=== PATIENT | female | born 1955 | race Hispanic/Latino ===

== ENCOUNTER 2017-12-24 13:41 | Inpatient (IN) | payer MEDICARE ==
[2017-12-24] MEDS ORDERED: Vancomycin 1 GM 1 GM/250 ML BAG IV SCH (14:45)
[2017-12-24 14:53] LABS: BASO % 0.2 % (0.0-2.0); HEMOGLOBIN 11.4 g/dL (11.0-16.0); LYMPH # 0.5 K/uL (1.0-4.3); LYMPH % 2.2 % (20.0-40.0); MEAN CELL VOLUME 87.5 fL (81.0-99.0); MEAN CORPUSCULAR HEMOGLOBIN 29.8 pg (27.0-31.0); MEAN CORPUSCULAR HGB CONC 34.1 g/dL (33.0-37.0); MEAN PLATELET VOLUME 8.8 fL (7.2-11.7); MONO # 0.3 K/uL (0.0-0.8); MONO % 1.2 % (0.0-10.0); NEUT % 96.4 % (50.0-75.0); PLATELET COUNT 213 K/uL (130-400); RBC 3.82 Mil/uL (3.80-5.20); RED CELL DISTRIBUTION WIDTH 16.5 % (11.5-14.5); WHITE BLOOD COUNT 23.9 K/uL (4.8-10.8)
[2017-12-24] MEDS ORDERED: Sodium Chloride 0.9% 1,000 ML IV ONE ×3 (15:09→18:32)
[2017-12-24 15:11] LABS: ALB/GLOB RATIO 1.3 (1.0-2.1); ALBUMIN 3.5 g/dL (3.5-5.0); ALT/SGPT 37 U/L (9-52); AST/SGOT 24 U/L (14-36); BLOOD UREA NITROGEN 17 mg/dL (7-17); GFR AFRICAN-AMERICAN > 60; GFR NON-AFRICAN AMERICAN > 60
[2017-12-24] MEDS ORDERED: Vancomycin 1 GM 1 GM/250 ML BAG IV ONE (15:15)
[2017-12-24] MEDS ORDERED: Sodium Chloride 0.9% 1,000 ML ONE ×2 (15:39→18:01)
[2017-12-24] MEDS ORDERED: Vancomycin 1 gm/NS 200 ml 1 GM/200 ML BAG IVPB ONE (15:45)
[2017-12-24 15:50] LABS: ANISOCYTOSIS SLIGHT; BANDS 4 % (0-2); HYPOCHROMIC SLIGHT; LYMPHOCYTE 2 % (20-40); MONOCYTE 1 % (0-10); NEUTROPHIL 93 % (50-75); PLATELET ESTIMATE NORMAL (NORMAL); POIKILOCYTOSIS SLIGHT; TOTAL CELLS COUNTED 100
--- NOTE | 2017-12-24 16:20 | C.PDOC ---
History Of Present Illness <Eulalia Mcdaniel - Last Filed: 12/24/17 18:54> <Frederick Palencia - Last Filed: 12/24/17 19:21> 62 y/o female, w/PMhx of rheumatoid arthritis, h/o MRSA of abdominal fold and mitral valve prolapse presents to the ER complaining of redness and swelling to left leg which has been present since yesterday. Fever of 103 at home, took Tylenol. Patient states that she was bit by a spider on her great toe and believes this caused the swelling. Pt also notes she cut her cuticles and ingrown nails yesterday. Denies chest pain, sob, abdominal pain, change in sensation or trauma. (Eulalia Mcdaniel) History Per: Patient History/Exam Limitations: no limitations Onset/Duration Of Symptoms: Days Current Symptoms Are (Timing): Still Present Severity: Moderate <Eulalia Mcdaniel - Last Filed: 12/24/17 18:54> <Frederick Palencia - Last Filed: 12/24/17 19:21> Time Seen by Provider: 12/24/17 13:57 Chief Complaint (Nursing): Abnormal Skin Integrity Past Medical History Reviewed: Historical Data, Nursing Documentation, Vital Signs - Medical History PMH: Mitral Valve Prolapse, Rheumatoid Arthritis Surgical History: No Surg Hx Family History: States: No Known Family Hx - Social History Hx Alcohol Use: No Hx Substance Use: No <Eulalia Mcdaniel - Last Filed: 12/24/17 18:54> Vital Signs: Last Vital Signs Temp 102.5 F H 12/24/17 17:57 Pulse 81 12/24/17 19:00 Resp 20 12/24/17 19:00 BP 87/43 L 12/24/17 19:00 Pulse Ox 94 L 12/24/17 19:08 Review Of Systems Except As Marked, All Systems Reviewed And Found Negative. Constitutional: Positive for: Fever. Negative for: Chills Skin: Positive for: Other (redness and swelling to left leg) <Eulalia Mcdaniel - Last Filed: 12/24/17 18:54> Physical Exam - Physical Exam Appears: Non-toxic, No Acute Distress Skin: Warm, Dry Head: Atraumatic, Normacephalic Eye(s): bilateral: Normal Inspection, EOMI Nose: Normal Oral Mucosa: Moist Neck: Normal ROM, Supple Chest: Symmetrical Cardiovascular: Rhythm Regular Respiratory: Normal Breath Sounds, No Rales, No Rhonchi, No Wheezing Extremity: Other (increased erythema and warmth extending from the left foot to just below the knee, multiple scabs to toes. TTP diffusely and swelling. <2 sec cap refill ) Pulses: Left Dorsalis Pedis: Decreased, Right Dorsalis Pedis: Decreased Neurological/Psych: Oriented x3, Normal Speech, Normal Sensation <Eulalia Mcdaniel - Last Filed: 12/24/17 18:54> ED Course And Treatment - Laboratory Results Result Diagrams: 12/24/17 14:50 12/24/17 14:50 ECG: Interpreted By Me, Viewed By Me ECG Rhythm: Sinus Rhythm Rate From EC O2 Sat by Pulse Oximetry: 94 (RA) Pulse Ox Interpretation: Abnormal Progress Note: Labs ordered. Patient treated with Motrin PO, IV Fluids, and Vancomycin IV. Case discussed with Dr Blum, agreed upon admission. Instructed Benji for ID. Dr Howard called, pending call back. PT continued to be evaluated in ED. Hypotension persists. IVF ordered. CAse discussed with Dr Cameron who evaluated work up , agreed upon plan and treatment. ICU called, pending call back. Case Dr Blum again, additional testing ordered. CAse endorsed to Dr Palencia pending ICU consult. <Eulalia Mcdaniel - Last Filed: 12/24/17 18:54> - Laboratory Results Result Diagrams: 12/24/17 14:50 12/24/17 14:50 Progress Note: 19:[address] howard (ID) , wants to start Zyvox 600 mg iv q 12h Reevaluation Time: 19:00 <Almaz Palenciadi - Last Filed: 12/24/17 19:21> Critical Care Time - Critical Care Note Total Time (in mins): 30 Documented critical care: time excludes all time spent performing seperately billable procedures. <SlimeValdi - Last Filed: 12/24/17 19:21> Disposition - Disposition Disposition Time: 19:08 <Eulalia Mcdaniel - Last Filed: 12/24/17 18:54> <SlimeValdi - Last Filed: 12/24/17 19:21> - Disposition Disposition: HOSPITALIZED Condition: STABLE - Clinical Impression Clinical Impression: Cellulitis, Sepsis affecting skin - PA / ELECTRONICS MAINTENANCE TECHNICIAN / Resident Statement MD/DO has reviewed & agrees with the documentation as recorded. - Scribe Statement The provider has reviewed the documentation as recorded by the Scribe <Eulalia Mcdaniel - Last Filed: 12/24/17 18:54> <Frederick Palencia - Last Filed: 12/24/17 19:21> - Scribe Statement Yanet Perez Provider Attestation All medical record entries made by the Scribe were at my direction and personally dictated by me. I have reviewed the chart and agree that the record accurately reflects my personal performance of the history, physical exam, medical decision making, and the department course for this patient. I have also personally directed, reviewed, and agree with the discharge instructions and disposition. (Eulalia Mcdaniel)
[2017-12-24 17:33] LABS: VENOUS BLOOD GAS BASE EXCESS 5.2 mmol/L (0.0-2.0); VENOUS BLOOD GAS PCO2 67 mmHg (40-60); VENOUS BLOOD GAS PO2 15 mm/Hg (30-55); VENOUS BLOOD PH 7.31 (7.32-7.43)
[2017-12-24] MEDS ORDERED: Aztreonam 2 GM in Sodium Chloride 0.9% 100 ML IVPB STA (18:43)
--- NOTE | 2017-12-24 19:21 | CP.PCM.CON ---
History of Present Illness - History of Present Illness History of Present Illness: Podiatry Consult Note: Dr. Okeefe 62 year old female patient with PMHx of mitral valve prolapse, RA was seen and evaluated at bedside left LE cellulitis. Patient is seen with her at bedside. Patient reports that she has a lot of pain to the LLE which started couple of days ago and it was progressively worsened. Patient reports that she believes she got bitten by a spider and it is related to that. Reports that she had a fever of 103 yesterday. Reports that she took tylenol which helped her with the fever. Reports that her legs are always swollen but this time it is more than usual. reports that she is very lethargic. Denies of any other pedal complains at this time. No recent N/V/C/SOB/CP/headache. PMHx: RA, mitral valve prolapse PSHx: b/l knee replacement Allergies: Amoxicillin, iodine SHx: Denies smoking, EtOH or illicit drug usage Review of Systems - Constitutional Constitutional: As Per HPI Past Patient History - Past Social History Smoking Status: Never Smoked - CARDIAC Hx Mitral Valve Prolapse: Yes - MUSCULOSKELETAL/RHEUMATOLOGICAL Hx Rheumatoid Arthritis: Yes - PSYCHIATRIC Hx Substance Use: No Meds Allergies/Adverse Reactions: Allergies Allergy/AdvReac Type Severity Reaction Status Date / Time amoxicillin [From Amoxil] Allergy Verified 12/24/17 13:54 iodine Allergy Verified 12/24/17 14:18 - Medications Medications: Current Medications Sodium Chloride (Sodium Chloride 0.9%) 1,000 mls @ 1,000 mls/hr IV .Q1H ONE Stop: 12/24/17 19:31 Last Admin: 12/24/17 18:40 Dose: 1,000 mls/hr Aztreonam 2 gm/ Sodium (Chloride) 100 mls @ 100 mls/hr IVPB STAT STA PRN Reason: Protocol Stop: 12/24/17 19:42 Physical Exam - Constitutional Appears: Well, Non-toxic, No Acute Distress - Extremities Exam Additional comments: Left LE focused exam VASC: DP/PT pulses are very faintly palpable 1/4, Cap refill time: < 3 sec to all digits, Temp gradient: hot to cool from proximal to distal, edema nted extending from the knee joint distally DERM: lateral border of the nail fold opening noted on the hallux and 2nd digit nail, erythema which extends from the knee joint distally towards the rearfoot of the left foot, temp gradient is cool on the forefoot with no erythema NEURO: protective sensation grossly intact ORTHO: pain on ROM of the LLE, pain during palpation of the calf, Homman and prett positive on the left leg - Neurological Exam Neurological exam: Alert, Oriented x3 - Psychiatric Exam Psychiatric exam: Normal Affect, Normal Mood Results - Vital Signs Recent Vital Signs: Last Vital Signs Temp 102.5 F H 12/24/17 17:57 Pulse 81 12/24/17 19:00 Resp 20 12/24/17 19:00 BP 87/43 L 12/24/17 19:00 Pulse Ox 94 L 12/24/17 19:08 - Labs Result Diagrams: 12/24/17 14:50 12/24/17 14:50 Labs: Laboratory Results - last 24 hr 12/24/17 12/24/17 12/24/17 14:50 14:50 17:28 WBC 23.9 H RBC 3.82 Hgb 11.4 Hct 33.4 L MCV 87.5 MCH 29.8 MCHC 34.1 RDW 16.5 H Plt Count 213 MPV 8.8 Neut % (Auto) 96.4 H Lymph % (Auto) 2.2 L [place] % (Auto) 1.2 Eos % (Auto) 0.0 Baso % (Auto) 0.2 Neut # (Auto) 23.0 H Lymph # (Auto) 0.5 L [place] # (Auto) 0.3 Eos # (Auto) 0.0 Baso # (Auto) 0.0 Neutrophils % (Manual) 93 H Band Neutrophils % 4 H Lymphocytes % (Manual) 2 L Monocytes % (Manual) 1 Platelet Estimate Normal Hypochromasia (manual) Slight Poikilocytosis (manual Slight Anisocytosis (manual) Slight pO2 15 L VBG pH 7.31 L VBG pCO2 67 H* VBG HCO3 26.8 VBG Total CO2 35.8 H VBG O2 Sat (Calc) 19.9 L VBG Base Excess 5.2 H VBG Potassium 3.6 Glucose 97 Lactate 2.3 H Crit Value Called To Dr mai Crit Value Called By Luciano mittal hide cooking operator Crit Value Read Back Y Blood Gas Notified Time 1732 Sodium 137 136.0 Potassium 3.4 L Chloride 96 L 97.0 L Carbon Dioxide 32 H Anion Gap 13 BUN 17 Creatinine 0.8 Est GFR ( Amer) > 60 Est GFR (Non-Af Amer) > 60 Random Glucose 117 H Calcium 9.0 Total Bilirubin 1.0 AST 24 ALT 37 Alkaline Phosphatase 88 Total Protein 6.3 Albumin 3.5 Globulin 2.7 Albumin/Globulin Ratio 1.3 Venous Blood Potassium 3.6 Assessment & Plan - Assessment and Plan (Free Text) Assessment: 62 year old female was evaluated for cellulitis vs. DVT Plan: Patient seen and evaluated Discussed patient with attending Dr. Okeefe Labs, vitals and charts reviewed - febrile; WBC @ 23.9 No breaks in the skin noted on the LLE Suggest Venous duplex and D-dimer to r/o DVT Vancomycin while in ED ID consult Thank you for the podiatry consult and allowing to take part in patient care Podiatry will follow patient while in-house - Date & Time Date: 12/24/17 Time: 16:30
[2017-12-24 20:36] LABS: VENOUS BLOOD GAS BASE EXCESS 2.1 mmol/L (0.0-2.0); VENOUS BLOOD GAS PCO2 52 mmHg (40-60); VENOUS BLOOD GAS PO2 34 mm/Hg (30-55); VENOUS BLOOD PH 7.35 (7.32-7.43)
--- NOTE | 2017-12-24 20:38 | CP.PCM.PN ---
Subjective - Date & Time of Evaluation Date of Evaluation: 12/24/17 Time of Evaluation: 20:15 - Subjective Subjective: Patient is seen and examined at bedside. H&P dictated #[id number] Objective - Vital Signs/Intake and Output Vital Signs (last 24 hours): Temp Pulse Resp BP Pulse Ox 99.8 F H 81 15 96/40 L 100 12/24/17 19:35 12/24/17 19:35 12/24/17 19:35 12/24/17 19:35 12/24/17 19:35 - Medications Medications: Current Medications Linezolid (Zyvox 600mg/300ml D5w) 600 mg in 300 mls @ 300 mls/hr IVPB Q12H JORGE A - Labs Labs: 12/24/17 14:50 12/24/17 14:50
--- NOTE | 2017-12-24 20:44 | CP.CCUPN ---
CCU Subjective - Physician Review Events Since Last Encounter (Free Text): 12/24/17 22:22 The Patient was seen and examined at the bedside, Medical records reviewed, and management issues were discussed and formulated with the house staff. Events reviewed 62 Y/O F with PMHx of Bronchial asthma, RA and mitral valve prolapse Who presented to the ER with complaint of Severe LLE pain, swelling and redness which started couple of days ago and it was progressively worsened over last 24 hours, also she had fever of 103 yesterday, she took tylenol which helped her with the fever. Patient reports that she believes she got bitten by a spider and it is related to that. In the ER Pt is Awake, comfortable in no apparent distress, however reports that she was very lethargic. Pt initially was admitted to the tele for management of Left LE cellulitis. ICU was then called for persistent hypotension, she is receiving the second liter of IVF. Labs significant for Leucocytosis, elevated lactate. Blood cultures sent, started on IV antibiotics, intially received Vancomycin by ER, ID consult called and she was initiated on IV Azactam and Zyvox Critical Care Time Spent (in minutes): 56 CCU Objective - Vital Signs / Intake & Output Vital Signs (Last 4 hours): Vital Signs Temp Pulse Resp BP Pulse Ox 12/24/17 19:35 99.8 F H 81 15 96/40 L 100 12/24/17 19:08 94 L 12/24/17 19:00 81 20 87/43 L 98 12/24/17 18:28 82 20 86/29 L 100 12/24/17 18:22 81 20 71/38 L 99 12/24/17 17:57 102.5 F H 82 20 91/46 L 99 12/24/17 17:27 77 20 95/44 L 100 12/24/17 17:14 76 29 H 96/34 L 100 12/24/17 16:51 73 20 93/41 L 91 L Intake and Output (Last 8hrs): Intake & Output 12/24/17 12/24/17 12/24/17 06:59 14:59 22:59 Weight 230 lb - Physical Exam Head: Positive for: Atraumatic, Normocephalic Pupils: Positive for: PERRL Extroacular Muscles: Positive for: EOMI Conjunctiva: Positive for: Normal. Negative for: Injected, Icteric Mouth: Positive for: Dry Neck: Positive for: Normal Range of Motion, Trachea Midline. Negative for: Meningeal Signs, MIDLINE TENDERNESS, Paraspinal Tenderness, JVD, Lymphadenopathy , Bruit, Other Respiratory/Chest: Positive for: Clear to Auscultation, Good Air Exchange. Negative for: Respiratory Distress, Accessory Muscle Use, Wheezes, Rales, Rhonchi Cardiovascular: Positive for: Regular Rate and Rhythm, Normal S1, S2, Peripheal Pulses Present. Negative for: Murmurs, Tachycardic, Bradycardic Abdomen: Positive for: Normal Bowel Sounds. Negative for: Tenderness, Distention Upper Extremity: Positive for: NORMAL PULSES. Negative for: Cyanosis, Edema, Tenderness, Swelling, Erythema Lower Extremity: Positive for: Edema, CALF TENDERNESS, NORMAL PULSES, Other ( Left Leg cellulitis, starting from the anlke up to just below the knee.). Negative for: Cyanosis, Normal ROM, Tenderness, Swelling, Erythema Neurological: Positive for: Speech Normal, Motor Func Grossly Intact Psychiatric: Positive for: Alert, Oriented x 3 - Medications Active Medications: Active Medications Generic Name Dose Route Start Last Admin Trade Name Freq PRN Reason Stop Dose Admin Linezolid 600 mg in 300 mls @ 300 mls/hr 12/24/17 20:30 Zyvox 600mg/300ml D5w IVPB Q12H JORGE A - Patient Studies Lab Studies: Lab Studies 12/24/17 12/24/17 12/24/17 Range/Units 20:30 17:28 14:50 WBC (4.8-10.8) K/uL RBC (3.80-5.20) Mil/uL Hgb (11.0-16.0) g/dL Hct (34.0-47.0) % MCV (81.0-99.0) fL MCH (27.0-31.0) pg MCHC (33.0-37.0) g/dL RDW (11.5-14.5) % Plt Count (130-400) K/uL MPV (7.2-11.7) fL Neut % (Auto) (50.0-75.0) % Lymph % (Auto) (20.0-40.0) % [place] % (Auto) (0.0-10.0) % Eos % (Auto) (0.0-4.0) % Baso % (Auto) (0.0-2.0) % Neut # (Auto) (1.8-7.0) K/uL Lymph # (Auto) (1.0-4.3) K/uL [place] # (Auto) (0.0-0.8) K/uL Eos # (Auto) (0.0-0.7) K/uL Baso # (Auto) (0.0-0.2) K/uL Neutrophils % (Manual) (50-75) % Band Neutrophils % (0-2) % Lymphocytes % (Manual) (20-40) % Monocytes % (Manual) (0-10) % Platelet Estimate (NORMAL) Hypochromasia (manual) Poikilocytosis (manual Anisocytosis (manual) pO2 34 15 L (30-55) mm/Hg VBG pH 7.35 7.31 L (7.32-7.43) VBG pCO2 52 67 H* (40-60) mmHg VBG HCO3 25.6 26.8 mmol/L VBG Total CO2 30.3 H 35.8 H (22-28) mmol/L VBG O2 Sat (Calc) 72.9 H 19.9 L (40-65) % VBG Base Excess 2.1 H 5.2 H (0.0-2.0) mmol/L VBG Potassium 3.2 L 3.6 (3.6-5.2) mmol/L Glucose 89 97 (65-105) mg/dl Lactate 1.6 2.3 H (0.7-2.1) mmol/L FiO2 21.0 % Crit Value Called To Dr mai Crit Value Called By Luciano mittal canvas marker Crit Value Read Back Y Blood Gas Notified Time 1732 Sodium 138.0 136.0 137 (132-148) mmol/L Potassium 3.4 L (3.6-5.2) mmol/L Chloride 107.0 97.0 L 96 L (98-107) mmol/L Carbon Dioxide 32 H (22-30) mmol/L Anion Gap 13 (10-20) BUN 17 (7-17) mg/dL Creatinine 0.8 (0.7-1.2) mg/dL Est GFR ( Amer) > 60 Est GFR (Non-Af Amer) > 60 Random Glucose 117 H (65-105) mg/dL Calcium 9.0 (8.6-10.4) mg/dl Total Bilirubin 1.0 (0.2-1.3) mg/dL AST 24 (14-36) U/L ALT 37 (9-52) U/L Alkaline Phosphatase 88 (38-126) U/L Total Protein 6.3 (6.3-8.3) g/dL Albumin 3.5 (3.5-5.0) g/dL Globulin 2.7 (2.2-3.9) gm/dL Albumin/Globulin Ratio 1.3 (1.0-2.1) Venous Blood Potassium 3.2 L 3.6 (3.6-5.2) mmol/L 12/24/17 Range/Units 14:50 WBC 23.9 H (4.8-10.8) K/uL RBC 3.82 (3.80-5.20) Mil/uL Hgb 11.4 (11.0-16.0) g/dL Hct 33.4 L (34.0-47.0) % MCV 87.5 (81.0-99.0) fL MCH 29.8 (27.0-31.0) pg MCHC 34.1 (33.0-37.0) g/dL RDW 16.5 H (11.5-14.5) % Plt Count 213 (130-400) K/uL MPV 8.8 (7.2-11.7) fL Neut % (Auto) 96.4 H (50.0-75.0) % Lymph % (Auto) 2.2 L (20.0-40.0) % [place] % (Auto) 1.2 (0.0-10.0) % Eos % (Auto) 0.0 (0.0-4.0) % Baso % (Auto) 0.2 (0.0-2.0) % Neut # (Auto) 23.0 H (1.8-7.0) K/uL Lymph # (Auto) 0.5 L (1.0-4.3) K/uL [place] # (Auto) 0.3 (0.0-0.8) K/uL Eos # (Auto) 0.0 (0.0-0.7) K/uL Baso # (Auto) 0.0 (0.0-0.2) K/uL Neutrophils % (Manual) 93 H (50-75) % Band Neutrophils % 4 H (0-2) % Lymphocytes % (Manual) 2 L (20-40) % Monocytes % (Manual) 1 (0-10) % Platelet Estimate Normal (NORMAL) Hypochromasia (manual) Slight Poikilocytosis (manual Slight Anisocytosis (manual) Slight pO2 (30-55) mm/Hg VBG pH (7.32-7.43) VBG pCO2 (40-60) mmHg VBG HCO3 mmol/L VBG Total CO2 (22-28) mmol/L VBG O2 Sat (Calc) (40-65) % VBG Base Excess (0.0-2.0) mmol/L VBG Potassium (3.6-5.2) mmol/L Glucose (65-105) mg/dl Lactate (0.7-2.1) mmol/L FiO2 % Crit Value Called To Crit Value Called By Crit Value Read Back Blood Gas Notified Time Sodium (132-148) mmol/L Potassium (3.6-5.2) mmol/L Chloride (98-107) mmol/L Carbon Dioxide (22-30) mmol/L Anion Gap (10-20) BUN (7-17) mg/dL Creatinine (0.7-1.2) mg/dL Est GFR ( Amer) Est GFR (Non-Af Amer) Random Glucose (65-105) mg/dL Calcium (8.6-10.4) mg/dl Total Bilirubin (0.2-1.3) mg/dL AST (14-36) U/L ALT (9-52) U/L Alkaline Phosphatase (38-126) U/L Total Protein (6.3-8.3) g/dL Albumin (3.5-5.0) g/dL Globulin (2.2-3.9) gm/dL Albumin/Globulin Ratio (1.0-2.1) Venous Blood Potassium (3.6-5.2) mmol/L Laboratory Results - last 24 hr 12/24/17 12/24/17 12/24/17 14:50 14:50 17:28 WBC 23.9 H RBC 3.82 Hgb 11.4 Hct 33.4 L MCV 87.5 MCH 29.8 MCHC 34.1 RDW 16.5 H Plt Count 213 MPV 8.8 Neut % (Auto) 96.4 H Lymph % (Auto) 2.2 L [place] % (Auto) 1.2 Eos % (Auto) 0.0 Baso % (Auto) 0.2 Neut # (Auto) 23.0 H Lymph # (Auto) 0.5 L [place] # (Auto) 0.3 Eos # (Auto) 0.0 Baso # (Auto) 0.0 Neutrophils % (Manual) 93 H Band Neutrophils % 4 H Lymphocytes % (Manual) 2 L Monocytes % (Manual) 1 Platelet Estimate Normal Hypochromasia (manual) Slight Poikilocytosis (manual Slight Anisocytosis (manual) Slight pO2 15 L VBG pH 7.31 L VBG pCO2 67 H* VBG HCO3 26.8 VBG Total CO2 35.8 H VBG O2 Sat (Calc) 19.9 L VBG Base Excess 5.2 H VBG Potassium 3.6 Glucose 97 Lactate 2.3 H FiO2 Crit Value Called To Dr mai Crit Value Called By Luciano mittal canvas marker Crit Value Read Back Y Blood Gas Notified Time 1732 Sodium 137 136.0 Potassium 3.4 L Chloride 96 L 97.0 L Carbon Dioxide 32 H Anion Gap 13 BUN 17 Creatinine 0.8 Est GFR ( Amer) > 60 Est GFR (Non-Af Amer) > 60 Random Glucose 117 H Calcium 9.0 Total Bilirubin 1.0 AST 24 ALT 37 Alkaline Phosphatase 88 Total Protein 6.3 Albumin 3.5 Globulin 2.7 Albumin/Globulin Ratio 1.3 Venous Blood Potassium 3.6 12/24/17 20:30 WBC RBC Hgb Hct MCV MCH MCHC RDW Plt Count MPV Neut % (Auto) Lymph % (Auto) [place] % (Auto) Eos % (Auto) Baso % (Auto) Neut # (Auto) Lymph # (Auto) [place] # (Auto) Eos # (Auto) Baso # (Auto) Neutrophils % (Manual) Band Neutrophils % Lymphocytes % (Manual) Monocytes % (Manual) Platelet Estimate Hypochromasia (manual) Poikilocytosis (manual Anisocytosis (manual) pO2 34 VBG pH 7.35 VBG pCO2 52 VBG HCO3 25.6 VBG Total CO2 30.3 H VBG O2 Sat (Calc) 72.9 H VBG Base Excess 2.1 H VBG Potassium 3.2 L Glucose 89 Lactate 1.6 FiO2 21.0 Crit Value Called To Crit Value Called By Crit Value Read Back Blood Gas Notified Time Sodium 138.0 Potassium Chloride 107.0 Carbon Dioxide Anion Gap BUN Creatinine Est GFR ( Amer) Est GFR (Non-Af Amer) Random Glucose Calcium Total Bilirubin AST ALT Alkaline Phosphatase Total Protein Albumin Globulin Albumin/Globulin Ratio Venous Blood Potassium 3.2 L EKG/Cardiology Studies: Cardiology / EKG Studies 12/24/17 18:43 ELECTROCARDIOGRAM Stat Comment: Mode Of Transportation: Reason For Exam: Sepsis Patient Review of Systems - Constitutional Constitutional: Fever. absent: Chills, Sweats - Cardiovascular Cardiovascular: absent: Acrocyanosis, Chest Pain, Chest Pain at Rest, Chest Pain with Activity, Claudication, Diaphoresis - Respiratory Respiratory: absent: Cough, Dyspnea, Hemoptysis, Dyspnea on Exertion, Wheezing, Snoring - Neurological Neurological: absent: Confusion, Dizziness, Numbness, Focal Weakness, Sensory Deficit, Syncope Critical Care Progress Note - Nutrition Nutrition: Nutrition Category Date Time Status Heart Healthy Diet [DIET] Diets 12/24/17 Dinner Active Assessment/Plan (1) Septic shock Current Visit: Yes Status: Acute (2) Cellulitis Current Visit: Yes Status: Acute (3) Asthma Current Visit: Yes Status: Acute (4) Mitral valve prolapse Current Visit: Yes Status: Acute - Assessment and Plan (Free Text) Assessment: Admit patient to the ICU for hemodynamic and Respiratory monitoring and Septic shock patient receiving antibiotics as per ID. Continue levophed for BP support, wean as tolerated Maintain MAP 65-75 Aggressive IV hydration with NS at 150cc/hr; Monitor UOP, Strict Is/Os Continue abx for coverage of celluitis and severe sepsis ID consult Trend WBC count, lactate Monitor fever curve, Tylenol PRN fevers Venous duplex R/O DVT PRN nebulizer treatment
[2017-12-24] MEDS ORDERED: DOPamine 400mg/250ml D5W 400 MG/250 ML BAG IV ONE (21:47)
[2017-12-24 21:52] LABS: SQUAMOUS EPITHIAL 57 /hpf (0-5); URINE BACTERIA RARE (<OCC); URINE BILIRUBIN NEGATIVE (NEGATIVE); URINE BLOOD NEGATIVE (NEGATIVE); URINE CLARITY Hazy (Clear); URINE COLOR Amber (YELLOW); URINE GLUCOSE (UA) NORMAL (Normal); URINE LEUKOCYTE ESTERASE TRACE Leu/uL (Negative); URINE PROTEIN 1+ mg/dL (NEGATIVE); URINE UROBILINOGEN NORMAL mg/dL (0.2-1.0)
[2017-12-24] MEDS ORDERED: DOPamine 400mg/250ml D5W 400 MG/250 ML BAG IV PRN (22:03)
[2017-12-24] MEDS: Linezolid 600 mg in D5W 300 ml 600 MG/300 ML BAG IVPB SCH (22:30)
[2017-12-24] MEDS: Sodium Chloride 0.9% 1,000 ML IV SCH (22:57)
[2017-12-25] MEDS: Potassium Chloride 20 mEq/15 ml LIQ UD PO SCH ×2 (00:12→04:31)
[2017-12-25 00:13] LABS: INR 1.9; PROTHROMBIN TIME 20.5 SECONDS (9.7-12.2)
[2017-12-25 00:23] LABS: TROPONIN I 0.037 ng/mL (0.00-0.120)
--- NOTE | 2017-12-25 00:24 | PCM.PROC ---
Procedures Attestation:: I certify that I have explained the specified Operation(s) or Procedure(s), risks, benefits and reasonable alternatives to the Patient and/or other person responsible. The opportunity was given to ask questions and all questions answered - Central Line Placement Internal Jugular Triple Lumen Catheter Aseptic technique was employed throughout the procedure: Hand Hygiene done prior to procedure, Full sterile barriers (mask, hair cover, sterile gown, sterile gloves), Full body sterile drape, Chloraprep Antiseptic: 30 second prep for IJ or SC sites, Chloraprep Antiseptic: 2 minute prep for Femoral CVP Time Out Performed: Yes Pt. Placed on Pulse Ox Monitor: Yes Central Line Prep: Chlorhexidine-Alcohol Combination Local Anesthesia Used: Lidocaine 1% Ultrasound Used for Placement: Yes Central Line Lumen Inserted: triple Central Line Length: 16 cm Post Procedure: Sutured in Place, Good Blood Return, All Ports Aspirated, Flushed, Capped, Sterile Dressing Applied Secured by: Suture Post procedure dressing: Gauze, Chlorhexidine disc (Biopatch) Post Procedure X-Ray: Yes Patient Tolerated Procedure: No Complications
[2017-12-25 06:32] LABS: BASO % 0.1 % (0.0-2.0); HEMOGLOBIN 10.6 g/dL (11.0-16.0); LYMPH # 0.3 K/uL (1.0-4.3); LYMPH % 1.4 % (20.0-40.0); MEAN CELL VOLUME 89.1 fL (81.0-99.0); MEAN CORPUSCULAR HEMOGLOBIN 29.5 pg (27.0-31.0); MEAN CORPUSCULAR HGB CONC 33.1 g/dL (33.0-37.0); MEAN PLATELET VOLUME 8.7 fL (7.2-11.7); MONO # 0.7 K/uL (0.0-0.8); MONO % 3.3 % (0.0-10.0); NEUT # 21.2 K/uL (1.8-7.0); NEUT % 95.2 % (50.0-75.0); PLATELET COUNT 193 K/uL (130-400); RED CELL DISTRIBUTION WIDTH 16.7 % (11.5-14.5); WHITE BLOOD COUNT 22.3 K/uL (4.8-10.8)
--- NOTE | 2017-12-25 06:51 | PCM.SEPTIC ---
Sepsis Progress Note - Reassessment Type Date of Evaluation: 12/25/17 Time of Evaluation: 00:00 Reassessment Type: Non-invasive reassessment - Non Invasive Reassessment Were the most recent vital sign reviewed: Yes Vital Sign (Latest): Temp Pulse Resp BP Pulse Ox 98.4 F 88 28 H 129/56 L 100 12/25/17 04:00 12/25/17 05:50 12/25/17 05:50 12/25/17 05:20 12/25/17 05:50 Cardiovascular: Yes: Regular Rate, Rhythm, Chest Non Tender, Tachycardia. No: Edema, Gallop, JVD, Murmur, Bradycardia, Ectopy, Friction Rub Respiratory: Yes: Normal Breath Sounds Capillary Refill: Normal (Less than 2 sec) Pulses: Normal Radial, Normal Dorsalis Pedis, Normal Posterior Tibialis Skin: Warm, Dry - Invasive Reassessment (complete 2 of 4) Was a Central Venous Pressure Measurement obtained within 6 Hours after the presentation of septic shock: No Was a passive leg raise performed or was a fluid challenge performed within 6 hrs of the initial fluid bolus: Yes Passive Leg Raise Result: Positive Fluid Challenge performed: Yes
[2017-12-25 06:52] LABS: LDL CHOLESTEROL 41 mg/dL (0-129)
[2017-12-25 06:54] LABS: ALB/GLOB RATIO 1.1 (1.0-2.1); ALBUMIN 2.9 g/dL (3.5-5.0); ALT/SGPT 62 U/L (9-52); AST/SGOT 58 U/L (14-36); BLOOD UREA NITROGEN 21 mg/dL (7-17); CALCIUM 7.6 mg/dl (8.6-10.4); GFR AFRICAN-AMERICAN > 60; GFR NON-AFRICAN AMERICAN > 60; HDL CHOLESTEROL 28 mg/dL (30-70)
[2017-12-25 07:14] LABS: TROPONIN I 0.066 ng/mL (0.00-0.120)
[2017-12-25 08:31] LABS: BANDS 21 % (0-2); LYMPHOCYTE 2 % (20-40); MONOCYTE 1 % (0-10); NEUTROPHIL 76 % (50-75); PLATELET ESTIMATE NORMAL (NORMAL); TOTAL CELLS COUNTED 100
[2017-12-25 08:32] LABS: ANISOCYTOSIS SLIGHT; HYPOCHROMIC SLIGHT; POIKILOCYTOSIS SLIGHT
[2017-12-25] MEDS: Linezolid 600 mg in D5W 300 ml 600 MG/300 ML BAG IVPB SCH ×2 (09:08→20:03)
[2017-12-25] MEDS: Pantoprazole 40 mg EC Tab PO SCH (09:43)
[2017-12-25] MEDS: Magnesium Sulfate 1 gm in D5W 1 GM/100 ML BAG IVPB SCH ×2 (09:57→10:30)
--- NOTE | 2017-12-25 10:04 | RAD ---
Date of service: 12/24/2017 PROCEDURE: CHEST RADIOGRAPH, 1 VIEW HISTORY: sepsis COMPARISON: None available. FINDINGS: LUNGS: Clear. PLEURA: No pneumothorax or pleural fluid seen. CARDIOVASCULAR: Cardiomegaly. No evidence of acute, significant cardiovascular disease. OSSEOUS STRUCTURES: No significant abnormalities. VISUALIZED UPPER ABDOMEN: Normal. OTHER FINDINGS: None. IMPRESSION: No active disease.
--- NOTE | 2017-12-25 10:06 | RAD ---
Date of service: 12/25/2017 PROCEDURE: CHEST RADIOGRAPH, 1 VIEW HISTORY: POST TLC INSERTION COMPARISON: December 24, 2017. FINDINGS: LUNGS: Clear. PLEURA: No pneumothorax or pleural fluid seen. CARDIOVASCULAR: S/p TLC catheter insertion via right internal jugular approach. Catheter in satisfactory position within 2 cm of the cavoatrial junction. OSSEOUS STRUCTURES: No significant abnormalities. VISUALIZED UPPER ABDOMEN: Normal. OTHER FINDINGS: None. IMPRESSION: Venous access catheter in satisfactory position. No adverse findings, no pneumothorax.
--- NOTE | 2017-12-25 10:10 | CP.PCM.PN ---
Subjective - Date & Time of Evaluation Date of Evaluation: 12/25/17 Time of Evaluation: 09:45 - Subjective Subjective: Progress note dictated #[id number] Objective - Vital Signs/Intake and Output Vital Signs (last 24 hours): Temp Pulse Resp BP Pulse Ox 98.4 F 82 18 114/49 L 99 12/25/17 04:00 12/25/17 07:20 12/25/17 07:20 12/25/17 07:20 12/25/17 07:20 Intake and Output: 12/25/17 12/25/17 06:59 18:59 Intake Total 1340 Output Total 450 Balance 890 - Medications Medications: Current Medications Acetaminophen (Tylenol 325mg Tab) 650 mg PO Q6 PRN PRN Reason: Pain, Mild (1-3) Last Admin: 12/25/17 04:29 Dose: 650 mg Heparin Sodium (Porcine) (Heparin) 5,000 units SC Q8 JORGE A Last Admin: 12/25/17 04:59 Dose: 5,000 units Linezolid (Zyvox 600mg/300ml D5w) 600 mg in 300 mls @ 300 mls/hr IVPB Q12H ON LICENSE OF [facility] Last Admin: 12/25/17 09:08 Dose: 300 mls/hr Sodium Chloride (Sodium Chloride 0.9%) 1,000 mls @ 100 mls/hr IV .Q10H JORGE A Last Admin: 12/24/17 22:57 Dose: 100 mls/hr Norepinephrine Bitartrate 4 mg (/ Sodium Chloride) 254 mls @ 15.24 mls/hr IV .[id number] PRN; Protocol; 4 MCG/MIN PRN Reason: TITRATE PER MD ORDER Last Admin: 12/25/17 00:15 Dose: 4 mcg/min, 15.24 mls/hr Magnesium Sulfate/Dextrose (Magnesium Sulfate 1 Gm/100 Ml D5w) 1 gm in 100 mls @ 200 mls/hr IVPB Q30M JORGE A Stop: 12/25/17 10:29 Aztreonam 1 gm/ Sodium (Chloride) 100 mls @ 200 mls/hr IVPB Q12 JORGE A PRN Reason: Protocol Pantoprazole Sodium (Protonix Ec Tab) 40 mg PO DAILY ON LICENSE OF [facility] Last Admin: 12/25/17 09:43 Dose: 40 mg - Labs Labs: 12/25/17 06:24 12/25/17 06:24 PT 20.5 SECONDS (9.7-12.2) H 12/24/17 23:26 INR 1.9 12/24/17 23:26 APTT 29 SECONDS (21-34) 12/24/17 23:26
--- NOTE | 2017-12-25 10:22 | HP ---
CHIEF COMPLAINT: Left leg swelling since last night, fever up to 103, generalized body aches and unable to move the left leg since last night, history of spider bite about 2 days ago in the same leg, but on the great toe. HISTORY OF PRESENT ILLNESS: Ms. Wallace is a 62-year-old female with past medical history of rheumatoid arthritis, osteoarthritis, mitral valve prolapse, GERD, who has been following up with , primary care physician and Dr. 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 The swelling and redness progressively got worse, which made them come to the emergency room. As per the patient and patient's who is at bedside, she has been in her usual health until yesterday night, even yesterday afternoon, she attended a jacob of a family member, and she had to walk few blocks up the hill. She walked without any difficulty, and she was fine up until last night when she noticed fever with chills and temperature was 103 and noticed left leg swelling, got worse since last night. The patient had history of MRSA with cellulitis about 4 years ago, also had spider bite, and she was admitted to [facility], and she was treated at the hospital about 4 years ago. She denies any headache, dizziness. Denies any chest pain, shortness of breath, or wheezing. Denies any nausea, vomiting, abdominal pain, diarrhea, or constipation. Denies any urinary complaints. Denies any other neurologic symptoms. PAST MEDICAL HISTORY: Rheumatoid arthritis, osteoarthritis, mitral valve prolapse, and GERD. PAST SURGICAL HISTORY: Underwent bilateral knee replacement in 2000 and revision was done in 2006. FAMILY HISTORY: Coronary artery disease in father and non-Hodgkin's lymphoma in mother. PERSONAL HISTORY: She is , living with her , having 3 children. 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 SOCIAL HISTORY: Denies any smoking, alcohol, or drug abuse. ALLERGIES: SHE IS ALLERGIC TO AMOXICILLIN AND IODINE. FROM AMOXICILLIN, SHE CLAIMS THAT SHE DEVELOPED BLISTERS ALL OVER THE BODY. HOME MEDICATIONS: Include Lyrica 75 mg daily, folic acid 1 mg daily, Ultram 50 mg daily, Orencia, methotrexate, and Xanax 0.5 mg p.o. as needed. REVIEW OF SYSTEMS: As described in history of present illness. All other systems reviewed and were found to be negative. PHYSICAL EXAMINATION: GENERAL: A middle-aged obese female, lying in bed, in no acute distress. VITAL SIGNS: Blood pressures running low in low 70s to low 90s systolic, pulse is 74, respirations 18, O2 saturation is 98% on room air, T-max is 102.9 in the emergency room. HEENT: Pupils equal, round, reacting to light and accommodation. Extraocular muscles intact. No icterus, no pallor. No oral thrush. No pharyngeal congestion. NECK: Supple. No JVD. LUNGS: Bilateral vesicular breath sounds. No wheezing. No rhonchi. CVS: S1 and S2 present, regular. ABDOMEN: Soft, nontender. Bowel sounds present. No guarding. No rigidity. No rebound tenderness noted. 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 No focal deficits noted. EXTREMITIES: Left leg swelling from below knee, up to the above ankle, erythema all around the leg, warm to touch, tender to touch, and there is a bite tej in the greater toe of the left leg and a pustular lesion on the third toe noted. Right leg has palpable pulses. No swelling. LABORATORIES: Done from the Ed; WBC 23.9, hemoglobin 11.4, hematocrit 33.4, platelets 213. Sodium 137, potassium 3.4, chloride 96, bicarb 32, BUN 17, creatinine 0.8, glucose 117, calcium 9.0. Total bilirubin 1.0, AST 24, ALT 37, alkaline phosphatase 88. Total protein 6.3, albumin 3.5. UA: Specific gravity 1.028, pH 5.0, protein 1+, wbc 8, rbc 4, squamous epithelial cells 57, hyalin casts 3 to 5. Chest x-ray, single view, no infiltrate noted. EKG not done yet. Tibia and fibula x-ray not done yet. ASSESSMENT AND PLAN: A middle-aged obese female with prior history of methicillin-resistant Staphylococcus aureus, from the wound and cellulitis about 4 years ago, came in with complaints of a spider bite about 2 days ago and started noticing left lower extremity redness, swelling, progressively getting worse with fever, chills, and rigors in the emergency department. The patient was found to be having temperature up to 103, and despite multiple fluid boluses, the patient's blood pressure is very low with elevated WBC count and the patient is being admitted for further management. 1. Left leg cellulitis. Rule out from bug bite. 2. Possible sepsis in a patient with hypotension, elevated WBC count and slightly elevated lactate. 3. History of rheumatoid arthritis. 4. History of osteoarthritis. 5. History of mitral valve prolapse, stable. 6. History of asthma, stable. 7. History of gastroesophageal reflux disease, stable. PLAN: The patient is being admitted to Intensive Care Unit. The patient received multiple fluid boluses, monitor blood pressure closely. We will consider pressors, if no improvement with fluid resuscitation. The patient received vancomycin in the ED. We will give Azactam 2 gm pending all the culture results. We will obtain ID consult with Dr. Forman and Critical Care Consult with Dr. Proctor. We will do the lower extremity venous Doppler to rule out any DVT. We will check CPK level, magnesium, phosphorus, and we will repeat labs in a.m. We will give DVT and GI prophylaxis. We will supplement potassium. We will consider CT of the leg, but THE PATIENT IS ALLERGIC TO IODINE. Discussed with the patient's , patient, and patient's son who were all at bedside, clarified all their questions and concerns. We will add further recommendation as her clinical course progresses. Nando Blum MD
[2017-12-25] MEDS ORDERED: Potassium Phosphate 15 MMOLE in Sodium Chloride 0.9% 250 ML IV ONE (10:24)
--- NOTE | 2017-12-25 10:36 | RAD ---
Date of service: 12/24/2017 PROCEDURE: Radiographs of the left tibia and fibula. HISTORY: swelling left leg COMPARISON: None available. TECHNIQUE: Frontal and lateral views obtained. FINDINGS: BONES: Prior right knee arthroplasty. No periprosthetic fracture. JOINT SPACES: Unremarkable. OTHER FINDINGS: Soft-tissue swelling in the anterior proximal pretibial region. IMPRESSION: Nonspecific soft tissue swelling in the anterior proximal pretibial region. Prior total right knee arthroplasty. No evidence of periprosthetic lucency.
[2017-12-25] MEDS: Aztreonam 1 GM in Sodium Chloride 0.9% 100 ML IVPB SCH ×2 (10:56→21:00)
--- NOTE | 2017-12-25 12:16 | CP.CCUPN ---
<Lydia Tyson - Last Filed: 12/25/17 14:34> CCU Subjective - Physician Review Subjective (Free Text): 12/25/17 12:08 62 yo F w PMHx of asthma, RA, HTN, and MVP presented to ED 12/24 w/ complaints of LLE increasing pain, redness, edema and fevers x2 days, due to a suspected spider bite. Pt initially admitted to tele for LLE cellulitis management, however was transfered to ICU due to hemodynamic instability requiring pressure support. Pt found to be in septic shock with management including pressure support, IV Abx, IVF through R IJ(12/24); no acute events ON CCU Objective - Vital Signs / Intake & Output Vital Signs (Last 4 hours): Vital Signs Temp Pulse Resp BP Pulse Ox 12/25/17 12:00 98.2 F 99 12/25/17 10:00 77 17 100 12/25/17 09:20 81 27 H 121/58 L 100 12/25/17 09:00 78 14 100 12/25/17 08:20 80 14 118/52 L 100 Intake and Output (Last 8hrs): Intake & Output 12/24/17 12/25/17 12/25/17 22:59 06:59 14:59 Intake Total 7 1333 690 Output Total 450 Balance 7 883 690 Intake: IV 7 43 Intake, IV Amount 810 690 Right Internal Jugular 110 90 Right Internal Jugular 700 600 Proximal Oral 480 Output: Urine 450 Urine, Voided 450 Other: # Voids Urine, Voided 0 1 # Bowel Movements 1 - Physical Exam Head: Positive for: Atraumatic, Normocephalic Pupils: Positive for: PERRL Extroacular Muscles: Positive for: EOMI Conjunctiva: Positive for: Normal. Negative for: Injected, Icteric Mouth: Positive for: Dry Neck: Positive for: Normal Range of Motion, Trachea Midline. Negative for: Meningeal Signs, MIDLINE TENDERNESS, Paraspinal Tenderness, JVD, Lymphadenopathy , Bruit, Other Respiratory/Chest: Positive for: Clear to Auscultation, Good Air Exchange. Negative for: Respiratory Distress, Accessory Muscle Use, Wheezes, Rales, Rhonchi Cardiovascular: Positive for: Regular Rate and Rhythm, Normal S1, S2, Peripheal Pulses Present. Negative for: Murmurs, Tachycardic, Bradycardic Abdomen: Positive for: Normal Bowel Sounds. Negative for: Tenderness, Distention Upper Extremity: Positive for: NORMAL PULSES. Negative for: Cyanosis, Edema, Tenderness, Swelling, Erythema Lower Extremity: Positive for: Edema (left), NORMAL PULSES, Tenderness (TTP from mid thigh down on left), Temperature Abnormalties (left warm to touch ). Negative for: Cyanosis, Normal ROM Neurological: Positive for: Speech Normal, Motor Func Grossly Intact Psychiatric: Positive for: Alert, Oriented x 3 - Medications Active Medications: Active Medications Generic Name Dose Route Start Last Admin Trade Name Freq PRN Reason Stop Dose Admin Acetaminophen 650 mg 12/25/17 00:36 12/25/17 04:29 Tylenol 325mg Tab PO 650 mg Q6 PRN Administration Pain, Mild (1-3) Heparin Sodium (Porcine) 5,000 units 12/25/17 06:00 12/25/17 04:59 Heparin SC 5,000 units Q8 JORGE A Administration Linezolid 600 mg in 300 mls @ 300 mls/hr 12/24/17 20:30 12/25/17 09:08 Zyvox 600mg/300ml D5w IVPB 300 mls/hr Q12H JORGE A Administration Sodium Chloride 1,000 mls @ 100 mls/hr 12/24/17 20:45 12/24/17 22:57 Sodium Chloride 0.9% IV 100 mls/hr .Q10H JORGE A Administration Norepinephrine Bitartrate 4 mg 254 mls @ 15.24 mls/hr 12/24/17 23:35 00:15 / Sodium Chloride IV 4 mcg/min .[id number] PRN 15.24 mls/hr TITRATE PER MD ORDER Administration Protocol 4 MCG/MIN Aztreonam 1 gm/ Sodium 100 mls @ 200 mls/hr 12/25/17 10:00 12/25/17 10:56 Chloride IVPB 200 mls/hr Q12 JORGE A Administration Protocol Potassium Phosphate 15 mmole/ 255 mls @ 63 mls/hr 12/25/17 10:24 Sodium Chloride IV 12/25/17 14:22 ONCE ONE Pantoprazole Sodium 40 mg 12/25/17 10:00 12/25/17 09:43 Protonix Ec Tab PO 40 mg DAILY JORGE A Administration - Patient Studies Lab Studies: Microbiology Studies 12/24/17 14:15 Blood Culture - Preliminary Blood Gram Positive Cocci Gram Stain - Final 12/24/17 21:37 Urine Culture - Preliminary Urine,Catheterized Gram Negative Rowdy Lab Studies 12/25/17 12/25/17 12/25/17 Range/Units 06:24 06:24 06:24 WBC (4.8-10.8) K/uL RBC (3.80-5.20) Mil/uL Hgb (11.0-16.0) g/dL Hct (34.0-47.0) % MCV (81.0-99.0) fL MCH (27.0-31.0) pg MCHC (33.0-37.0) g/dL RDW (11.5-14.5) % Plt Count (130-400) K/uL MPV (7.2-11.7) fL Neut % (Auto) (50.0-75.0) % Lymph % (Auto) (20.0-40.0) % Dare % (Auto) (0.0-10.0) % Eos % (Auto) (0.0-4.0) % Baso % (Auto) (0.0-2.0) % Neut # (Auto) (1.8-7.0) K/uL Lymph # (Auto) (1.0-4.3) K/uL Dare # (Auto) (0.0-0.8) K/uL Eos # (Auto) (0.0-0.7) K/uL Baso # (Auto) (0.0-0.2) K/uL Neutrophils % (Manual) (50-75) % Band Neutrophils % (0-2) % Lymphocytes % (Manual) (20-40) % Monocytes % (Manual) (0-10) % Platelet Estimate (NORMAL) Hypochromasia (manual) Poikilocytosis (manual Anisocytosis (manual) ESR (0-20) mm/hr PT (9.7-12.2) SECONDS INR APTT (21-34) SECONDS D-Dimer, Quantitative (0-243) ng/mlDDU pO2 (30-55) mm/Hg VBG pH (7.32-7.43) VBG pCO2 (40-60) mmHg VBG HCO3 mmol/L VBG Total CO2 (22-28) mmol/L VBG O2 Sat (Calc) (40-65) % VBG Base Excess (0.0-2.0) mmol/L VBG Potassium (3.6-5.2) mmol/L Glucose (65-105) mg/dl Lactate (0.7-2.1) mmol/L FiO2 % Crit Value Called To Crit Value Called By Crit Value Read Back Blood Gas Notified Time Sodium 140 (132-148) mmol/L Potassium 3.6 (3.6-5.2) mmol/L Chloride 106 (98-107) mmol/L Carbon Dioxide 26 (22-30) mmol/L Anion Gap 11 (10-20) BUN 21 H (7-17) mg/dL Creatinine 0.8 (0.7-1.2) mg/dL Est GFR ( Amer) > 60 Est GFR (Non-Af Amer) > 60 Random Glucose 96 (65-105) mg/dL Hemoglobin A1c 5.5 (4.2-6.5) % Calcium 7.6 L (8.6-10.4) mg/dl Phosphorus 2.4 L (2.5-4.5) mg/dL Magnesium 1.3 L (1.6-2.3) mg/dL Total Bilirubin 1.3 (0.2-1.3) mg/dL AST 58 H D (14-36) U/L ALT 62 H D (9-52) U/L Alkaline Phosphatase 94 (38-126) U/L Total Creatine Kinase (30-135) U/L Troponin I 0.0660 (0.00-0.120) ng/mL C-Reactive Protein (0.0-9.9) mg/L Total Protein 5.5 L (6.3-8.3) g/dL Albumin 2.9 L (3.5-5.0) g/dL Globulin 2.6 (2.2-3.9) gm/dL Albumin/Globulin Ratio 1.1 (1.0-2.1) Triglycerides 87 (0-149) mg/dL Cholesterol 105 (0-199) mg/dL LDL Cholesterol Direct 41 (0-129) mg/dL HDL Cholesterol 28 L (30-70) mg/dL Procalcitonin (0.19-0.49) NG/ML Venous Blood Potassium (3.6-5.2) mmol/L Urine Color (YELLOW) Urine Clarity (Clear) Urine pH (5.0-8.0) Ur Specific [place] (1.003-1.030) Urine Protein (NEGATIVE) mg/dL Urine Glucose (UA) (Normal) mg/dL Urine Ketones (NEGATIVE) mg/dL Urine Blood (NEGATIVE) Urine Nitrate (NEGATIVE) Urine Bilirubin (NEGATIVE) Urine Urobilinogen (0.2-1.0) mg/dL Ur Leukocyte Esterase (Negative) [place]/uL Urine WBC (Auto) (0-5) /hpf Urine RBC (Auto) (0-3) /hpf Ur Squamous Epith Cells (0-5) /hpf Urine Bacteria (<OCC) Hyaline Casts (0-2) /lpf 12/25/17 12/24/17 12/24/17 Range/Units 06:24 23:27 23:26 WBC 22.3 H (4.8-10.8) K/uL RBC 3.60 L (3.80-5.20) Mil/uL Hgb 10.6 L (11.0-16.0) g/dL Hct 32.1 L (34.0-47.0) % MCV 89.1 (81.0-99.0) fL MCH 29.5 (27.0-31.0) pg MCHC 33.1 (33.0-37.0) g/dL RDW 16.7 H (11.5-14.5) % Plt Count 193 (130-400) K/uL MPV 8.7 (7.2-11.7) fL Neut % (Auto) 95.2 H (50.0-75.0) % Lymph % (Auto) 1.4 L (20.0-40.0) % Dare % (Auto) 3.3 (0.0-10.0) % Eos % (Auto) 0.0 (0.0-4.0) % Baso % (Auto) 0.1 (0.0-2.0) % Neut # (Auto) 21.2 H (1.8-7.0) K/uL Lymph # (Auto) 0.3 L (1.0-4.3) K/uL Dare # (Auto) 0.7 (0.0-0.8) K/uL Eos # (Auto) 0.0 (0.0-0.7) K/uL Baso # (Auto) 0.0 (0.0-0.2) K/uL Neutrophils % (Manual) 76 H (50-75) % Band Neutrophils % 21 H* (0-2) % Lymphocytes % (Manual) 2 L (20-40) % Monocytes % (Manual) 1 (0-10) % Platelet Estimate Normal (NORMAL) Hypochromasia (manual) Slight Poikilocytosis (manual Slight Anisocytosis (manual) Slight ESR (0-20) mm/hr PT (9.7-12.2) SECONDS INR APTT (21-34) SECONDS D-Dimer, Quantitative (0-243) ng/mlDDU pO2 (30-55) mm/Hg VBG pH (7.32-7.43) VBG pCO2 (40-60) mmHg VBG HCO3 mmol/L VBG Total CO2 (22-28) mmol/L VBG O2 Sat (Calc) (40-65) % VBG Base Excess (0.0-2.0) mmol/L VBG Potassium (3.6-5.2) mmol/L Glucose (65-105) mg/dl Lactate (0.7-2.1) mmol/L FiO2 % Crit Value Called To Crit Value Called By Crit Value Read Back Blood Gas Notified Time Sodium (132-148) mmol/L Potassium (3.6-5.2) mmol/L Chloride (98-107) mmol/L Carbon Dioxide (22-30) mmol/L Anion Gap (10-20) BUN (7-17) mg/dL Creatinine (0.7-1.2) mg/dL Est GFR ( Amer) Est GFR (Non-Af Amer) Random Glucose (65-105) mg/dL Hemoglobin A1c (4.2-6.5) % Calcium (8.6-10.4) mg/dl Phosphorus (2.5-4.5) mg/dL Magnesium (1.6-2.3) mg/dL Total Bilirubin (0.2-1.3) mg/dL AST (14-36) U/L ALT (9-52) U/L Alkaline Phosphatase (38-126) U/L Total Creatine Kinase 105 (30-135) U/L Troponin I 0.0370 (0.00-0.120) ng/mL C-Reactive Protein 252.40 H (0.0-9.9) mg/L Total Protein (6.3-8.3) g/dL Albumin (3.5-5.0) g/dL Globulin (2.2-3.9) gm/dL Albumin/Globulin Ratio (1.0-2.1) Triglycerides (0-149) mg/dL Cholesterol (0-199) mg/dL LDL Cholesterol Direct (0-129) mg/dL HDL Cholesterol (30-70) mg/dL Procalcitonin (0.19-0.49) NG/ML Venous Blood Potassium (3.6-5.2) mmol/L Urine Color (YELLOW) Urine Clarity (Clear) Urine pH (5.0-8.0) Ur Specific [place] (1.003-1.030) Urine Protein (NEGATIVE) mg/dL Urine Glucose (UA) (Normal) mg/dL Urine Ketones (NEGATIVE) mg/dL Urine Blood (NEGATIVE) Urine Nitrate (NEGATIVE) Urine Bilirubin (NEGATIVE) Urine Urobilinogen (0.2-1.0) mg/dL Ur Leukocyte Esterase (Negative) [place]/uL Urine WBC (Auto) (0-5) /hpf Urine RBC (Auto) (0-3) /hpf Ur Squamous Epith Cells (0-5) /hpf Urine Bacteria (<OCC) Hyaline Casts (0-2) /lpf 12/24/17 12/24/17 12/24/17 Range/Units 23:26 23:26 23:26 WBC (4.8-10.8) K/uL RBC (3.80-5.20) Mil/uL Hgb (11.0-16.0) g/dL Hct (34.0-47.0) % MCV (81.0-99.0) fL MCH (27.0-31.0) pg MCHC (33.0-37.0) g/dL RDW (11.5-14.5) % Plt Count (130-400) K/uL MPV (7.2-11.7) fL Neut % (Auto) (50.0-75.0) % Lymph % (Auto) (20.0-40.0) % Dare % (Auto) (0.0-10.0) % Eos % (Auto) (0.0-4.0) % Baso % (Auto) (0.0-2.0) % Neut # (Auto) (1.8-7.0) K/uL Lymph # (Auto) (1.0-4.3) K/uL Dare # (Auto) (0.0-0.8) K/uL Eos # (Auto) (0.0-0.7) K/uL Baso # (Auto) (0.0-0.2) K/uL Neutrophils % (Manual) (50-75) % Band Neutrophils % (0-2) % Lymphocytes % (Manual) (20-40) % Monocytes % (Manual) (0-10) % Platelet Estimate (NORMAL) Hypochromasia (manual) Poikilocytosis (manual Anisocytosis (manual) ESR 42 H (0-20) mm/hr PT (9.7-12.2) SECONDS INR APTT (21-34) SECONDS D-Dimer, Quantitative (0-243) ng/mlDDU pO2 (30-55) mm/Hg VBG pH (7.32-7.43) VBG pCO2 (40-60) mmHg VBG HCO3 mmol/L VBG Total CO2 (22-28) mmol/L VBG O2 Sat (Calc) (40-65) % VBG Base Excess (0.0-2.0) mmol/L VBG Potassium (3.6-5.2) mmol/L Glucose (65-105) mg/dl Lactate (0.7-2.1) mmol/L FiO2 % Crit Value Called To Crit Value Called By Crit Value Read Back Blood Gas Notified Time Sodium (132-148) mmol/L Potassium (3.6-5.2) mmol/L Chloride (98-107) mmol/L Carbon Dioxide (22-30) mmol/L Anion Gap (10-20) BUN (7-17) mg/dL Creatinine (0.7-1.2) mg/dL Est GFR ( Amer) Est GFR (Non-Af Amer) Random Glucose (65-105) mg/dL Hemoglobin A1c (4.2-6.5) % Calcium (8.6-10.4) mg/dl Phosphorus 3.0 (2.5-4.5) mg/dL Magnesium 1.3 L (1.6-2.3) mg/dL Total Bilirubin (0.2-1.3) mg/dL AST (14-36) U/L ALT (9-52) U/L Alkaline Phosphatase (38-126) U/L Total Creatine Kinase (30-135) U/L Troponin I (0.00-0.120) ng/mL C-Reactive Protein (0.0-9.9) mg/L Total Protein (6.3-8.3) g/dL Albumin (3.5-5.0) g/dL Globulin (2.2-3.9) gm/dL Albumin/Globulin Ratio (1.0-2.1) Triglycerides (0-149) mg/dL Cholesterol (0-199) mg/dL LDL Cholesterol Direct (0-129) mg/dL HDL Cholesterol (30-70) mg/dL Procalcitonin 7.66 H (0.19-0.49) NG/ML Venous Blood Potassium (3.6-5.2) mmol/L Urine Color (YELLOW) Urine Clarity (Clear) Urine pH (5.0-8.0) Ur Specific [place] (1.003-1.030) Urine Protein (NEGATIVE) mg/dL Urine Glucose (UA) (Normal) mg/dL Urine Ketones (NEGATIVE) mg/dL Urine Blood (NEGATIVE) Urine Nitrate (NEGATIVE) Urine Bilirubin (NEGATIVE) Urine Urobilinogen (0.2-1.0) mg/dL Ur Leukocyte Esterase (Negative) [place]/uL Urine WBC (Auto) (0-5) /hpf Urine RBC (Auto) (0-3) /hpf Ur Squamous Epith Cells (0-5) /hpf Urine Bacteria (<OCC) Hyaline Casts (0-2) /lpf 12/24/17 12/24/17 12/24/17 Range/Units 23:26 21:37 20:30 WBC (4.8-10.8) K/uL RBC (3.80-5.20) Mil/uL Hgb (11.0-16.0) g/dL Hct (34.0-47.0) % MCV (81.0-99.0) fL MCH (27.0-31.0) pg MCHC (33.0-37.0) g/dL RDW (11.5-14.5) % Plt Count (130-400) K/uL MPV (7.2-11.7) fL Neut % (Auto) (50.0-75.0) % Lymph % (Auto) (20.0-40.0) % Dare % (Auto) (0.0-10.0) % Eos % (Auto) (0.0-4.0) % Baso % (Auto) (0.0-2.0) % Neut # (Auto) (1.8-7.0) K/uL Lymph # (Auto) (1.0-4.3) K/uL Dare # (Auto) (0.0-0.8) K/uL Eos # (Auto) (0.0-0.7) K/uL Baso # (Auto) (0.0-0.2) K/uL Neutrophils % (Manual) (50-75) % Band Neutrophils % (0-2) % Lymphocytes % (Manual) (20-40) % Monocytes % (Manual) (0-10) % Platelet Estimate (NORMAL) Hypochromasia (manual) Poikilocytosis (manual Anisocytosis (manual) ESR (0-20) mm/hr PT 20.5 H (9.7-12.2) SECONDS INR 1.9 APTT 29 (21-34) SECONDS D-Dimer, Quantitative 1580 H (0-243) ng/mlDDU pO2 34 (30-55) mm/Hg VBG pH 7.35 (7.32-7.43) VBG pCO2 52 (40-60) mmHg VBG HCO3 25.6 mmol/L VBG Total CO2 30.3 H (22-28) mmol/L VBG O2 Sat (Calc) 72.9 H (40-65) % VBG Base Excess 2.1 H (0.0-2.0) mmol/L VBG Potassium 3.2 L (3.6-5.2) mmol/L Glucose 89 (65-105) mg/dl Lactate 1.6 (0.7-2.1) mmol/L FiO2 21.0 % Crit Value Called To Crit Value Called By Crit Value Read Back Blood Gas Notified Time Sodium 138.0 (132-148) mmol/L Potassium (3.6-5.2) mmol/L Chloride 107.0 (98-107) mmol/L Carbon Dioxide (22-30) mmol/L Anion Gap (10-20) BUN (7-17) mg/dL Creatinine (0.7-1.2) mg/dL Est GFR ( Amer) Est GFR (Non-Af Amer) Random Glucose (65-105) mg/dL Hemoglobin A1c (4.2-6.5) % Calcium (8.6-10.4) mg/dl Phosphorus (2.5-4.5) mg/dL Magnesium (1.6-2.3) mg/dL Total Bilirubin (0.2-1.3) mg/dL AST (14-36) U/L ALT (9-52) U/L Alkaline Phosphatase (38-126) U/L Total Creatine Kinase (30-135) U/L Troponin I (0.00-0.120) ng/mL C-Reactive Protein (0.0-9.9) mg/L Total Protein (6.3-8.3) g/dL Albumin (3.5-5.0) g/dL Globulin (2.2-3.9) gm/dL Albumin/Globulin Ratio (1.0-2.1) Triglycerides (0-149) mg/dL Cholesterol (0-199) mg/dL LDL Cholesterol Direct (0-129) mg/dL HDL Cholesterol (30-70) mg/dL Procalcitonin (0.19-0.49) NG/ML Venous Blood Potassium 3.2 L (3.6-5.2) mmol/L Urine Color [place] (YELLOW) Urine Clarity Hazy (Clear) Urine pH 5.0 (5.0-8.0) Ur Specific [place] 1.028 (1.003-1.030) Urine Protein 1+ H (NEGATIVE) mg/dL Urine Glucose (UA) Normal (Normal) mg/dL Urine Ketones Negative (NEGATIVE) mg/dL Urine Blood Negative (NEGATIVE) Urine Nitrate Negative (NEGATIVE) Urine Bilirubin Negative (NEGATIVE) Urine Urobilinogen Normal (0.2-1.0) mg/dL Ur Leukocyte Esterase Trace (Negative) [place]/uL Urine WBC (Auto) 8 H (0-5) /hpf Urine RBC (Auto) 4 H (0-3) /hpf Ur Squamous Epith Cells 57 H (0-5) /hpf Urine Bacteria Rare (<OCC) Hyaline Casts 3-5 H (0-2) /lpf 12/24/17 12/24/17 12/24/17 Range/Units 17:28 14:50 14:50 WBC 23.9 H (4.8-10.8) K/uL RBC 3.82 (3.80-5.20) Mil/uL Hgb 11.4 (11.0-16.0) g/dL Hct 33.4 L (34.0-47.0) % MCV 87.5 (81.0-99.0) fL MCH 29.8 (27.0-31.0) pg MCHC 34.1 (33.0-37.0) g/dL RDW 16.5 H (11.5-14.5) % Plt Count 213 (130-400) K/uL MPV 8.8 (7.2-11.7) fL Neut % (Auto) 96.4 H (50.0-75.0) % Lymph % (Auto) 2.2 L (20.0-40.0) % Dare % (Auto) 1.2 (0.0-10.0) % Eos % (Auto) 0.0 (0.0-4.0) % Baso % (Auto) 0.2 (0.0-2.0) % Neut # (Auto) 23.0 H (1.8-7.0) K/uL Lymph # (Auto) 0.5 L (1.0-4.3) K/uL Dare # (Auto) 0.3 (0.0-0.8) K/uL Eos # (Auto) 0.0 (0.0-0.7) K/uL Baso # (Auto) 0.0 (0.0-0.2) K/uL Neutrophils % (Manual) 93 H (50-75) % Band Neutrophils % 4 H (0-2) % Lymphocytes % (Manual) 2 L (20-40) % Monocytes % (Manual) 1 (0-10) % Platelet Estimate Normal (NORMAL) Hypochromasia (manual) Slight Poikilocytosis (manual Slight Anisocytosis (manual) Slight ESR (0-20) mm/hr PT (9.7-12.2) SECONDS INR APTT (21-34) SECONDS D-Dimer, Quantitative (0-243) ng/mlDDU pO2 15 L (30-55) mm/Hg VBG pH 7.31 L (7.32-7.43) VBG pCO2 67 H* (40-60) mmHg VBG HCO3 26.8 mmol/L VBG Total CO2 35.8 H (22-28) mmol/L VBG O2 Sat (Calc) 19.9 L (40-65) % VBG Base Excess 5.2 H (0.0-2.0) mmol/L VBG Potassium 3.6 (3.6-5.2) mmol/L Glucose 97 (65-105) mg/dl Lactate 2.3 H (0.7-2.1) mmol/L FiO2 % Crit Value Called To Dr mai Crit Value Called By Luciano mittal supervisor floor assembly Crit Value Read Back Y Blood Gas Notified Time 1732 Sodium 136.0 137 (132-148) mmol/L Potassium 3.4 L (3.6-5.2) mmol/L Chloride 97.0 L 96 L (98-107) mmol/L Carbon Dioxide 32 H (22-30) mmol/L Anion Gap 13 (10-20) BUN 17 (7-17) mg/dL Creatinine 0.8 (0.7-1.2) mg/dL Est GFR ( Amer) > 60 Est GFR (Non-Af Amer) > 60 Random Glucose 117 H (65-105) mg/dL Hemoglobin A1c (4.2-6.5) % Calcium 9.0 (8.6-10.4) mg/dl Phosphorus (2.5-4.5) mg/dL Magnesium (1.6-2.3) mg/dL Total Bilirubin 1.0 (0.2-1.3) mg/dL AST 24 (14-36) U/L ALT 37 (9-52) U/L Alkaline Phosphatase 88 (38-126) U/L Total Creatine Kinase (30-135) U/L Troponin I (0.00-0.120) ng/mL C-Reactive Protein (0.0-9.9) mg/L Total Protein 6.3 (6.3-8.3) g/dL Albumin 3.5 (3.5-5.0) g/dL Globulin 2.7 (2.2-3.9) gm/dL Albumin/Globulin Ratio 1.3 (1.0-2.1) Triglycerides (0-149) mg/dL Cholesterol (0-199) mg/dL LDL Cholesterol Direct (0-129) mg/dL HDL Cholesterol (30-70) mg/dL Procalcitonin (0.19-0.49) NG/ML Venous Blood Potassium 3.6 (3.6-5.2) mmol/L Urine Color (YELLOW) Urine Clarity (Clear) Urine pH (5.0-8.0) Ur Specific [place] (1.003-1.030) Urine Protein (NEGATIVE) mg/dL Urine Glucose (UA) (Normal) mg/dL Urine Ketones (NEGATIVE) mg/dL Urine Blood (NEGATIVE) Urine Nitrate (NEGATIVE) Urine Bilirubin (NEGATIVE) Urine Urobilinogen (0.2-1.0) mg/dL Ur Leukocyte Esterase (Negative) [place]/uL Urine WBC (Auto) (0-5) /hpf Urine RBC (Auto) (0-3) /hpf Ur Squamous Epith Cells (0-5) /hpf Urine Bacteria (<OCC) Hyaline Casts (0-2) /lpf Laboratory Results - last 24 hr 12/24/17 12/24/17 12/24/17 14:50 14:50 17:28 WBC 23.9 H RBC 3.82 Hgb 11.4 Hct 33.4 L MCV 87.5 MCH 29.8 MCHC 34.1 RDW 16.5 H Plt Count 213 MPV 8.8 Neut % (Auto) 96.4 H Lymph % (Auto) 2.2 L Dare % (Auto) 1.2 Eos % (Auto) 0.0 Baso % (Auto) 0.2 Neut # (Auto) 23.0 H Lymph # (Auto) 0.5 L Dare # (Auto) 0.3 Eos # (Auto) 0.0 Baso # (Auto) 0.0 Neutrophils % (Manual) 93 H Band Neutrophils % 4 H Lymphocytes % (Manual) 2 L Monocytes % (Manual) 1 Platelet Estimate Normal Hypochromasia (manual) Slight Poikilocytosis (manual Slight Anisocytosis (manual) Slight ESR PT INR APTT D-Dimer, Quantitative pO2 15 L VBG pH 7.31 L VBG pCO2 67 H* VBG HCO3 26.8 VBG Total CO2 35.8 H VBG O2 Sat (Calc) 19.9 L VBG Base Excess 5.2 H VBG Potassium 3.6 Glucose 97 Lactate 2.3 H FiO2 Crit Value Called To Dr mai Crit Value Called By Luciano mittal supervisor floor assembly Crit Value Read Back Y Blood Gas Notified Time 1732 Sodium 137 136.0 Potassium 3.4 L Chloride 96 L 97.0 L Carbon Dioxide 32 H Anion Gap 13 BUN 17 Creatinine 0.8 Est GFR ( Amer) > 60 Est GFR (Non-Af Amer) > 60 Random Glucose 117 H Hemoglobin A1c Calcium 9.0 Phosphorus Magnesium Total Bilirubin 1.0 AST 24 ALT 37 Alkaline Phosphatase 88 Total Creatine Kinase Troponin I C-Reactive Protein Total Protein 6.3 Albumin 3.5 Globulin 2.7 Albumin/Globulin Ratio 1.3 Triglycerides Cholesterol LDL Cholesterol Direct HDL Cholesterol Procalcitonin Venous Blood Potassium 3.6 Urine Color Urine Clarity Urine pH Ur Specific [place] Urine Protein Urine Glucose (UA) Urine Ketones Urine Blood Urine Nitrate Urine Bilirubin Urine Urobilinogen Ur Leukocyte Esterase Urine WBC (Auto) Urine RBC (Auto) Ur Squamous Epith Cells Urine Bacteria Hyaline Casts 12/24/17 12/24/17 12/24/17 20:30 21:37 23:26 WBC RBC Hgb Hct MCV MCH MCHC RDW Plt Count MPV Neut % (Auto) Lymph % (Auto) Dare % (Auto) Eos % (Auto) Baso % (Auto) Neut # (Auto) Lymph # (Auto) Dare # (Auto) Eos # (Auto) Baso # (Auto) Neutrophils % (Manual) Band Neutrophils % Lymphocytes % (Manual) Monocytes % (Manual) Platelet Estimate Hypochromasia (manual) Poikilocytosis (manual Anisocytosis (manual) ESR PT 20.5 H INR 1.9 APTT 29 D-Dimer, Quantitative 1580 H pO2 34 VBG pH 7.35 VBG pCO2 52 VBG HCO3 25.6 VBG Total CO2 30.3 H VBG O2 Sat (Calc) 72.9 H VBG Base Excess 2.1 H VBG Potassium 3.2 L Glucose 89 Lactate 1.6 FiO2 21.0 Crit Value Called To Crit Value Called By Crit Value Read Back Blood Gas Notified Time Sodium 138.0 Potassium Chloride 107.0 Carbon Dioxide Anion Gap BUN Creatinine Est GFR ( Amer) Est GFR (Non-Af Amer) Random Glucose Hemoglobin A1c Calcium Phosphorus Magnesium Total Bilirubin AST ALT Alkaline Phosphatase Total Creatine Kinase Troponin I C-Reactive Protein Total Protein Albumin Globulin Albumin/Globulin Ratio Triglycerides Cholesterol LDL Cholesterol Direct HDL Cholesterol Procalcitonin Venous Blood Potassium 3.2 L Urine Color Lita Urine Clarity Hazy Urine pH 5.0 Ur Specific [place] 1.028 Urine Protein 1+ H Urine Glucose (UA) Normal Urine Ketones Negative Urine Blood Negative Urine Nitrate Negative Urine Bilirubin Negative Urine Urobilinogen Normal Ur Leukocyte Esterase Trace Urine WBC (Auto) 8 H Urine RBC (Auto) 4 H Ur Squamous Epith Cells 57 H Urine Bacteria Rare Hyaline Casts 3-5 H 12/24/17 12/24/17 12/24/17 23:26 23:26 23:26 WBC RBC Hgb Hct MCV MCH MCHC RDW Plt Count MPV Neut % (Auto) Lymph % (Auto) Dare % (Auto) Eos % (Auto) Baso % (Auto) Neut # (Auto) Lymph # (Auto) Dare # (Auto) Eos # (Auto) Baso # (Auto) Neutrophils % (Manual) Band Neutrophils % Lymphocytes % (Manual) Monocytes % (Manual) Platelet Estimate Hypochromasia (manual) Poikilocytosis (manual Anisocytosis (manual) ESR 42 H PT INR APTT D-Dimer, Quantitative pO2 VBG pH VBG pCO2 VBG HCO3 VBG Total CO2 VBG O2 Sat (Calc) VBG Base Excess VBG Potassium Glucose Lactate FiO2 Crit Value Called To Crit Value Called By Crit Value Read Back Blood Gas Notified Time Sodium Potassium Chloride Carbon Dioxide Anion Gap BUN Creatinine Est GFR ( Amer) Est GFR (Non-Af Amer) Random Glucose Hemoglobin A1c Calcium Phosphorus 3.0 Magnesium 1.3 L Total Bilirubin AST ALT Alkaline Phosphatase Total Creatine Kinase Troponin I C-Reactive Protein Total Protein Albumin Globulin Albumin/Globulin Ratio Triglycerides Cholesterol LDL Cholesterol Direct HDL Cholesterol Procalcitonin 7.66 H Venous Blood Potassium Urine Color Urine Clarity Urine pH Ur Specific [place] Urine Protein Urine Glucose (UA) Urine Ketones Urine Blood Urine Nitrate Urine Bilirubin Urine Urobilinogen Ur Leukocyte Esterase Urine WBC (Auto) Urine RBC (Auto) Ur Squamous Epith Cells Urine Bacteria Hyaline Casts 12/24/17 12/24/17 12/25/17 23:26 23:27 06:24 WBC 22.3 H RBC 3.60 L Hgb 10.6 L Hct 32.1 L MCV 89.1 MCH 29.5 MCHC 33.1 RDW 16.7 H Plt Count 193 MPV 8.7 Neut % (Auto) 95.2 H Lymph % (Auto) 1.4 L Dare % (Auto) 3.3 Eos % (Auto) 0.0 Baso % (Auto) 0.1 Neut # (Auto) 21.2 H Lymph # (Auto) 0.3 L Dare # (Auto) 0.7 Eos # (Auto) 0.0 Baso # (Auto) 0.0 Neutrophils % (Manual) 76 H Band Neutrophils % 21 H* Lymphocytes % (Manual) 2 L Monocytes % (Manual) 1 Platelet Estimate Normal Hypochromasia (manual) Slight Poikilocytosis (manual Slight Anisocytosis (manual) Slight ESR PT INR APTT D-Dimer, Quantitative pO2 VBG pH VBG pCO2 VBG HCO3 VBG Total CO2 VBG O2 Sat (Calc) VBG Base Excess VBG Potassium Glucose Lactate FiO2 Crit Value Called To Crit Value Called By Crit Value Read Back Blood Gas Notified Time Sodium Potassium Chloride Carbon Dioxide Anion Gap BUN Creatinine Est GFR ( Amer) Est GFR (Non-Af Amer) Random Glucose Hemoglobin A1c Calcium Phosphorus Magnesium Total Bilirubin AST ALT Alkaline Phosphatase Total Creatine Kinase 105 Troponin I 0.0370 C-Reactive Protein 252.40 H Total Protein Albumin Globulin Albumin/Globulin Ratio Triglycerides Cholesterol LDL Cholesterol Direct HDL Cholesterol Procalcitonin Venous Blood Potassium Urine Color Urine Clarity Urine pH Ur Specific [place] Urine Protein Urine Glucose (UA) Urine Ketones Urine Blood Urine Nitrate Urine Bilirubin Urine Urobilinogen Ur Leukocyte Esterase Urine WBC (Auto) Urine RBC (Auto) Ur Squamous Epith Cells Urine Bacteria Hyaline Casts 12/25/17 12/25/17 12/25/17 06:24 06:24 06:24 WBC RBC Hgb Hct MCV MCH MCHC RDW Plt Count MPV Neut % (Auto) Lymph % (Auto) Dare % (Auto) Eos % (Auto) Baso % (Auto) Neut # (Auto) Lymph # (Auto) Dare # (Auto) Eos # (Auto) Baso # (Auto) Neutrophils % (Manual) Band Neutrophils % Lymphocytes % (Manual) Monocytes % (Manual) Platelet Estimate Hypochromasia (manual) Poikilocytosis (manual Anisocytosis (manual) ESR PT INR APTT D-Dimer, Quantitative pO2 VBG pH VBG pCO2 VBG HCO3 VBG Total CO2 VBG O2 Sat (Calc) VBG Base Excess VBG Potassium Glucose Lactate FiO2 Crit Value Called To Crit Value Called By Crit Value Read Back Blood Gas Notified Time Sodium 140 Potassium 3.6 Chloride 106 Carbon Dioxide 26 Anion Gap 11 BUN 21 H Creatinine 0.8 Est GFR ( Amer) > 60 Est GFR (Non-Af Amer) > 60 Random Glucose 96 Hemoglobin A1c 5.5 Calcium 7.6 L Phosphorus 2.4 L Magnesium 1.3 L Total Bilirubin 1.3 AST 58 H D ALT 62 H D Alkaline Phosphatase 94 Total Creatine Kinase Troponin I 0.0660 C-Reactive Protein Total Protein 5.5 L Albumin 2.9 L Globulin 2.6 Albumin/Globulin Ratio 1.1 Triglycerides 87 Cholesterol 105 LDL Cholesterol Direct 41 HDL Cholesterol 28 L Procalcitonin Venous Blood Potassium Urine Color Urine Clarity Urine pH Ur Specific [place] Urine Protein Urine Glucose (UA) Urine Ketones Urine Blood Urine Nitrate Urine Bilirubin Urine Urobilinogen Ur Leukocyte Esterase Urine WBC (Auto) Urine RBC (Auto) Ur Squamous Epith Cells Urine Bacteria Hyaline Casts EKG/Cardiology Studies: Cardiology / EKG Studies 12/24/17 18:43 ELECTROCARDIOGRAM Stat Comment: Mode Of Transportation: Reason For Exam: Sepsis Patient Review of Systems - Constitutional Constitutional: Fever, Chills - EENT Eyes: absent: Change in Vision Nose/Mouth/Throat: absent: Nasal Congestion - Cardiovascular Cardiovascular: absent: Chest Pain, Dyspnea - Respiratory Respiratory: absent: Cough, Dyspnea, Wheezing, Pain on Inspiration, Chest Congestion - Gastrointestinal Gastrointestinal: absent: Abdominal Pain, Change in Bowel Habits, Nausea - Genitourinary Genitourinary: absent: Change in Urinary Stream, Dysuria - Musculoskeletal Musculoskeletal: Muscle Weakness (LLE weakness) - Integumentary Integumentary: Erythema (LLE), Swelling (LLE) Critical Care Progress Note - Nutrition Nutrition: Nutrition Category Date Time Status Heart Healthy Diet [DIET] Diets 12/24/17 Dinner Active Assessment/Plan - Assessment and Plan (Free Text) Assessment: 62 yo F w PMHx of asthma, RA, HTN, and MVP presented to ED 12/24 w/ complaints of LLE increasing pain, redness, edema and fevers x2 days, due to a suspected spider bite. Pt initially admitted to tele for LLE cellulitis management, however was transfered to ICU due to hemodynamic instability requiring pressure support 1. Septic shock (WBC 23.9, lactate 2.3, bands 21, T 102.9, RR 33, BP 69/24, procalcitonin 7.66) -levophed 4mcg, goal MAP>65 -NS @ 100/hr -Linezolid 600 q12 -aztreonam 1g q12 -d-dimer 1580, f/u LE duplex 2. Leukocytosis -WBC 22.3 today, bands 21 -f/u am labs -blood cx, s. aureus and coag -staph -urine, gram -rowdy -ID consult [place] 3. Electrolytes -monitor and replete as needed -Mg 1.3, given 2gm MgSO4 -Phos 2.4, given 15mmol KPO4 4. Asthma -Nebs PRN 5. HTN -hold Diovan home med pending BP Ppx -heparin 5000sc q8 -protonix 40mg PO <Luis Aden S - Last Filed: 12/25/17 18:11> CCU Objective - Vital Signs / Intake & Output Vital Signs (Last 4 hours): Vital Signs Pulse Resp BP Pulse Ox 12/25/17 17:00 89 15 12/25/17 16:33 96 H 16 111/56 L 12/25/17 16:00 94 H 28 H 12/25/17 15:53 90 20 103/54 L 99 12/25/17 15:33 90 29 H 103/54 L 12/25/17 15:29 92 H Intake and Output (Last 8hrs): Intake & Output 12/25/17 12/25/17 12/25/17 06:59 14:59 22:59 Intake Total 1333 920 599 Output Total 450 Balance 883 920 599 Intake: IV 43 254 Intake, IV Amount 810 920 345 Right Internal Jugular 110 120 45 Right Internal Jugular 700 800 300 Proximal Oral 480 Output: Urine 450 Urine, Voided 450 Other: # Voids Urine, Voided 0 1 # Bowel Movements 1 - Medications Active Medications: Active Medications Generic Name Dose Route Start Last Admin Trade Name Freq PRN Reason Stop Dose Admin Acetaminophen 650 mg 12/25/17 00:36 12/25/17 15:40 Tylenol 325mg Tab PO 650 mg Q6 PRN Administration Pain, Mild (1-3) Heparin Sodium (Porcine) 5,000 units 12/25/17 06:00 12/25/17 13:50 Heparin SC 5,000 units Q8 JORGE A Administration Linezolid 600 mg in 300 mls @ 300 mls/hr 12/24/17 20:30 12/25/17 09:08 Zyvox 600mg/300ml D5w IVPB 300 mls/hr Q12H JORGE A Administration Sodium Chloride 1,000 mls @ 100 mls/hr 12/24/17 20:45 12/24/17 22:57 Sodium Chloride 0.9% IV 100 mls/hr .Q10H JORGE A Administration Norepinephrine Bitartrate 4 mg 254 mls @ 15.24 mls/hr 12/24/17 23:35 15:53 / Sodium Chloride IV 4 mcg/min .[id number] PRN 15.24 mls/hr TITRATE PER MD ORDER Administration Protocol 4 MCG/MIN Aztreonam 1 gm/ Sodium 100 mls @ 200 mls/hr 12/25/17 10:00 12/25/17 10:56 Chloride IVPB 200 mls/hr Q12 JORGE A Administration Protocol Pantoprazole Sodium 40 mg 12/25/17 10:00 12/25/17 09:43 Protonix Ec Tab PO 40 mg DAILY JORGE A Administration - Patient Studies Lab Studies: Microbiology Studies 12/24/17 14:00 Blood Culture - Preliminary Blood NO GROWTH AFTER 24 HOURS 12/24/17 14:15 Blood Culture - Preliminary Blood Gram Positive Cocci Gram Stain - Final 12/24/17 21:37 Urine Culture - Preliminary Urine,Catheterized Gram Negative Rowdy Lab Studies 12/25/17 12/25/17 12/25/17 Range/Units 06:24 06:24 06:24 WBC (4.8-10.8) K/uL RBC (3.80-5.20) Mil/uL Hgb (11.0-16.0) g/dL Hct (34.0-47.0) % MCV (81.0-99.0) fL MCH (27.0-31.0) pg MCHC (33.0-37.0) g/dL RDW (11.5-14.5) % Plt Count (130-400) K/uL MPV (7.2-11.7) fL Neut % (Auto) (50.0-75.0) % Lymph % (Auto) (20.0-40.0) % Dare % (Auto) (0.0-10.0) % Eos % (Auto) (0.0-4.0) % Baso % (Auto) (0.0-2.0) % Neut # (Auto) (1.8-7.0) K/uL Lymph # (Auto) (1.0-4.3) K/uL Dare # (Auto) (0.0-0.8) K/uL Eos # (Auto) (0.0-0.7) K/uL Baso # (Auto) (0.0-0.2) K/uL Neutrophils % (Manual) (50-75) % Band Neutrophils % (0-2) % Lymphocytes % (Manual) (20-40) % Monocytes % (Manual) (0-10) % Platelet Estimate (NORMAL) Hypochromasia (manual) Poikilocytosis (manual Anisocytosis (manual) ESR (0-20) mm/hr PT (9.7-12.2) SECONDS INR APTT (21-34) SECONDS D-Dimer, Quantitative (0-243) ng/mlDDU pO2 (30-55) mm/Hg VBG pH (7.32-7.43) VBG pCO2 (40-60) mmHg VBG HCO3 mmol/L VBG Total CO2 (22-28) mmol/L VBG O2 Sat (Calc) (40-65) % VBG Base Excess (0.0-2.0) mmol/L VBG Potassium (3.6-5.2) mmol/L Sodium 140 (132-148) mmol/l Chloride 106 (98-107) mmol/L Glucose (65-105) mg/dl Lactate (0.7-2.1) mmol/L FiO2 % Potassium 3.6 (3.6-5.2) mmol/L Carbon Dioxide 26 (22-30) mmol/L Anion Gap 11 (10-20) BUN 21 H (7-17) mg/dL Creatinine 0.8 (0.7-1.2) mg/dL Est GFR ( Amer) > 60 Est GFR (Non-Af Amer) > 60 Random Glucose 96 (65-105) mg/dL Hemoglobin A1c 5.5 (4.2-6.5) % Calcium 7.6 L (8.6-10.4) mg/dl Phosphorus 2.4 L (2.5-4.5) mg/dL Magnesium 1.3 L (1.6-2.3) mg/dL Total Bilirubin 1.3 (0.2-1.3) mg/dL AST 58 H D (14-36) U/L ALT 62 H D (9-52) U/L Alkaline Phosphatase 94 (38-126) U/L Total Creatine Kinase (30-135) U/L Troponin I 0.0660 (0.00-0.120) ng/mL C-Reactive Protein (0.0-9.9) mg/L Total Protein 5.5 L (6.3-8.3) g/dL Albumin 2.9 L (3.5-5.0) g/dL Globulin 2.6 (2.2-3.9) gm/dL Albumin/Globulin Ratio 1.1 (1.0-2.1) Triglycerides 87 (0-149) mg/dL Cholesterol 105 (0-199) mg/dL LDL Cholesterol Direct 41 (0-129) mg/dL HDL Cholesterol 28 L (30-70) mg/dL Procalcitonin (0.19-0.49) NG/ML Venous Blood Potassium (3.6-5.2) mmol/L Urine Color (YELLOW) Urine Clarity (Clear) Urine pH (5.0-8.0) Ur Specific [place] (1.003-1.030) Urine Protein (NEGATIVE) mg/dL Urine Glucose (UA) (Normal) mg/dL Urine Ketones (NEGATIVE) mg/dL Urine Blood (NEGATIVE) Urine Nitrate (NEGATIVE) Urine Bilirubin (NEGATIVE) Urine Urobilinogen (0.2-1.0) mg/dL Ur Leukocyte Esterase (Negative) [place]/uL Urine WBC (Auto) (0-5) /hpf Urine RBC (Auto) (0-3) /hpf Ur Squamous Epith Cells (0-5) /hpf Urine Bacteria (<OCC) Hyaline Casts (0-2) /lpf 12/25/17 12/24/17 12/24/17 Range/Units 06:24 23:27 23:26 WBC 22.3 H (4.8-10.8) K/uL RBC 3.60 L (3.80-5.20) Mil/uL Hgb 10.6 L (11.0-16.0) g/dL Hct 32.1 L (34.0-47.0) % MCV 89.1 (81.0-99.0) fL MCH 29.5 (27.0-31.0) pg MCHC 33.1 (33.0-37.0) g/dL RDW 16.7 H (11.5-14.5) % Plt Count 193 (130-400) K/uL MPV 8.7 (7.2-11.7) fL Neut % (Auto) 95.2 H (50.0-75.0) % Lymph % (Auto) 1.4 L (20.0-40.0) % Dare % (Auto) 3.3 (0.0-10.0) % Eos % (Auto) 0.0 (0.0-4.0) % Baso % (Auto) 0.1 (0.0-2.0) % Neut # (Auto) 21.2 H (1.8-7.0) K/uL Lymph # (Auto) 0.3 L (1.0-4.3) K/uL Dare # (Auto) 0.7 (0.0-0.8) K/uL Eos # (Auto) 0.0 (0.0-0.7) K/uL Baso # (Auto) 0.0 (0.0-0.2) K/uL Neutrophils % (Manual) 76 H (50-75) % Band Neutrophils % 21 H* (0-2) % Lymphocytes % (Manual) 2 L (20-40) % Monocytes % (Manual) 1 (0-10) % Platelet Estimate Normal (NORMAL) Hypochromasia (manual) Slight Poikilocytosis (manual Slight Anisocytosis (manual) Slight ESR (0-20) mm/hr PT (9.7-12.2) SECONDS INR APTT (21-34) SECONDS D-Dimer, Quantitative (0-243) ng/mlDDU pO2 (30-55) mm/Hg VBG pH (7.32-7.43) VBG pCO2 (40-60) mmHg VBG HCO3 mmol/L VBG Total CO2 (22-28) mmol/L VBG O2 Sat (Calc) (40-65) % VBG Base Excess (0.0-2.0) mmol/L VBG Potassium (3.6-5.2) mmol/L Sodium (132-148) mmol/l Chloride (98-107) mmol/L Glucose (65-105) mg/dl Lactate (0.7-2.1) mmol/L FiO2 % Potassium (3.6-5.2) mmol/L Carbon Dioxide (22-30) mmol/L Anion Gap (10-20) BUN (7-17) mg/dL Creatinine (0.7-1.2) mg/dL Est GFR ( Amer) Est GFR (Non-Af Amer) Random Glucose (65-105) mg/dL Hemoglobin A1c (4.2-6.5) % Calcium (8.6-10.4) mg/dl Phosphorus (2.5-4.5) mg/dL Magnesium (1.6-2.3) mg/dL Total Bilirubin (0.2-1.3) mg/dL AST (14-36) U/L ALT (9-52) U/L Alkaline Phosphatase (38-126) U/L Total Creatine Kinase 105 (30-135) U/L Troponin I 0.0370 (0.00-0.120) ng/mL C-Reactive Protein 252.40 H (0.0-9.9) mg/L Total Protein (6.3-8.3) g/dL Albumin (3.5-5.0) g/dL Globulin (2.2-3.9) gm/dL Albumin/Globulin Ratio (1.0-2.1) Triglycerides (0-149) mg/dL Cholesterol (0-199) mg/dL LDL Cholesterol Direct (0-129) mg/dL HDL Cholesterol (30-70) mg/dL Procalcitonin (0.19-0.49) NG/ML Venous Blood Potassium (3.6-5.2) mmol/L Urine Color (YELLOW) Urine Clarity (Clear) Urine pH (5.0-8.0) Ur Specific [place] (1.003-1.030) Urine Protein (NEGATIVE) mg/dL Urine Glucose (UA) (Normal) mg/dL Urine Ketones (NEGATIVE) mg/dL Urine Blood (NEGATIVE) Urine Nitrate (NEGATIVE) Urine Bilirubin (NEGATIVE) Urine Urobilinogen (0.2-1.0) mg/dL Ur Leukocyte Esterase (Negative) [place]/uL Urine WBC (Auto) (0-5) /hpf Urine RBC (Auto) (0-3) /hpf Ur Squamous Epith Cells (0-5) /hpf Urine Bacteria (<OCC) Hyaline Casts (0-2) /lpf 12/24/17 12/24/17 12/24/17 Range/Units 23:26 23:26 23:26 WBC (4.8-10.8) K/uL RBC (3.80-5.20) Mil/uL Hgb (11.0-16.0) g/dL Hct (34.0-47.0) % MCV (81.0-99.0) fL MCH (27.0-31.0) pg MCHC (33.0-37.0) g/dL RDW (11.5-14.5) % Plt Count (130-400) K/uL MPV (7.2-11.7) fL Neut % (Auto) (50.0-75.0) % Lymph % (Auto) (20.0-40.0) % Dare % (Auto) (0.0-10.0) % Eos % (Auto) (0.0-4.0) % Baso % (Auto) (0.0-2.0) % Neut # (Auto) (1.8-7.0) K/uL Lymph # (Auto) (1.0-4.3) K/uL Dare # (Auto) (0.0-0.8) K/uL Eos # (Auto) (0.0-0.7) K/uL Baso # (Auto) (0.0-0.2) K/uL Neutrophils % (Manual) (50-75) % Band Neutrophils % (0-2) % Lymphocytes % (Manual) (20-40) % Monocytes % (Manual) (0-10) % Platelet Estimate (NORMAL) Hypochromasia (manual) Poikilocytosis (manual Anisocytosis (manual) ESR 42 H (0-20) mm/hr PT (9.7-12.2) SECONDS INR APTT (21-34) SECONDS D-Dimer, Quantitative (0-243) ng/mlDDU pO2 (30-55) mm/Hg VBG pH (7.32-7.43) VBG pCO2 (40-60) mmHg VBG HCO3 mmol/L VBG Total CO2 (22-28) mmol/L VBG O2 Sat (Calc) (40-65) % VBG Base Excess (0.0-2.0) mmol/L VBG Potassium (3.6-5.2) mmol/L Sodium (132-148) mmol/l Chloride (98-107) mmol/L Glucose (65-105) mg/dl Lactate (0.7-2.1) mmol/L FiO2 % Potassium (3.6-5.2) mmol/L Carbon Dioxide (22-30) mmol/L Anion Gap (10-20) BUN (7-17) mg/dL Creatinine (0.7-1.2) mg/dL Est GFR ( Amer) Est GFR (Non-Af Amer) Random Glucose (65-105) mg/dL Hemoglobin A1c (4.2-6.5) % Calcium (8.6-10.4) mg/dl Phosphorus 3.0 (2.5-4.5) mg/dL Magnesium 1.3 L (1.6-2.3) mg/dL Total Bilirubin (0.2-1.3) mg/dL AST (14-36) U/L ALT (9-52) U/L Alkaline Phosphatase (38-126) U/L Total Creatine Kinase (30-135) U/L Troponin I (0.00-0.120) ng/mL C-Reactive Protein (0.0-9.9) mg/L Total Protein (6.3-8.3) g/dL Albumin (3.5-5.0) g/dL Globulin (2.2-3.9) gm/dL Albumin/Globulin Ratio (1.0-2.1) Triglycerides (0-149) mg/dL Cholesterol (0-199) mg/dL LDL Cholesterol Direct (0-129) mg/dL HDL Cholesterol (30-70) mg/dL Procalcitonin 7.66 H (0.19-0.49) NG/ML Venous Blood Potassium (3.6-5.2) mmol/L Urine Color (YELLOW) Urine Clarity (Clear) Urine pH (5.0-8.0) Ur Specific [place] (1.003-1.030) Urine Protein (NEGATIVE) mg/dL Urine Glucose (UA) (Normal) mg/dL Urine Ketones (NEGATIVE) mg/dL Urine Blood (NEGATIVE) Urine Nitrate (NEGATIVE) Urine Bilirubin (NEGATIVE) Urine Urobilinogen (0.2-1.0) mg/dL Ur Leukocyte Esterase (Negative) [place]/uL Urine WBC (Auto) (0-5) /hpf Urine RBC (Auto) (0-3) /hpf Ur Squamous Epith Cells (0-5) /hpf Urine Bacteria (<OCC) Hyaline Casts (0-2) /lpf 12/24/17 12/24/17 12/24/17 Range/Units 23:26 21:37 20:30 WBC (4.8-10.8) K/uL RBC (3.80-5.20) Mil/uL Hgb (11.0-16.0) g/dL Hct (34.0-47.0) % MCV (81.0-99.0) fL MCH (27.0-31.0) pg MCHC (33.0-37.0) g/dL RDW (11.5-14.5) % Plt Count (130-400) K/uL MPV (7.2-11.7) fL Neut % (Auto) (50.0-75.0) % Lymph % (Auto) (20.0-40.0) % Dare % (Auto) (0.0-10.0) % Eos % (Auto) (0.0-4.0) % Baso % (Auto) (0.0-2.0) % Neut # (Auto) (1.8-7.0) K/uL Lymph # (Auto) (1.0-4.3) K/uL Dare # (Auto) (0.0-0.8) K/uL Eos # (Auto) (0.0-0.7) K/uL Baso # (Auto) (0.0-0.2) K/uL Neutrophils % (Manual) (50-75) % Band Neutrophils % (0-2) % Lymphocytes % (Manual) (20-40) % Monocytes % (Manual) (0-10) % Platelet Estimate (NORMAL) Hypochromasia (manual) Poikilocytosis (manual Anisocytosis (manual) ESR (0-20) mm/hr PT 20.5 H (9.7-12.2) SECONDS INR 1.9 APTT 29 (21-34) SECONDS D-Dimer, Quantitative 1580 H (0-243) ng/mlDDU pO2 34 (30-55) mm/Hg VBG pH 7.35 (7.32-7.43) VBG pCO2 52 (40-60) mmHg VBG HCO3 25.6 mmol/L VBG Total CO2 30.3 H (22-28) mmol/L VBG O2 Sat (Calc) 72.9 H (40-65) % VBG Base Excess 2.1 H (0.0-2.0) mmol/L VBG Potassium 3.2 L (3.6-5.2) mmol/L Sodium 138.0 (132-148) mmol/l Chloride 107.0 (98-107) mmol/L Glucose 89 (65-105) mg/dl Lactate 1.6 (0.7-2.1) mmol/L FiO2 21.0 % Potassium (3.6-5.2) mmol/L Carbon Dioxide (22-30) mmol/L Anion Gap (10-20) BUN (7-17) mg/dL Creatinine (0.7-1.2) mg/dL Est GFR ( Amer) Est GFR (Non-Af Amer) Random Glucose (65-105) mg/dL Hemoglobin A1c (4.2-6.5) % Calcium (8.6-10.4) mg/dl Phosphorus (2.5-4.5) mg/dL Magnesium (1.6-2.3) mg/dL Total Bilirubin (0.2-1.3) mg/dL AST (14-36) U/L ALT (9-52) U/L Alkaline Phosphatase (38-126) U/L Total Creatine Kinase (30-135) U/L Troponin I (0.00-0.120) ng/mL C-Reactive Protein (0.0-9.9) mg/L Total Protein (6.3-8.3) g/dL Albumin (3.5-5.0) g/dL Globulin (2.2-3.9) gm/dL Albumin/Globulin Ratio (1.0-2.1) Triglycerides (0-149) mg/dL Cholesterol (0-199) mg/dL LDL Cholesterol Direct (0-129) mg/dL HDL Cholesterol (30-70) mg/dL Procalcitonin (0.19-0.49) NG/ML Venous Blood Potassium 3.2 L (3.6-5.2) mmol/L Urine Color [place] (YELLOW) Urine Clarity Hazy (Clear) Urine pH 5.0 (5.0-8.0) Ur Specific [place] 1.028 (1.003-1.030) Urine Protein 1+ H (NEGATIVE) mg/dL Urine Glucose (UA) Normal (Normal) mg/dL Urine Ketones Negative (NEGATIVE) mg/dL Urine Blood Negative (NEGATIVE) Urine Nitrate Negative (NEGATIVE) Urine Bilirubin Negative (NEGATIVE) Urine Urobilinogen Normal (0.2-1.0) mg/dL Ur Leukocyte Esterase Trace (Negative) [place]/uL Urine WBC (Auto) 8 H (0-5) /hpf Urine RBC (Auto) 4 H (0-3) /hpf Ur Squamous Epith Cells 57 H (0-5) /hpf Urine Bacteria Rare (<OCC) Hyaline Casts 3-5 H (0-2) /lpf Laboratory Results - last 24 hr 12/24/17 12/24/17 12/24/17 20:30 21:37 23:26 WBC RBC Hgb Hct MCV MCH MCHC RDW Plt Count MPV Neut % (Auto) Lymph % (Auto) Dare % (Auto) Eos % (Auto) Baso % (Auto) Neut # (Auto) Lymph # (Auto) Dare # (Auto) Eos # (Auto) Baso # (Auto) Neutrophils % (Manual) Band Neutrophils % Lymphocytes % (Manual) Monocytes % (Manual) Platelet Estimate Hypochromasia (manual) Poikilocytosis (manual Anisocytosis (manual) ESR PT 20.5 H INR 1.9 APTT 29 D-Dimer, Quantitative 1580 H pO2 34 VBG pH 7.35 VBG pCO2 52 VBG HCO3 25.6 VBG Total CO2 30.3 H VBG O2 Sat (Calc) 72.9 H VBG Base Excess 2.1 H VBG Potassium 3.2 L Sodium 138.0 Chloride 107.0 Glucose 89 Lactate 1.6 FiO2 21.0 Potassium Carbon Dioxide Anion Gap BUN Creatinine Est GFR ( Amer) Est GFR (Non-Af Amer) Random Glucose Hemoglobin A1c Calcium Phosphorus Magnesium Total Bilirubin AST ALT Alkaline Phosphatase Total Creatine Kinase Troponin I C-Reactive Protein Total Protein Albumin Globulin Albumin/Globulin Ratio Triglycerides Cholesterol LDL Cholesterol Direct HDL Cholesterol Procalcitonin Venous Blood Potassium 3.2 L Urine Color [place]ita Urine Clarity Hazy Urine pH 5.0 Ur Specific [place] 1.028 Urine Protein 1+ H Urine Glucose (UA) Normal Urine Ketones Negative Urine Blood Negative Urine Nitrate Negative Urine Bilirubin Negative Urine Urobilinogen Normal Ur Leukocyte Esterase Trace Urine WBC (Auto) 8 H Urine RBC (Auto) 4 H Ur Squamous Epith Cells 57 H Urine Bacteria Rare Hyaline Casts 3-5 H 12/24/17 12/24/17 12/24/17 23:26 23:26 23:26 WBC RBC Hgb Hct MCV MCH MCHC RDW Plt Count MPV Neut % (Auto) Lymph % (Auto) Dare % (Auto) Eos % (Auto) Baso % (Auto) Neut # (Auto) Lymph # (Auto) Dare # (Auto) Eos # (Auto) Baso # (Auto) Neutrophils % (Manual) Band Neutrophils % Lymphocytes % (Manual) Monocytes % (Manual) Platelet Estimate Hypochromasia (manual) Poikilocytosis (manual Anisocytosis (manual) ESR 42 H PT INR APTT D-Dimer, Quantitative pO2 VBG pH VBG pCO2 VBG HCO3 VBG Total CO2 VBG O2 Sat (Calc) VBG Base Excess VBG Potassium Sodium Chloride Glucose Lactate FiO2 Potassium Carbon Dioxide Anion Gap BUN Creatinine Est GFR ( Amer) Est GFR (Non-Af Amer) Random Glucose Hemoglobin A1c Calcium Phosphorus 3.0 Magnesium 1.3 L Total Bilirubin AST ALT Alkaline Phosphatase Total Creatine Kinase Troponin I C-Reactive Protein Total Protein Albumin Globulin Albumin/Globulin Ratio Triglycerides Cholesterol LDL Cholesterol Direct HDL Cholesterol Procalcitonin 7.66 H Venous Blood Potassium Urine Color Urine Clarity Urine pH Ur Specific [place] Urine Protein Urine Glucose (UA) Urine Ketones Urine Blood Urine Nitrate Urine Bilirubin Urine Urobilinogen Ur Leukocyte Esterase Urine WBC (Auto) Urine RBC (Auto) Ur Squamous Epith Cells Urine Bacteria Hyaline Casts 12/24/17 12/24/17 12/25/17 23:26 23:27 06:24 WBC 22.3 H RBC 3.60 L Hgb 10.6 L Hct 32.1 L MCV 89.1 MCH 29.5 MCHC 33.1 RDW 16.7 H Plt Count 193 MPV 8.7 Neut % (Auto) 95.2 H Lymph % (Auto) 1.4 L Dare % (Auto) 3.3 Eos % (Auto) 0.0 Baso % (Auto) 0.1 Neut # (Auto) 21.2 H Lymph # (Auto) 0.3 L Dare # (Auto) 0.7 Eos # (Auto) 0.0 Baso # (Auto) 0.0 Neutrophils % (Manual) 76 H Band Neutrophils % 21 H* Lymphocytes % (Manual) 2 L Monocytes % (Manual) 1 Platelet Estimate Normal Hypochromasia (manual) Slight Poikilocytosis (manual Slight Anisocytosis (manual) Slight ESR PT INR APTT D-Dimer, Quantitative pO2 VBG pH VBG pCO2 VBG HCO3 VBG Total CO2 VBG O2 Sat (Calc) VBG Base Excess VBG Potassium Sodium Chloride Glucose Lactate FiO2 Potassium Carbon Dioxide Anion Gap BUN Creatinine Est GFR ( Amer) Est GFR (Non-Af Amer) Random Glucose Hemoglobin A1c Calcium Phosphorus Magnesium Total Bilirubin AST ALT Alkaline Phosphatase Total Creatine Kinase 105 Troponin I 0.0370 C-Reactive Protein 252.40 H Total Protein Albumin Globulin Albumin/Globulin Ratio Triglycerides Cholesterol LDL Cholesterol Direct HDL Cholesterol Procalcitonin Venous Blood Potassium Urine Color Urine Clarity Urine pH Ur Specific [place] Urine Protein Urine Glucose (UA) Urine Ketones Urine Blood Urine Nitrate Urine Bilirubin Urine Urobilinogen Ur Leukocyte Esterase Urine WBC (Auto) Urine RBC (Auto) Ur Squamous Epith Cells Urine Bacteria Hyaline Casts 12/25/17 12/25/17 12/25/17 06:24 06:24 06:24 WBC RBC Hgb Hct MCV MCH MCHC RDW Plt Count MPV Neut % (Auto) Lymph % (Auto) Dare % (Auto) Eos % (Auto) Baso % (Auto) Neut # (Auto) Lymph # (Auto) Dare # (Auto) Eos # (Auto) Baso # (Auto) Neutrophils % (Manual) Band Neutrophils % Lymphocytes % (Manual) Monocytes % (Manual) Platelet Estimate Hypochromasia (manual) Poikilocytosis (manual Anisocytosis (manual) ESR PT INR APTT D-Dimer, Quantitative pO2 VBG pH VBG pCO2 VBG HCO3 VBG Total CO2 VBG O2 Sat (Calc) VBG Base Excess VBG Potassium Sodium 140 Chloride 106 Glucose Lactate FiO2 Potassium 3.6 Carbon Dioxide 26 Anion Gap 11 BUN 21 H Creatinine 0.8 Est GFR ( Amer) > 60 Est GFR (Non-Af Amer) > 60 Random Glucose 96 Hemoglobin A1c 5.5 Calcium 7.6 L Phosphorus 2.4 L Magnesium 1.3 L Total Bilirubin 1.3 AST 58 H D ALT 62 H D Alkaline Phosphatase 94 Total Creatine Kinase Troponin I 0.0660 C-Reactive Protein Total Protein 5.5 L Albumin 2.9 L Globulin 2.6 Albumin/Globulin Ratio 1.1 Triglycerides 87 Cholesterol 105 LDL Cholesterol Direct 41 HDL Cholesterol 28 L Procalcitonin Venous Blood Potassium Urine Color Urine Clarity Urine pH Ur Specific [place] Urine Protein Urine Glucose (UA) Urine Ketones Urine Blood Urine Nitrate Urine Bilirubin Urine Urobilinogen Ur Leukocyte Esterase Urine WBC (Auto) Urine RBC (Auto) Ur Squamous Epith Cells Urine Bacteria Hyaline Casts EKG/Cardiology Studies: Cardiology / EKG Studies 12/24/17 18:43 ELECTROCARDIOGRAM Stat Comment: Mode Of Transportation: Reason For Exam: Sepsis Patient Critical Care Progress Note - Nutrition Nutrition: Nutrition Category Date Time Status Heart Healthy Diet [DIET] Diets 12/24/17 Dinner Active Attending/Attestation - Attestation I have personally seen and examined this patient.: Yes I have fully participated in the care of the patient.: Yes I have reviewed all pertinent clinical information: Yes Notes (Text): 12/25/17 18:09 patient seen and examined in the intensive care unit. Continue IV antibiotics Cellulitis of left leg noted No DVT taper off pressors Follow-up culture and sensitivity analgesics/anxiolytic
--- NOTE | 2017-12-25 12:51 | CP.PCM.CON ---
History of Present Illness - History of Present Illness History of Present Illness: 62 year old female patient with PMHx of mitral valve prolapse, RA was seen and evaluated at bedside left LE cellulitis. Patient is seen with her at bedside. Patient reports that she has a lot of pain to the LLE which started couple of days ago and it was progressively worsened. Patient reports that she believes she got bitten by a spider and it is related to that. Reports that she had a fever of 103 yesterday. Reports that she took tylenol which helped her with the fever. Reports that her legs are always swollen but this time it is more than usual. reports that she is very lethargic. Denies of any other pedal complains at this time. No recent N/V/C/SOB/CP/headache. PMHx: RA, mitral valve prolapse PSHx: b/l knee replacement Allergies: Amoxicillin, iodine SHx: Denies smoking, EtOH or illicit drug usage Review of Systems - Constitutional Constitutional: As Per HPI - EENT Eyes: absent: As Per HPI, Blind Spots, Blurred Vision, Change in Vision, Decreased Night Vision, Diplopia, Discharge, Dry Eye, Exophthalmos, Floaters, Irritation, Itchy Eyes, Loss of Peripheral Vision, Pain, Photophobia, Requires Corrective Lenses, Sees Flashes, Spots in Vision, Tunnel Vision, Other Visual Disturbances, Loss of Vision, Other Ears: absent: As Per HPI, Decreased Hearing, Ear Discharge, Ear Pain, Tinnitus, Abnormal Hearing, Disequilibrium, Dizziness, Other Nose/Mouth/Throat: absent: As Per HPI, Epistaxis, Nasal Congestion, Nasal Discharge, Nasal Obstruction, Nasal Trauma, Nose Pain, Post Nasal Drip, Sinus Pain, Sinus Pressure, Bleeding Gums, Change in Voice, Dental Pain, Dry Mouth, Dysphagia, Halitosis, Hoarsness, Lip Swelling, Mouth Lesions, Mouth Pain, Odynophagia, Sore Throat, Throat Swelling, Tongue Swelling, Facial Pain, Neck Pain, Neck Mass, Other - Breasts Breasts: absent: As Per HPI, Change in Shape, Mass, Pain, Nipple Discharge, Nipple Inversion, Skin Changes, Swelling, Other - Cardiovascular Cardiovascular: As Per HPI - Respiratory Respiratory: As Per HPI, Dyspnea, Dyspnea on Exertion - Gastrointestinal Gastrointestinal: absent: As Per HPI, Abdominal Pain, Belching, Bloating, Change in Bowel Habits, Change in Stool Character, Coffee Ground Emesis, Constipation, Cramping, Diarrhea, Dyspepsia, Dysphagia, Early Satiety, Excessive Flatus, Fecal Incontinence, Heartburn, Hematemesis, Hematochezia, Loose Stools, Melena, Nausea, Odynophagia, Temesmus, Vomiting, Other - Genitourinary Genitourinary: absent: As Per HPI, Change in Urinary Stream, Difficulty Urinating, Dysuria, Flank Pain, Hematuria, Pyuria, Nocturia, Urinary Incontinence, Urinary Frequency, Urinary Hesitance, Urinary Urgency, Voiding Freq/Small Amts, Freq UTI, Hx Renal/Bladder Calculi, Hx /Renal Surgery, Bladder Distension, Other - Reproductive: Female Reproductive:Female: absent: As Per HPI, Amenorrhea, Amenorrhea/ Control, Currently Menstual, Cycle <21 Days, Cycle >35 Days, Cycle Variable, Menses 1-7 Days, Menses >/= 8 Days, Menses Variable, Cycle > 4 Weeks Between, No Menses for 6 Months, Heavy Menses, Light Menses, Normal Menses, Spotting Between Cycles , S/P Hysterectomy, Menopausal, Post Menopausal, Premenarche, Abnormal Vaginal Bleeding, Dysmenorrhea, Dyspareunia, Genital Lesions, Genital Pruritis, Pelvic Pain, Prolapse Symptoms, Sexual Dysfunction, Vaginal Discharge, Vaginal Dryness , Vaginal Odor, Vaginal Pruritis, Other - Menstruation Menstruation: absent: As Per HPI, Amenorrhea, Amenorrhea/ Control, Currently Menstual, Cycle <21 Days, Cycle >35 Days, Cycle Variable, Menses 1-7 Days, Menses >/= 8 Days, Menses Variable, Cycle > 4 Weeks Between, No Menses for 6 Months, Heavy Menses, Light Menses, Normal Menses, Spotting Between Cycles , S/P Hysterectomy, Menopausal, Post Menopausal, Premenarche, Abnormal Vaginal Bleeding, Dysmenorrhea, Other - Musculoskeletal Musculoskeletal: As Per HPI - Integumentary Integumentary: As Per HPI - Neurological Neurological: absent: As Per HPI, Abnormal Gait, Abnormal Hearing, Abnormal Movements, Abnormal Speech, Behavioral Changes, Burning Sensations, Confusion, Convulsions, Disequilibrium, Dizziness, Numbness, Focal Weakness, Frequent Falls , Headaches, Lack of Coordination, Loss of Vision, Memory Loss, Paresthesias, Radicular Pain, Restless Legs, Sensory Deficit, Syncope, Tingling, Tremor, Vertigo, Weakness, Other Visual Disturbances, Other - Psychiatric Psychiatric: absent: As Per HPI, Abnormal Sleep Pattern, Anhedonia, Anxiety, Auditory Hallucinations, Behavioral Changes, Change in Appetite, Change in Libido, Confusion, Depression, Difficulty Concentrating, Hallucinations, Homicidal Ideation, Hopelessness, Irritability, Memory Loss, Mood Swings, Panic Attacks, Paranoia, Suicidal Ideation, Visual Hallucinations, Tactile Hallucinations, Other - Endocrine Endocrine: absent: As Per HPI, Change in Body Appearance, Change in Libido, Cold Intolorance, Deepening of Voice, Excessive Sweating, Fatigue, Flushing, Heat Intolorance, Increase in Ring/Shoe/Hat Size, Palpitations, Polydipsia, Polyphagia, Polyuria, Other - Hematologic/Lymphatic Hematologic: absent: As Per HPI, Easy Bleeding, Easy Bruising, Lymphadenopathy, Other Past Patient History - Past Medical History & Family History Past Medical History?: Yes - Past Social History Smoking Status: Never Smoked - CARDIAC Hx Cardiac Disorders: Yes Hx Mitral Valve Prolapse: Yes - PULMONARY Hx Respiratory Disorders: No - NEUROLOGICAL Hx Neurological Disorder: No - HEENT Hx HEENT Problems: No - RENAL Hx Chronic Kidney Disease: No - ENDOCRINE/METABOLIC Hx Endocrine Disorders: No - HEMATOLOGICAL/ONCOLOGICAL Hx Blood Disorders: No - INTEGUMENTARY Hx Dermatological Problems: No - MUSCULOSKELETAL/RHEUMATOLOGICAL Hx Musculoskeletal Disorders: Yes Hx Falls: No Hx Rheumatoid Arthritis: Yes - GASTROINTESTINAL Hx Gastrointestinal Disorders: Yes Hx Gastritis: Yes - GENITOURINARY/GYNECOLOGICAL Hx Genitourinary Disorders: No - PSYCHIATRIC Hx Psychophysiologic Disorder: No Hx Substance Use: No - SURGICAL HISTORY Hx Surgeries: Yes Other/Comment: BL KNEE REPLACEMENTS - ANESTHESIA Hx Anesthesia: Yes Hx Anesthesia Reactions: No Meds Allergies/Adverse Reactions: Allergies Allergy/AdvReac Type Severity Reaction Status Date / Time amoxicillin [From Amoxil] Allergy Verified 12/24/17 13:54 iodine Allergy Verified 12/24/17 14:18 - Medications Medications: Current Medications Acetaminophen (Tylenol 325mg Tab) 650 mg PO Q6 PRN PRN Reason: Pain, Mild (1-3) Last Admin: 12/25/17 04:29 Dose: 650 mg Heparin Sodium (Porcine) (Heparin) 5,000 units SC Q8 JORGE A Last Admin: 12/25/17 04:59 Dose: 5,000 units Linezolid (Zyvox 600mg/300ml D5w) 600 mg in 300 mls @ 300 mls/hr IVPB Q12H [facility] Last Admin: 12/25/17 09:08 Dose: 300 mls/hr Sodium Chloride (Sodium Chloride 0.9%) 1,000 mls @ 100 mls/hr IV .Q10H [facility] Last Admin: 12/24/17 22:57 Dose: 100 mls/hr Norepinephrine Bitartrate 4 mg (/ Sodium Chloride) 254 mls @ 15.24 mls/hr IV .[id number] PRN; Protocol; 4 MCG/MIN PRN Reason: TITRATE PER MD ORDER Last Admin: 12/25/17 00:15 Dose: 4 mcg/min, 15.24 mls/hr Aztreonam 1 gm/ Sodium (Chloride) 100 mls @ 200 mls/hr IVPB Q12 JORGE A PRN Reason: Protocol Last Admin: 12/25/17 10:56 Dose: 200 mls/hr Potassium Phosphate 15 mmole/ (Sodium Chloride) 255 mls @ 63 mls/hr IV ONCE ONE Stop: 12/25/17 14:22 Last Admin: 12/25/17 12:29 Dose: 63 mls/hr Pantoprazole Sodium (Protonix Ec Tab) 40 mg PO DAILY [facility] Last Admin: 12/25/17 09:43 Dose: 40 mg Physical Exam - Constitutional Appears: Toxic, In Acute Distress - Head Exam Head Exam: ATRAUMATIC, NORMAL INSPECTION, NORMOCEPHALIC - Eye Exam Eye Exam: EOMI, PERRL. absent: Scleral icterus - ENT Exam ENT Exam: Mucous Membranes Dry, Normal External Ear Exam, Normal Oropharynx - Neck Exam Neck exam: Negative for: Lymphadenopathy - Respiratory Exam Respiratory Exam: Decreased Breath Sounds, Prolonged Expiratory Phase, Rhonchi - Cardiovascular Exam Cardiovascular Exam: REGULAR RHYTHM, +S1, +S2 - GI/Abdominal Exam GI & Abdominal Exam: Diminished Bowel Sounds, Soft. absent: Tenderness - Rectal Exam Rectal Exam: Deferred - Exam Exam: NORMAL INSPECTION - Extremities Exam Extremities exam: Positive for: pedal edema, tenderness, pedal pulses present. Negative for: calf tenderness - Back Exam Back exam: absent: CVA tenderness (L), CVA tenderness (R), paraspinal tenderness - Neurological Exam Neurological exam: Alert, CN II-XII Intact, Oriented x3, Reflexes Normal - Psychiatric Exam Psychiatric exam: Depressed - Skin Skin Exam: Dry Results - Vital Signs Recent Vital Signs: Last Vital Signs Temp 98.2 F 12/25/17 12:00 Pulse 77 12/25/17 10:00 Resp 17 12/25/17 10:00 BP 121/58 L 12/25/17 09:20 Pulse Ox 99 12/25/17 12:00 - Labs Result Diagrams: 12/25/17 06:24 12/25/17 06:24 Labs: Laboratory Results - last 24 hr 12/24/17 12/24/17 12/24/17 14:50 14:50 17:28 WBC 23.9 H RBC 3.82 Hgb 11.4 Hct 33.4 L MCV 87.5 MCH 29.8 MCHC 34.1 RDW 16.5 H Plt Count 213 MPV 8.8 Neut % (Auto) 96.4 H Lymph % (Auto) 2.2 L Summers % (Auto) 1.2 Eos % (Auto) 0.0 Baso % (Auto) 0.2 Neut # (Auto) 23.0 H Lymph # (Auto) 0.5 L Summers # (Auto) 0.3 Eos # (Auto) 0.0 Baso # (Auto) 0.0 Neutrophils % (Manual) 93 H Band Neutrophils % 4 H Lymphocytes % (Manual) 2 L Monocytes % (Manual) 1 Platelet Estimate Normal Hypochromasia (manual) Slight Poikilocytosis (manual Slight Anisocytosis (manual) Slight ESR PT INR APTT D-Dimer, Quantitative pO2 15 L VBG pH 7.31 L VBG pCO2 67 H* VBG HCO3 26.8 VBG Total CO2 35.8 H VBG O2 Sat (Calc) 19.9 L VBG Base Excess 5.2 H VBG Potassium 3.6 Glucose 97 Lactate 2.3 H FiO2 Crit Value Called To Dr mai Crit Value Called By Luciano mittal mountain bike guide Crit Value Read Back Y Blood Gas Notified Time 1732 Sodium 137 136.0 Potassium 3.4 L Chloride 96 L 97.0 L Carbon Dioxide 32 H Anion Gap 13 BUN 17 Creatinine 0.8 Est GFR ( Amer) > 60 Est GFR (Non-Af Amer) > 60 Random Glucose 117 H Hemoglobin A1c Calcium 9.0 Phosphorus Magnesium Total Bilirubin 1.0 AST 24 ALT 37 Alkaline Phosphatase 88 Total Creatine Kinase Troponin I C-Reactive Protein Total Protein 6.3 Albumin 3.5 Globulin 2.7 Albumin/Globulin Ratio 1.3 Triglycerides Cholesterol LDL Cholesterol Direct HDL Cholesterol Procalcitonin Venous Blood Potassium 3.6 Urine Color Urine Clarity Urine pH Ur Specific [place] Urine Protein Urine Glucose (UA) Urine Ketones Urine Blood Urine Nitrate Urine Bilirubin Urine Urobilinogen Ur Leukocyte Esterase Urine WBC (Auto) Urine RBC (Auto) Ur Squamous Epith Cells Urine Bacteria Hyaline Casts 12/24/17 12/24/17 12/24/17 20:30 21:37 23:26 WBC RBC Hgb Hct MCV MCH MCHC RDW Plt Count MPV Neut % (Auto) Lymph % (Auto) Summers % (Auto) Eos % (Auto) Baso % (Auto) Neut # (Auto) Lymph # (Auto) Summers # (Auto) Eos # (Auto) Baso # (Auto) Neutrophils % (Manual) Band Neutrophils % Lymphocytes % (Manual) Monocytes % (Manual) Platelet Estimate Hypochromasia (manual) Poikilocytosis (manual Anisocytosis (manual) ESR PT 20.5 H INR 1.9 APTT 29 D-Dimer, Quantitative 1580 H pO2 34 VBG pH 7.35 VBG pCO2 52 VBG HCO3 25.6 VBG Total CO2 30.3 H VBG O2 Sat (Calc) 72.9 H VBG Base Excess 2.1 H VBG Potassium 3.2 L Glucose 89 Lactate 1.6 FiO2 21.0 Crit Value Called To Crit Value Called By Crit Value Read Back Blood Gas Notified Time Sodium 138.0 Potassium Chloride 107.0 Carbon Dioxide Anion Gap BUN Creatinine Est GFR ( Amer) Est GFR (Non-Af Amer) Random Glucose Hemoglobin A1c Calcium Phosphorus Magnesium Total Bilirubin AST ALT Alkaline Phosphatase Total Creatine Kinase Troponin I C-Reactive Protein Total Protein Albumin Globulin Albumin/Globulin Ratio Triglycerides Cholesterol LDL Cholesterol Direct HDL Cholesterol Procalcitonin Venous Blood Potassium 3.2 L Urine Color Lita Urine Clarity Hazy Urine pH 5.0 Ur Specific [place] 1.028 Urine Protein 1+ H Urine Glucose (UA) Normal Urine Ketones Negative Urine Blood Negative Urine Nitrate Negative Urine Bilirubin Negative Urine Urobilinogen Normal Ur Leukocyte Esterase Trace Urine WBC (Auto) 8 H Urine RBC (Auto) 4 H Ur Squamous Epith Cells 57 H Urine Bacteria Rare Hyaline Casts 3-5 H 12/24/17 12/24/17 12/24/17 23:26 23:26 23:26 WBC RBC Hgb Hct MCV MCH MCHC RDW Plt Count MPV Neut % (Auto) Lymph % (Auto) Summers % (Auto) Eos % (Auto) Baso % (Auto) Neut # (Auto) Lymph # (Auto) Summers # (Auto) Eos # (Auto) Baso # (Auto) Neutrophils % (Manual) Band Neutrophils % Lymphocytes % (Manual) Monocytes % (Manual) Platelet Estimate Hypochromasia (manual) Poikilocytosis (manual Anisocytosis (manual) ESR 42 H PT INR APTT D-Dimer, Quantitative pO2 VBG pH VBG pCO2 VBG HCO3 VBG Total CO2 VBG O2 Sat (Calc) VBG Base Excess VBG Potassium Glucose Lactate FiO2 Crit Value Called To Crit Value Called By Crit Value Read Back Blood Gas Notified Time Sodium Potassium Chloride Carbon Dioxide Anion Gap BUN Creatinine Est GFR ( Amer) Est GFR (Non-Af Amer) Random Glucose Hemoglobin A1c Calcium Phosphorus 3.0 Magnesium 1.3 L Total Bilirubin AST ALT Alkaline Phosphatase Total Creatine Kinase Troponin I C-Reactive Protein Total Protein Albumin Globulin Albumin/Globulin Ratio Triglycerides Cholesterol LDL Cholesterol Direct HDL Cholesterol Procalcitonin 7.66 H Venous Blood Potassium Urine Color Urine Clarity Urine pH Ur Specific [place] Urine Protein Urine Glucose (UA) Urine Ketones Urine Blood Urine Nitrate Urine Bilirubin Urine Urobilinogen Ur Leukocyte Esterase Urine WBC (Auto) Urine RBC (Auto) Ur Squamous Epith Cells Urine Bacteria Hyaline Casts 12/24/17 12/24/17 12/25/17 23:26 23:27 06:24 WBC 22.3 H RBC 3.60 L Hgb 10.6 L Hct 32.1 L MCV 89.1 MCH 29.5 MCHC 33.1 RDW 16.7 H Plt Count 193 MPV 8.7 Neut % (Auto) 95.2 H Lymph % (Auto) 1.4 L Summers % (Auto) 3.3 Eos % (Auto) 0.0 Baso % (Auto) 0.1 Neut # (Auto) 21.2 H Lymph # (Auto) 0.3 L Summers # (Auto) 0.7 Eos # (Auto) 0.0 Baso # (Auto) 0.0 Neutrophils % (Manual) 76 H Band Neutrophils % 21 H* Lymphocytes % (Manual) 2 L Monocytes % (Manual) 1 Platelet Estimate Normal Hypochromasia (manual) Slight Poikilocytosis (manual Slight Anisocytosis (manual) Slight ESR PT INR APTT D-Dimer, Quantitative pO2 VBG pH VBG pCO2 VBG HCO3 VBG Total CO2 VBG O2 Sat (Calc) VBG Base Excess VBG Potassium Glucose Lactate FiO2 Crit Value Called To Crit Value Called By Crit Value Read Back Blood Gas Notified Time Sodium Potassium Chloride Carbon Dioxide Anion Gap BUN Creatinine Est GFR ( Amer) Est GFR (Non-Af Amer) Random Glucose Hemoglobin A1c Calcium Phosphorus Magnesium Total Bilirubin AST ALT Alkaline Phosphatase Total Creatine Kinase 105 Troponin I 0.0370 C-Reactive Protein 252.40 H Total Protein Albumin Globulin Albumin/Globulin Ratio Triglycerides Cholesterol LDL Cholesterol Direct HDL Cholesterol Procalcitonin Venous Blood Potassium Urine Color Urine Clarity Urine pH Ur Specific [place] Urine Protein Urine Glucose (UA) Urine Ketones Urine Blood Urine Nitrate Urine Bilirubin Urine Urobilinogen Ur Leukocyte Esterase Urine WBC (Auto) Urine RBC (Auto) Ur Squamous Epith Cells Urine Bacteria Hyaline Casts 12/25/17 12/25/17 12/25/17 06:24 06:24 06:24 WBC RBC Hgb Hct MCV MCH MCHC RDW Plt Count MPV Neut % (Auto) Lymph % (Auto) Summers % (Auto) Eos % (Auto) Baso % (Auto) Neut # (Auto) Lymph # (Auto) Summers # (Auto) Eos # (Auto) Baso # (Auto) Neutrophils % (Manual) Band Neutrophils % Lymphocytes % (Manual) Monocytes % (Manual) Platelet Estimate Hypochromasia (manual) Poikilocytosis (manual Anisocytosis (manual) ESR PT INR APTT D-Dimer, Quantitative pO2 VBG pH VBG pCO2 VBG HCO3 VBG Total CO2 VBG O2 Sat (Calc) VBG Base Excess VBG Potassium Glucose Lactate FiO2 Crit Value Called To Crit Value Called By Crit Value Read Back Blood Gas Notified Time Sodium 140 Potassium 3.6 Chloride 106 Carbon Dioxide 26 Anion Gap 11 BUN 21 H Creatinine 0.8 Est GFR ( Amer) > 60 Est GFR (Non-Af Amer) > 60 Random Glucose 96 Hemoglobin A1c 5.5 Calcium 7.6 L Phosphorus 2.4 L Magnesium 1.3 L Total Bilirubin 1.3 AST 58 H D ALT 62 H D Alkaline Phosphatase 94 Total Creatine Kinase Troponin I 0.0660 C-Reactive Protein Total Protein 5.5 L Albumin 2.9 L Globulin 2.6 Albumin/Globulin Ratio 1.1 Triglycerides 87 Cholesterol 105 LDL Cholesterol Direct 41 HDL Cholesterol 28 L Procalcitonin Venous Blood Potassium Urine Color Urine Clarity Urine pH Ur Specific [place] Urine Protein Urine Glucose (UA) Urine Ketones Urine Blood Urine Nitrate Urine Bilirubin Urine Urobilinogen Ur Leukocyte Esterase Urine WBC (Auto) Urine RBC (Auto) Ur Squamous Epith Cells Urine Bacteria Hyaline Casts Assessment & Plan (1) Asthma Status: Acute (2) Cellulitis Status: Acute (3) Mitral valve prolapse Status: Acute (4) Sepsis affecting skin Status: Acute (5) Septic shock Status: Acute - Assessment and Plan (Free Text) Assessment: SEVERE SEPSIS / SEPTIC SHOCK- R/O TSS SECONDARY TO STAPH ? UTI ON ZYVOX AND AZTREONAM CONSIDER ECHO WELL ARTERIAL AND VENOUS DOPPLERS MAY NEED EVAL FOR RIGHT SIDED HEART FAILURE / COR PULMONALE AWAIT CULTURES CONT PRESSORS PROGNOSIS GUARDED
[2017-12-25] MEDS: Sodium Chloride 0.9% 1,000 ML IV SCH ×2 (15:00)
--- NOTE | 2017-12-25 16:06 | NM ---
Date of service: 12/25/2017 COMPARISON: December 25, 2017. TECHNIQUE: 10.0 mCi technetium 99-m Xe-133 Gas. 3.9 mCI technetium 99-m MAA administered intravenously. FINDINGS: VENTILATION COMPONENT: Normal. PERFUSION COMPONENT: Heterogeneous distribution of radionuclide. No geographic, segmental, lobar abnormalities apparent on the present examination. IMPRESSION: Low probability ventilation perfusion scan for pulmonary embolism.
--- NOTE | 2017-12-25 16:52 | PN ---
DATE: 12/25/2017 SUBJECTIVE: The patient was seen and examined at bedside. Events from last night noted. The patient was started on pressors. The patient's blood pressure is slightly improved on Levophed. The patient is still complaining of left leg pain, unable to move her left lower extremity secondary to pain. Denies any other new complaints. All other systems reviewed and were found to be negative. PHYSICAL EXAMINATION: GENERAL: Middle-aged obese female, lying in bed, in no acute distress. VITAL SIGNS: Blood pressure 121/58, pulse 81, respirations 17, temperature 98.4 this morning, T-max is 102.9, O2 sat is 100% on room air. Intake is 1340 mL and output is 450 mL. HEENT: Pupils equal, round and reacting to light and accommodation. Extraocular muscles intact. No icterus. No pallor. No oral thrush. No pharyngeal congestion. NECK: Supple. No JVD. LUNGS: Bilateral vesicular breath sounds. No wheezing. No rhonchi. CVS: S1 and S2 present, regular. ABDOMEN: Soft, nontender. Bowel sounds present. No guarding. No rigidity. No rebound tenderness noted. TOBACCO BUYER: Alert, awake, and oriented x3. No focal deficits noted. EXTREMITIES: Left lower extremity with slightly increased swelling from last night and erythema slightly above the knee and warmth to touch and tenderness is present. Palpable peripheral pulses. MEDICATIONS: Include Tylenol as needed, aztreonam 1 gm IV every 12 hours, subcu heparin 5000 units every 8 hours, Zyvox 600 mg IV every 12 hours, Levophed 4 mcg per minute, Protonix 40 mg daily, potassium phosphate 15 mmol, sodium chloride 100 mL/hour. LABORATORY DATA: Labs from this morning, WBC 22.3, hemoglobin 10.6, hematocrit 32.1, platelets . Bands 21%, ESR 42, PT 20.5, INR 1.9, PTT 29, D-dimer 1580. Sodium 140, potassium 3.6, chloride 106, bicarb 26, BUN 21, creatinine 0.8, glucose 96, hemoglobin A1c 5.5, calcium 7.6, phosphorus 2.4, magnesium 1.3, AST 58, ALT 62, alkaline phosphatase 94, C-reactive protein 252, total protein 5.5, albumin 2.9. LDL 41, HDL 28, procalcitonin 7.66, venous blood 3.2. UA, specific gravity 1.028, protein 1+, wbc 8, rbc 4. Urine culture preliminary report shows gram-negative rods and blood cultures show gram-positive cocci, Staph aureus and coag-negative Staph. Knee x-rays, nonspecific soft tissue swelling. Chest x-ray, venous access catheter in satisfactory position. No adverse findings. No pneumothorax. ASSESSMENT AND PLAN: Middle-aged female with past medical history of rheumatoid arthritis, osteoarthritis, mitral valve prolapse, gastroesophageal reflux disease, asthma, with prior history of methicillin-resistant Staphylococcus aureus about four years ago from cellulitis, admitted for fever, left leg swelling and pain with cellulitic changes. All her symptoms consistent with sepsis, requiring pressors, on Levophed, improving blood pressures. We will try to slowly taper off the pressors if her blood pressure is stable. Received Zyvox and Azactam last night. We will continue with Zyvox 600 mg intravenously every 12 hours and aztreonam 1 gm intravenously every 12 hours pending the identification of the gram-negative rods and gram-positive cocci in the blood. We will repeat cultures in a.m. Follow up with Infectious Disease. Elevated white blood cell count secondary to sepsis. We will supplement phosphorus for hypophosphatemia and magnesium for hypomagnesemia. Repeat electrolytes in a.m. WE WILL DO VENTILATION/PERFUSION SCAN THE PATIENT IS ALLERGIC TO IODINE. We will continue with deep vein thrombosis and gastrointestinal prophylaxis. We will add further recommendation as her clinical course progresses. The patient gives permission to release all her medical information to her first and then her sister, and she claims that she will speak to her son regarding her medical condition and the progress. Nando Blum MD
[2017-12-26] MEDS: Sodium Chloride 0.9% 1,000 ML IV SCH ×2 (03:00→12:47)
[2017-12-26 06:21] LABS: BASO % 0.1 % (0.0-2.0); EOS % 0.2 % (0.0-4.0); LYMPH # 0.6 K/uL (1.0-4.3); LYMPH % 3.7 % (20.0-40.0); MEAN CELL VOLUME 88.8 fL (81.0-99.0); MEAN CORPUSCULAR HGB CONC 33.8 g/dL (33.0-37.0); MEAN PLATELET VOLUME 9.2 fL (7.2-11.7); MONO # 0.7 K/uL (0.0-0.8); MONO % 4.4 % (0.0-10.0); NEUT # 13.7 K/uL (1.8-7.0); NEUT % 91.6 % (50.0-75.0); PLATELET COUNT 161 K/uL (130-400); RBC 3.35 Mil/uL (3.80-5.20); RED CELL DISTRIBUTION WIDTH 17.2 % (11.5-14.5); WHITE BLOOD COUNT 14.9 K/uL (4.8-10.8)
[2017-12-26 06:49] LABS: ALBUMIN 2.8 g/dL (3.5-5.0); ALT/SGPT 54 U/L (9-52); AST/SGOT 47 U/L (14-36); BLOOD UREA NITROGEN 15 mg/dL (7-17); CALCIUM 8.2 mg/dl (8.6-10.4); GFR AFRICAN-AMERICAN > 60; GFR NON-AFRICAN AMERICAN > 60
[2017-12-26] MEDS: Linezolid 600 mg in D5W 300 ml 600 MG/300 ML BAG IVPB SCH ×2 (07:30→20:12)
[2017-12-26 08:38] LABS: BANDS 9 % (0-2); EOSINOPHIL 1 % (0-4); LYMPHOCYTE 3 % (20-40); MONOCYTE 3 % (0-10); NEUTROPHIL 84 % (50-75); PLATELET ESTIMATE NORMAL (NORMAL); TOTAL CELLS COUNTED 100
[2017-12-26 08:39] LABS: ANISOCYTOSIS SLIGHT; HYPOCHROMIC SLIGHT; POIKILOCYTOSIS SLIGHT
[2017-12-26] MEDS: Aztreonam 1 GM in Sodium Chloride 0.9% 100 ML IVPB SCH ×2 (09:00→22:00)
[2017-12-26] MEDS: Pantoprazole 40 mg EC Tab PO SCH (09:13)
[2017-12-26] MEDS ORDERED: Potassium Phosphate 15 MMOLE in Sodium Chloride 0.9% 250 ML IVPB ONE (10:00)
[2017-12-26] MEDS ORDERED: Potassium Chloride 20 mEq ER Tab PO SCH (10:00)
--- NOTE | 2017-12-26 10:07 | CP.PCM.PN ---
Subjective - Date & Time of Evaluation Date of Evaluation: 12/26/17 Time of Evaluation: 10:10 - Subjective Subjective: Progress note dictated #[id number] Objective - Vital Signs/Intake and Output Vital Signs (last 24 hours): Temp Pulse Resp BP Pulse Ox 99.8 F H 85 35 H 127/93 H 99 12/26/17 08:00 12/26/17 09:32 12/26/17 09:32 12/26/17 09:32 12/26/17 09:32 Intake and Output: 12/26/17 12/26/17 06:59 18:59 Intake Total 1544 300 Output Total 2500 Balance 1544 -2200 - Medications Medications: Current Medications Acetaminophen (Tylenol 325mg Tab) 650 mg PO Q6 PRN PRN Reason: Pain, Mild (1-3) Last Admin: 12/25/17 23:26 Dose: 650 mg Heparin Sodium (Porcine) (Heparin) 5,000 units SC Q8 [facility] Last Admin: 12/26/17 05:02 Dose: 5,000 units Linezolid (Zyvox 600mg/300ml D5w) 600 mg in 300 mls @ 300 mls/hr IVPB Q12H [facility] Last Admin: 12/26/17 07:30 Dose: 300 mls/hr Sodium Chloride (Sodium Chloride 0.9%) 1,000 mls @ 100 mls/hr IV .Q10H [facility] Last Admin: 12/26/17 03:00 Dose: 100 mls/hr Norepinephrine Bitartrate 4 mg (/ Sodium Chloride) 254 mls @ 15.24 mls/hr IV .[id number] PRN; Protocol; 4 MCG/MIN PRN Reason: TITRATE PER MD ORDER Last Titration: 12/26/17 05:00 Dose: 0 mcg/min, 0 mls/hr Aztreonam 1 gm/ Sodium (Chloride) 100 mls @ 200 mls/hr IVPB Q12 JORGE A PRN Reason: Protocol Last Admin: 12/26/17 09:00 Dose: 200 mls/hr Potassium Phosphate 15 mmole/ (Sodium Chloride) 255 mls @ 42.5 mls/hr IVPB ONCE ONE Stop: 12/26/17 15:59 Pantoprazole Sodium (Protonix Ec Tab) 40 mg PO DAILY [facility] Last Admin: 12/26/17 09:13 Dose: 40 mg Potassium Chloride (K-Dur 20 Meq Er Tab) 20 meq PO DAILY JORGE A Last Admin: 12/26/17 09:25 Dose: 20 meq - Labs Labs: 12/26/17 06:11 12/26/17 06:11 PT 20.5 SECONDS (9.7-12.2) H 12/24/17 23:26 INR 1.9 12/24/17 23:26 APTT 29 SECONDS (21-34) 12/24/17 23:26
--- NOTE | 2017-12-26 11:51 | RAD ---
Date of service: 12/26/2017 HISTORY: sob COMPARISON: Chest radiograph dated 12/25/2017. FINDINGS: LUNGS: Pulmonary vascular congestion. No focal consolidation. PLEURA: No significant pleural effusion identified, no pneumothorax apparent. CARDIOVASCULAR: Atherosclerotic aortic calcifications. Cardiomediastinal silhouette stably enlarged. OSSEOUS STRUCTURES: Unchanged. VISUALIZED UPPER ABDOMEN: Normal. OTHER FINDINGS: Right internal jugular access central venous catheter, unchanged. IMPRESSION: Pulmonary vascular congestion. No focal consolidation or pleural effusion. No significant interval change.
--- NOTE | 2017-12-26 12:19 | CARD ---
APPROVED REPORT Date of service: 12/24/2017 EKG Measurement Heart [id number] <Conclusion> Normal sinus rhythm Minimal voltage criteria for LVH, may be normal variant Borderline ECG
--- NOTE | 2017-12-26 14:28 | VASCLAB ---
Date of service: 12/25/2017 PROCEDURE: Left Lower Extremity Venous Duplex Exam. HISTORY: Swelling, Pain in limb, Redness PRIORS: None. TECHNIQUE: Left common femoral, femoral, popliteal and posterior tibial, peroneal and great saphenous veins were evaluated. Flow was assessed with color Doppler, compressibility, assessment of phasic flow and augmentation response. Report prepared by PAIGE Coates FINDINGS: LEFT: 1. Common Femoral Vein: 1.1. Compressibility - Fully compressible: Thrombus - None : Flow - Phasic: Augmentation -Normal: Reflux - None. 2. Femoral Vein: (proximal and mid views only) 2.1. Compressibility - Fully compressible: Thrombus - None: Flow - Phasic: Augmentation -Normal: Reflux - None. 3. Popliteal Vein: 3.1. Unable to image 4. Posterior Tibial Vein: 4.1. Analyzed with color fill only 5. Peroneal Vein: 5.1. Not visualized due to swelling 6. Great Saphenous Vein: 6.1. Compressibility - Fully compressible: Thrombus - None: Flow - Phasic: Augmentation - Normal: Reflux - None. OTHER FINDINGS: IMPRESSION: 1. Normal compressibility and phasic venous flow of the left common femoral, femoral and great saphenous veins. 2. Technically difficult and limited examination, due to severe edema and patient intolerance to compressions.
--- NOTE | 2017-12-26 17:37 | CP.PCM.PN ---
Subjective - Date & Time of Evaluation Date of Evaluation: 12/26/17 Time of Evaluation: 09:00 - Subjective Subjective: still SOB with min exertion low grade temps c/o severe pain and swelling left leg awake/ alert Objective - Vital Signs/Intake and Output Vital Signs (last 24 hours): Temp Pulse Resp BP Pulse Ox 99.4 F 94 H 38 H 122/63 100 12/26/17 16:00 12/26/17 17:00 12/26/17 17:00 12/26/17 16:32 12/26/17 17:00 Intake and Output: 12/26/17 12/26/17 06:59 18:59 Intake Total 1544 1455 Output Total 2500 Balance 1544 -1045 - Medications Medications: Current Medications Acetaminophen (Tylenol 325mg Tab) 650 mg PO Q6 PRN PRN Reason: Pain, Mild (1-3) Last Admin: 12/25/17 23:26 Dose: 650 mg Acetaminophen (Tylenol 325mg Tab) 650 mg PO Q6H PRN PRN Reason: Fever >100.4 F Al Hydrox/Mg Hydrox/Simethicone (Maalox Plus 30 Ml) 30 ml PO Q8H PRN PRN Reason: Indigestion / Heartburn Albuterol/Ipratropium (Duoneb 3 Mg/0.5 Mg (3 Ml) Ud) 3 ml INH RQ6 JORGE A Heparin Sodium (Porcine) (Heparin) 5,000 units SC Q8 [facility] Last Admin: 12/26/17 13:22 Dose: 5,000 units Linezolid (Zyvox 600mg/300ml D5w) 600 mg in 300 mls @ 300 mls/hr IVPB Q12H [facility] Last Admin: 12/26/17 07:30 Dose: 300 mls/hr Sodium Chloride (Sodium Chloride 0.9%) 1,000 mls @ 100 mls/hr IV .Q10H [facility] Last Admin: 12/26/17 12:47 Dose: Not Given Aztreonam 1 gm/ Sodium (Chloride) 100 mls @ 200 mls/hr IVPB Q12 JORGE A PRN Reason: Protocol Last Admin: 12/26/17 09:00 Dose: 200 mls/hr Oxycodone/Acetaminophen (Percocet 5/325 Mg Tab) 1 tab PO Q4H PRN PRN Reason: Pain, moderate (4-7) Stop: 12/29/17 10:31 Pantoprazole Sodium (Protonix Ec Tab) 40 mg PO DAILY JORGE A Last Admin: 12/26/17 09:13 Dose: 40 mg Potassium Chloride (K-Dur 20 Meq Er Tab) 20 meq PO DAILY JORGE A Last Admin: 12/26/17 09:25 Dose: 20 meq - Labs Labs: 12/26/17 06:11 12/26/17 06:11 PT 20.5 SECONDS (9.7-12.2) H 12/24/17 23:26 INR 1.9 12/24/17 23:26 APTT 29 SECONDS (21-34) 12/24/17 23:26 - Constitutional Appears: Non-toxic, Chronically Ill - Head Exam Head Exam: NORMOCEPHALIC - Eye Exam Eye Exam: PERRL - ENT Exam ENT Exam: Mucous Membranes Dry - Neck Exam Neck Exam: absent: Lymphadenopathy - Respiratory Exam Respiratory Exam: Decreased Breath Sounds - Cardiovascular Exam Cardiovascular Exam: Tachycardia, REGULAR RHYTHM, +S1, +S2 - GI/Abdominal Exam GI & Abdominal Exam: Distended, Soft. absent: Tenderness - Rectal Exam Rectal Exam: Deferred - Exam Exam: NORMAL INSPECTION - Extremities Exam Extremities Exam: Calf Tenderness, Pedal Edema, Tenderness Additional comments: massive swelling left leg with warmth and tenderness - Back Exam Back Exam: absent: CVA tenderness (L), CVA tenderness (R) - Neurological Exam Neurological Exam: Alert, Awake, CN II-XII Intact, Oriented x3 - Psychiatric Exam Psychiatric exam: Depressed Assessment and Plan (1) Asthma Status: Acute (2) Cellulitis Status: Acute (3) Mitral valve prolapse Status: Acute (4) Sepsis affecting skin Status: Acute (5) Septic shock Status: Acute - Assessment and Plan (Free Text) Assessment: consider surgical consult as well as imaging left leg- r/o abscess
--- NOTE | 2017-12-26 18:48 | CP.CCUPN ---
<Lydia Tyson - Last Filed: 12/26/17 18:59> CCU Subjective - Physician Review Subjective (Free Text): 62 yo F w PMHx of asthma, RA, HTN, and MVP presented to ED 12/24 w/ complaints of LLE increasing pain, redness, edema and fevers x2 days, due to a suspected spider bite. Pt initially admitted to tele for LLE cellulitis management, however was transfered to ICU due to hemodynamic instability requiring pressure support. Pt found to be in septic shock with management including pressure support, IV Abx, IVF through R IJ(12/24); no acute events ON. Pt persistently anxious and in pain. 12/26/17 18:45 CCU Objective - Vital Signs / Intake & Output Vital Signs (Last 4 hours): Vital Signs Temp Pulse Resp BP Pulse Ox 12/26/17 17:00 94 H 38 H 100 12/26/17 16:32 92 H 34 H 122/63 100 12/26/17 16:00 99.4 F 95 H 40 H 100 12/26/17 15:32 92 H 32 H 141/65 100 12/26/17 15:24 93 H 18 133/71 100 12/26/17 15:00 94 H 39 H 100 Intake and Output (Last 8hrs): Intake & Output 12/26/17 12/26/17 12/26/17 06:59 14:59 22:59 Intake Total 1084 1155 300 Output Total 2500 Balance 1084 -1345 300 Weight 248 lb 6 oz Intake: IV 179 Intake, IV Amount 905 1155 300 Right Internal Jugular 105 255 Right Internal Jugular 800 800 300 Proximal Right Medial Port 100 Internal Jugular Output: Urine 2500 Urine, Voided 2500 - Physical Exam Head: Positive for: Atraumatic, Normocephalic Pupils: Positive for: PERRL Extroacular Muscles: Positive for: EOMI Conjunctiva: Positive for: Normal. Negative for: Injected, Icteric Mouth: Positive for: Dry Neck: Positive for: Normal Range of Motion, Trachea Midline. Negative for: Meningeal Signs, MIDLINE TENDERNESS, Paraspinal Tenderness, JVD, Lymphadenopathy , Bruit, Other Respiratory/Chest: Positive for: Clear to Auscultation, Good Air Exchange. Negative for: Respiratory Distress, Accessory Muscle Use, Wheezes, Rales, Rhonchi Cardiovascular: Positive for: Regular Rate and Rhythm, Normal S1, S2, Peripheal Pulses Present. Negative for: Murmurs, Tachycardic, Bradycardic Abdomen: Positive for: Normal Bowel Sounds. Negative for: Tenderness, Distention Upper Extremity: Positive for: NORMAL PULSES, Capillary Refill < 2s. Negative for: Cyanosis, Edema, Tenderness, Swelling, Erythema Lower Extremity: Positive for: Edema (left), NORMAL PULSES, Tenderness (TTP from mid thigh down on left), Temperature Abnormalties (left warm to touch ), Neurovascularly Intact. Negative for: Cyanosis, Normal ROM Neurological: Positive for: Speech Normal, Motor Func Grossly Intact Psychiatric: Positive for: Alert, Oriented x 3, Anxious - Medications Active Medications: Active Medications Generic Name Dose Route Start Last Admin Trade Name Freq PRN Reason Stop Dose Admin Acetaminophen 650 mg 12/25/17 00:36 12/25/17 23:26 Tylenol 325mg Tab PO 650 mg Q6 PRN Administration Pain, Mild (1-3) Acetaminophen 650 mg 12/26/17 11:01 Tylenol 325mg Tab PO Q6H PRN Fever >100.4 F Al Hydrox/Mg Hydrox/Simethicone 30 ml 12/26/17 11:00 Maalox Plus 30 Ml PO Q8H PRN Indigestion / Heartburn Albuterol/Ipratropium 3 ml 12/26/17 14:00 Duoneb 3 Mg/0.5 Mg (3 Ml) Ud INH RQ6 JORGE A Heparin Sodium (Porcine) 5,000 units 12/25/17 06:00 12/26/17 13:22 Heparin SC 5,000 units Q8 JORGE A Administration Linezolid 600 mg in 300 mls @ 300 mls/hr 12/24/17 20:30 12/26/17 07:30 Zyvox 600mg/300ml D5w IVPB 300 mls/hr Q12H JORGE A Administration Aztreonam 1 gm/ Sodium 100 mls @ 200 mls/hr 12/25/17 10:00 12/26/17 09:00 Chloride IVPB 200 mls/hr Q12 JORGE A Administration Protocol Oxycodone/Acetaminophen 1 tab 12/26/17 10:30 Percocet 5/325 Mg Tab PO 12/29/17 10:31 Q4H PRN Pain, moderate (4-7) Pantoprazole Sodium 40 mg 12/25/17 10:00 12/26/17 09:13 Protonix Ec Tab PO 40 mg DAILY JORGE A Administration Potassium Chloride 20 meq 12/26/17 10:00 12/26/17 09:25 K-Dur 20 Meq Er Tab PO 20 meq DAILY JORGE A Administration - Patient Studies Lab Studies: Microbiology Studies 12/24/17 14:00 Blood Culture - Preliminary Blood NO GROWTH AFTER 48 HOURS 12/24/17 14:15 Blood Culture - Preliminary Blood Gram Positive Cocci Gram Stain - Final 12/24/17 21:37 Urine Culture - Final Urine,Catheterized Escherichia Coli Lab Studies 12/26/17 12/26/17 Range/Units 06:11 06:11 WBC 14.9 H (4.8-10.8) K/uL RBC 3.35 L (3.80-5.20) Mil/uL Hgb 10.0 L (11.0-16.0) g/dL Hct 29.7 L (34.0-47.0) % MCV 88.8 (81.0-99.0) fL MCH 30.0 (27.0-31.0) pg MCHC 33.8 (33.0-37.0) g/dL RDW 17.2 H (11.5-14.5) % Plt Count 161 (130-400) K/uL MPV 9.2 (7.2-11.7) fL Neut % (Auto) 91.6 H (50.0-75.0) % Lymph % (Auto) 3.7 L (20.0-40.0) % [place] % (Auto) 4.4 (0.0-10.0) % Eos % (Auto) 0.2 (0.0-4.0) % Baso % (Auto) 0.1 (0.0-2.0) % Neut # (Auto) 13.7 H (1.8-7.0) K/uL Lymph # (Auto) 0.6 L (1.0-4.3) K/uL [place] # (Auto) 0.7 (0.0-0.8) K/uL Eos # (Auto) 0.0 (0.0-0.7) K/uL Baso # (Auto) 0.0 (0.0-0.2) K/uL Neutrophils % (Manual) 84 H (50-75) % Band Neutrophils % 9 H (0-2) % Lymphocytes % (Manual) 3 L (20-40) % Monocytes % (Manual) 3 (0-10) % Eosinophils % (Manual) 1 (0-4) % Platelet Estimate Normal (NORMAL) Hypochromasia (manual) Slight Poikilocytosis (manual Slight Anisocytosis (manual) Slight Sodium 138 (132-148) mmol/L Potassium 3.2 L (3.6-5.2) mmol/L Chloride 104 (98-107) mmol/L Carbon Dioxide 27 (22-30) mmol/L Anion Gap 11 (10-20) BUN 15 (7-17) mg/dL Creatinine 0.7 (0.7-1.2) mg/dL Est GFR ( Amer) > 60 Est GFR (Non-Af Amer) > 60 Random Glucose 93 (65-105) mg/dL Calcium 8.2 L (8.6-10.4) mg/dl Phosphorus 2.2 L (2.5-4.5) mg/dL Magnesium 1.9 (1.6-2.3) mg/dL Total Bilirubin 1.1 (0.2-1.3) mg/dL AST 47 H (14-36) U/L ALT 54 H (9-52) U/L Alkaline Phosphatase 108 (38-126) U/L Total Protein 5.4 L (6.3-8.3) g/dL Albumin 2.8 L (3.5-5.0) g/dL Globulin 2.6 (2.2-3.9) gm/dL Albumin/Globulin Ratio 1.0 (1.0-2.1) Laboratory Results - last 24 hr 12/26/17 12/26/17 06:11 06:11 WBC 14.9 H RBC 3.35 L Hgb 10.0 L Hct 29.7 L MCV 88.8 MCH 30.0 MCHC 33.8 RDW 17.2 H Plt Count 161 MPV 9.2 Neut % (Auto) 91.6 H Lymph % (Auto) 3.7 L [place] % (Auto) 4.4 Eos % (Auto) 0.2 Baso % (Auto) 0.1 Neut # (Auto) 13.7 H Lymph # (Auto) 0.6 L [place] # (Auto) 0.7 Eos # (Auto) 0.0 Baso # (Auto) 0.0 Neutrophils % (Manual) 84 H Band Neutrophils % 9 H Lymphocytes % (Manual) 3 L Monocytes % (Manual) 3 Eosinophils % (Manual) 1 Platelet Estimate Normal Hypochromasia (manual) Slight Poikilocytosis (manual Slight Anisocytosis (manual) Slight Sodium 138 Potassium 3.2 L Chloride 104 Carbon Dioxide 27 Anion Gap 11 BUN 15 Creatinine 0.7 Est GFR ( Amer) > 60 Est GFR (Non-Af Amer) > 60 Random Glucose 93 Calcium 8.2 L Phosphorus 2.2 L Magnesium 1.9 Total Bilirubin 1.1 AST 47 H ALT 54 H Alkaline Phosphatase 108 Total Protein 5.4 L Albumin 2.8 L Globulin 2.6 Albumin/Globulin Ratio 1.0 Review of Systems - Constitutional Constitutional: Chills, Weakness - Cardiovascular Cardiovascular: absent: Chest Pain, Dyspnea, Orthopnea - Respiratory Respiratory: absent: Cough, Dyspnea, Wheezing - Gastrointestinal Gastrointestinal: absent: Abdominal Pain, Diarrhea, Nausea, Vomiting - Integumentary Integumentary: Erythema (LLE), Swelling - Psychiatric Psychiatric: Anxiety Critical Care Progress Note - Nutrition Nutrition: Nutrition Category Date Time Status Heart Healthy Diet [DIET] Diets 12/24/17 Dinner Active Assessment/Plan - Assessment and Plan (Free Text) Assessment: 62 yo F w PMHx of asthma, RA, HTN, and MVP presented to ED 12/24 w/ complaints of LLE increasing pain, redness, edema and fevers x2 days, due to a suspected spider bite. Pt initially admitted to tele for LLE cellulitis management, however was transfered to ICU due to hemodynamic instability requiring pressure support 1. Septic shock (WBC 23.9, lactate 2.3, bands 21, T 102.9, RR 33, BP 69/24, procalcitonin 7.66) -pt off pressors 12/26 -NS @ 100/hr -Linezolid 600 q12 -aztreonam 1g q12 -d-dimer 1580 LE duplex neg 2. Cellulitis LLE -WBC 14.9 today, bands 9 -f/u am labs -blood cx, s. aureus and coag -staph -urine, E. Coli -ID consult [place] -tylenol mild pain, oxycodone moderate/severe 3. Electrolytes -monitor and replete as needed -Phos 2.2, given 15mmol KPO4 -K 3.2, given 40mEq 4. Asthma -Nebs PRN 5. HTN -hold Diovan home med pending BP -BP stable, cont to monitor 6. Anxiety -Xanax .5mg PRN Ppx -heparin 5000sc q8 -protonix 40mg PO Case discussed w/ Dr. Proctor <Vernon Proctor M - Last Filed: 12/26/17 19:03> CCU Objective - Vital Signs / Intake & Output Vital Signs (Last 4 hours): Vital Signs Temp Pulse Resp BP Pulse Ox 12/26/17 19:00 91 H 36 H 98 12/26/17 18:33 96 H 36 H 150/82 98 12/26/17 18:00 90 33 H 100 12/26/17 17:33 96 H 26 H 117/56 L 100 12/26/17 17:00 94 H 38 H 100 12/26/17 16:32 92 H 34 H 122/63 100 12/26/17 16:00 99.4 F 95 H 40 H 100 12/26/17 15:32 92 H 32 H 141/65 100 12/26/17 15:24 93 H 18 133/71 100 Intake and Output (Last 8hrs): Intake & Output 12/26/17 12/26/17 12/26/17 06:59 14:59 22:59 Intake Total 1084 1155 400 Output Total 2500 300 Balance 1084 -1345 100 Weight 248 lb 6 oz Intake: IV 179 Intake, IV Amount 905 1155 400 Right Internal Jugular 105 255 Right Internal Jugular 800 800 400 Proximal Right Medial Port 100 Internal Jugular Output: Urine 2500 300 Urine, Voided 2500 300 - Medications Active Medications: Active Medications Generic Name Dose Route Start Last Admin Trade Name Freq PRN Reason Stop Dose Admin Acetaminophen 650 mg 12/25/17 00:36 12/25/17 23:26 Tylenol 325mg Tab PO 650 mg Q6 PRN Administration Pain, Mild (1-3) Acetaminophen 650 mg 12/26/17 11:01 Tylenol 325mg Tab PO Q6H PRN Fever >100.4 F Al Hydrox/Mg Hydrox/Simethicone 30 ml 12/26/17 11:00 Maalox Plus 30 Ml PO Q8H PRN Indigestion / Heartburn Albuterol/Ipratropium 3 ml 12/26/17 14:00 Duoneb 3 Mg/0.5 Mg (3 Ml) Ud INH RQ6 JORGE A Heparin Sodium (Porcine) 5,000 units 12/25/17 06:00 12/26/17 13:22 Heparin SC 5,000 units Q8 JORGE A Administration Linezolid 600 mg in 300 mls @ 300 mls/hr 12/24/17 20:30 12/26/17 07:30 Zyvox 600mg/300ml D5w IVPB 300 mls/hr Q12H JORGE A Administration Aztreonam 1 gm/ Sodium 100 mls @ 200 mls/hr 12/25/17 10:00 12/26/17 09:00 Chloride IVPB 200 mls/hr Q12 JORGE A Administration Protocol Oxycodone/Acetaminophen 1 tab 12/26/17 10:30 Percocet 5/325 Mg Tab PO 12/29/17 10:31 Q4H PRN Pain, moderate (4-7) Pantoprazole Sodium 40 mg 12/25/17 10:00 12/26/17 09:13 Protonix Ec Tab PO 40 mg DAILY JORGE A Administration Potassium Chloride 20 meq 12/26/17 18:54 K-Dur 20 Meq Er Tab PO 12/26/17 18:55 ONCE ONE - Patient Studies Lab Studies: Microbiology Studies 12/24/17 14:00 Blood Culture - Preliminary Blood NO GROWTH AFTER 48 HOURS 12/24/17 14:15 Blood Culture - Preliminary Blood Gram Positive Cocci Gram Stain - Final 12/24/17 21:37 Urine Culture - Final Urine,Catheterized Escherichia Coli Lab Studies 12/26/17 12/26/17 Range/Units 06:11 06:11 WBC 14.9 H (4.8-10.8) K/uL RBC 3.35 L (3.80-5.20) Mil/uL Hgb 10.0 L (11.0-16.0) g/dL Hct 29.7 L (34.0-47.0) % MCV 88.8 (81.0-99.0) fL MCH 30.0 (27.0-31.0) pg MCHC 33.8 (33.0-37.0) g/dL RDW 17.2 H (11.5-14.5) % Plt Count 161 (130-400) K/uL MPV 9.2 (7.2-11.7) fL Neut % (Auto) 91.6 H (50.0-75.0) % Lymph % (Auto) 3.7 L (20.0-40.0) % [place] % (Auto) 4.4 (0.0-10.0) % Eos % (Auto) 0.2 (0.0-4.0) % Baso % (Auto) 0.1 (0.0-2.0) % Neut # (Auto) 13.7 H (1.8-7.0) K/uL Lymph # (Auto) 0.6 L (1.0-4.3) K/uL [place] # (Auto) 0.7 (0.0-0.8) K/uL Eos # (Auto) 0.0 (0.0-0.7) K/uL Baso # (Auto) 0.0 (0.0-0.2) K/uL Neutrophils % (Manual) 84 H (50-75) % Band Neutrophils % 9 H (0-2) % Lymphocytes % (Manual) 3 L (20-40) % Monocytes % (Manual) 3 (0-10) % Eosinophils % (Manual) 1 (0-4) % Platelet Estimate Normal (NORMAL) Hypochromasia (manual) Slight Poikilocytosis (manual Slight Anisocytosis (manual) Slight Sodium 138 (132-148) mmol/L Potassium 3.2 L (3.6-5.2) mmol/L Chloride 104 (98-107) mmol/L Carbon Dioxide 27 (22-30) mmol/L Anion Gap 11 (10-20) BUN 15 (7-17) mg/dL Creatinine 0.7 (0.7-1.2) mg/dL Est GFR ( Amer) > 60 Est GFR (Non-Af Amer) > 60 Random Glucose 93 (65-105) mg/dL Calcium 8.2 L (8.6-10.4) mg/dl Phosphorus 2.2 L (2.5-4.5) mg/dL Magnesium 1.9 (1.6-2.3) mg/dL Total Bilirubin 1.1 (0.2-1.3) mg/dL AST 47 H (14-36) U/L ALT 54 H (9-52) U/L Alkaline Phosphatase 108 (38-126) U/L Total Protein 5.4 L (6.3-8.3) g/dL Albumin 2.8 L (3.5-5.0) g/dL Globulin 2.6 (2.2-3.9) gm/dL Albumin/Globulin Ratio 1.0 (1.0-2.1) Laboratory Results - last 24 hr 12/26/17 12/26/17 06:11 06:11 WBC 14.9 H RBC 3.35 L Hgb 10.0 L Hct 29.7 L MCV 88.8 MCH 30.0 MCHC 33.8 RDW 17.2 H Plt Count 161 MPV 9.2 Neut % (Auto) 91.6 H Lymph % (Auto) 3.7 L [place] % (Auto) 4.4 Eos % (Auto) 0.2 Baso % (Auto) 0.1 Neut # (Auto) 13.7 H Lymph # (Auto) 0.6 L [place] # (Auto) 0.7 Eos # (Auto) 0.0 Baso # (Auto) 0.0 Neutrophils % (Manual) 84 H Band Neutrophils % 9 H Lymphocytes % (Manual) 3 L Monocytes % (Manual) 3 Eosinophils % (Manual) 1 Platelet Estimate Normal Hypochromasia (manual) Slight Poikilocytosis (manual Slight Anisocytosis (manual) Slight Sodium 138 Potassium 3.2 L Chloride 104 Carbon Dioxide 27 Anion Gap 11 BUN 15 Creatinine 0.7 Est GFR ( Amer) > 60 Est GFR (Non-Af Amer) > 60 Random Glucose 93 Calcium 8.2 L Phosphorus 2.2 L Magnesium 1.9 Total Bilirubin 1.1 AST 47 H ALT 54 H Alkaline Phosphatase 108 Total Protein 5.4 L Albumin 2.8 L Globulin 2.6 Albumin/Globulin Ratio 1.0 Critical Care Progress Note - Nutrition Nutrition: Nutrition Category Date Time Status Heart Healthy Diet [DIET] Diets 12/24/17 Dinner Active Assessment/Plan (1) Septic shock Current Visit: Yes Status: Acute (2) Cellulitis Current Visit: Yes Status: Acute (3) Asthma Current Visit: Yes Status: Acute (4) Mitral valve prolapse Current Visit: Yes Status: Acute Attending/Attestation - Attestation I have personally seen and examined this patient.: Yes I have fully participated in the care of the patient.: Yes I have reviewed all pertinent clinical information: Yes Notes (Text): 12/26/17 19:02 Today: December The Patient was seen and examined at the bedside, Medical records reviewed, and management issues were discussed and formulated with the house staff. I have reviewed all the relevant clinical, laboratory, hemodynamic, radiographic data and medications Events reviewed Pain issues, skin care, head of the bed elevation, glycemic control were addressed. Agree with above resident's assessment and treatment plans of care as transcribed in Dr. Tyson's note.
[2017-12-26] MEDS ORDERED: Potassium Chloride 20 mEq ER Tab PO ONE (18:54)
[2017-12-26] MEDS: Albuterol-Ipratrop 3 mg / 0.5 (3 ml) UD INH SCH (19:22)
[2017-12-26] MEDS: Oxycodone/Acetaminophen 5/325 mg Tab PO PRN (20:04)
--- NOTE | 2017-12-26 23:06 | PN ---
DATE: 12/26/2017 SUBJECTIVE: The patient is seen and examined at bedside. The patient is still complaining of left leg swelling and pain and complaining of shortness of breath and left shoulder blade pain and also complaining of reflux symptoms. Denies any other new symptoms. All other systems reviewed and was found to be negative. PHYSICAL EXAMINATION: GENERAL: Middle-aged obese female, lying in bed, in no acute distress. VITAL SIGNS: Blood pressure 122/63, pulse 95, respirations 34, O2 sat 100% on 3 L nasal cannula, T-max is 102 degrees Fahrenheit at midnight and this morning 101.1. Intake is 5000 mL and output is 900 mL. HEENT: Pupils equal, round and reacting to light and accommodation. Extraocular muscles intact. No icterus. No pallor. NECK: Supple. No JVD. LUNGS: Bilateral vesicular breath sounds. Bilateral basal rhonchi heard. CVS: S1 and S2 present, regular. ABDOMEN: Soft, nontender. Bowel sounds present. No guarding. No rigidity. No rebound tenderness noted. [employer]: Alert, awake, and oriented x3. No focal deficits noted. EXTREMITIES: Left leg swelling noted, erythema noted. Warm and tender to touch. The redness is slightly above the knee joint. Swelling is likely worse than yesterday. MEDICATIONS: Include Tylenol as needed, Maalox as needed, DuoNeb, aztreonam 1 gm IV every 12 hours, heparin 5000 units subcu every 8 hours, Zyvox 600 mg IV every 12 hours, Percocet as needed, Protonix 40 mg daily, K-Dur 20 mEq p.o. daily, normal saline at 100 mL an hour. LABORATORY DATA: Labs done from this morning: WBC 14.9, hemoglobin 10, hematocrit 29.7, platelets 161. Sodium 138, potassium 3.2, chloride 104, bicarb 27, BUN 15, creatinine 0.7, glucose 93, calcium 8.2, phosphorus 2.2, magnesium 1.9. Total bilirubin 1.1, AST 47, ALT 54, alkaline phosphatase 108, total protein 5.4, albumin 2.8. Urine culture consistent with E. coli, sensitive to ertapenem, cefazolin, cefepime, nitrofurantoin, gentamicin, and meropenem. Blood cultures show gram-positive cocci in chains. ASSESSMENT AND PLAN: Middle-aged female with history of rheumatoid arthritis, osteoarthritis, mitral valve prolapse, gastroesophageal reflux disease, asthma. Admitted for severe sepsis versus septic shock. The patient is now off pressors. We will continue with aztreonam and Zyvox. Infectious Disease consult appreciated. consult appreciated. We will replace potassium and phosphorus. We will monitor her white counts. Give nebulizer treatments. V/Q scan is negative for any pulmonary embolism. Her blood pressure is stable. We will monitor her vital signs. Repeat labs in a.m. We will continue with other current therapy. Continue with deep venous thrombosis and gastrointestinal prophylaxis. Chest x-ray consistent with pulmonary vascular condition. We will discontinue intravenous fluids. We will consider Lasix if her blood pressure is stable and will monitor her respiratory status. Nando Blum MD
[2017-12-27] MEDS: Albuterol-Ipratrop 3 mg / 0.5 (3 ml) UD INH SCH ×4 (01:21→19:30)
[2017-12-27 06:46] LABS: BASO % 0.1 % (0.0-2.0); EOS # 0.1 K/uL (0.0-0.7); EOS % 0.6 % (0.0-4.0); HEMOGLOBIN 9.8 g/dL (11.0-16.0); LYMPH # 0.9 K/uL (1.0-4.3); LYMPH % 6.3 % (20.0-40.0); MEAN CELL VOLUME 87.7 fL (81.0-99.0); MEAN CORPUSCULAR HEMOGLOBIN 29.5 pg (27.0-31.0); MEAN CORPUSCULAR HGB CONC 33.6 g/dL (33.0-37.0); MONO % 7.3 % (0.0-10.0); NEUT # 12.3 K/uL (1.8-7.0); NEUT % 85.7 % (50.0-75.0); PLATELET COUNT 180 K/uL (130-400); RBC 3.32 Mil/uL (3.80-5.20); RED CELL DISTRIBUTION WIDTH 17.4 % (11.5-14.5); WHITE BLOOD COUNT 14.3 K/uL (4.8-10.8)
[2017-12-27] MEDS: Oxycodone/Acetaminophen 5/325 mg Tab PO PRN ×3 (06:57→20:13)
[2017-12-27 07:09] LABS: ALB/GLOB RATIO 0.9 (1.0-2.1); ALBUMIN 2.6 g/dL (3.5-5.0); ALT/SGPT 41 U/L (9-52); AST/SGOT 23 U/L (14-36); BLOOD UREA NITROGEN 13 mg/dL (7-17); CALCIUM 8.7 mg/dl (8.6-10.4); GFR AFRICAN-AMERICAN > 60; GFR NON-AFRICAN AMERICAN > 60
[2017-12-27 08:47] LABS: ANISOCYTOSIS SLIGHT; BANDS 4 % (0-2); LYMPHOCYTE 5 % (20-40); MONOCYTE 7 % (0-10); NEUTROPHIL 84 % (50-75); PLATELET ESTIMATE NORMAL (NORMAL); TOTAL CELLS COUNTED 100
[2017-12-27] MEDS: Linezolid 600 mg in D5W 300 ml 600 MG/300 ML BAG IVPB SCH ×2 (08:50→20:11)
[2017-12-27] MEDS: Aztreonam 1 GM in Sodium Chloride 0.9% 100 ML IVPB SCH (09:06)
[2017-12-27] MEDS: Pantoprazole 40 mg EC Tab PO SCH (09:06)
--- NOTE | 2017-12-27 09:26 | CP.PCM.PN ---
Subjective - Date & Time of Evaluation Date of Evaluation: 12/27/17 Time of Evaluation: 09:30 - Subjective Subjective: Progress note dictated # [id number] Objective - Vital Signs/Intake and Output Vital Signs (last 24 hours): Temp Pulse Resp BP Pulse Ox 99 F 80 20 135/77 100 12/27/17 04:00 12/27/17 07:00 12/27/17 07:00 12/27/17 06:53 12/27/17 07:00 Intake and Output: 12/27/17 12/27/17 06:59 18:59 Intake Total 880 Output Total 400 Balance 480 - Medications Medications: Current Medications Acetaminophen (Tylenol 325mg Tab) 650 mg PO Q6 PRN PRN Reason: Pain, Mild (1-3) Last Admin: 12/26/17 20:01 Dose: 650 mg Acetaminophen (Tylenol 325mg Tab) 650 mg PO Q6H PRN PRN Reason: Fever >100.4 F Al Hydrox/Mg Hydrox/Simethicone (Maalox Plus 30 Ml) 30 ml PO Q8H PRN PRN Reason: Indigestion / Heartburn Albuterol/Ipratropium (Duoneb 3 Mg/0.5 Mg (3 Ml) Ud) 3 ml INH RQ6 JORGE A Last Admin: 12/27/17 07:45 Dose: 3 ml Heparin Sodium (Porcine) (Heparin) 5,000 units SC Q8 JORGE A Last Admin: 12/27/17 06:30 Dose: 5,000 units Linezolid (Zyvox 600mg/300ml D5w) 600 mg in 300 mls @ 300 mls/hr IVPB Q12H JORGE A Last Admin: 12/27/17 08:50 Dose: 300 mls/hr Aztreonam 1 gm/ Sodium (Chloride) 100 mls @ 200 mls/hr IVPB Q12 JORGE A PRN Reason: Protocol Last Admin: 12/27/17 09:06 Dose: 200 mls/hr Oxycodone/Acetaminophen (Percocet 5/325 Mg Tab) 1 tab PO Q4H PRN PRN Reason: Pain, moderate (4-7) Stop: 12/29/17 10:31 Last Admin: 12/27/17 06:57 Dose: 1 tab Pantoprazole Sodium (Protonix Ec Tab) 40 mg PO DAILY [facility] Last Admin: 12/27/17 09:06 Dose: 40 mg - Labs Labs: 12/27/17 06:39 12/27/17 06:39 PT 20.5 SECONDS (9.7-12.2) H 12/24/17 23:26 INR 1.9 12/24/17 23:26 APTT 29 SECONDS (21-34) 12/24/17 23:26
[2017-12-27] MEDS ORDERED: Benzocaine/Menthol (Cepacol) Lozenge MT PRN (09:50)
[2017-12-27] MEDS ORDERED: Potassium Phosphate 15 MMOLE in Sodium Chloride 0.9% 250 ML IVPB ONE (10:00)
[2017-12-27] MEDS ORDERED: Magnesium Sulfate 1 gm in D5W 1 GM/100 ML BAG IVPB ONE (10:00)
[2017-12-27] MEDS: Potassium Chloride 20 mEq ER Tab PO SCH ×3 (10:22→22:20)
[2017-12-27 11:41] LABS: SQUAMOUS EPITHIAL 2 /hpf (0-5); URINE BACTERIA RARE (<OCC); URINE BILIRUBIN NEGATIVE (NEGATIVE); URINE BLOOD 1+ (NEGATIVE); URINE CLARITY Clear (Clear); URINE COLOR Yellow (YELLOW); URINE GLUCOSE (UA) NORMAL (Normal); URINE LEUKOCYTE ESTERASE NEG Leu/uL (Negative); URINE PROTEIN 1+ mg/dL (NEGATIVE)
[2017-12-27 11:50] LABS: CK-MB 0.4 ng/mL (0.0-3.38)
--- NOTE | 2017-12-27 14:49 | CP.CCUPN ---
<Lydia Tyson - Last Filed: 12/27/17 14:45> CCU Subjective - Physician Review Subjective (Free Text): 62 yo F w PMHx of asthma, RA, HTN, and MVP presented to ED 12/24 w/ complaints of LLE increasing pain, redness, edema and fevers x2 days, due to a suspected spider bite. Pt initially admitted to tele for LLE cellulitis management, however was transfered to ICU. Pt found to be in septic shock with management including pressure support, IV Abx, IVF through R IJ(12/24). No acute events ON. Pt persistently anxious and in pain. Microbiology grew E. Coli in urine and strep pyogenes in blood. 12/27/17 14:46 CCU Objective - Vital Signs / Intake & Output Intake and Output (Last 8hrs): Intake & Output 12/26/17 12/27/17 12/27/17 22:59 06:59 14:59 Intake Total 640 640 822 Output Total 300 400 500 Balance 340 240 322 Weight 244 lb 8 oz Intake: Intake, IV Amount 400 400 462 Right Internal Jugular 400 Proximal Right Medial Port 400 462 Internal Jugular Oral 240 240 360 Output: Urine 300 400 500 Urine, Voided 300 400 500 - Physical Exam Head: Positive for: Atraumatic, Normocephalic Pupils: Positive for: PERRL Extroacular Muscles: Positive for: EOMI Conjunctiva: Positive for: Normal. Negative for: Injected, Icteric Mouth: Positive for: Dry Neck: Positive for: Normal Range of Motion, Trachea Midline. Negative for: Meningeal Signs, MIDLINE TENDERNESS, Paraspinal Tenderness, JVD, Lymphadenopathy , Bruit, Other Respiratory/Chest: Positive for: Clear to Auscultation, Good Air Exchange. Negative for: Respiratory Distress, Accessory Muscle Use, Wheezes, Rales, Rhonchi Cardiovascular: Positive for: Regular Rate and Rhythm, Normal S1, S2, Peripheal Pulses Present. Negative for: Murmurs, Tachycardic, Bradycardic Abdomen: Positive for: Normal Bowel Sounds. Negative for: Tenderness, Distention Upper Extremity: Positive for: NORMAL PULSES, Capillary Refill < 2s. Negative for: Cyanosis, Edema, Tenderness, Swelling, Erythema Lower Extremity: Positive for: Edema (left), NORMAL PULSES, Tenderness (TTP from mid thigh down on left), Temperature Abnormalties (left warm to touch ), Neurovascularly Intact. Negative for: Cyanosis, Normal ROM Neurological: Positive for: Speech Normal, Motor Func Grossly Intact Psychiatric: Positive for: Alert, Oriented x 3, Anxious - Medications Active Medications: Active Medications Generic Name Dose Route Start Last Admin Trade Name Freq PRN Reason Stop Dose Admin Acetaminophen 650 mg 12/25/17 00:36 12/26/17 20:01 Tylenol 325mg Tab PO 650 mg Q6 PRN Administration Pain, Mild (1-3) Acetaminophen 650 mg 12/26/17 11:01 Tylenol 325mg Tab PO Q6H PRN Fever >100.4 F Al Hydrox/Mg Hydrox/Simethicone 30 ml 12/26/17 11:00 Maalox Plus 30 Ml PO Q8H PRN Indigestion / Heartburn Albuterol/Ipratropium 3 ml 12/26/17 14:00 12/27/17 14:13 Duoneb 3 Mg/0.5 Mg (3 Ml) Ud INH Not Given RQ6 JORGE A Benzocaine/Menthol 1 rodo 12/27/17 09:50 Cepacol Sore Throat MT Q3H PRN Sore Throat Heparin Sodium (Porcine) 5,000 units 12/25/17 06:00 12/27/17 06:30 Heparin SC 5,000 units Q8 JORGE A Administration Linezolid 600 mg in 300 mls @ 300 mls/hr 12/24/17 20:30 12/27/17 08:50 Zyvox 600mg/300ml D5w IVPB 300 mls/hr Q12H JORGE A Administration Potassium Phosphate 15 mmole/ 255 mls @ 42.5 mls/hr 12/27/17 10:00 12/27/17 10:21 Sodium Chloride IVPB 12/27/17 15:59 42.5 mls/hr ONCE ONE Administration Oxycodone/Acetaminophen 1 tab 12/26/17 10:30 12/27/17 06:57 Percocet 5/325 Mg Tab PO 12/29/17 10:31 1 tab Q4H PRN Administration Pain, moderate (4-7) Pantoprazole Sodium 40 mg 12/25/17 10:00 12/27/17 09:06 Protonix Ec Tab PO 40 mg DAILY JORGE A Administration Potassium Chloride 40 meq 12/27/17 10:00 12/27/17 10:22 K-Dur 20 Meq Er Tab PO 12/27/17 22:01 40 meq Q6H JORGE A Administration - Patient Studies Lab Studies: Microbiology Studies 12/24/17 14:15 Blood Culture - Preliminary Blood Streptococcus Pyogenes Grp A Gram Stain - Final 12/24/17 14:00 Blood Culture - Preliminary Blood NO GROWTH AFTER 48 HOURS Lab Studies 12/27/17 12/27/17 12/27/17 Range/Units 11:20 11:20 11:20 WBC (4.8-10.8) K/uL RBC (3.80-5.20) Mil/uL Hgb (11.0-16.0) g/dL Hct (34.0-47.0) % MCV (81.0-99.0) fL MCH (27.0-31.0) pg MCHC (33.0-37.0) g/dL RDW (11.5-14.5) % Plt Count (130-400) K/uL MPV (7.2-11.7) fL Neut % (Auto) (50.0-75.0) % Lymph % (Auto) (20.0-40.0) % [place] % (Auto) (0.0-10.0) % Eos % (Auto) (0.0-4.0) % Baso % (Auto) (0.0-2.0) % Neut # (Auto) (1.8-7.0) K/uL Lymph # (Auto) (1.0-4.3) K/uL [place] # (Auto) (0.0-0.8) K/uL Eos # (Auto) (0.0-0.7) K/uL Baso # (Auto) (0.0-0.2) K/uL Neutrophils % (Manual) (50-75) % Band Neutrophils % (0-2) % Lymphocytes % (Manual) (20-40) % Monocytes % (Manual) (0-10) % Platelet Estimate (NORMAL) Anisocytosis (manual) Sodium (132-148) mmol/L Potassium (3.6-5.2) mmol/L Chloride (98-107) mmol/L Carbon Dioxide (22-30) mmol/L Anion Gap (10-20) BUN (7-17) mg/dL Creatinine (0.7-1.2) mg/dL Est GFR ( Amer) Est GFR (Non-Af Amer) Random Glucose (65-105) mg/dL Lactic Acid 1.3 (0.7-2.1) mmol/L Calcium (8.6-10.4) mg/dl Phosphorus (2.5-4.5) mg/dL Magnesium (1.6-2.3) mg/dL Total Bilirubin (0.2-1.3) mg/dL AST (14-36) U/L ALT (9-52) U/L Alkaline Phosphatase (38-126) U/L Total Creatine Kinase 27 L (30-135) U/L CK-MB (Mass) 0.40 (0.0-3.38) ng/mL NT-Pro-B Natriuret Pep 1780 H (0-900) pg/mL Total Protein (6.3-8.3) g/dL Albumin (3.5-5.0) g/dL Globulin (2.2-3.9) gm/dL Albumin/Globulin Ratio (1.0-2.1) Urine Color Yellow (YELLOW) Urine Clarity Clear (Clear) Urine pH 5.0 (5.0-8.0) Ur Specific [place] 1.016 (1.003-1.030) Urine Protein 1+ H (NEGATIVE) mg/dL Urine Glucose (UA) Normal (Normal) mg/dL Urine Ketones Negative (NEGATIVE) mg/dL Urine Blood 1+ H (NEGATIVE) Urine Nitrate Negative (NEGATIVE) Urine Bilirubin Negative (NEGATIVE) Urine Urobilinogen 4.0 H (0.2-1.0) mg/dL Ur Leukocyte Esterase Neg (Negative) [place]/uL Urine WBC (Auto) 1 (0-5) /hpf Urine RBC (Auto) 3 (0-3) /hpf Ur Squamous Epith Cells 2 (0-5) /hpf Urine Bacteria Rare (<OCC) 12/27/17 12/27/17 Range/Units 06:39 06:39 WBC 14.3 H (4.8-10.8) K/uL RBC 3.32 L (3.80-5.20) Mil/uL Hgb 9.8 L (11.0-16.0) g/dL Hct 29.1 L (34.0-47.0) % MCV 87.7 (81.0-99.0) fL MCH 29.5 (27.0-31.0) pg MCHC 33.6 (33.0-37.0) g/dL RDW 17.4 H (11.5-14.5) % Plt Count 180 (130-400) K/uL MPV 8.0 (7.2-11.7) fL Neut % (Auto) 85.7 H (50.0-75.0) % Lymph % (Auto) 6.3 L (20.0-40.0) % [place] % (Auto) 7.3 (0.0-10.0) % Eos % (Auto) 0.6 (0.0-4.0) % Baso % (Auto) 0.1 (0.0-2.0) % Neut # (Auto) 12.3 H (1.8-7.0) K/uL Lymph # (Auto) 0.9 L (1.0-4.3) K/uL [place] # (Auto) 1.0 H (0.0-0.8) K/uL Eos # (Auto) 0.1 (0.0-0.7) K/uL Baso # (Auto) 0.0 (0.0-0.2) K/uL Neutrophils % (Manual) 84 H (50-75) % Band Neutrophils % 4 H (0-2) % Lymphocytes % (Manual) 5 L (20-40) % Monocytes % (Manual) 7 (0-10) % Platelet Estimate Normal (NORMAL) Anisocytosis (manual) Slight Sodium 140 (132-148) mmol/L Potassium 3.4 L (3.6-5.2) mmol/L Chloride 104 (98-107) mmol/L Carbon Dioxide 30 (22-30) mmol/L Anion Gap 10 (10-20) BUN 13 (7-17) mg/dL Creatinine 0.8 (0.7-1.2) mg/dL Est GFR ( Amer) > 60 Est GFR (Non-Af Amer) > 60 Random Glucose 105 (65-105) mg/dL Lactic Acid (0.7-2.1) mmol/L Calcium 8.7 (8.6-10.4) mg/dl Phosphorus 2.2 L (2.5-4.5) mg/dL Magnesium 1.6 (1.6-2.3) mg/dL Total Bilirubin 1.2 (0.2-1.3) mg/dL AST 23 (14-36) U/L ALT 41 (9-52) U/L Alkaline Phosphatase 142 H D (38-126) U/L Total Creatine Kinase (30-135) U/L CK-MB (Mass) (0.0-3.38) ng/mL NT-Pro-B Natriuret Pep (0-900) pg/mL Total Protein 5.4 L (6.3-8.3) g/dL Albumin 2.6 L (3.5-5.0) g/dL Globulin 2.8 (2.2-3.9) gm/dL Albumin/Globulin Ratio 0.9 L (1.0-2.1) Urine Color (YELLOW) Urine Clarity (Clear) Urine pH (5.0-8.0) Ur Specific [place] (1.003-1.030) Urine Protein (NEGATIVE) mg/dL Urine Glucose (UA) (Normal) mg/dL Urine Ketones (NEGATIVE) mg/dL Urine Blood (NEGATIVE) Urine Nitrate (NEGATIVE) Urine Bilirubin (NEGATIVE) Urine Urobilinogen (0.2-1.0) mg/dL Ur Leukocyte Esterase (Negative) [place]/uL Urine WBC (Auto) (0-5) /hpf Urine RBC (Auto) (0-3) /hpf Ur Squamous Epith Cells (0-5) /hpf Urine Bacteria (<OCC) Laboratory Results - last 24 hr 12/27/17 12/27/17 12/27/17 06:39 06:39 11:20 WBC 14.3 H RBC 3.32 L Hgb 9.8 L Hct 29.1 L MCV 87.7 MCH 29.5 MCHC 33.6 RDW 17.4 H Plt Count 180 MPV 8.0 Neut % (Auto) 85.7 H Lymph % (Auto) 6.3 L [place] % (Auto) 7.3 Eos % (Auto) 0.6 Baso % (Auto) 0.1 Neut # (Auto) 12.3 H Lymph # (Auto) 0.9 L [place] # (Auto) 1.0 H Eos # (Auto) 0.1 Baso # (Auto) 0.0 Neutrophils % (Manual) 84 H Band Neutrophils % 4 H Lymphocytes % (Manual) 5 L Monocytes % (Manual) 7 Platelet Estimate Normal Anisocytosis (manual) Slight Sodium 140 Potassium 3.4 L Chloride 104 Carbon Dioxide 30 Anion Gap 10 BUN 13 Creatinine 0.8 Est GFR ( Amer) > 60 Est GFR (Non-Af Amer) > 60 Random Glucose 105 Lactic Acid Calcium 8.7 Phosphorus 2.2 L Magnesium 1.6 Total Bilirubin 1.2 AST 23 ALT 41 Alkaline Phosphatase 142 H D Total Creatine Kinase CK-MB (Mass) NT-Pro-B Natriuret Pep Total Protein 5.4 L Albumin 2.6 L Globulin 2.8 Albumin/Globulin Ratio 0.9 L Urine Color Yellow Urine Clarity Clear Urine pH 5.0 Ur Specific [place] 1.016 Urine Protein 1+ H Urine Glucose (UA) Normal Urine Ketones Negative Urine Blood 1+ H Urine Nitrate Negative Urine Bilirubin Negative Urine Urobilinogen 4.0 H Ur Leukocyte Esterase Neg Urine WBC (Auto) 1 Urine RBC (Auto) 3 Ur Squamous Epith Cells 2 Urine Bacteria Rare 12/27/17 12/27/17 11:20 11:20 WBC RBC Hgb Hct MCV MCH MCHC RDW Plt Count MPV Neut % (Auto) Lymph % (Auto) [place] % (Auto) Eos % (Auto) Baso % (Auto) Neut # (Auto) Lymph # (Auto) [place] # (Auto) Eos # (Auto) Baso # (Auto) Neutrophils % (Manual) Band Neutrophils % Lymphocytes % (Manual) Monocytes % (Manual) Platelet Estimate Anisocytosis (manual) Sodium Potassium Chloride Carbon Dioxide Anion Gap BUN Creatinine Est GFR ( Amer) Est GFR (Non-Af Amer) Random Glucose Lactic Acid 1.3 Calcium Phosphorus Magnesium Total Bilirubin AST ALT Alkaline Phosphatase Total Creatine Kinase 27 L CK-MB (Mass) 0.40 NT-Pro-B Natriuret Pep 1780 H Total Protein Albumin Globulin Albumin/Globulin Ratio Urine Color Urine Clarity Urine pH Ur Specific [place] Urine Protein Urine Glucose (UA) Urine Ketones Urine Blood Urine Nitrate Urine Bilirubin Urine Urobilinogen Ur Leukocyte Esterase Urine WBC (Auto) Urine RBC (Auto) Ur Squamous Epith Cells Urine Bacteria Review of Systems - Constitutional Constitutional: Chills - EENT Nose/Mouth/Throat: Dry Mouth - Cardiovascular Cardiovascular: absent: Chest Pain, Diaphoresis, Dyspnea - Respiratory Respiratory: absent: Cough - Gastrointestinal Gastrointestinal: absent: Abdominal Pain, Diarrhea, Nausea, Vomiting - Genitourinary Genitourinary: absent: Dysuria - Psychiatric Psychiatric: Anxiety, Change in Appetite (anorexia) Critical Care Progress Note - Nutrition Nutrition: Nutrition Category Date Time Status Heart Healthy Diet [DIET] Diets 12/24/17 Dinner Active Assessment/Plan - Assessment and Plan (Free Text) Assessment: 62 yo F w PMHx of asthma, RA, HTN, and MVP presented to ED 12/24 w/ complaints of LLE increasing pain, redness, edema and fevers x2 days, due to a suspected spider bite. Pt initially admitted to tele for LLE cellulitis management, however was transfered to ICU due to hemodynamic instability requiring pressure support 1. Septic shock (WBC 23.9, lactate 2.3, bands 21, T 102.9, RR 33, BP 69/24, procalcitonin 7.66) -pt off pressors 12/26 -NS @ 100/hr -Linezolid 600 q12 -aztreonam 1g q12 -d-dimer 1580 LE duplex neg 2. Cellulitis LLE -WBC 14.3 today -f/u am labs -blood cx strep pyogenes -urine, E. Coli -ID consult [place] -tylenol mild pain, oxycodone moderate/severe -f/u LE CT, r/o fasciitis 3. Electrolytes -monitor and replete as needed -Phos 2.2, given 15mmol KPO4 -K 3.4 4. Asthma -Nebs PRN 5. HTN -hold Diovan home med pending BP -BP stable, cont to monitor 6. Anxiety -Xanax .5mg PRN Ppx -heparin 5000sc q8 -protonix 40mg PO case discussed w/ Dr. Avelar - Date & Time Date: 12/27/17 Time: 14:55 <Lorna Avelar - Last Filed: 12/27/17 22:21> CCU Objective - Vital Signs / Intake & Output Vital Signs (Last 4 hours): Vital Signs Temp Pulse Resp BP Pulse Ox 12/27/17 21:00 95 H 17 12/27/17 20:53 95 H 19 154/77 H 77 L 12/27/17 20:00 100.7 F H 96 H 16 12/27/17 19:53 97 H 16 150/82 86 L 12/27/17 19:00 90 27 H 95 12/27/17 18:54 91 H 31 H 142/82 98 Intake and Output (Last 8hrs): Intake & Output 12/27/17 12/27/17 12/27/17 06:59 14:59 22:59 Intake Total 640 1096 864 Output Total 400 700 700 Balance 240 396 164 Weight 244 lb 8 oz Intake: Intake, IV Amount 400 586 424 Right Medial Port 400 586 424 Internal Jugular Oral 240 510 440 Output: Urine 400 700 700 Urine, Voided 400 700 700 Other: # Voids Urine, Voided 1 1 - Medications Active Medications: Active Medications Generic Name Dose Route Start Last Admin Trade Name Freq PRN Reason Stop Dose Admin Acetaminophen 650 mg 12/25/17 00:36 12/26/17 20:01 Tylenol 325mg Tab PO 650 mg Q6 PRN Administration Pain, Mild (1-3) Acetaminophen 650 mg 12/26/17 11:01 Tylenol 325mg Tab PO Q6H PRN Fever >100.4 F Al Hydrox/Mg Hydrox/Simethicone 30 ml 12/26/17 11:00 Maalox Plus 30 Ml PO Q8H PRN Indigestion / Heartburn Albuterol/Ipratropium 3 ml 12/26/17 14:00 12/27/17 19:30 Duoneb 3 Mg/0.5 Mg (3 Ml) Ud INH 3 ml RQ6 JORGE A Administration Benzocaine/Menthol 1 rodo 12/27/17 09:50 Cepacol Sore Throat MT Q3H PRN Sore Throat Heparin Sodium (Porcine) 5,000 units 12/25/17 06:00 12/27/17 14:53 Heparin SC 5,000 units Q8 JORGE A Administration Linezolid 600 mg in 300 mls @ 300 mls/hr 12/24/17 20:30 12/27/17 20:11 Zyvox 600mg/300ml D5w IVPB 300 mls/hr Q12H JORGE A Administration Oxycodone/Acetaminophen 1 tab 12/26/17 10:30 12/27/17 20:13 Percocet 5/325 Mg Tab PO 12/29/17 10:31 1 tab Q4H PRN Administration Pain, moderate (4-7) Pantoprazole Sodium 40 mg 12/25/17 10:00 12/27/17 09:06 Protonix Ec Tab PO 40 mg DAILY JORGE A Administration - Patient Studies Lab Studies: Microbiology Studies 12/24/17 14:00 Blood Culture - Preliminary Blood NO GROWTH AFTER 3 DAYS 12/24/17 14:15 Blood Culture - Preliminary Blood Streptococcus Pyogenes Grp A Gram Stain - Final Lab Studies 12/27/17 12/27/17 12/27/17 Range/Units 11:20 11:20 11:20 WBC (4.8-10.8) K/uL RBC (3.80-5.20) Mil/uL Hgb (11.0-16.0) g/dL Hct (34.0-47.0) % MCV (81.0-99.0) fL MCH (27.0-31.0) pg MCHC (33.0-37.0) g/dL RDW (11.5-14.5) % Plt Count (130-400) K/uL MPV (7.2-11.7) fL Neut % (Auto) (50.0-75.0) % Lymph % (Auto) (20.0-40.0) % [place] % (Auto) (0.0-10.0) % Eos % (Auto) (0.0-4.0) % Baso % (Auto) (0.0-2.0) % Neut # (Auto) (1.8-7.0) K/uL Lymph # (Auto) (1.0-4.3) K/uL [place] # (Auto) (0.0-0.8) K/uL Eos # (Auto) (0.0-0.7) K/uL Baso # (Auto) (0.0-0.2) K/uL Neutrophils % (Manual) (50-75) % Band Neutrophils % (0-2) % Lymphocytes % (Manual) (20-40) % Monocytes % (Manual) (0-10) % Platelet Estimate (NORMAL) Anisocytosis (manual) Sodium (132-148) mmol/L Potassium (3.6-5.2) mmol/L Chloride (98-107) mmol/L Carbon Dioxide (22-30) mmol/L Anion Gap (10-20) BUN (7-17) mg/dL Creatinine (0.7-1.2) mg/dL Est GFR ( Amer) Est GFR (Non-Af Amer) Random Glucose (65-105) mg/dL Lactic Acid 1.3 (0.7-2.1) mmol/L Calcium (8.6-10.4) mg/dl Phosphorus (2.5-4.5) mg/dL Magnesium (1.6-2.3) mg/dL Total Bilirubin (0.2-1.3) mg/dL AST (14-36) U/L ALT (9-52) U/L Alkaline Phosphatase (38-126) U/L Total Creatine Kinase 27 L (30-135) U/L CK-MB (Mass) 0.40 (0.0-3.38) ng/mL NT-Pro-B Natriuret Pep 1780 H (0-900) pg/mL Total Protein (6.3-8.3) g/dL Albumin (3.5-5.0) g/dL Globulin (2.2-3.9) gm/dL Albumin/Globulin Ratio (1.0-2.1) Urine Color Yellow (YELLOW) Urine Clarity Clear (Clear) Urine pH 5.0 (5.0-8.0) Ur Specific [place] 1.016 (1.003-1.030) Urine Protein 1+ H (NEGATIVE) mg/dL Urine Glucose (UA) Normal (Normal) mg/dL Urine Ketones Negative (NEGATIVE) mg/dL Urine Blood 1+ H (NEGATIVE) Urine Nitrate Negative (NEGATIVE) Urine Bilirubin Negative (NEGATIVE) Urine Urobilinogen 4.0 H (0.2-1.0) mg/dL Ur Leukocyte Esterase Neg (Negative) [place]/uL Urine WBC (Auto) 1 (0-5) /hpf Urine RBC (Auto) 3 (0-3) /hpf Ur Squamous Epith Cells 2 (0-5) /hpf Urine Bacteria Rare (<OCC) 12/27/17 12/27/17 Range/Units 06:39 06:39 WBC 14.3 H (4.8-10.8) K/uL RBC 3.32 L (3.80-5.20) Mil/uL Hgb 9.8 L (11.0-16.0) g/dL Hct 29.1 L (34.0-47.0) % MCV 87.7 (81.0-99.0) fL MCH 29.5 (27.0-31.0) pg MCHC 33.6 (33.0-37.0) g/dL RDW 17.4 H (11.5-14.5) % Plt Count 180 (130-400) K/uL MPV 8.0 (7.2-11.7) fL Neut % (Auto) 85.7 H (50.0-75.0) % Lymph % (Auto) 6.3 L (20.0-40.0) % [place] % (Auto) 7.3 (0.0-10.0) % Eos % (Auto) 0.6 (0.0-4.0) % Baso % (Auto) 0.1 (0.0-2.0) % Neut # (Auto) 12.3 H (1.8-7.0) K/uL Lymph # (Auto) 0.9 L (1.0-4.3) K/uL [place] # (Auto) 1.0 H (0.0-0.8) K/uL Eos # (Auto) 0.1 (0.0-0.7) K/uL Baso # (Auto) 0.0 (0.0-0.2) K/uL Neutrophils % (Manual) 84 H (50-75) % Band Neutrophils % 4 H (0-2) % Lymphocytes % (Manual) 5 L (20-40) % Monocytes % (Manual) 7 (0-10) % Platelet Estimate Normal (NORMAL) Anisocytosis (manual) Slight Sodium 140 (132-148) mmol/L Potassium 3.4 L (3.6-5.2) mmol/L Chloride 104 (98-107) mmol/L Carbon Dioxide 30 (22-30) mmol/L Anion Gap 10 (10-20) BUN 13 (7-17) mg/dL Creatinine 0.8 (0.7-1.2) mg/dL Est GFR ( Amer) > 60 Est GFR (Non-Af Amer) > 60 Random Glucose 105 (65-105) mg/dL Lactic Acid (0.7-2.1) mmol/L Calcium 8.7 (8.6-10.4) mg/dl Phosphorus 2.2 L (2.5-4.5) mg/dL Magnesium 1.6 (1.6-2.3) mg/dL Total Bilirubin 1.2 (0.2-1.3) mg/dL AST 23 (14-36) U/L ALT 41 (9-52) U/L Alkaline Phosphatase 142 H D (38-126) U/L Total Creatine Kinase (30-135) U/L CK-MB (Mass) (0.0-3.38) ng/mL NT-Pro-B Natriuret Pep (0-900) pg/mL Total Protein 5.4 L (6.3-8.3) g/dL Albumin 2.6 L (3.5-5.0) g/dL Globulin 2.8 (2.2-3.9) gm/dL Albumin/Globulin Ratio 0.9 L (1.0-2.1) Urine Color (YELLOW) Urine Clarity (Clear) Urine pH (5.0-8.0) Ur Specific [place] (1.003-1.030) Urine Protein (NEGATIVE) mg/dL Urine Glucose (UA) (Normal) mg/dL Urine Ketones (NEGATIVE) mg/dL Urine Blood (NEGATIVE) Urine Nitrate (NEGATIVE) Urine Bilirubin (NEGATIVE) Urine Urobilinogen (0.2-1.0) mg/dL Ur Leukocyte Esterase (Negative) [place]/uL Urine WBC (Auto) (0-5) /hpf Urine RBC (Auto) (0-3) /hpf Ur Squamous Epith Cells (0-5) /hpf Urine Bacteria (<OCC) Laboratory Results - last 24 hr 12/27/17 12/27/17 12/27/17 06:39 06:39 11:20 WBC 14.3 H RBC 3.32 L Hgb 9.8 L Hct 29.1 L MCV 87.7 MCH 29.5 MCHC 33.6 RDW 17.4 H Plt Count 180 MPV 8.0 Neut % (Auto) 85.7 H Lymph % (Auto) 6.3 L [place] % (Auto) 7.3 Eos % (Auto) 0.6 Baso % (Auto) 0.1 Neut # (Auto) 12.3 H Lymph # (Auto) 0.9 L [place] # (Auto) 1.0 H Eos # (Auto) 0.1 Baso # (Auto) 0.0 Neutrophils % (Manual) 84 H Band Neutrophils % 4 H Lymphocytes % (Manual) 5 L Monocytes % (Manual) 7 Platelet Estimate Normal Anisocytosis (manual) Slight Sodium 140 Potassium 3.4 L Chloride 104 Carbon Dioxide 30 Anion Gap 10 BUN 13 Creatinine 0.8 Est GFR ( Amer) > 60 Est GFR (Non-Af Amer) > 60 Random Glucose 105 Lactic Acid Calcium 8.7 Phosphorus 2.2 L Magnesium 1.6 Total Bilirubin 1.2 AST 23 ALT 41 Alkaline Phosphatase 142 H D Total Creatine Kinase CK-MB (Mass) NT-Pro-B Natriuret Pep Total Protein 5.4 L Albumin 2.6 L Globulin 2.8 Albumin/Globulin Ratio 0.9 L Urine Color Yellow Urine Clarity Clear Urine pH 5.0 Ur Specific [place] 1.016 Urine Protein 1+ H Urine Glucose (UA) Normal Urine Ketones Negative Urine Blood 1+ H Urine Nitrate Negative Urine Bilirubin Negative Urine Urobilinogen 4.0 H Ur Leukocyte Esterase Neg Urine WBC (Auto) 1 Urine RBC (Auto) 3 Ur Squamous Epith Cells 2 Urine Bacteria Rare 12/27/17 12/27/17 11:20 11:20 WBC RBC Hgb Hct MCV MCH MCHC RDW Plt Count MPV Neut % (Auto) Lymph % (Auto) [place] % (Auto) Eos % (Auto) Baso % (Auto) Neut # (Auto) Lymph # (Auto) [place] # (Auto) Eos # (Auto) Baso # (Auto) Neutrophils % (Manual) Band Neutrophils % Lymphocytes % (Manual) Monocytes % (Manual) Platelet Estimate Anisocytosis (manual) Sodium Potassium Chloride Carbon Dioxide Anion Gap BUN Creatinine Est GFR ( Amer) Est GFR (Non-Af Amer) Random Glucose Lactic Acid 1.3 Calcium Phosphorus Magnesium Total Bilirubin AST ALT Alkaline Phosphatase Total Creatine Kinase 27 L CK-MB (Mass) 0.40 NT-Pro-B Natriuret Pep 1780 H Total Protein Albumin Globulin Albumin/Globulin Ratio Urine Color Urine Clarity Urine pH Ur Specific [place] Urine Protein Urine Glucose (UA) Urine Ketones Urine Blood Urine Nitrate Urine Bilirubin Urine Urobilinogen Ur Leukocyte Esterase Urine WBC (Auto) Urine RBC (Auto) Ur Squamous Epith Cells Urine Bacteria Critical Care Progress Note - Nutrition Nutrition: Nutrition Category Date Time Status Heart Healthy Diet [DIET] Diets 12/24/17 Dinner Active Assessment/Plan - Assessment and Plan (Free Text) Assessment: Patient admitted to ICU for sepsis -off pressors -d/c costa -continue abx for soft tissue infection -CT left lower leg does not reveal any joint effusoin -Patient will benefit from elevation of lower/affected leg. -PT/OT
--- NOTE | 2017-12-27 15:30 | CP.PCM.PN ---
Subjective - Date & Time of Evaluation Date of Evaluation: 12/27/17 Time of Evaluation: 09:00 - Subjective Subjective: blood c/s + strep pyogenes c/o pain weakness and sob CT leg pending Objective - Vital Signs/Intake and Output Vital Signs (last 24 hours): Temp Pulse Resp BP Pulse Ox 99 F 80 20 135/77 100 12/27/17 04:00 12/27/17 07:00 12/27/17 07:00 12/27/17 06:53 12/27/17 07:00 Intake and Output: 12/27/17 12/27/17 06:59 18:59 Intake Total 880 822 Output Total 400 500 Balance 480 322 - Medications Medications: Current Medications Acetaminophen (Tylenol 325mg Tab) 650 mg PO Q6 PRN PRN Reason: Pain, Mild (1-3) Last Admin: 12/26/17 20:01 Dose: 650 mg Acetaminophen (Tylenol 325mg Tab) 650 mg PO Q6H PRN PRN Reason: Fever >100.4 F Al Hydrox/Mg Hydrox/Simethicone (Maalox Plus 30 Ml) 30 ml PO Q8H PRN PRN Reason: Indigestion / Heartburn Albuterol/Ipratropium (Duoneb 3 Mg/0.5 Mg (3 Ml) Ud) 3 ml INH RQ6 JORGE A Last Admin: 12/27/17 14:13 Dose: Not Given Benzocaine/Menthol (Cepacol Sore Throat) 1 rodo MT Q3H PRN PRN Reason: Sore Throat Heparin Sodium (Porcine) (Heparin) 5,000 units SC Q8 JORGE A Last Admin: 12/27/17 14:53 Dose: 5,000 units Linezolid (Zyvox 600mg/300ml D5w) 600 mg in 300 mls @ 300 mls/hr IVPB Q12H JORGE A Last Admin: 12/27/17 08:50 Dose: 300 mls/hr Potassium Phosphate 15 mmole/ (Sodium Chloride) 255 mls @ 42.5 mls/hr IVPB ONCE ONE Stop: 12/27/17 15:59 Last Admin: 12/27/17 10:21 Dose: 42.5 mls/hr Oxycodone/Acetaminophen (Percocet 5/325 Mg Tab) 1 tab PO Q4H PRN PRN Reason: Pain, moderate (4-7) Stop: 12/29/17 10:31 Last Admin: 12/27/17 14:54 Dose: 1 tab Pantoprazole Sodium (Protonix Ec Tab) 40 mg PO DAILY [facility] Last Admin: 12/27/17 09:06 Dose: 40 mg Potassium Chloride (K-Dur 20 Meq Er Tab) 40 meq PO Q6H JORGE A Stop: 12/27/17 22:01 Last Admin: 12/27/17 10:22 Dose: 40 meq - Labs Labs: 12/27/17 06:39 12/27/17 06:39 PT 20.5 SECONDS (9.7-12.2) H 12/24/17 23:26 INR 1.9 12/24/17 23:26 APTT 29 SECONDS (21-34) 12/24/17 23:26 - Constitutional Appears: No Acute Distress - Head Exam Head Exam: NORMOCEPHALIC - Eye Exam Eye Exam: PERRL - ENT Exam ENT Exam: Mucous Membranes Dry - Neck Exam Neck Exam: absent: Lymphadenopathy - Respiratory Exam Respiratory Exam: Decreased Breath Sounds, Rhonchi - Cardiovascular Exam Cardiovascular Exam: REGULAR RHYTHM, +S1, +S2 - GI/Abdominal Exam GI & Abdominal Exam: Distended, Soft. absent: Tenderness - Rectal Exam Rectal Exam: Deferred - Exam Exam: NORMAL INSPECTION - Extremities Exam Extremities Exam: Pedal Edema. absent: Calf Tenderness, Tenderness - Back Exam Back Exam: absent: CVA tenderness (L), CVA tenderness (R) - Neurological Exam Neurological Exam: Alert, Awake, CN II-XII Intact, Oriented x3 - Psychiatric Exam Psychiatric exam: Normal Mood - Skin Skin Exam: Dry Assessment and Plan (1) Asthma Status: Acute (2) Cellulitis Status: Acute (3) Mitral valve prolapse Status: Acute (4) Sepsis affecting skin Status: Acute (5) Septic shock Status: Acute - Assessment and Plan (Free Text) Assessment: await echo and ct findings cont iv rx
--- NOTE | 2017-12-27 16:27 | CT ---
Date of service: 12/27/2017 PROCEDURE: CT scan of the left knee and lower extremity without intravenous contrast. HISTORY: r/o fasciitis, left knee infection COMPARISON: Plain radiographs 12/24/2017 TECHNIQUE: Helical CT scan of the left knee and lower extremity was performed without administration of intravenous contrast. Coronal and sagittal reformatted images were obtained. This CT exam was performed using one or more of the following dose reduction techniques: Automated exposure control, adjustment of the mA and/or kV according to patient size, and/or use of iterative reconstruction technique. Radiation dose: 1213.62 DLP FINDINGS: Status post total knee arthroplasty. This examination is limited due to extensive streak artifacts from arthroplasty hardware. Allowing for this, there is diffuse subcutaneous edema and fluid in the deep soft tissues in the proximal leg and superficial and deep soft tissues of the distal leg and ankle. There is diffuse atrophy of the posteromedial compartment muscles. There is no evidence of acute fracture or bone destruction. Bone alignment is normal. IMPRESSION: Limited examination due to extensive streak artifact from arthroplasty hardware. Allowing for this findings are compatible with diffuse subcutaneous edema and fluid in the deep subcutaneous soft tissues in the proximal like and in the superficial and deep subcutaneous tissues of the distal leg and ankle. Findings are most compatible with cellulitis. No CT evidence for osteomyelitis. No evidence for drainable fluid collection. Evaluation of fasciitis is not possible on noncontrast CT examination
--- NOTE | 2017-12-27 23:56 | PN ---
DATE: 12/27/2017 SUBJECTIVE: The patient was seen and examined at bedside. The patient is still complaining of left lower extremity pain and swelling and unable to move. She is less short of breath. Denies any GERD symptoms. All other systems reviewed and were found to be negative. PHYSICAL EXAMINATION: GENERAL: Middle-aged obese female, lying in bed, in no acute distress. VITAL SIGNS: Blood pressure 142/82, pulse 89, respirations 25, temperature 98.9 degrees Fahrenheit, but T-max is 101 degrees Fahrenheit, O2 sat is 100% on room air. Intake is 2435 mL and output is 3200 mL. HEENT: Pupils equal, round and reacting to light and accommodation. Extraocular muscles intact. No icterus. No pallor. NECK: Supple. No JVD. LUNGS: Bilateral vesicular breath sounds. Bilateral occasional basal crackles heard. CVS: S1 and S2 present, regular. ABDOMEN: Soft, nontender. Bowel sounds present. No guarding. No rigidity. No rebound tenderness noted. EPIC BEACON ANALYST: Alert, awake, and oriented x3. No focal deficits noted. EXTREMITIES: Left lower extremity swelling, decreasing erythema, and warm to touch. Tenderness present. Palpable peripheral pulses. MEDICATIONS: Include Tylenol as needed, Maalox 30 mL p.o. every 8 hours p.r.n., DuoNeb every 6 hours, Cepacol lozenges, heparin 5000 units subcu every 8 hours, Zyvox 600 mg IV every 8 hours, Percocet one tab p.o. every 6 hours p.r.n., Protonix 40 mg daily, KCl 40 mEq p.o. every 6 hours x3 doses. LABORATORY DATA: WBC 14.3, hemoglobin 9.8, hematocrit 29.1, platelets 180, bands 4%. Sodium 140, potassium 3.4, chloride 104, bicarb 30, BUN 13, creatinine 0.8, glucose 105. Lactic acid 1.3. Calcium 8.7, phosphorus 2.2, magnesium 1.6. Total bilirubin 1.2, AST 23, ALT 41, alkaline phosphatase 142, total CPK 27. ProBNP is 1780. UA: Specific gravity 1.016, pH of 5, protein 1+, ketones 1+, urobilinogen 4. Blood culture is Streptococcus pyogenes group A. Urine culture, E coli positive. Lower extremity CT done this morning consistent with limited examination due to extensive streak artifact from arthroplasty hardware consistent with diffuse subcutaneous edema and fluid in the deep subcutaneous soft tissues in the proximal in the superficial and deep subcutaneous tissues of the distal leg and ankle. Findings are most compatible with cellulitis. No CT evidence for osteomyelitis. No evidence for drainable fluid collection. Evaluation of fasciitis is not possible on non-contrast CT examination. Echocardiogram done, but results pending. ASSESSMENT AND PLAN: Middle-aged female with a history of rheumatoid arthritis, osteoarthritis, gastroesophageal reflux disease, asthma, mitral valve prolapse, history of methicillin-resistant Staphylococcus aureus infection in the left leg. Admitted for septic shock with left leg cellulitis. Urine culture is positive for Escherichia coli and positive blood cultures with Streptococcus pyogenes. Status post pressors. Now, blood pressure is stable, off pressors. Electrolyte imbalance showing hypokalemia, hypomagnesemia, and hypophosphatemia. Improving white blood cell count on current antibiotics of Zyvox and aztreonam. We will continue with current antibiotics. Repeat cultures. Follow up with echo report. CT is negative for any other fluid collection other than cellulitis. We will supplement electrolytes. Repeat labs in the morning. We will get the patient out of bed to chair. We will request bedside physical therapy. We will add further recommendations as her clinical course progresses. Continue with gastrointestinal and deep venous thrombosis prophylaxis. The patient requesting for sleeping aid. Nando Blum MD
[2017-12-28] MEDS: Albuterol-Ipratrop 3 mg / 0.5 (3 ml) UD INH SCH ×3 (01:23→19:39)
[2017-12-28] MEDS: Oxycodone/Acetaminophen 5/325 mg Tab PO PRN ×4 (04:46→20:22)
[2017-12-28 06:13] LABS: BASO # 0.1 K/uL (0.0-0.2); BASO % 0.3 % (0.0-2.0); EOS # 0.2 K/uL (0.0-0.7); EOS % 1.2 % (0.0-4.0); HEMOGLOBIN 9.4 g/dL (11.0-16.0); LYMPH # 1.2 K/uL (1.0-4.3); LYMPH % 7.3 % (20.0-40.0); MEAN CORPUSCULAR HEMOGLOBIN 29.6 pg (27.0-31.0); MEAN CORPUSCULAR HGB CONC 33.2 g/dL (33.0-37.0); MEAN PLATELET VOLUME 8.4 fL (7.2-11.7); MONO # 1.4 K/uL (0.0-0.8); MONO % 8.7 % (0.0-10.0); NEUT # 13.1 K/uL (1.8-7.0); NEUT % 82.5 % (50.0-75.0); PLATELET COUNT 191 K/uL (130-400); RBC 3.18 Mil/uL (3.80-5.20); RED CELL DISTRIBUTION WIDTH 17.6 % (11.5-14.5); WHITE BLOOD COUNT 15.8 K/uL (4.8-10.8)
[2017-12-28 06:43] LABS: ALB/GLOB RATIO 0.9 (1.0-2.1); ALBUMIN 2.6 g/dL (3.5-5.0); ALT/SGPT 38 U/L (9-52); AST/SGOT 17 U/L (14-36); BLOOD UREA NITROGEN 14 mg/dL (7-17); CALCIUM 8.8 mg/dl (8.6-10.4); GFR AFRICAN-AMERICAN > 60; GFR NON-AFRICAN AMERICAN > 60
[2017-12-28] MEDS: Linezolid 600 mg in D5W 300 ml 600 MG/300 ML BAG IVPB SCH ×2 (07:57→20:22)
[2017-12-28 09:02] LABS: BANDS 3 % (0-2); EOSINOPHIL 2 % (0-4); LYMPHOCYTE 6 % (20-40); MONOCYTE 8 % (0-10); NEUTROPHIL 81 % (50-75); PLATELET ESTIMATE NORMAL (NORMAL); TOTAL CELLS COUNTED 100
[2017-12-28 09:03] LABS: ANISOCYTOSIS SLIGHT; HYPOCHROMIC SLIGHT; LARGE PLATELETS PRESENT; POLYCHROMIC SLIGHT; TOXIC GRANULATION PRESENT
--- NOTE | 2017-12-28 10:12 | CP.PCM.PN ---
Subjective - Date & Time of Evaluation Date of Evaluation: 12/28/17 Time of Evaluation: 10:12 - Subjective Subjective: Progress note dictated # [id number] Objective - Vital Signs/Intake and Output Vital Signs (last 24 hours): Temp Pulse Resp BP Pulse Ox 98.9 F 80 20 109/55 L 99 12/28/17 04:00 12/28/17 07:00 12/28/17 07:00 12/28/17 06:54 12/28/17 07:00 Intake and Output: 12/28/17 12/28/17 06:59 18:59 Intake Total 820 300 Output Total 600 Balance 220 300 - Medications Medications: Current Medications Acetaminophen (Tylenol 325mg Tab) 650 mg PO Q6 PRN PRN Reason: Pain, Mild (1-3) Last Admin: 12/26/17 20:01 Dose: 650 mg Acetaminophen (Tylenol 325mg Tab) 650 mg PO Q6H PRN PRN Reason: Fever >100.4 F Al Hydrox/Mg Hydrox/Simethicone (Maalox Plus 30 Ml) 30 ml PO Q8H PRN PRN Reason: Indigestion / Heartburn Albuterol/Ipratropium (Duoneb 3 Mg/0.5 Mg (3 Ml) Ud) 3 ml INH RQ6 [facility] Last Admin: 12/28/17 07:25 Dose: 3 ml Benzocaine/Menthol (Cepacol Sore Throat) 1 rodo MT Q3H PRN PRN Reason: Sore Throat Heparin Sodium (Porcine) (Heparin) 5,000 units SC Q8 [facility] Linezolid (Zyvox 600mg/300ml D5w) 600 mg in 300 mls @ 300 mls/hr IVPB Q12H [facility] Last Admin: 12/28/17 07:57 Dose: 300 mls/hr Oxycodone/Acetaminophen (Percocet 5/325 Mg Tab) 1 tab PO Q4H PRN PRN Reason: Pain, moderate (4-7) Stop: 12/29/17 10:31 Last Admin: 12/28/17 04:46 Dose: 1 tab Pantoprazole Sodium (Protonix Ec Tab) 40 mg PO DAILY [facility] Last Admin: 12/27/17 09:06 Dose: 40 mg - Labs Labs: 12/28/17 06:06 12/28/17 06:07 PT 20.5 SECONDS (9.7-12.2) H 12/24/17 23:26 INR 1.9 12/24/17 23:26 APTT 29 SECONDS (21-34) 12/24/17 23:26
[2017-12-28] MEDS: Pantoprazole 40 mg EC Tab PO SCH (10:33)
[2017-12-28] MEDS: Nystatin 100,000 Units/ml Oral Susp 5 ml UD PO SCH ×2 (17:17→21:53)
--- NOTE | 2017-12-28 22:18 | CP.CCUPN ---
CCU Subjective - Physician Review Events Since Last Encounter (Free Text): 12/28/17 22:17 Source of infection is the left leg. Admitted to the hospital with the septic shock and a already dysfunction. Improving. WBC better Vital signs stable. Chest good air entry regular heart sound edema noted Labs reviewed Spoke to the PMD. Will monitor this patient on more day. Possible discharge plan tomorrow to flow CCU Objective - Vital Signs / Intake & Output Vital Signs (Last 4 hours): Vital Signs Temp Pulse Resp BP Pulse Ox 12/28/17 21:00 92 H 16 96 12/28/17 20:53 92 H 18 150/60 94 L 12/28/17 20:00 99.6 F 90 13 100 12/28/17 19:53 88 16 144/62 100 12/28/17 19:00 98 H 19 92 L Intake and Output (Last 8hrs): Intake & Output 12/28/17 12/28/17 12/28/17 06:59 14:59 22:59 Intake Total 320 750 650 Output Total 600 650 250 Balance -280 100 400 Weight 244 lb 8 oz Intake: Intake, IV Amount 300 300 Right Internal Jugular 300 Right Medial Port 300 Internal Jugular Oral 320 450 350 Output: Urine 600 650 250 Urine, Voided 600 650 250 Other: # Voids Urine, Voided 1 1 1 # Bowel Movements 0 0 0 - Physical Exam Head: Positive for: Atraumatic, Normocephalic Pupils: Positive for: PERRL Extroacular Muscles: Positive for: EOMI Conjunctiva: Positive for: Normal. Negative for: Injected, Icteric Mouth: Positive for: Dry Neck: Positive for: Normal Range of Motion, Trachea Midline. Negative for: Meningeal Signs, MIDLINE TENDERNESS, Paraspinal Tenderness, JVD, Lymphadenopathy , Bruit, Other Respiratory/Chest: Positive for: Clear to Auscultation, Good Air Exchange. Negative for: Respiratory Distress, Accessory Muscle Use, Wheezes, Rales, Rhonchi Cardiovascular: Positive for: Regular Rate and Rhythm, Normal S1, S2, Peripheal Pulses Present. Negative for: Murmurs, Tachycardic, Bradycardic Abdomen: Positive for: Normal Bowel Sounds. Negative for: Tenderness, Distention Upper Extremity: Positive for: NORMAL PULSES, Capillary Refill < 2s. Negative for: Cyanosis, Edema, Tenderness, Swelling, Erythema Lower Extremity: Positive for: Edema (left), NORMAL PULSES, Tenderness (TTP from mid thigh down on left), Temperature Abnormalties (left warm to touch ), Neurovascularly Intact. Negative for: Cyanosis, Normal ROM Neurological: Positive for: Speech Normal, Motor Func Grossly Intact Psychiatric: Positive for: Alert, Oriented x 3, Anxious - Medications Active Medications: Active Medications Generic Name Dose Route Start Last Admin Trade Name Freq PRN Reason Stop Dose Admin Acetaminophen 650 mg 12/25/17 00:36 12/26/17 20:01 Tylenol 325mg Tab PO 650 mg Q6 PRN Administration Pain, Mild (1-3) Acetaminophen 650 mg 12/26/17 11:01 Tylenol 325mg Tab PO Q6H PRN Fever >100.4 F Al Hydrox/Mg Hydrox/Simethicone 30 ml 12/26/17 11:00 Maalox Plus 30 Ml PO Q8H PRN Indigestion / Heartburn Albuterol/Ipratropium 3 ml 12/26/17 14:00 12/28/17 19:39 Duoneb 3 Mg/0.5 Mg (3 Ml) Ud INH 3 ml RQ6 JORGE A Administration Benzocaine/Menthol 1 rodo 12/27/17 09:50 Cepacol Sore Throat MT Q3H PRN Sore Throat Heparin Sodium (Porcine) 5,000 units 12/28/17 14:00 12/28/17 21:54 Heparin SC 5,000 units Q8 JORGE A Administration Linezolid 600 mg in 300 mls @ 300 mls/hr 12/24/17 20:30 12/28/17 20:22 Zyvox 600mg/300ml D5w IVPB 300 mls/hr Q12H JORGE A Administration Nystatin 5 ml 12/28/17 18:00 12/28/17 21:53 Nystatin Oral Susp PO 5 ml QID JORGE A Administration Oxycodone/Acetaminophen 1 tab 12/28/17 19:12 12/28/17 20:22 Percocet 5/325 Mg Tab PO 12/31/17 19:12 1 tab Q4H PRN Administration Pain, moderate (4-7) Pantoprazole Sodium 40 mg 12/25/17 10:00 12/28/17 10:33 Protonix Ec Tab PO 40 mg DAILY JORGE A Administration - Patient Studies Lab Studies: Microbiology Studies 12/24/17 14:00 Blood Culture - Preliminary Blood NO GROWTH AFTER 4 DAYS 12/24/17 14:15 S.aureus & Coag-Neg Staph PNA FISH - Final Blood TEST NOT PERFORMED Blood Culture - Final Streptococcus Pyogenes Grp A Gram Stain - Final 12/27/17 11:20 Blood Culture - Preliminary Blood-Venous NO GROWTH AFTER 24 HOURS 12/27/17 11:20 Blood Culture - Preliminary Blood-Venous NO GROWTH AFTER 24 HOURS 12/27/17 11:20 MRSA Culture (Admit) - Final Naris MRSA NOT DETECTED 12/27/17 11:20 Urine Culture - Final Urine,Catheterized No Growth (<1,000 CFU/ML) Lab Studies 12/28/17 12/28/17 Range/Units 06:07 06:06 WBC 15.8 H (4.8-10.8) K/uL RBC 3.18 L (3.80-5.20) Mil/uL Hgb 9.4 L (11.0-16.0) g/dL Hct 28.3 L (34.0-47.0) % MCV 89.0 (81.0-99.0) fL MCH 29.6 (27.0-31.0) pg MCHC 33.2 (33.0-37.0) g/dL RDW 17.6 H (11.5-14.5) % Plt Count 191 (130-400) K/uL MPV 8.4 (7.2-11.7) fL Neut % (Auto) 82.5 H (50.0-75.0) % Lymph % (Auto) 7.3 L (20.0-40.0) % Nicol[place] % (Auto) 8.7 (0.0-10.0) % Eos % (Auto) 1.2 (0.0-4.0) % Baso % (Auto) 0.3 (0.0-2.0) % Neut # (Auto) 13.1 H (1.8-7.0) K/uL Lymph # (Auto) 1.2 (1.0-4.3) K/uL Nicollet # (Auto) 1.4 H (0.0-0.8) K/uL Eos # (Auto) 0.2 (0.0-0.7) K/uL Baso # (Auto) 0.1 (0.0-0.2) K/uL Neutrophils % (Manual) 81 H (50-75) % Band Neutrophils % 3 H (0-2) % Lymphocytes % (Manual) 6 L (20-40) % Monocytes % (Manual) 8 (0-10) % Eosinophils % (Manual) 2 (0-4) % Toxic Granulation Present Platelet Estimate Normal (NORMAL) Large Platelets Present Polychromasia Slight Hypochromasia (manual) Slight Anisocytosis (manual) Slight Sodium 139 (132-148) mmol/L Potassium 4.0 (3.6-5.2) mmol/L Chloride 103 (98-107) mmol/L Carbon Dioxide 30 (22-30) mmol/L Anion Gap 10 (10-20) BUN 14 (7-17) mg/dL Creatinine 0.7 (0.7-1.2) mg/dL Est GFR ( Amer) > 60 Est GFR (Non-Af Amer) > 60 Random Glucose 108 H (65-105) mg/dL Calcium 8.8 (8.6-10.4) mg/dl Phosphorus 2.6 (2.5-4.5) mg/dL Magnesium 1.7 (1.6-2.3) mg/dL Total Bilirubin 1.9 H (0.2-1.3) mg/dL AST 17 (14-36) U/L ALT 38 (9-52) U/L Alkaline Phosphatase 191 H D (38-126) U/L Total Protein 5.5 L (6.3-8.3) g/dL Albumin 2.6 L (3.5-5.0) g/dL Globulin 2.9 (2.2-3.9) gm/dL Albumin/Globulin Ratio 0.9 L (1.0-2.1) Laboratory Results - last 24 hr 12/28/17 12/28/17 06:06 06:07 WBC 15.8 H RBC 3.18 L Hgb 9.4 L Hct 28.3 L MCV 89.0 MCH 29.6 MCHC 33.2 RDW 17.6 H Plt Count 191 MPV 8.4 Neut % (Auto) 82.5 H Lymph % (Auto) 7.3 L Nicollet % (Auto) 8.7 Eos % (Auto) 1.2 Baso % (Auto) 0.3 Neut # (Auto) 13.1 H Lymph # (Auto) 1.2 Nicollet # (Auto) 1.4 H Eos # (Auto) 0.2 Baso # (Auto) 0.1 Neutrophils % (Manual) 81 H Band Neutrophils % 3 H Lymphocytes % (Manual) 6 L Monocytes % (Manual) 8 Eosinophils % (Manual) 2 Toxic Granulation Present Platelet Estimate Normal Large Platelets Present Polychromasia Slight Hypochromasia (manual) Slight Anisocytosis (manual) Slight Sodium 139 Potassium 4.0 Chloride 103 Carbon Dioxide 30 Anion Gap 10 BUN 14 Creatinine 0.7 Est GFR ( Amer) > 60 Est GFR (Non-Af Amer) > 60 Random Glucose 108 H Calcium 8.8 Phosphorus 2.6 Magnesium 1.7 Total Bilirubin 1.9 H AST 17 ALT 38 Alkaline Phosphatase 191 H D Total Protein 5.5 L Albumin 2.6 L Globulin 2.9 Albumin/Globulin Ratio 0.9 L Critical Care Progress Note - Nutrition Nutrition: Nutrition Category Date Time Status Heart Healthy Diet [DIET] Diets 12/24/17 Dinner Active
[2017-12-29] MEDS: Albuterol-Ipratrop 3 mg / 0.5 (3 ml) UD INH SCH ×3 (02:45→20:30)
--- NOTE | 2017-12-29 04:13 | PN ---
DATE: 12/28/2017 SUBJECTIVE: The patient was seen and examined at bedside. The patient is still complaining of left lower extremity pain, unable to move her lower extremity secondary to pain. Denies any chest pain or shortness of breath. The patient is not able to get out of bed secondary to pain. Denies any other complaints. All other systems reviewed and were found to be negative. PHYSICAL EXAMINATION: GENERAL: Middle aged morbidly obese female, lying in bed, in no acute distress. VITAL SIGNS: Blood pressure 150/60, pulse 92, respirations 18, temperature 99.6 degrees Fahrenheit, T-max is 100.7, O2 sat 94% on 3 L nasal cannula. Intake is 2280 and output is 2000 mL. HEENT: Pupils equal, round and reacting to light and accommodation. Extraocular muscles intact. No icterus. No pallor. No oral thrush. No pharyngeal congestion. NECK: Supple. No JVD. LUNGS: Bilateral vesicular breath sounds. Bilateral occasional basilar crackles heard. CVS: S1 and S2 present, regular. ABDOMEN: Soft and nontender. Bowel sounds present. No guarding. No rigidity. No rebound tenderness noted. PARAFFINER: Alert, awake, and oriented x3. No focal deficits noted. EXTREMITIES: Left leg swelling present, redness present, erythema present, warm to touch and tenderness present. Palpable peripheral pulses. MEDICATIONS: Include Tylenol 650 p.o. every 6 hours, Percocet as needed, DuoNeb, Cepacol, heparin 5000 units subcu every 8 hours, Zyvox 600 mg p.o. b.i.d., and Protonix 40 mg daily. LABORATORY DATA: Labs from this morning, hemoglobin 9.4, hematocrit 28.3, platelets 191. Sodium 139, potassium 4, chloride 103, bicarb 30, BUN 14, creatinine 0.7, glucose 108, calcium 8.3, phosphorus 2.6, magnesium 1.7, total bilirubin 1.9, AST 17, ALT 38, alkaline phosphatase 191, total protein 5.5, albumin 2.6. Repeat blood cultures negative. MRSA not detected. Urine culture negative growth. ASSESSMENT AND PLAN: Middle aged female with history of rheumatoid arthritis, osteoarthritis, gastroesophageal reflux disease, asthma, admitted for left leg cellulitis, septic shock, electrolyte imbalance, Escherichia coli urinary tract infection, Streptococcus pyogenes in blood cultures . Repeat cultures are negative. The patient is on Zyvox with improving white count and stable blood pressure, off pressors. We will continue with current medications. Encouraged the patient to get out of bed, sit in the chair, left leg elevation, pain medication as needed. We will repeat labs in a.m. Continue with other current medications. Continue with deep venous thrombosis and gastrointestinal prophylaxis. Nando Blum MD
[2017-12-29] MEDS: Oxycodone/Acetaminophen 5/325 mg Tab PO PRN ×4 (04:18→20:19)
[2017-12-29 05:59] LABS: BASO # 0.1 K/uL (0.0-0.2); BASO % 0.6 % (0.0-2.0); EOS # 0.3 K/uL (0.0-0.7); EOS % 1.6 % (0.0-4.0); HEMOGLOBIN 8.9 g/dL (11.0-16.0); LYMPH # 1.8 K/uL (1.0-4.3); LYMPH % 11.4 % (20.0-40.0); MEAN CELL VOLUME 88.6 fL (81.0-99.0); MEAN CORPUSCULAR HEMOGLOBIN 29.2 pg (27.0-31.0); MONO # 1.6 K/uL (0.0-0.8); NEUT # 12.3 K/uL (1.8-7.0); NEUT % 76.4 % (50.0-75.0); RBC 3.05 Mil/uL (3.80-5.20); WHITE BLOOD COUNT 16.1 K/uL (4.8-10.8)
[2017-12-29 06:25] LABS: ALB/GLOB RATIO 0.9 (1.0-2.1); ALBUMIN 2.6 g/dL (3.5-5.0); ALT/SGPT 22 U/L (9-52); AST/SGOT 20 U/L (14-36); BLOOD UREA NITROGEN 12 mg/dL (7-17); CALCIUM 8.6 mg/dl (8.6-10.4); GFR AFRICAN-AMERICAN > 60; GFR NON-AFRICAN AMERICAN > 60
[2017-12-29] MEDS: Linezolid 600 mg in D5W 300 ml 600 MG/300 ML BAG IVPB SCH ×2 (07:55→20:20)
[2017-12-29] MEDS: Pantoprazole 40 mg EC Tab PO SCH (09:01)
[2017-12-29] MEDS: Nystatin 100,000 Units/ml Oral Susp 5 ml UD PO SCH ×4 (09:02→22:20)
--- NOTE | 2017-12-29 13:16 | CP.PCM.PN ---
Subjective - Date & Time of Evaluation Date of Evaluation: 12/29/17 Time of Evaluation: 13:13 - Subjective Subjective: Podiatry Progress note: Dr. Okeefe 62 year old female patient was seen and evaluated for bullae with cellulitis to LLE. Patient is AAOx3 and appears to be resting comfortable in her bed. Denies of any acute overnight events. Reports that she does not feel well. and friend at bedside. States she has lot of pain on the left leg. No other pedal complains at this time. Objective - Vital Signs/Intake and Output Vital Signs (last 24 hours): Temp Pulse Resp BP Pulse Ox 99.7 F H 85 13 140/78 100 12/29/17 08:00 12/29/17 07:53 12/29/17 07:53 12/29/17 07:53 12/29/17 08:00 Intake and Output: 12/29/17 12/29/17 06:59 18:59 Intake Total 800 300 Balance 800 300 - Medications Medications: Current Medications Acetaminophen (Tylenol 325mg Tab) 650 mg PO Q6 PRN PRN Reason: Pain, Mild (1-3) Last Admin: 12/26/17 20:01 Dose: 650 mg Acetaminophen (Tylenol 325mg Tab) 650 mg PO Q6H PRN PRN Reason: Fever >100.4 F Al Hydrox/Mg Hydrox/Simethicone (Maalox Plus 30 Ml) 30 ml PO Q8H PRN PRN Reason: Indigestion / Heartburn Albuterol/Ipratropium (Duoneb 3 Mg/0.5 Mg (3 Ml) Ud) 3 ml INH RQ6 [facility] A Last Admin: 12/29/17 07:30 Dose: 3 ml Benzocaine/Menthol (Cepacol Sore Throat) 1 rodo MT Q3H PRN PRN Reason: Sore Throat Heparin Sodium (Porcine) (Heparin) 5,000 units SC Q8 [facility] A Last Admin: 12/29/17 06:31 Dose: 5,000 units Linezolid (Zyvox 600mg/300ml D5w) 600 mg in 300 mls @ 300 mls/hr IVPB Q12H [facility] A Last Admin: 12/29/17 07:55 Dose: 300 mls/hr Nystatin (Nystatin Oral Susp) 5 ml PO QID [facility] A Last Admin: 12/29/17 09:02 Dose: 5 ml Oxycodone/Acetaminophen (Percocet 5/325 Mg Tab) 1 tab PO Q4H PRN PRN Reason: Pain, moderate (4-7) Stop: 12/31/17 19:12 Last Admin: 12/29/17 09:00 Dose: 1 tab Pantoprazole Sodium (Protonix Ec Tab) 40 mg PO DAILY [facility] A Last Admin: 12/29/17 09:01 Dose: 40 mg - Labs Labs: 12/29/17 05:53 12/29/17 05:54 PT 20.5 SECONDS (9.7-12.2) H 12/24/17 23:26 INR 1.9 12/24/17 23:26 APTT 29 SECONDS (21-34) 12/24/17 23:26 - Constitutional Appears: Well, Non-toxic, No Acute Distress - Extremities Exam Additional comments: Left LE focused exam VASC: DP/PT pulses are very faintly palpable 1/4, Cap refill time: < 3 sec to all digits, Temp gradient: warm to warm from proximal to distal, edema noted extending from the knee joint distally DERM: Bullae measuring approx 1 cm x 1 cm noted on the postero-medial aspect of the left leg, lateral border of the nail fold opening noted on the hallux and 2nd digit nail, erythema which extends from the knee joint distally towards the rearfoot of the left foot, temp gradient is cool on the forefoot with no erythema NEURO: protective sensation grossly intact ORTHO: pain on ROM of the LLE, pain during palpation of the calf, Homman and prett positive on the left leg - Neurological Exam Neurological Exam: Alert, Awake, Oriented x3 - Psychiatric Exam Psychiatric exam: Normal Affect, Normal Mood Assessment and Plan - Assessment and Plan (Free Text) Assessment: 62 year old female was evaluated for 1). non-infected serous bullae 2). cellulitis Plan: Patient seen and evaluated Discussed patient with attending Dr. Okeefe Labs, vitals and charts reviewed - WBC @ 16.1 - trending down since the admission Bullae drained using an 18 guage needle after sterile prep - 2 cc of serous clear fluid expressed Site dressed with silvercel, optifoam Continue IV abx - Linezolid Podiatry will follow patient while in-house
--- NOTE | 2017-12-29 13:45 | CARD ---
APPROVED REPORT Date of service: 12/27/2017 EXAM: Two-dimensional and M-mode echocardiogram with Doppler and color Doppler. Other Information Quality : GoodRhythm : INDICATION Peripheral Edema Mitral Valve Prolapse RISK FACTORS Hypertension 2D DIMENSIONS IVSd1.1 (0.7-1.1cm)LVDd4.9 (3.9-5.9cm) LVOT Diameter2.2 (1.8-2.4cm)PWd1.1 (0.7-1.1cm) LVDs2.8 (2.5-4.0cm)FS (%) 42.0 % LVEF (%)65.0 (>50%) M-Mode DIMENSIONS Left Atrium (MM)3.34 (2.5-4.0cm)IVSd0.93 (0.7-1.1cm) Aortic Root3.23 (2.2-3.7cm)LVDd5.34 (4.0-5.6cm) Aortic Cusp Exc.2.44 (1.5-2.0cm)PWd0.78 (0.7-1.1cm) FS (%) 38 %LVDs3.32 (2.0-3.8cm) LVEF (%)67 (>50%) Aortic Valve AoV Peak Vrggsrwx853.7cm/sAoV VTI55.0cmAO Peak GR.46mmHg LVOT Peak Wwxkvlnp431.2cm/sLVOT VTI29.58cmAO Mean GR.28mmHg CONCHITA (VMAX)1.54hq6KLC (VTI)2.86wq6PM P 1/2 [id number] Mitral Valve MV E Xuofnfdk049.6cm/sMV A Utonxigs411.6cm/sE/A ratio0.9 TDI E/Lateral E'0.0E/Medial E'0.0 Tricuspid Valve TR Peak Mzmtsvto871oe/sTR Peak Gr.39wrZhDMTA90pcTx <Conclusion> poor window. normal size la,lv & ra rv. normal lv wall motion,thickness,systolic & diastolic function with lvef of 60-65%. aortic valve not well seen,sclerotic.peak/mean avg gradient of 48/28 mm of hg? & calculated conchita of 2.0 cmsq.visually there is no aortic stenosis. normal mitral & tv. mild mr,ai,tr with calculated pulmonary systolic pressures of 80 mm of hg,severe pulmonary hypertension. ivc is dilated,2.8 cm with poor inspiratory collapse suggetive of elevated ra pressures. no pericardial effusion seen. sclerotic normal size aortic root.
--- NOTE | 2017-12-29 14:15 | CP.PCM.PN ---
Subjective - Date & Time of Evaluation Date of Evaluation: 12/29/17 Time of Evaluation: 06:00 - Subjective Subjective: CT noted no drainable abscess iv antibiotics in progress Objective - Vital Signs/Intake and Output Vital Signs (last 24 hours): Temp Pulse Resp BP Pulse Ox 99.7 F H 85 13 140/78 100 12/29/17 08:00 12/29/17 07:53 12/29/17 07:53 12/29/17 07:53 12/29/17 08:00 Intake and Output: 12/29/17 12/29/17 06:59 18:59 Intake Total 800 300 Balance 800 300 - Medications Medications: Current Medications Acetaminophen (Tylenol 325mg Tab) 650 mg PO Q6 PRN PRN Reason: Pain, Mild (1-3) Last Admin: 12/26/17 20:01 Dose: 650 mg Acetaminophen (Tylenol 325mg Tab) 650 mg PO Q6H PRN PRN Reason: Fever >100.4 F Al Hydrox/Mg Hydrox/Simethicone (Maalox Plus 30 Ml) 30 ml PO Q8H PRN PRN Reason: Indigestion / Heartburn Albuterol/Ipratropium (Duoneb 3 Mg/0.5 Mg (3 Ml) Ud) 3 ml INH RQ6 JORGE A Last Admin: 12/29/17 07:30 Dose: 3 ml Benzocaine/Menthol (Cepacol Sore Throat) 1 rodo MT Q3H PRN PRN Reason: Sore Throat Heparin Sodium (Porcine) (Heparin) 5,000 units SC Q8 JORGE A Last Admin: 12/29/17 13:56 Dose: 5,000 units Linezolid (Zyvox 600mg/300ml D5w) 600 mg in 300 mls @ 300 mls/hr IVPB Q12H JORGE A Last Admin: 12/29/17 07:55 Dose: 300 mls/hr Nystatin (Nystatin Oral Susp) 5 ml PO QID JORGE A Last Admin: 12/29/17 13:57 Dose: 5 ml Oxycodone/Acetaminophen (Percocet 5/325 Mg Tab) 1 tab PO Q4H PRN PRN Reason: Pain, moderate (4-7) Stop: 12/31/17 19:12 Last Admin: 12/29/17 13:57 Dose: 1 tab Pantoprazole Sodium (Protonix Ec Tab) 40 mg PO DAILY JORGE A Last Admin: 12/29/17 09:01 Dose: 40 mg - Labs Labs: 12/29/17 05:53 12/29/17 05:54 PT 20.5 SECONDS (9.7-12.2) H 12/24/17 23:26 INR 1.9 12/24/17 23:26 APTT 29 SECONDS (21-34) 12/24/17 23:26 - Constitutional Appears: Non-toxic, Chronically Ill - Head Exam Head Exam: NORMOCEPHALIC - Eye Exam Eye Exam: absent: Scleral icterus - ENT Exam ENT Exam: Mucous Membranes Dry - Neck Exam Neck Exam: absent: Lymphadenopathy - Respiratory Exam Respiratory Exam: Decreased Breath Sounds - Cardiovascular Exam Cardiovascular Exam: REGULAR RHYTHM - GI/Abdominal Exam GI & Abdominal Exam: Distended, Soft - Rectal Exam Rectal Exam: Deferred - Extremities Exam Extremities Exam: Calf Tenderness, Pedal Edema, Tenderness Additional comments: VASC: DP/PT pulses are very faintly palpable 1/4, Cap refill time: < 3 sec to all digits, Temp gradient: warm to warm from proximal to distal, edema noted extending from the knee joint distally DERM: Bullae measuring approx 1 cm x 1 cm noted on the postero-medial aspect of the left leg, lateral border of the nail fold opening noted on the hallux and 2nd digit nail, erythema which extends from the knee joint distally towards the rearfoot of the left foot, temp gradient is cool on the forefoot with no erythema NEURO: protective sensation grossly intact ORTHO: pain on ROM of the LLE, pain during palpation of the calf, Homman and prett positive on the left leg - Back Exam Back Exam: absent: CVA tenderness (L), CVA tenderness (R) - Neurological Exam Neurological Exam: Alert, Awake, CN II-XII Intact, Oriented x3 - Psychiatric Exam Psychiatric exam: Normal Mood - Skin Skin Exam: Dry Assessment and Plan (1) Asthma Status: Acute (2) Cellulitis Status: Acute (3) Mitral valve prolapse Status: Acute (4) Sepsis affecting skin Status: Acute (5) Septic shock Status: Acute - Assessment and Plan (Free Text) Assessment: cont wound care and iv antibiotics
--- NOTE | 2017-12-29 15:34 | RAD ---
Chest x-ray single frontal view History: Pneumonia. Comparison: 12/26/2017 Findings: Lines and tubes in stable position. Diffuse increased interstitial lung markings which may represent underlying infiltrate and or edema. Mid hilar prominence. Consolidative opacification in the right infrahilar region. Tortuous ectatic aorta. Cardiomegaly. Degenerative changes in the spine and shoulders. Impression: Lines and tubes in stable position. Diffuse increased interstitial lung markings which may represent underlying infiltrate and or edema. Mid hilar prominence. Consolidative opacification in the right infrahilar region. Tortuous ectatic aorta. Cardiomegaly.
--- NOTE | 2017-12-29 17:08 | CP.PCM.PN ---
Subjective - Date & Time of Evaluation Date of Evaluation: 12/29/17 Time of Evaluation: 17:08 - Subjective Subjective: Progress note dictated # [id number] Objective - Vital Signs/Intake and Output Vital Signs (last 24 hours): Temp Pulse Resp BP Pulse Ox 99.7 F H 82 14 142/73 100 12/29/17 08:00 12/29/17 14:53 12/29/17 14:53 12/29/17 14:53 12/29/17 14:53 Intake and Output: 12/29/17 12/29/17 06:59 18:59 Intake Total 800 875 Output Total 300 Balance 800 575 - Medications Medications: Current Medications Acetaminophen (Tylenol 325mg Tab) 650 mg PO Q6 PRN PRN Reason: Pain, Mild (1-3) Last Admin: 12/26/17 20:01 Dose: 650 mg Acetaminophen (Tylenol 325mg Tab) 650 mg PO Q6H PRN PRN Reason: Fever >100.4 F Al Hydrox/Mg Hydrox/Simethicone (Maalox Plus 30 Ml) 30 ml PO Q8H PRN PRN Reason: Indigestion / Heartburn Albuterol/Ipratropium (Duoneb 3 Mg/0.5 Mg (3 Ml) Ud) 3 ml INH RQ6 JORGE A Last Admin: 12/29/17 07:30 Dose: 3 ml Benzocaine/Menthol (Cepacol Sore Throat) 1 rodo MT Q3H PRN PRN Reason: Sore Throat Heparin Sodium (Porcine) (Heparin) 5,000 units SC Q8 [facility] Last Admin: 12/29/17 13:56 Dose: 5,000 units Linezolid (Zyvox 600mg/300ml D5w) 600 mg in 300 mls @ 300 mls/hr IVPB Q12H JORGE A Last Admin: 12/29/17 07:55 Dose: 300 mls/hr Nystatin (Nystatin Oral Susp) 5 ml PO QID JORGE A Last Admin: 12/29/17 13:57 Dose: 5 ml Oxycodone/Acetaminophen (Percocet 5/325 Mg Tab) 1 tab PO Q4H PRN PRN Reason: Pain, moderate (4-7) Stop: 12/31/17 19:12 Last Admin: 12/29/17 13:57 Dose: 1 tab Pantoprazole Sodium (Protonix Ec Tab) 40 mg PO DAILY JORGE A Last Admin: 12/29/17 09:01 Dose: 40 mg - Labs Labs: 12/29/17 05:53 12/29/17 05:54 PT 20.5 SECONDS (9.7-12.2) H 12/24/17 23:26 INR 1.9 12/24/17 23:26 APTT 29 SECONDS (21-34) 12/24/17 23:26
--- NOTE | 2017-12-29 23:40 | PN ---
DATE: 12/29/2017 SUBJECTIVE: The patient is seen and examined at bedside. The patient is still complaining of left leg swelling, pain, and unable to move the left lower extremity. Denies any headache, dizziness. Denies any shortness of breath or chest pain. Denies any other complaints. All other systems reviewed and were found to be negative. PHYSICAL EXAMINATION: GENERAL: A middle-aged obese female, lying in bed, in no acute distress. VITAL SIGNS: Blood pressure 125/68, pulse 82, respirations 17, temperature 99 degrees Fahrenheit, O2 saturations 97% on nasal cannula. Intake is 1650 mL, output is 900 mL. HEENT: Pupils equal, round, and reacting to light and accommodation. Extraocular muscles intact. No icterus. No pallor. No oral thrush. No pharyngeal congestion. NECK: Supple. No JVD. LUNGS: Bilateral vesicular breath sounds. Bilateral occasional basilar crackles heard. CVS: S1 and S2 present, regular. ABDOMEN: Soft and nontender. Bowel sounds present. No guarding. No rigidity. No rebound tenderness noted. [employer]OPMENT [employer]GER: Alert, awake, and oriented x3. No focal deficits noted. EXTREMITIES: Left lower extremity swelling, that is likely worse than yesterday in the thigh region. Redness present. Erythema noted. Tenderness present. Palpable peripheral pulses. MEDICATIONS: Include Tylenol as needed, heparin, Cepacol, Zyvox, Protonix. LABORATORY DATA: Labs from this morning, WBC 16.1, hemoglobin 8.9, hematocrit 27, platelets 228. Sodium 138, potassium 4, chloride 100, bicarb 32, BUN 12, creatinine 0.6, glucose 90, calcium 8.6, phosphorus 3.3, magnesium 1.6, total bilirubin 1.9, AST 20, ALT 22, alkaline phosphatase 230, albumin 2.6. Chest x-ray, questionable infiltrates. ASSESSMENT AND PLAN: A middle-aged female with history of rheumatoid arthritis, osteoarthritis, gastroesophageal reflux disease, asthma, admitted for left leg cellulitis, septic shock, improved, status post pressors with persistent leg swelling and pain and tenderness. We will check arterial Doppler. We will continue with current antibiotics. Follow up with Infectious Disease and Podiatry. Continue with deep venous thrombosis and gastrointestinal prophylaxis. We will add further recommendation as her clinical course progresses. Nando Blum MD [facility] # [id number]
[2017-12-30] MEDS: Albuterol-Ipratrop 3 mg / 0.5 (3 ml) UD INH SCH ×3 (01:09→19:54)
[2017-12-30] MEDS: Oxycodone/Acetaminophen 5/325 mg Tab PO PRN ×5 (02:13→20:41)
[2017-12-30 06:36] LABS: HEMOGLOBIN 8.9 g/dL (11.0-16.0); MEAN CELL VOLUME 87.5 fL (81.0-99.0); MEAN CORPUSCULAR HEMOGLOBIN 29.8 pg (27.0-31.0); MEAN PLATELET VOLUME 7.4 fL (7.2-11.7); RBC 2.99 Mil/uL (3.80-5.20); RED CELL DISTRIBUTION WIDTH 17.7 % (11.5-14.5); WHITE BLOOD COUNT 18.2 K/uL (4.8-10.8)
[2017-12-30 06:56] LABS: ALBUMIN 2.8 g/dL (3.5-5.0); ALT/SGPT 31 U/L (9-52); AST/SGOT 21 U/L (14-36); BLOOD UREA NITROGEN 9 mg/dL (7-17); CALCIUM 8.5 mg/dl (8.6-10.4); GFR AFRICAN-AMERICAN > 60; GFR NON-AFRICAN AMERICAN > 60
[2017-12-30] MEDS: Linezolid 600 mg in D5W 300 ml 600 MG/300 ML BAG IVPB SCH (08:18)
[2017-12-30] MEDS: Pantoprazole 40 mg EC Tab PO SCH (09:32)
[2017-12-30] MEDS: Nystatin 100,000 Units/ml Oral Susp 5 ml UD PO SCH ×4 (09:33→21:34)
--- NOTE | 2017-12-30 10:11 | CP.PCM.PN ---
Subjective - Date & Time of Evaluation Date of Evaluation: 12/30/17 Time of Evaluation: 10:11 - Subjective Subjective: Progress note dictated #[id number] Objective - Vital Signs/Intake and Output Vital Signs (last 24 hours): Temp Pulse Resp BP Pulse Ox 99.4 F 87 27 H 146/82 97 12/30/17 08:00 12/30/17 08:00 12/30/17 08:00 12/30/17 07:53 12/30/17 08:00 Intake and Output: 12/30/17 12/30/17 06:59 18:59 Intake Total 670 200 Output Total 500 0 Balance 170 200 - Medications Medications: Current Medications Acetaminophen (Tylenol 325mg Tab) 650 mg PO Q6 PRN PRN Reason: Pain, Mild (1-3) Last Admin: 12/26/17 20:01 Dose: 650 mg Acetaminophen (Tylenol 325mg Tab) 650 mg PO Q6H PRN PRN Reason: Fever >100.4 F Al Hydrox/Mg Hydrox/Simethicone (Maalox Plus 30 Ml) 30 ml PO Q8H PRN PRN Reason: Indigestion / Heartburn Albuterol/Ipratropium (Duoneb 3 Mg/0.5 Mg (3 Ml) Ud) 3 ml INH RQ6 JORGE A Last Admin: 12/30/17 07:40 Dose: 3 ml Benzocaine/Menthol (Cepacol Sore Throat) 1 rodo MT Q3H PRN PRN Reason: Sore Throat Heparin Sodium (Porcine) (Heparin) 5,000 units SC Q8 [facility] Last Admin: 12/30/17 05:35 Dose: 5,000 units Linezolid (Zyvox 600mg/300ml D5w) 600 mg in 300 mls @ 300 mls/hr IVPB Q12H JORGE A Last Admin: 12/30/17 08:18 Dose: 300 mls/hr Nystatin (Nystatin Oral Susp) 5 ml PO QID [facility] Last Admin: 12/30/17 09:33 Dose: 5 ml Oxycodone/Acetaminophen (Percocet 5/325 Mg Tab) 1 tab PO Q4H PRN PRN Reason: Pain, moderate (4-7) Stop: 12/31/17 19:12 Last Admin: 12/30/17 08:02 Dose: 1 tab Pantoprazole Sodium (Protonix Ec Tab) 40 mg PO DAILY JORGE A Last Admin: 12/30/17 09:32 Dose: 40 mg - Labs Labs: 12/30/17 06:24 12/30/17 06:24 PT 20.5 SECONDS (9.7-12.2) H 12/24/17 23:26 INR 1.9 12/24/17 23:26 APTT 29 SECONDS (21-34) 12/24/17 23:26
--- NOTE | 2017-12-30 11:39 | CP.PCM.PN ---
Subjective - Date & Time of Evaluation Date of Evaluation: 12/30/17 Time of Evaluation: 09:00 - Subjective Subjective: left leg still swollen less red Objective - Vital Signs/Intake and Output Vital Signs (last 24 hours): Temp Pulse Resp BP Pulse Ox 99.4 F 87 27 H 146/82 97 12/30/17 08:00 12/30/17 08:00 12/30/17 08:00 12/30/17 07:53 12/30/17 08:00 Intake and Output: 12/30/17 12/30/17 06:59 18:59 Intake Total 670 200 Output Total 500 0 Balance 170 200 - Medications Medications: Current Medications Acetaminophen (Tylenol 325mg Tab) 650 mg PO Q6 PRN PRN Reason: Pain, Mild (1-3) Last Admin: 12/26/17 20:01 Dose: 650 mg Acetaminophen (Tylenol 325mg Tab) 650 mg PO Q6H PRN PRN Reason: Fever >100.4 F Al Hydrox/Mg Hydrox/Simethicone (Maalox Plus 30 Ml) 30 ml PO Q8H PRN PRN Reason: Indigestion / Heartburn Albuterol/Ipratropium (Duoneb 3 Mg/0.5 Mg (3 Ml) Ud) 3 ml INH RQ6 JORGE A Last Admin: 12/30/17 07:40 Dose: 3 ml Benzocaine/Menthol (Cepacol Sore Throat) 1 rodo MT Q3H PRN PRN Reason: Sore Throat Heparin Sodium (Porcine) (Heparin) 5,000 units SC Q8 [facility] Last Admin: 12/30/17 05:35 Dose: 5,000 units Linezolid (Zyvox 600mg/300ml D5w) 600 mg in 300 mls @ 300 mls/hr IVPB Q12H JORGE A Last Admin: 12/30/17 08:18 Dose: 300 mls/hr Nystatin (Nystatin Oral Susp) 5 ml PO QID [facility] Last Admin: 12/30/17 09:33 Dose: 5 ml Oxycodone/Acetaminophen (Percocet 5/325 Mg Tab) 1 tab PO Q4H PRN PRN Reason: Pain, moderate (4-7) Stop: 12/31/17 19:12 Last Admin: 12/30/17 08:02 Dose: 1 tab Pantoprazole Sodium (Protonix Ec Tab) 40 mg PO DAILY JORGE A Last Admin: 12/30/17 09:32 Dose: 40 mg - Labs Labs: 12/30/17 06:24 12/30/17 06:24 PT 20.5 SECONDS (9.7-12.2) H 12/24/17 23:26 INR 1.9 12/24/17 23:26 APTT 29 SECONDS (21-34) 12/24/17 23:26 - Constitutional Appears: Non-toxic, Chronically Ill - Head Exam Head Exam: NORMOCEPHALIC - Eye Exam Eye Exam: absent: Scleral icterus - ENT Exam ENT Exam: Mucous Membranes Dry - Neck Exam Neck Exam: absent: Lymphadenopathy - Respiratory Exam Respiratory Exam: Decreased Breath Sounds - Cardiovascular Exam Cardiovascular Exam: REGULAR RHYTHM - GI/Abdominal Exam GI & Abdominal Exam: Distended - Rectal Exam Rectal Exam: Deferred Assessment and Plan (1) Asthma Status: Acute (2) Cellulitis Status: Acute (3) Mitral valve prolapse Status: Acute (4) Sepsis affecting skin Status: Acute (5) Septic shock Status: Acute - Assessment and Plan (Free Text) Assessment: added coverage for E Coli UTI
[2017-12-30] MEDS ORDERED: Aztreonam 1 GM in Sodium Chloride 0.9% 100 ML IVPB SCH (12:30)
[2017-12-30 13:41] LABS: SQUAMOUS EPITHIAL 1 /hpf (0-5); URINE BILIRUBIN NEGATIVE (NEGATIVE); URINE BLOOD NEGATIVE (NEGATIVE); URINE CLARITY Clear (Clear); URINE COLOR Yellow (YELLOW); URINE GLUCOSE (UA) NORMAL (Normal); URINE LEUKOCYTE ESTERASE NEG Leu/uL (Negative); URINE PROTEIN NEGATIVE (NEGATIVE)
[2017-12-30] MEDS: Ceftaroline 600 MG in Sodium Chloride 0.9% 100 ML IVPB SCH (13:47)
[2017-12-30 15:02] LABS: HEPATITIS B SURFACE AG Negative (NEGATIVE)
[2017-12-30 15:08] LABS: HEPATITIS A IGM NEGATIVE (NEGATIVE); HEPATITIS B CORE AB NEGATIVE (NEGATIVE)
[2017-12-30 15:19] LABS: HEPATITIS C ANTIBODY NEGATIVE (NEGATIVE)
--- NOTE | 2017-12-30 18:21 | CP.CCUPN ---
CCU Subjective - Physician Review Subjective (Free Text): 62 yo F w PMHx of asthma, RA, HTN, and MVP presented to ED 12/24 w/ complaints of LLE increasing pain, redness, edema and fevers x2 days, due to a suspected spider bite. Pt initially admitted to tele for LLE cellulitis management, however was transfered to ICU. Pt found to be in septic shock with management including pressure support, IV Abx, IVF through R IJ(12/24). No acute events ON. Pt persistently anxious and in pain. Microbiology grew E. Coli in urine and strep pyogenes in blood. 12/30/17 18:15 CCU Objective - Vital Signs / Intake & Output Vital Signs (Last 4 hours): Vital Signs Temp Pulse Resp BP Pulse Ox 12/30/17 17:00 85 12 99 12/30/17 16:54 79 12 152/80 H 100 12/30/17 16:00 99.5 F 80 20 99 12/30/17 15:54 85 16 137/86 99 12/30/17 15:00 88 15 99 12/30/17 14:53 84 16 134/77 97 Intake and Output (Last 8hrs): Intake & Output 12/30/17 12/30/17 12/30/17 06:59 14:59 22:59 Intake Total 350 900 0 Output Total 300 350 400 Balance 50 550 -400 Weight 244 lb 4.355 oz Intake: Intake, IV Amount 300 0 Right Medial Port 300 0 Internal Jugular Oral 350 600 0 Output: Urine 300 350 400 Urine, Voided 300 350 400 Other: # Bowel Movements 0 0 - Physical Exam Head: Positive for: Atraumatic, Normocephalic Pupils: Positive for: PERRL Extroacular Muscles: Positive for: EOMI Conjunctiva: Positive for: Normal. Negative for: Injected, Icteric Mouth: Positive for: Dry Neck: Positive for: Normal Range of Motion, Trachea Midline. Negative for: Meningeal Signs, MIDLINE TENDERNESS, Paraspinal Tenderness, JVD, Lymphadenopathy , Bruit, Other Respiratory/Chest: Positive for: Clear to Auscultation, Good Air Exchange. Negative for: Respiratory Distress, Accessory Muscle Use, Wheezes, Rales, Rhonchi Cardiovascular: Positive for: Regular Rate and Rhythm, Normal S1, S2, Peripheal Pulses Present. Negative for: Murmurs, Tachycardic, Bradycardic Abdomen: Positive for: Normal Bowel Sounds. Negative for: Tenderness, Distention Upper Extremity: Positive for: NORMAL PULSES, Capillary Refill < 2s. Negative for: Cyanosis, Edema, Tenderness, Swelling, Erythema Lower Extremity: Positive for: Edema (left), NORMAL PULSES, Tenderness (TTP from mid thigh down on left), Temperature Abnormalties (left warm to touch ), Neurovascularly Intact. Negative for: Cyanosis, Normal ROM Neurological: Positive for: Speech Normal, Motor Func Grossly Intact Psychiatric: Positive for: Alert, Oriented x 3, Anxious - Medications Active Medications: Active Medications Generic Name Dose Route Start Last Admin Trade Name Freq PRN Reason Stop Dose Admin Acetaminophen 650 mg 12/25/17 00:36 12/26/17 20:01 Tylenol 325mg Tab PO 650 mg Q6 PRN Administration Pain, Mild (1-3) Acetaminophen 650 mg 12/26/17 11:01 Tylenol 325mg Tab PO Q6H PRN Fever >100.4 F Acyclovir 800 mg 12/30/17 18:00 12/30/17 17:37 Zovirax PO 800 mg BID JORGE A Administration Protocol Al Hydrox/Mg Hydrox/Simethicone 30 ml 12/26/17 11:00 Maalox Plus 30 Ml PO Q8H PRN Indigestion / Heartburn Albuterol/Ipratropium 3 ml 12/26/17 14:00 12/30/17 07:40 Duoneb 3 Mg/0.5 Mg (3 Ml) Ud INH 3 ml RQ6 JORGE A Administration Benzocaine/Menthol 1 rodo 12/27/17 09:50 Cepacol Sore Throat MT Q3H PRN Sore Throat Heparin Sodium (Porcine) 5,000 units 12/28/17 14:00 12/30/17 14:33 Heparin SC 5,000 units Q8 JORGE A Administration Ceftaroline Fosamil 600 mg/ 100 mls @ 100 mls/hr 12/30/17 13:00 12/30/17 13: 47 Sodium Chloride IVPB 100 mls/hr Q12H JORGE A Administration Protocol Nystatin 5 ml 12/28/17 18:00 12/30/17 17:37 Nystatin Oral Susp PO 5 ml QID JORGE A Administration Oxycodone/Acetaminophen 1 tab 12/28/17 19:12 12/30/17 16:39 Percocet 5/325 Mg Tab PO 12/31/17 19:12 1 tab Q4H PRN Administration Pain, moderate (4-7) Pantoprazole Sodium 40 mg 12/25/17 10:00 12/30/17 09:32 Protonix Ec Tab PO 40 mg DAILY JORGE A Administration - Patient Studies Lab Studies: Microbiology Studies 12/27/17 11:20 Blood Culture - Preliminary Blood-Venous NO GROWTH AFTER 3 DAYS 12/27/17 11:20 Blood Culture - Preliminary Blood-Venous NO GROWTH AFTER 3 DAYS 12/24/17 14:00 Blood Culture - Final Blood NO GROWTH AFTER 5 DAYS Gram Stain - Final TEST NOT PERFORMED Lab Studies 12/30/17 12/30/17 12/30/17 Range/Units 14:09 14:09 13:30 WBC (4.8-10.8) K/uL RBC (3.80-5.20) Mil/uL Hgb (11.0-16.0) g/dL Hct (34.0-47.0) % MCV (81.0-99.0) fL MCH (27.0-31.0) pg MCHC (33.0-37.0) g/dL RDW (11.5-14.5) % Plt Count (130-400) K/uL MPV (7.2-11.7) fL Sodium (132-148) mmol/L Potassium (3.6-5.2) mmol/L Chloride (98-107) mmol/L Carbon Dioxide (22-30) mmol/L Anion Gap (10-20) BUN (7-17) mg/dL Creatinine (0.7-1.2) mg/dL Est GFR ( Amer) Est GFR (Non-Af Amer) Random Glucose (65-105) mg/dL Calcium (8.6-10.4) mg/dl Phosphorus (2.5-4.5) mg/dL Magnesium (1.6-2.3) mg/dL Total Bilirubin (0.2-1.3) mg/dL AST (14-36) U/L ALT (9-52) U/L Alkaline Phosphatase (38-126) U/L Total Protein (6.3-8.3) g/dL Albumin (3.5-5.0) g/dL Globulin (2.2-3.9) gm/dL Albumin/Globulin Ratio (1.0-2.1) Urine Color Yellow (YELLOW) Urine Clarity Clear (Clear) Urine pH 8.0 (5.0-8.0) Ur Specific [place] 1.012 (1.003-1.030) Urine Protein Negative (NEGATIVE) mg/dL Urine Glucose (UA) Normal (Normal) mg/dL Urine Ketones Negative (NEGATIVE) mg/dL Urine Blood Negative (NEGATIVE) Urine Nitrate Negative (NEGATIVE) Urine Bilirubin Negative (NEGATIVE) Urine Urobilinogen 4.0 H (0.2-1.0) mg/dL Ur Leukocyte Esterase Neg (Negative) [place]/uL Urine WBC (Auto) < 1 (0-5) /hpf Urine RBC (Auto) 1 (0-3) /hpf Ur Squamous Epith Cells 1 (0-5) /hpf Hepatitis A IgM Ab Negative (NEGATIVE) Hep Bs Antigen Negative (NEGATIVE) Hep B Core IgM Ab Negative (NEGATIVE) Hepatitis C Antibody Negative (NEGATIVE) HIV 1&2 Antibody Screen Negative (NEGATIVE) 12/30/17 12/30/17 Range/Units 06:24 06:24 WBC 18.2 H (4.8-10.8) K/uL RBC 2.99 L (3.80-5.20) Mil/uL Hgb 8.9 L (11.0-16.0) g/dL Hct 26.1 L (34.0-47.0) % MCV 87.5 (81.0-99.0) fL MCH 29.8 (27.0-31.0) pg MCHC 34.0 (33.0-37.0) g/dL RDW 17.7 H (11.5-14.5) % Plt Count 302 (130-400) K/uL MPV 7.4 (7.2-11.7) fL Sodium 138 (132-148) mmol/L Potassium 3.9 (3.6-5.2) mmol/L Chloride 100 (98-107) mmol/L Carbon Dioxide 31 H (22-30) mmol/L Anion Gap 11 (10-20) BUN 9 (7-17) mg/dL Creatinine 0.7 (0.7-1.2) mg/dL Est GFR ( Amer) > 60 Est GFR (Non-Af Amer) > 60 Random Glucose 90 (65-105) mg/dL Calcium 8.5 L (8.6-10.4) mg/dl Phosphorus 3.8 (2.5-4.5) mg/dL Magnesium 1.8 (1.6-2.3) mg/dL Total Bilirubin 1.3 (0.2-1.3) mg/dL AST 21 (14-36) U/L ALT 31 (9-52) U/L Alkaline Phosphatase 265 H (38-126) U/L Total Protein 5.8 L (6.3-8.3) g/dL Albumin 2.8 L (3.5-5.0) g/dL Globulin 2.9 (2.2-3.9) gm/dL Albumin/Globulin Ratio 1.0 (1.0-2.1) Urine Color (YELLOW) Urine Clarity (Clear) Urine pH (5.0-8.0) Ur Specific [place] (1.003-1.030) Urine Protein (NEGATIVE) mg/dL Urine Glucose (UA) (Normal) mg/dL Urine Ketones (NEGATIVE) mg/dL Urine Blood (NEGATIVE) Urine Nitrate (NEGATIVE) Urine Bilirubin (NEGATIVE) Urine Urobilinogen (0.2-1.0) mg/dL Ur Leukocyte Esterase (Negative) [place]/uL Urine WBC (Auto) (0-5) /hpf Urine RBC (Auto) (0-3) /hpf Ur Squamous Epith Cells (0-5) /hpf Hepatitis A IgM Ab (NEGATIVE) Hep Bs Antigen (NEGATIVE) Hep B Core IgM Ab (NEGATIVE) Hepatitis C Antibody (NEGATIVE) HIV 1&2 Antibody Screen (NEGATIVE) Laboratory Results - last 24 hr 12/30/17 12/30/17 12/30/17 06:24 06:24 13:30 WBC 18.2 H RBC 2.99 L Hgb 8.9 L Hct 26.1 L MCV 87.5 MCH 29.8 MCHC 34.0 RDW 17.7 H Plt Count 302 MPV 7.4 Sodium 138 Potassium 3.9 Chloride 100 Carbon Dioxide 31 H Anion Gap 11 BUN 9 Creatinine 0.7 Est GFR ( Amer) > 60 Est GFR (Non-Af Amer) > 60 Random Glucose 90 Calcium 8.5 L Phosphorus 3.8 Magnesium 1.8 Total Bilirubin 1.3 AST 21 ALT 31 Alkaline Phosphatase 265 H Total Protein 5.8 L Albumin 2.8 L Globulin 2.9 Albumin/Globulin Ratio 1.0 Urine Color Yellow Urine Clarity Clear Urine pH 8.0 Ur Specific [place] 1.012 Urine Protein Negative Urine Glucose (UA) Normal Urine Ketones Negative Urine Blood Negative Urine Nitrate Negative Urine Bilirubin Negative Urine Urobilinogen 4.0 H Ur Leukocyte Esterase Neg Urine WBC (Auto) < 1 Urine RBC (Auto) 1 Ur Squamous Epith Cells 1 Hepatitis A IgM Ab Hep Bs Antigen Hep B Core IgM Ab Hepatitis C Antibody HIV 1&2 Antibody Screen 12/30/17 12/30/17 14:09 14:09 WBC RBC Hgb Hct MCV MCH MCHC RDW Plt Count MPV Sodium Potassium Chloride Carbon Dioxide Anion Gap BUN Creatinine Est GFR ( Amer) Est GFR (Non-Af Amer) Random Glucose Calcium Phosphorus Magnesium Total Bilirubin AST ALT Alkaline Phosphatase Total Protein Albumin Globulin Albumin/Globulin Ratio Urine Color Urine Clarity Urine pH Ur Specific [place] Urine Protein Urine Glucose (UA) Urine Ketones Urine Blood Urine Nitrate Urine Bilirubin Urine Urobilinogen Ur Leukocyte Esterase Urine WBC (Auto) Urine RBC (Auto) Ur Squamous Epith Cells Hepatitis A IgM Ab Negative Hep Bs Antigen Negative Hep B Core IgM Ab Negative Hepatitis C Antibody Negative HIV 1&2 Antibody Screen Negative Review of Systems - Constitutional Constitutional: absent: Fever, Chills, Sweats - Cardiovascular Cardiovascular: absent: Chest Pain, Diaphoresis, Palpitations - Respiratory Respiratory: absent: Cough, Dyspnea - Gastrointestinal Gastrointestinal: absent: Abdominal Pain, Diarrhea, Nausea - Psychiatric Psychiatric: Anxiety Critical Care Progress Note - Nutrition Nutrition: Nutrition Category Date Time Status Heart Healthy Diet [DIET] Diets 12/24/17 Dinner Active Assessment/Plan - Assessment and Plan (Free Text) Assessment: 1. Septic shock (WBC 23.9, lactate 2.3, bands 21, T 102.9, RR 33, BP 69/24, procalcitonin 7.66) -pt off pressors 12/26 -Linezolid 600 q12 -ceftaroline 600mg q12 2. Cellulitis LLE -WBC 18.2 today -f/u am labs -blood cx strep pyogenes -urine, E. Coli -ID consult [place] -tylenol mild pain, oxycodone moderate/severe -f/u LE CT, r/o fasciitis -f/u LE MRI 3. Electrolytes -monitor and replete as needed 4. Asthma -Nebs PRN 5. HTN -hold Diovan home med pending BP -BP stable, cont to monitor Ppx -heparin 5000sc q8 -protonix 40mg PO - Date & Time Date: 12/30/17 Time: 18:21
--- NOTE | 2017-12-30 18:50 | CP.PCM.PN ---
Subjective - Date & Time of Evaluation Date of Evaluation: 12/30/17 Time of Evaluation: 14:00 - Subjective Subjective: Podiatry - Dr. Okeefe 62F seen and examined in ICU for LLE cellulitis and lanced bullae. No acute events overnight. Patient reports continued, moderate pain in her LLE in areas of redness and in lower back. No complaints to site of lanced bullae. Objective - Vital Signs/Intake and Output Vital Signs (last 24 hours): Temp Pulse Resp BP Pulse Ox 99.5 F 85 12 152/80 H 99 12/30/17 16:00 12/30/17 17:00 12/30/17 17:00 12/30/17 16:54 12/30/17 17:00 Intake and Output: 12/30/17 12/30/17 06:59 18:59 Intake Total 670 900 Output Total 500 750 Balance 170 150 - Medications Medications: Current Medications Acetaminophen (Tylenol 325mg Tab) 650 mg PO Q6 PRN PRN Reason: Pain, Mild (1-3) Last Admin: 12/26/17 20:01 Dose: 650 mg Acetaminophen (Tylenol 325mg Tab) 650 mg PO Q6H PRN PRN Reason: Fever >100.4 F Acyclovir (Zovirax) 800 mg PO BID JORGE A PRN Reason: Protocol Last Admin: 12/30/17 17:37 Dose: 800 mg Al Hydrox/Mg Hydrox/Simethicone (Maalox Plus 30 Ml) 30 ml PO Q8H PRN PRN Reason: Indigestion / Heartburn Albuterol/Ipratropium (Duoneb 3 Mg/0.5 Mg (3 Ml) Ud) 3 ml INH RQ6 JORGE A Last Admin: 12/30/17 07:40 Dose: 3 ml Benzocaine/Menthol (Cepacol Sore Throat) 1 rodo MT Q3H PRN PRN Reason: Sore Throat Heparin Sodium (Porcine) (Heparin) 5,000 units SC Q8 JORGE A Last Admin: 12/30/17 14:33 Dose: 5,000 units Ceftaroline Fosamil 600 mg/ (Sodium Chloride) 100 mls @ 100 mls/hr IVPB Q12H JORGE A PRN Reason: Protocol Last Admin: 12/30/17 13:47 Dose: 100 mls/hr Nystatin (Nystatin Oral Susp) 5 ml PO QID JORGE A Last Admin: 12/30/17 17:37 Dose: 5 ml Oxycodone/Acetaminophen (Percocet 5/325 Mg Tab) 1 tab PO Q4H PRN PRN Reason: Pain, moderate (4-7) Stop: 12/31/17 19:12 Last Admin: 12/30/17 16:39 Dose: 1 tab Pantoprazole Sodium (Protonix Ec Tab) 40 mg PO DAILY [facility] Last Admin: 12/30/17 09:32 Dose: 40 mg - Labs Labs: 12/30/17 06:24 12/30/17 06:24 PT 20.5 SECONDS (9.7-12.2) H 12/24/17 23:26 INR 1.9 12/24/17 23:26 APTT 29 SECONDS (21-34) 12/24/17 23:26 - Constitutional Appears: Well, Non-toxic, No Acute Distress - Extremities Exam Additional comments: Left LE focused exam VASC: DP/PT pulses are very faintly palpable 1/4, Cap refill time: < 3 sec to all digits, Temp gradient: hot to hot from proximal tibial tuberosity to distal digits, +1 pitting edema noted extending from the knee joint distally DERM: Lanced bullae noted on the postero-medial aspect of the left leg with minimal serous drainage present and epithelialized base, lateral border of the nail fold opening noted on the hallux and 2nd digit nail, deep erythema which extends from the knee joint distally towards the rearfoot of the left foot NEURO: protective sensation grossly intact ORTHO: pain on ROM of the LLE, pain during palpation of the calf, Homman and prett positive on the left leg - Neurological Exam Neurological Exam: Alert, Awake, Oriented x3 - Psychiatric Exam Psychiatric exam: Normal Affect, Normal Mood Assessment and Plan - Assessment and Plan (Free Text) Assessment: 62F with 1) left lower extremity cellulitis and 2) serous bullae Plan: Patient seen and evaluated Discussed with attending, Dr. Okeefe Mildly febrile overnight Tmax 100.5; WBC increasing @ 18.2 Continue local wound care to bullae - silvercel, optifoam Continue to monitor bullae Continue abx per ID - Ceftaroline Podiatry will follow
[2017-12-31] MEDS: Ceftaroline 600 MG in Sodium Chloride 0.9% 100 ML IVPB SCH ×2 (00:32→13:00)
[2017-12-31] MEDS: Albuterol-Ipratrop 3 mg / 0.5 (3 ml) UD INH SCH ×3 (01:12→13:33)
--- NOTE | 2017-12-31 01:12 | PN ---
DATE: 12/30/2017 SUBJECTIVE: The patient was seen and examined at bedside this morning. The patient is still complaining of left leg swelling, pain, unable to move the left lower extremity. Denies any other new complaints. PHYSICAL EXAMINATION: GENERAL: Middle aged female, lying in bed, in no acute distress. VITAL SIGNS: Blood pressure 136/66, pulse 86, respirations 17, temperature 99.5 degrees Fahrenheit, O2 saturations 99% on room air. Intake is 1745. Output is 1800 mL. HEENT: Pupils equal, round, and reacting to light and accommodation. Extraocular muscles intact. No icterus. No pallor. No oral thrush. No pharyngeal congestion. NECK: Supple. No JVD. LUNGS: Bilateral vesicular breath sounds. Occasional wheeze or rhonchi heard. CVS: S1, S2 present, regular. ABDOMEN: Soft. Nontender. Bowel sounds present. No guarding. No rigidity. No rebound tenderness noted. EXTREMITIES: Left lower extremity with erythema present. Tenderness present. Warm to touch. Thigh swelling is likely worse than yesterday. Palpable peripheral pulses. MEDICATIONS: Tylenol as needed, acyclovir 800 mg p.o. b.i.d., Maalox as needed, DuoNeb, Cepacol, ceftaroline fosamil 600 mg IV every 12 hours, subcutaneous heparin 5000 units every 8 hours, nystatin oral suspension 4 times daily, Percocet as needed, Protonix 40 mg daily. LABORATORY DATA: Labs from this morning: WBC 18.2, hemoglobin 8.9, hematocrit 26.1, platelets 302,000. Sodium 138, potassium 3.9, chloride 100, bicarb 31, BUN 9, creatinine 0.7, glucose 90, calcium 8.5, phosphorus 3.8, magnesium 1.8, total bili 1.3, AST 21, ALT 31, alkaline phosphatase 265, total protein 5.8, albumin 2.8. UA, specific gravity 1.012, pH 8, otherwise negative. HIV negative. Hepatitis B serology negative. ASSESSMENT AND PLAN: Middle aged female with history of rheumatoid arthritis, osteoarthritis, gastrointestinal reflux disease, asthma, admitted for left leg cellulitis, status post septic shock, off pressors, Escherichia coli, urinary tract infection, and Streptococcus pyogenous in the blood with persistent swelling and pain. MRI was ordered. As the patient has prosthesis, unable to do MRI. CT of the lower extremity, abdomen, and pelvis was ordered. Antibiotics were changed by Infectious Disease. We will continue with other current medication. Continue deep venous thrombosis and gastrointestinal prophylaxis. We will ask whether there is . Nando Blum MD
[2017-12-31] MEDS: Oxycodone/Acetaminophen 5/325 mg Tab PO PRN ×3 (05:36→13:34)
[2017-12-31 09:06] LABS: BASO # 0.1 K/uL (0.0-0.2); BASO % 0.5 % (0.0-2.0); EOS # 0.1 K/uL (0.0-0.7); EOS % 0.5 % (0.0-4.0); HEMOGLOBIN 8.6 g/dL (11.0-16.0); LYMPH # 1.9 K/uL (1.0-4.3); LYMPH % 9.8 % (20.0-40.0); MEAN CELL VOLUME 86.6 fL (81.0-99.0); MEAN CORPUSCULAR HEMOGLOBIN 29.7 pg (27.0-31.0); MEAN CORPUSCULAR HGB CONC 34.4 g/dL (33.0-37.0); MEAN PLATELET VOLUME 6.9 fL (7.2-11.7); MONO # 1.6 K/uL (0.0-0.8); MONO % 8.4 % (0.0-10.0); NEUT # 15.4 K/uL (1.8-7.0); NEUT % 80.8 % (50.0-75.0); PLATELET COUNT 359 K/uL (130-400); RBC 2.89 Mil/uL (3.80-5.20); RED CELL DISTRIBUTION WIDTH 17.8 % (11.5-14.5); WHITE BLOOD COUNT 19.1 K/uL (4.8-10.8)
[2017-12-31 09:20] LABS: ALB/GLOB RATIO 0.9 (1.0-2.1); ALBUMIN 2.8 g/dL (3.5-5.0); ALT/SGPT 29 U/L (9-52); AST/SGOT 19 U/L (14-36); BLOOD UREA NITROGEN 9 mg/dL (7-17); CALCIUM 8.8 mg/dl (8.6-10.4); GFR AFRICAN-AMERICAN > 60; GFR NON-AFRICAN AMERICAN > 60
--- NOTE | 2017-12-31 09:28 | CP.PCM.PN ---
Subjective - Date & Time of Evaluation Date of Evaluation: 12/31/17 Time of Evaluation: 09:28 - Subjective Subjective: Progress note dictated #[id number] Objective - Vital Signs/Intake and Output Vital Signs (last 24 hours): Temp Pulse Resp BP Pulse Ox 97.9 F 83 12 149/84 95 12/31/17 04:00 12/31/17 07:30 12/31/17 07:00 12/31/17 02:53 12/31/17 07:00 Intake and Output: 12/31/17 12/31/17 06:59 18:59 Intake Total 300 Output Total 800 Balance -500 - Medications Medications: Current Medications Acetaminophen (Tylenol 325mg Tab) 650 mg PO Q6 PRN PRN Reason: Pain, Mild (1-3) Last Admin: 12/26/17 20:01 Dose: 650 mg Acetaminophen (Tylenol 325mg Tab) 650 mg PO Q6H PRN PRN Reason: Fever >100.4 F Acyclovir (Zovirax) 800 mg PO BID JORGE A PRN Reason: Protocol Last Admin: 12/30/17 17:37 Dose: 800 mg Al Hydrox/Mg Hydrox/Simethicone (Maalox Plus 30 Ml) 30 ml PO Q8H PRN PRN Reason: Indigestion / Heartburn Albuterol/Ipratropium (Duoneb 3 Mg/0.5 Mg (3 Ml) Ud) 3 ml INH RQ6 [facility] Last Admin: 12/31/17 07:54 Dose: 3 ml Benzocaine/Menthol (Cepacol Sore Throat) 1 rodo MT Q3H PRN PRN Reason: Sore Throat Heparin Sodium (Porcine) (Heparin) 5,000 units SC Q8 [facility] Last Admin: 12/31/17 05:36 Dose: 5,000 units Ceftaroline Fosamil 600 mg/ (Sodium Chloride) 100 mls @ 100 mls/hr IVPB Q12H JORGE A PRN Reason: Protocol Last Admin: 12/31/17 00:32 Dose: 100 mls/hr Nystatin (Nystatin Oral Susp) 5 ml PO QID [facility] Last Admin: 12/30/17 21:34 Dose: 5 ml Oxycodone/Acetaminophen (Percocet 5/325 Mg Tab) 1 tab PO Q4H PRN PRN Reason: Pain, moderate (4-7) Stop: 12/31/17 19:12 Last Admin: 12/31/17 05:36 Dose: 1 tab Pantoprazole Sodium (Protonix Ec Tab) 40 mg PO DAILY JORGE A Last Admin: 12/30/17 09:32 Dose: 40 mg - Labs Labs: 12/31/17 08:59 12/31/17 08:59 PT 20.5 SECONDS (9.7-12.2) H 12/24/17 23:26 INR 1.9 12/24/17 23:26 APTT 29 SECONDS (21-34) 12/24/17 23:26
[2017-12-31] MEDS: Pantoprazole 40 mg EC Tab PO SCH (09:40)
[2017-12-31] MEDS: Nystatin 100,000 Units/ml Oral Susp 5 ml UD PO SCH ×4 (09:40→23:00)
--- NOTE | 2017-12-31 09:48 | CP.PCM.PN ---
Subjective - Date & Time of Evaluation Date of Evaluation: 12/31/17 Time of Evaluation: 09:38 - Subjective Subjective: Podiatry - Dr. Okeefe 62F seen and examined in ICU for LLE cellulitis and lanced bullae. No acute events overnight. Patient complains of increased pain to her LLE, states she is unable to move her leg secondary to pain. Dressing to medial left leg remains clean/dry/intact. Denies n/v/f/d/c. Objective - Vital Signs/Intake and Output Vital Signs (last 24 hours): Temp Pulse Resp BP Pulse Ox 97.9 F 83 12 149/84 95 12/31/17 04:00 12/31/17 07:30 12/31/17 07:00 12/31/17 02:53 12/31/17 07:00 Intake and Output: 12/31/17 12/31/17 06:59 18:59 Intake Total 300 Output Total 800 Balance -500 - Medications Medications: Current Medications Acetaminophen (Tylenol 325mg Tab) 650 mg PO Q6 PRN PRN Reason: Pain, Mild (1-3) Last Admin: 12/26/17 20:01 Dose: 650 mg Acetaminophen (Tylenol 325mg Tab) 650 mg PO Q6H PRN PRN Reason: Fever >100.4 F Acyclovir (Zovirax) 800 mg PO BID JORGE A PRN Reason: Protocol Last Admin: 12/30/17 17:37 Dose: 800 mg Al Hydrox/Mg Hydrox/Simethicone (Maalox Plus 30 Ml) 30 ml PO Q8H PRN PRN Reason: Indigestion / Heartburn Albuterol/Ipratropium (Duoneb 3 Mg/0.5 Mg (3 Ml) Ud) 3 ml INH RQ6 JORGE A Last Admin: 12/31/17 07:54 Dose: 3 ml Benzocaine/Menthol (Cepacol Sore Throat) 1 rodo MT Q3H PRN PRN Reason: Sore Throat Heparin Sodium (Porcine) (Heparin) 5,000 units SC Q8 [facility] Last Admin: 12/31/17 05:36 Dose: 5,000 units Ceftaroline Fosamil 600 mg/ (Sodium Chloride) 100 mls @ 100 mls/hr IVPB Q12H JORGE A PRN Reason: Protocol Last Admin: 12/31/17 00:32 Dose: 100 mls/hr Nystatin (Nystatin Oral Susp) 5 ml PO QID [facility] Last Admin: 12/30/17 21:34 Dose: 5 ml Oxycodone/Acetaminophen (Percocet 5/325 Mg Tab) 1 tab PO Q4H PRN PRN Reason: Pain, moderate (4-7) Stop: 12/31/17 19:12 Last Admin: 12/31/17 05:36 Dose: 1 tab Pantoprazole Sodium (Protonix Ec Tab) 40 mg PO DAILY [facility] Last Admin: 12/30/17 09:32 Dose: 40 mg - Labs Labs: 12/31/17 08:59 12/31/17 08:59 PT 20.5 SECONDS (9.7-12.2) H 12/24/17 23:26 INR 1.9 12/24/17 23:26 APTT 29 SECONDS (21-34) 12/24/17 23:26 - Constitutional Appears: Well, Non-toxic, No Acute Distress - Extremities Exam Additional comments: Left LE focused exam VASC: DP/PT pulses weakly palpable 1/4, Cap refill time: < 3 sec to all digits, Temp gradient: hot to hot from proximal tibial tuberosity to distal digits, +1 pitting edema noted extending from the knee joint distally DERM: Lanced bullae noted on the postero-medial aspect of the left leg with epithelializing base, no drainage present; lateral border of the nail fold opening noted on the hallux and 2nd digit nail, deep rubor extending from knee joint to ankle NEURO: protective sensation grossly intact ORTHO: Pain on palpation noted to areas of deep rubor; ROM limited secondary to guarding. - Neurological Exam Neurological Exam: Alert, Awake, Oriented x3 - Psychiatric Exam Psychiatric exam: Anxious Assessment and Plan - Assessment and Plan (Free Text) Assessment: 62F with 1) left lower extremity cellulitis and 2) serous bullae Plan: Patient seen and evaluated alongside attending, Dr. Okeefe WBC increasing @ 19.1 Continue local wound care to bullae - silvercel, optifoam; will continue to monitor Continue abx per ID - Ceftaroline Pain control per primary team Podiatry will follow
[2017-12-31 10:00] LABS: METAMYELOCYTE 1 % (0-0); TOTAL CELLS COUNTED 100
[2017-12-31 10:02] LABS: BANDS 12 % (0-2); EOSINOPHIL 1 % (0-4); LYMPHOCYTE 15 % (20-40); MONOCYTE 5 % (0-10); MYELOCYTE 1 % (0-0); NEUTROPHIL 64 % (50-75); PLATELET ESTIMATE NORMAL (NORMAL); REACTIVE LYMPHOCYTES 1 % (0-0)
[2017-12-31 10:03] LABS: ANISOCYTOSIS SLIGHT; HYPOCHROMIC SLIGHT; STOMATOCYTES SLIGHT
--- NOTE | 2017-12-31 12:16 | CP.PCM.PN ---
Subjective - Date & Time of Evaluation Date of Evaluation: 12/31/17 Time of Evaluation: 08:00 - Subjective Subjective: switched to Teflaro await cultured bullae report MRI unobtainable- went for CT instead- results pending persistent leukocytosis concern for necrotizing infection/ abscess left leg consider vascular consult Objective - Vital Signs/Intake and Output Vital Signs (last 24 hours): Temp Pulse Resp BP Pulse Ox 99.0 F 78 16 114/59 L 98 12/31/17 08:00 12/31/17 11:00 12/31/17 11:00 12/31/17 10:53 12/31/17 11:00 Intake and Output: 12/31/17 12/31/17 06:59 18:59 Intake Total 300 Output Total 800 Balance -500 - Medications Medications: Current Medications Acetaminophen (Tylenol 325mg Tab) 650 mg PO Q6 PRN PRN Reason: Pain, Mild (1-3) Last Admin: 12/26/17 20:01 Dose: 650 mg Acetaminophen (Tylenol 325mg Tab) 650 mg PO Q6H PRN PRN Reason: Fever >100.4 F Acyclovir (Zovirax) 800 mg PO BID JORGE A PRN Reason: Protocol Last Admin: 12/31/17 09:40 Dose: 800 mg Al Hydrox/Mg Hydrox/Simethicone (Maalox Plus 30 Ml) 30 ml PO Q8H PRN PRN Reason: Indigestion / Heartburn Albuterol/Ipratropium (Duoneb 3 Mg/0.5 Mg (3 Ml) Ud) 3 ml INH RQ6 JORGE A Last Admin: 12/31/17 07:54 Dose: 3 ml Alprazolam (Xanax) 0.5 mg PO BID PRN PRN Reason: Anxiety Benzocaine/Menthol (Cepacol Sore Throat) 1 rodo MT Q3H PRN PRN Reason: Sore Throat Heparin Sodium (Porcine) (Heparin) 5,000 units SC Q8 [facility] Last Admin: 12/31/17 05:36 Dose: 5,000 units Ceftaroline Fosamil 600 mg/ (Sodium Chloride) 100 mls @ 100 mls/hr IVPB Q12H JORGE A PRN Reason: Protocol Last Admin: 12/31/17 00:32 Dose: 100 mls/hr Nystatin (Nystatin Oral Susp) 5 ml PO QID JORGE A Last Admin: 12/31/17 09:40 Dose: 5 ml Oxycodone/Acetaminophen (Percocet 5/325 Mg Tab) 1 tab PO Q4H PRN PRN Reason: Pain, moderate (4-7) Stop: 12/31/17 19:12 Last Admin: 12/31/17 09:43 Dose: 1 tab Pantoprazole Sodium (Protonix Ec Tab) 40 mg PO DAILY [facility] Last Admin: 12/31/17 09:40 Dose: 40 mg - Labs Labs: 12/31/17 08:59 12/31/17 08:59 PT 20.5 SECONDS (9.7-12.2) H 12/24/17 23:26 INR 1.9 12/24/17 23:26 APTT 29 SECONDS (21-34) 12/24/17 23:26 - Constitutional Appears: Chronically Ill - Head Exam Head Exam: NORMOCEPHALIC - Eye Exam Eye Exam: absent: Scleral icterus - ENT Exam ENT Exam: Mucous Membranes Dry - Neck Exam Neck Exam: absent: Thyromegaly - Respiratory Exam Respiratory Exam: Decreased Breath Sounds - Cardiovascular Exam Cardiovascular Exam: REGULAR RHYTHM - GI/Abdominal Exam GI & Abdominal Exam: Distended - Rectal Exam Rectal Exam: Deferred, NORMAL INSPECTION - Exam Exam: NORMAL INSPECTION - Extremities Exam Extremities Exam: Pedal Edema - Back Exam Back Exam: absent: CVA tenderness (L), CVA tenderness (R) - Neurological Exam Neurological Exam: Alert, Awake, Oriented x3 - Psychiatric Exam Psychiatric exam: Normal Mood - Skin Skin Exam: Dry Assessment and Plan (1) Asthma Status: Acute (2) Cellulitis Status: Acute (3) Mitral valve prolapse Status: Acute (4) Sepsis affecting skin Status: Acute (5) Septic shock Status: Acute - Assessment and Plan (Free Text) Assessment: switched to Teflaro to cover strep, staph (including MRSA) as well as gram neg await cultured bullae report MRI unobtainable- went for CT instead- results pending persistent leukocytosis concern for necrotizing infection/ abscess left leg consider vascular consult
--- NOTE | 2017-12-31 12:32 | RAD ---
Date of service: 12/31/2017 PROCEDURE: Radiographs of the left tibia and fibula. HISTORY: increased pain in LLE COMPARISON: None available. TECHNIQUE: Frontal and lateral views obtained. FINDINGS: BONES: Satisfactory appearance/ position of incompletely visualized left TKA. No evidence radiographically of loosening. JOINT SPACES: Unremarkable. OTHER FINDINGS: Soft tissue swelling/lower extremity edema. IMPRESSION: Soft tissue swelling without acute articular or osseous abnormality.
--- NOTE | 2017-12-31 12:59 | CT ---
Date of service: 12/31/2017 PROCEDURE: HISTORY: R/O ABSCESS COMPARISON: A CT lower extremity without contrast study 12/27/2017 mostly distal to this segment which sent back centers on the left thigh rather than left lower leg TECHNIQUE: Axial imaging through the left thigh without intravenous contrast was performed This CT exam was performed using one or more of the following dose reduction techniques: Automated exposure control, adjustment of the mA and/or kV according to patient size, and/or use of iterative reconstruction technique. Radiation dose: 1502 DLP FINDINGS: Patient is status post bilateral total knee arthroplasty. The left thigh soft tissues are more swallow on the right. Circumferential superficial mid and deep subcutaneous reticulated edema with deep left lateral subcutaneous left lateral perimuscular/perifascial of the echo fluid 7.2 cm anterior-posterior 1.2 cm (transverse (axis series 3, image 25 the mid thigh level a cm above the proximal femoral stem component. Septic and/or aseptic fluid collections are compatible with this. Findings are approximately 10 cm cephalo caudal (coronal 601 image 93 ). No gas-forming cellulitis noted. No subcutaneous gas seen. Along the superior and possibly involving the most superior left suprapatellar joint tear recess there is anterior hypodensity compatible with fluid elongated left suprapatellar joint effusion here calcific like material within it rinses axis series 3, image 157 is noted. These findings are not the disc similar to that noted on the prior axial series 3, image 33 from the 12/27/2017 study. IMPRESSION: No gas-forming cellulitis. No intramuscular gas noted. No periosteal reaction appreciated to suggest osteomyelitis. Extensive left thigh a subcutaneous reticulated edema involve superficial mid and deep subcutaneous soft tissues. Crescentic like fluid left lateral mid thigh level - septic and aseptic fluid collections here compatible with this. Large left suprapatellar large effusion (septic and/or aseptic fluid compatible with this was ( - bordering bursal fluid - similar to the prior 12/27/2017 study with punctate calcification material within it no gas within the fluid here seen
--- NOTE | 2017-12-31 13:15 | CT ---
Date of service: 12/31/2017 PROCEDURE: CT Abdomen and Pelvis without intravenous contrast HISTORY: R/O ABSCESS COMPARISON: None. TECHNIQUE: Technique. Contrast dose: None Radiation dose: Total exam DLP = 1205 mGy-cm. This CT exam was performed using one or more of the following dose reduction techniques: Automated exposure control, adjustment of the mA and/or kV according to patient size, and/or use of iterative reconstruction technique. FINDINGS: LOWER THORAX: Minimal depend left pleural effusion and/or minimal pleural thickening this is an interval change LIVER: Unremarkable. No gross lesion or ductal dilatation. GALLBLADDER AND BILE DUCTS: Hyperdensity layering the gallbladder hyperdense bile without tiny calculi compatible with this. For further evaluation consider abdominal ultrasound. PANCREAS: Unremarkable. No gross lesion or ductal dilatation. SPLEEN: Unremarkable. ADRENALS: Unremarkable. No mass. KIDNEYS AND URETERS: The prior left hydronephrosis and hydroureter has resolved. There is interval 3 to 4 mm nonobstructing left renal calculus noted an interval left posterior renal cortical volume loss scarring suggested. No right renal calculi. No gross right renal hydronephrosis. No hydroureter appreciated. The distal obstructing left ureterovesical junction calculus is no longer seen. VASCULATURE: Atherosclerotic vascular calcifications present. . No aortic aneurysm. BOWEL: Moderate stool retention. . No obstruction. No gross mural thickening. APPENDIX: Unremarkable. Normal appendix. PERITONEUM: Unremarkable. No free fluid. No free air. LYMPH NODES: Unremarkable. No enlarged lymph nodes. BLADDER: Unremarkable. REPRODUCTIVE: Enlarged uterus - since 2012-the uterus appears slightly larger than before. Fibroid involvement is possible. BONES: No acute fracture. OTHER FINDINGS: Periumbilical fat containing hernia-similar. Interval subcutaneous edema bordering the left antral lateral pelvic/upper thigh a musculature. The full extent of this extends beyond the field of view. Findings may relate to cellulitis. Clinical correlation here essential. IMPRESSION: The prior left hydronephrosis and hydroureter has resolved. The distal left ureteral calculus is no longer seen. Graft an interval left 3 to 4 mm nonobstructing renal calculus is noted. Interval left renal cortical scarring volume loss. No interval hydronephrosis seen. Interval left subcutaneous edema bordering the left pelvic coronal/upper thigh compatible with cellulitis. Full extent of this is beyond the field of view of this exam. Some focal fluid is partially as suggested. However the field of view is limited in this regard. If clinically suspect a potential abscess here consider left hip left thigh ageing to more fully include this area of interest. For this clinical correlation is essential Prominent uterus larger than before fibroid involvement probably most likely
[2017-12-31] MEDS ORDERED: Oxycodone/Acetaminophen 5/325 mg Tab PO STA (19:54)
[2018-01-01] MEDS ORDERED: Oxycodone/Acetaminophen 5/325 mg Tab PO STA ×2 (00:07→01:33)
[2018-01-01] MEDS: Ceftaroline 600 MG in Sodium Chloride 0.9% 100 ML IVPB SCH ×2 (00:22→13:00)
--- NOTE | 2018-01-01 03:17 | PN ---
DATE: 12/31/2017 SUBJECTIVE: The patient was seen and examined at bedside. The patient is still complaining of left leg swelling and unable to move her left leg. Denies any new complaints. PHYSICAL EXAMINATION: GENERAL: Middle-aged female, lying in bed in no acute distress. VITAL SIGNS: Blood pressure 154/82, pulse 75, respirations 14, temperature 98.4 degrees Fahrenheit, O2 sat is 99% on room air. Intake is 1500 mL, output is 1850 mL. HEENT: Pupils are equal, round, reacting to light and accommodation. Extraocular muscles intact. No icterus. No pallor. No oral thrush. No pharyngeal congestion. NECK: Supple. No JVD. LUNGS: Bilateral vesicular breath sounds. Bilateral basal crackles heard. CVS: S1, S2 present, regular. ABDOMEN: Soft. Nontender. Bowel sounds present. No guarding. No rigidity noted. No rebound tenderness noted. [employer]MENT[employer] RECEIVER: Alert, awake, oriented x3. EXTREMITIES: Left lower extremity: Swelling present, erythema present, tenderness present. No open wounds noted. Palpable peripheral pulses. MEDICATIONS: Include Tylenol as needed, Zovirax 800 mg p.o. b.i.d., Maalox as needed, Xanax 0.5 mg b.i.d., Cepacol, ceftaroline 600 mg IV every 12 hours, nystatin four times a day, Protonix 40 mg daily. LABORATORY DATA: Labs from this morning: WBC 19.1, hemoglobin 8.6, hematocrit 25, platelets 359, bands 12%. Sodium 137, potassium 3.9, chloride 100, bicarb 31, BUN 9, creatinine 0.7, glucose 92, calcium 8.8. Total bilirubin 1.1, AST 19, ALT 29, alkaline phosphatase 238, total protein 6, albumin 2.8. Procalcitonin is 1.29. UA: Specific gravity 1.012, pH 8, urobilinogen 4, otherwise negative. Repeat urine culture negative. Repeat blood cultures are negative. Echocardiogram consistent with ejection fraction 60% to 65%, severe pulmonary hypertension, sclerotic aortic root. ASSESSMENT AND PLAN: Middle-aged female with history of rheumatoid arthritis, osteoarthritis, asthma, gastroesophageal reflux disease. Admitted for left lower extremity cellulitis, status post septic shock, off pressors, now with persistent left lower extremity swelling and persistently elevated white blood cell counts. Lower extremity Doppler negative for any deep venous thrombosis. Lower extremity CT consistent with cellulitis. CT of the abdomen and pelvis consistent with nonobstructing renal calculi, large left suprapatellar effusion. We will continue with current antibiotics. We will check arterial Doppler. We will obtain vascular surgery consult. Discussed with Dr. Forman. We will add Xanax as the patient has been taking Xanax at home. We will add further recommendations as her clinical course progresses. Nando Blum MD
--- NOTE | 2018-01-01 04:54 | CP.PCM.CON ---
History of Present Illness - History of Present Illness History of Present Illness: Vascular Surgery Consult Note for Dr. Mckenzie This is a 62F with a PMH of RA, HTN, MVP, fibromyalgia, Herpes, and chronic LLE lymphadema presented on 12/24 in extremis due to a RLE infection. She was admitted to the ICU and started on abx. Pt was started and ABX, however she has not shown significant improvement. At this time the pt is complaining of pain to palpation in her LLE from her ankle to her knee. MRI of lower extremity was ordered however it has not been done yet due to concerns over her b/l knee prothesis. She is denies fevers chills chest pain nausea vomiting or diarrhea. PMHx: RA, HTN, MVP, fibromyalgia, Herpes, and chronic LLE lymphadema PSHx: b/l knee replacement Allergies: Amoxicillin, iodine SHx: Denies smoking, EtOH or illicit drug usage Review of Systems - Review of Systems All systems: reviewed and no additional remarkable complaints except Review of Systems: 12 point review of systems conducted and negative aside from diffuse myalgias, and LLE tenderness to palpation and erythema, and pitting edema Past Patient History - Past Medical History & Family History Past Medical History?: Yes - Past Social History Smoking Status: Never Smoked - CARDIAC Hx Cardiac Disorders: Yes - PULMONARY Hx Respiratory Disorders: No - NEUROLOGICAL Hx Neurological Disorder: No - HEENT Hx HEENT Problems: No - RENAL Hx Chronic Kidney Disease: No - ENDOCRINE/METABOLIC Hx Endocrine Disorders: No - HEMATOLOGICAL/ONCOLOGICAL Hx Blood Disorders: No - INTEGUMENTARY Hx Dermatological Problems: No - MUSCULOSKELETAL/RHEUMATOLOGICAL Hx Rheumatoid Arthritis: Yes - GASTROINTESTINAL Hx Gastrointestinal Disorders: Yes Hx Gastritis: Yes - GENITOURINARY/GYNECOLOGICAL Hx Genitourinary Disorders: No - PSYCHIATRIC Hx Psychophysiologic Disorder: No Hx Substance Use: No - SURGICAL HISTORY Hx Surgeries: Yes Other/Comment: BL KNEE REPLACEMENTS - ANESTHESIA Hx Anesthesia: Yes Hx Anesthesia Reactions: No Meds Allergies/Adverse Reactions: Allergies Allergy/AdvReac Type Severity Reaction Status Date / Time amoxicillin [From Amoxil] Allergy Verified 12/24/17 13:54 iodine Allergy Verified 12/24/17 14:18 - Medications Medications: Current Medications Acetaminophen (Tylenol 325mg Tab) 650 mg PO Q6 PRN PRN Reason: Pain, Mild (1-3) Last Admin: 12/31/17 19:58 Dose: 650 mg Acetaminophen (Tylenol 325mg Tab) 650 mg PO Q6H PRN PRN Reason: Fever >100.4 F Acyclovir (Zovirax) 800 mg PO BID JORGE A PRN Reason: Protocol Last Admin: 12/31/17 17:21 Dose: 800 mg Al Hydrox/Mg Hydrox/Simethicone (Maalox Plus 30 Ml) 30 ml PO Q8H PRN PRN Reason: Indigestion / Heartburn Alprazolam (Xanax) 0.5 mg PO BID PRN PRN Reason: Anxiety Last Admin: 12/31/17 19:57 Dose: 0.5 mg Benzocaine/Menthol (Cepacol Sore Throat) 1 rodo MT Q3H PRN PRN Reason: Sore Throat Ceftaroline Fosamil 600 mg/ (Sodium Chloride) 100 mls @ 100 mls/hr IVPB Q12H JORGE A PRN Reason: Protocol Last Admin: 01/01/18 00:22 Dose: 100 mls/hr Nystatin (Nystatin Oral Susp) 5 ml PO QID [facility] Last Admin: 12/31/17 23:00 Dose: 5 ml Pantoprazole Sodium (Protonix Ec Tab) 40 mg PO DAILY [facility] Last Admin: 12/31/17 09:40 Dose: 40 mg Physical Exam - Constitutional Appears: Non-toxic, No Acute Distress - Head Exam Head Exam: ATRAUMATIC, NORMOCEPHALIC - Eye Exam Eye Exam: EOMI - ENT Exam Additional comments: herpetic lesions - Respiratory Exam Respiratory Exam: NORMAL BREATHING PATTERN - Cardiovascular Exam Cardiovascular Exam: +S1, +S2 - GI/Abdominal Exam GI & Abdominal Exam: absent: Distended, Firm, Guarding, Hernia - Extremities Exam Additional comments: LLE eedematous, erythematous with small opening in horacio skind on the calf. DP palpable tp not palpable. - Neurological Exam Neurological exam: Alert, Oriented x3 - Psychiatric Exam Psychiatric exam: Normal Affect, Normal Mood - Skin Skin Exam: Dry, Intact Results - Vital Signs Recent Vital Signs: Last Vital Signs Temp 98.5 F 01/01/18 00:00 Pulse 78 01/01/18 00:07 Resp 13 01/01/18 00:07 BP 123/73 01/01/18 00:07 Pulse Ox 97 12/31/17 23:00 - Labs Result Diagrams: 12/31/17 08:59 12/31/17 08:59 Labs: Laboratory Results - last 24 hr 12/31/17 12/31/17 12/31/17 08:59 08:59 14:02 WBC 19.1 H RBC 2.89 L Hgb 8.6 L Hct 25.0 L MCV 86.6 MCH 29.7 MCHC 34.4 RDW 17.8 H Plt Count 359 MPV 6.9 L Neut % (Auto) 80.8 H Lymph % (Auto) 9.8 L Saunders % (Auto) 8.4 Eos % (Auto) 0.5 Baso % (Auto) 0.5 Neut # (Auto) 15.4 H Lymph # (Auto) 1.9 Saunders # (Auto) 1.6 H Eos # (Auto) 0.1 Baso # (Auto) 0.1 Neutrophils % (Manual) 64 Band Neutrophils % 12 H* Lymphocytes % (Manual) 15 L Reactive Lymphs % 1 H Monocytes % (Manual) 5 Eosinophils % (Manual) 1 Metamyelocytes % 1 H Myelocytes % 1 H Platelet Estimate Normal Hypochromasia (manual) Slight Anisocytosis (manual) Slight Stomatocytes Slight Sodium 137 Potassium 3.9 Chloride 100 Carbon Dioxide 31 H Anion Gap 10 BUN 9 Creatinine 0.7 Est GFR ( Amer) > 60 Est GFR (Non-Af Amer) > 60 Random Glucose 92 Calcium 8.8 Total Bilirubin 1.1 AST 19 ALT 29 Alkaline Phosphatase 238 H Total Protein 6.0 L Albumin 2.8 L Globulin 3.2 Albumin/Globulin Ratio 0.9 L Procalcitonin 1.29 H - Imaging and Cardiology CT scan - abdomen Status: Image reviewed by me, Report reviewed by me CT scan - chest Status: Image reviewed by me, Report reviewed by me Assessment & Plan - Assessment and Plan (Free Text) Assessment: 62F wuith LLE cellulitis and edema Continue abx elevate limb further recs pr Dr. Jonah Kaur PGY3
[2018-01-01] MEDS: Pantoprazole 40 mg EC Tab PO SCH (09:22)
[2018-01-01] MEDS: Nystatin 100,000 Units/ml Oral Susp 5 ml UD PO SCH ×4 (09:22→21:29)
[2018-01-01] MEDS: Oxycodone/Acetaminophen 5/325 mg Tab PO PRN ×3 (09:47→19:30)
[2018-01-01 10:04] LABS: BASO # 0.1 K/uL (0.0-0.2); BASO % 0.4 % (0.0-2.0); EOS # 0.1 K/uL (0.0-0.7); EOS % 0.6 % (0.0-4.0); HEMOGLOBIN 8.6 g/dL (11.0-16.0); LYMPH # 1.4 K/uL (1.0-4.3); LYMPH % 7.5 % (20.0-40.0); MEAN CORPUSCULAR HEMOGLOBIN 29.2 pg (27.0-31.0); MEAN CORPUSCULAR HGB CONC 33.6 g/dL (33.0-37.0); MEAN PLATELET VOLUME 6.5 fL (7.2-11.7); MONO # 1.8 K/uL (0.0-0.8); MONO % 9.3 % (0.0-10.0); NEUT # 15.8 K/uL (1.8-7.0); NEUT % 82.2 % (50.0-75.0); PLATELET COUNT 370 K/uL (130-400); RBC 2.94 Mil/uL (3.80-5.20); RED CELL DISTRIBUTION WIDTH 17.6 % (11.5-14.5); WHITE BLOOD COUNT 19.2 K/uL (4.8-10.8)
--- NOTE | 2018-01-01 10:13 | CP.PCM.PN ---
Subjective - Date & Time of Evaluation Date of Evaluation: 01/01/18 Time of Evaluation: 10:13 - Subjective Subjective: Progress note dictated #[id number] Objective - Vital Signs/Intake and Output Vital Signs (last 24 hours): Temp Pulse Resp BP Pulse Ox 98.2 F 80 11 L 104/58 L 100 01/01/18 04:00 01/01/18 07:00 01/01/18 07:00 01/01/18 04:00 01/01/18 07:00 Intake and Output: 01/01/18 01/01/18 06:59 18:59 Intake Total 330 Output Total 600 Balance -270 - Medications Medications: Current Medications Acetaminophen (Tylenol 325mg Tab) 650 mg PO Q6 PRN PRN Reason: Pain, Mild (1-3) Last Admin: 12/31/17 19:58 Dose: 650 mg Acetaminophen (Tylenol 325mg Tab) 650 mg PO Q6H PRN PRN Reason: Fever >100.4 F Acyclovir (Zovirax) 800 mg PO BID JORGE A PRN Reason: Protocol Last Admin: 01/01/18 09:22 Dose: 800 mg Al Hydrox/Mg Hydrox/Simethicone (Maalox Plus 30 Ml) 30 ml PO Q8H PRN PRN Reason: Indigestion / Heartburn Alprazolam (Xanax) 0.5 mg PO BID PRN PRN Reason: Anxiety Last Admin: 01/01/18 09:22 Dose: 0.5 mg Benzocaine/Menthol (Cepacol Sore Throat) 1 rodo MT Q3H PRN PRN Reason: Sore Throat Heparin Sodium (Porcine) (Heparin) 5,000 units SC Q8 [facility] Ceftaroline Fosamil 600 mg/ (Sodium Chloride) 100 mls @ 100 mls/hr IVPB Q12H JORGE A PRN Reason: Protocol Last Admin: 01/01/18 00:22 Dose: 100 mls/hr Nystatin (Nystatin Oral Susp) 5 ml PO QID [facility] Last Admin: 01/01/18 09:22 Dose: 5 ml Oxycodone/Acetaminophen (Percocet 5/325 Mg Tab) 1 tab PO Q4H PRN PRN Reason: Pain, moderate (4-7) Stop: 01/04/18 09:42 Last Admin: 01/01/18 09:47 Dose: 1 tab Pantoprazole Sodium (Protonix Ec Tab) 40 mg PO DAILY JORGE A Last Admin: 01/01/18 09:22 Dose: 40 mg Zolpidem Tartrate (Ambien) 5 mg PO HS PRN PRN Reason: Insomnia - Labs Labs: 01/01/18 09:59 12/31/17 08:59 PT 20.5 SECONDS (9.7-12.2) H 12/24/17 23:26 INR 1.9 12/24/17 23:26 APTT 29 SECONDS (21-34) 12/24/17 23:26
[2018-01-01 10:20] LABS: ALB/GLOB RATIO 0.9 (1.0-2.1); ALT/SGPT 27 U/L (9-52); AST/SGOT 20 U/L (14-36); BLOOD UREA NITROGEN 11 mg/dL (7-17); CALCIUM 9.1 mg/dl (8.6-10.4); GFR AFRICAN-AMERICAN > 60; GFR NON-AFRICAN AMERICAN > 60
[2018-01-01 10:37] LABS: ANISOCYTOSIS SLIGHT; BANDS 10 % (0-2); HYPOCHROMIC SLIGHT; LYMPHOCYTE 6 % (20-40); MONOCYTE 3 % (0-10); MYELOCYTE 1 % (0-0); NEUTROPHIL 80 % (50-75); PLATELET ESTIMATE NORMAL (NORMAL); STOMATOCYTES SLIGHT; TOTAL CELLS COUNTED 100
[2018-01-01] MEDS ORDERED: HYDROmorphone 1 mg/ml ISec IVP ONE (11:45)
--- NOTE | 2018-01-01 15:12 | CP.PCM.PN ---
Subjective - Date & Time of Evaluation Date of Evaluation: 01/01/18 Time of Evaluation: 15:12 - Subjective Subjective: Podiatry - Dr. Okeefe 62F seen and examined in ICU for LLE cellulitis and lanced bullae. No acute events overnight. Reports pain in LLE though slightly improving since yesterday. Dressing to medial left leg clean/dry/intact. Denies N/V/F/D/C/SOB. Objective - Vital Signs/Intake and Output Vital Signs (last 24 hours): Temp Pulse Resp BP Pulse Ox 98.3 F 86 25 H 104/58 L 99 01/01/18 12:00 01/01/18 10:00 01/01/18 10:00 01/01/18 04:00 01/01/18 08:00 Intake and Output: 01/01/18 01/01/18 06:59 18:59 Intake Total 330 Output Total 600 Balance -270 - Medications Medications: Current Medications Acetaminophen (Tylenol 325mg Tab) 650 mg PO Q6 PRN PRN Reason: Pain, Mild (1-3) Last Admin: 12/31/17 19:58 Dose: 650 mg Acetaminophen (Tylenol 325mg Tab) 650 mg PO Q6H PRN PRN Reason: Fever >100.4 F Acyclovir (Zovirax) 800 mg PO BID JORGE A PRN Reason: Protocol Last Admin: 01/01/18 09:22 Dose: 800 mg Al Hydrox/Mg Hydrox/Simethicone (Maalox Plus 30 Ml) 30 ml PO Q8H PRN PRN Reason: Indigestion / Heartburn Alprazolam (Xanax) 0.5 mg PO BID PRN PRN Reason: Anxiety Last Admin: 12/31/17 19:57 Dose: 0.5 mg Benzocaine/Menthol (Cepacol Sore Throat) 1 rodo MT Q3H PRN PRN Reason: Sore Throat Heparin Sodium (Porcine) (Heparin) 5,000 units SC Q8 [facility] Last Admin: 01/01/18 13:48 Dose: 5,000 units Ceftaroline Fosamil 600 mg/ (Sodium Chloride) 100 mls @ 100 mls/hr IVPB Q12H JORGE A PRN Reason: Protocol Last Admin: 01/01/18 13:00 Dose: 100 mls/hr Nystatin (Nystatin Oral Susp) 5 ml PO QID [facility] Last Admin: 01/01/18 13:49 Dose: 5 ml Oxycodone/Acetaminophen (Percocet 5/325 Mg Tab) 1 tab PO Q4H PRN PRN Reason: Pain, moderate (4-7) Stop: 01/04/18 09:42 Last Admin: 01/01/18 09:47 Dose: 1 tab Pantoprazole Sodium (Protonix Ec Tab) 40 mg PO DAILY [facility] Last Admin: 01/01/18 09:22 Dose: 40 mg Zolpidem Tartrate (Ambien) 5 mg PO HS PRN PRN Reason: Insomnia - Labs Labs: 01/01/18 09:59 01/01/18 09:59 PT 20.5 SECONDS (9.7-12.2) H 12/24/17 23:26 INR 1.9 12/24/17 23:26 APTT 29 SECONDS (21-34) 12/24/17 23:26 - Constitutional Appears: Well, Non-toxic, No Acute Distress - Extremities Exam Additional comments: Left LE focused exam VASC: DP/PT pulses weakly palpable 1/4, Cap refill time: < 3 sec to all digits, Temp gradient: hot to hot from proximal tibial tuberosity to distal digits, +1 pitting edema noted extending from the knee joint distally DERM: Lanced bullae noted on the postero-medial aspect of the left leg with epithelializing base, no drainage present; lateral border of the nail fold opening noted on the hallux and 2nd digit nail, deep rubor extending from knee joint to ankle NEURO: protective sensation grossly intact ORTHO: Pain on palpation noted to areas of deep rubor; ROM limited secondary to guarding. - Neurological Exam Neurological Exam: Alert, Awake, Oriented x3 - Psychiatric Exam Psychiatric exam: Normal Affect, Normal Mood Assessment and Plan - Assessment and Plan (Free Text) Assessment: 62F with 1) left lower extremity cellulitis and 2) serous bullae Plan: Patient seen and evaluated Discussed with attending, Dr. Oekefe WBC increasing @ 19.[address] (12/30/17): No gas forming cellulitis, no intramuscular gas noted, negative osteomyelitis; large suprapatellar effusion, left lateral thigh fluid collection Left tibfib XR (12/31/17): soft tissue swelling without acute articular or osseous abnormality Continue local wound care to bullae - silvercel, optifoam; will continue to monitor Continue abx per ID - Ceftaroline Pain control per primary team Podiatry will follow
--- NOTE | 2018-01-01 16:17 | CP.PCM.PN ---
Subjective - Date & Time of Evaluation Date of Evaluation: 01/01/18 Time of Evaluation: 08:00 - Subjective Subjective: afeb alert c/o pain WBC still elevated but procalcitonin down from 7 to 1 Objective - Vital Signs/Intake and Output Vital Signs (last 24 hours): Temp Pulse Resp BP Pulse Ox 98.3 F 86 25 H 104/58 L 99 01/01/18 12:00 01/01/18 10:00 01/01/18 10:00 01/01/18 04:00 01/01/18 08:00 Intake and Output: 01/01/18 01/01/18 06:59 18:59 Intake Total 330 Output Total 600 Balance -270 - Medications Medications: Current Medications Acetaminophen (Tylenol 325mg Tab) 650 mg PO Q6 PRN PRN Reason: Pain, Mild (1-3) Last Admin: 12/31/17 19:58 Dose: 650 mg Acetaminophen (Tylenol 325mg Tab) 650 mg PO Q6H PRN PRN Reason: Fever >100.4 F Acyclovir (Zovirax) 800 mg PO BID JORGE A PRN Reason: Protocol Last Admin: 01/01/18 09:22 Dose: 800 mg Al Hydrox/Mg Hydrox/Simethicone (Maalox Plus 30 Ml) 30 ml PO Q8H PRN PRN Reason: Indigestion / Heartburn Alprazolam (Xanax) 0.5 mg PO BID PRN PRN Reason: Anxiety Last Admin: 12/31/17 19:57 Dose: 0.5 mg Benzocaine/Menthol (Cepacol Sore Throat) 1 rodo MT Q3H PRN PRN Reason: Sore Throat Heparin Sodium (Porcine) (Heparin) 5,000 units SC Q8 [facility] Last Admin: 01/01/18 13:48 Dose: 5,000 units Ceftaroline Fosamil 600 mg/ (Sodium Chloride) 100 mls @ 100 mls/hr IVPB Q12H JORGE A PRN Reason: Protocol Last Admin: 01/01/18 13:00 Dose: 100 mls/hr Nystatin (Nystatin Oral Susp) 5 ml PO QID [facility] Last Admin: 01/01/18 13:49 Dose: 5 ml Oxycodone/Acetaminophen (Percocet 5/325 Mg Tab) 1 tab PO Q4H PRN PRN Reason: Pain, moderate (4-7) Stop: 01/04/18 09:42 Last Admin: 01/01/18 15:43 Dose: 1 tab Pantoprazole Sodium (Protonix Ec Tab) 40 mg PO DAILY JORGE A Last Admin: 01/01/18 09:22 Dose: 40 mg Zolpidem Tartrate (Ambien) 5 mg PO HS PRN PRN Reason: Insomnia - Labs Labs: 01/01/18 09:59 01/01/18 09:59 PT 20.5 SECONDS (9.7-12.2) H 12/24/17 23:26 INR 1.9 12/24/17 23:26 APTT 29 SECONDS (21-34) 12/24/17 23:26 - Constitutional Appears: Non-toxic, Chronically Ill - Head Exam Head Exam: NORMOCEPHALIC - Eye Exam Eye Exam: PERRL. absent: Scleral icterus - ENT Exam ENT Exam: Mucous Membranes Dry - Neck Exam Neck Exam: absent: Lymphadenopathy - Respiratory Exam Respiratory Exam: Decreased Breath Sounds - Cardiovascular Exam Cardiovascular Exam: REGULAR RHYTHM - GI/Abdominal Exam GI & Abdominal Exam: Distended, Soft - Rectal Exam Rectal Exam: Deferred - Exam Exam: NORMAL INSPECTION - Extremities Exam Extremities Exam: Calf Tenderness, Pedal Edema, Tenderness - Back Exam Back Exam: absent: CVA tenderness (L), CVA tenderness (R) - Neurological Exam Neurological Exam: Alert, Awake, CN II-XII Intact, Oriented x3 - Psychiatric Exam Psychiatric exam: Normal Mood - Skin Skin Exam: Dry Assessment and Plan (1) Asthma Status: Acute (2) Cellulitis Status: Acute (3) Mitral valve prolapse Status: Acute (4) Sepsis affecting skin Status: Acute (5) Septic shock Status: Acute - Assessment and Plan (Free Text) Assessment: s/p septic shock/ grp a strep in blood no clinical features of necrotizing fascitis, gangene, DVT etc however WBC / bands remain elevated patient is allergic to PCN switched to Teflaro from zyvox will add clinda
[2018-01-01] MEDS ORDERED: Clindamycin 600mg/50ml D5W 600 MG/50 ML VIAL IVPB SCH (17:00)
[2018-01-01 17:11] VITALS: RESP 20
[2018-01-01] MEDS: Clindamycin 600mg/50ml NS 600 MG/50 ML BAG IVPB SCH (17:37)
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
--- NOTE | 2018-01-01 23:32 | PN ---
DATE: 01/01/2018 SUBJECTIVE: The patient was seen and examined at bedside. The patient is still complaining of left leg swelling and pain and unable to move. No other new findings noted. PHYSICAL EXAMINATION: GENERAL: A middle-aged morbidly obese female, lying in bed, in no acute distress. VITAL SIGNS: Blood pressure 135/81, pulse 74, respirations 20, temperature 98.5 degrees Fahrenheit, O2 saturations 100% on room air. HEENT: Pupils equal, round, and reacting to light and accommodation. Extraocular muscles intact. No icterus. No pallor. NECK: Supple. No JVD. LUNGS: Bilateral vesicular breath sounds. No wheezing. No rhonchi. CVS: S1, S2 present, regular. ABDOMEN: Soft, and nontender. Bowel sounds present. No guarding. No rigidity noted. No rebound tenderness noted. QUILL WORKER: Alert, awake, and oriented x3. No focal deficits noted. EXTREMITIES: Left leg swelling, erythema, and tenderness noted. Unable to move the left leg. MEDICATIONS: Include Tylenol, Zovirax 800 mg p.o. b.i.d., Maalox as needed, Xanax 0.5 mg b.i.d., Teflaro 600 mg IV q.12 hours, clindamycin 600 mg IV piggyback every 8 hours, heparin 5000 units subcutaneously every 8 hours, nystatin 5 mL p.o. 4 times daily, Percocet as needed, Protonix 40 mg daily, Ambien 5 mg p.o. at bedtime. LABORATORY DATA: Labs from this morning, WBC 19.2, hemoglobin 8.6, hematocrit 23.6, platelets 370, bands 10%, sodium 137, potassium 3.8, chloride 101, bicarb 31, BUN 11, creatinine 0.6, glucose 127, calcium 9.1, phosphorous 3.5, magnesium 2, total bilirubin 0.8, AST 20, ALT 27, alkaline phosphatase 250, total protein 6.4, albumin 3. Hepatitis serology negative. HIV negative. ASSESSMENT AND PLAN: Middle-aged female with history of rheumatoid arthritis, osteoarthritis, gastrointestinal reflux disease, asthma, admitted for left lower extremity cellulitis, status post septic shock, group A Strep bacteremia, Escherichia coli urinary tract infection, with persistent left leg swelling and erythema, but persistent elevated WBC counts. Negative Dopplers and negative CAT scan, other than cellulitic changes. I will continue with current antibiotics as per Dr. Forman. Teflaro, acyclovir, and clindamycin have been added today. We will repeat labs in a.m. We will follow up with Vascular Surgery. We will request physical therapy. Discontinue external jugular and we will request for PICC line. Nando Blum MD
[2018-01-02] MEDS: Oxycodone/Acetaminophen 5/325 mg Tab PO PRN ×5 (00:01→23:56)
[2018-01-02] MEDS: Ceftaroline 600 MG in Sodium Chloride 0.9% 100 ML IVPB SCH ×2 (01:23→12:34)
[2018-01-02] MEDS: Clindamycin 600mg/50ml NS 600 MG/50 ML BAG IVPB SCH ×3 (01:24→17:29)
[2018-01-02 06:58] LABS: BASO # 0.1 K/uL (0.0-0.2); BASO % 0.3 % (0.0-2.0); EOS # 0.1 K/uL (0.0-0.7); EOS % 0.8 % (0.0-4.0); HEMOGLOBIN 8.7 g/dL (11.0-16.0); LYMPH # 1.5 K/uL (1.0-4.3); LYMPH % 8.2 % (20.0-40.0); MEAN CELL VOLUME 87.3 fL (81.0-99.0); MEAN CORPUSCULAR HEMOGLOBIN 29.4 pg (27.0-31.0); MEAN CORPUSCULAR HGB CONC 33.7 g/dL (33.0-37.0); MEAN PLATELET VOLUME 6.9 fL (7.2-11.7); MONO % 11.3 % (0.0-10.0); NEUT # 14.4 K/uL (1.8-7.0); NEUT % 79.4 % (50.0-75.0); NRBC % 0.1 % (0.0-2.0); PLATELET COUNT 443 K/uL (130-400); RBC 2.95 Mil/uL (3.80-5.20); RED CELL DISTRIBUTION WIDTH 18.3 % (11.5-14.5); WHITE BLOOD COUNT 18.1 K/uL (4.8-10.8)
[2018-01-02 07:35] LABS: BLOOD UREA NITROGEN 11 mg/dL (7-17); GFR AFRICAN-AMERICAN > 60; GFR NON-AFRICAN AMERICAN > 60
[2018-01-02 07:36] LABS: ALB/GLOB RATIO 0.8 (1.0-2.1); ALBUMIN 2.9 g/dL (3.5-5.0); ALT/SGPT 23 U/L (9-52); AST/SGOT 27 U/L (14-36)
[2018-01-02 09:28] LABS: BANDS 11 % (0-2); EOSINOPHIL 2 % (0-4); LYMPHOCYTE 4 % (20-40); METAMYELOCYTE 1 % (0-0); MONOCYTE 6 % (0-10); MYELOCYTE 3 % (0-0); NEUTROPHIL 72 % (50-75); NUCLEATED RED BLOOD CELL 1 % (0-0); PROMYELOCYTE 1 % (0-0); TOTAL CELLS COUNTED 100
--- NOTE | 2018-01-02 09:28 | CP.PCM.PN ---
Subjective - Date & Time of Evaluation Date of Evaluation: 01/02/18 Time of Evaluation: 09:28 - Subjective Subjective: [id number] Objective - Vital Signs/Intake and Output Vital Signs (last 24 hours): Temp Pulse Resp BP Pulse Ox 99.3 F 79 20 149/77 96 01/02/18 07:30 01/02/18 07:30 01/02/18 07:30 01/02/18 07:30 01/02/18 07:30 Intake and Output: 01/02/18 01/02/18 06:59 18:59 Output Total 400 Balance -400 - Medications Medications: Current Medications Acetaminophen (Tylenol 325mg Tab) 650 mg PO Q6 PRN PRN Reason: Pain, Mild (1-3) Last Admin: 01/02/18 08:15 Dose: 650 mg Acetaminophen (Tylenol 325mg Tab) 650 mg PO Q6H PRN PRN Reason: Fever >100.4 F Acyclovir (Zovirax) 800 mg PO BID JORGE A PRN Reason: Protocol Last Admin: 01/01/18 17:37 Dose: 800 mg Al Hydrox/Mg Hydrox/Simethicone (Maalox Plus 30 Ml) 30 ml PO Q8H PRN PRN Reason: Indigestion / Heartburn Alprazolam (Xanax) 0.5 mg PO BID PRN PRN Reason: Anxiety Last Admin: 01/02/18 02:12 Dose: 0.5 mg Benzocaine/Menthol (Cepacol Sore Throat) 1 rodo MT Q3H PRN PRN Reason: Sore Throat Heparin Sodium (Porcine) (Heparin) 5,000 units SC Q8 [facility] Last Admin: 01/02/18 05:20 Dose: 5,000 units Ceftaroline Fosamil 600 mg/ (Sodium Chloride) 100 mls @ 100 mls/hr IVPB Q12H JORGE A PRN Reason: Protocol Last Admin: 01/02/18 01:23 Dose: 100 mls/hr Clindamycin Phosphate (Cleocin In Normal Saline) 600 mg in 50 mls @ 102 mls/hr IVPB Q8H JORGE A PRN Reason: Protocol Last Admin: 01/02/18 01:24 Dose: 102 mls/hr Nystatin (Nystatin Oral Susp) 5 ml PO QID [facility] Last Admin: 01/01/18 21:29 Dose: 5 ml Oxycodone/Acetaminophen (Percocet 5/325 Mg Tab) 1 tab PO Q4H PRN PRN Reason: Pain, moderate (4-7) Stop: 01/04/18 09:42 Last Admin: 01/02/18 05:18 Dose: 1 tab Pantoprazole Sodium (Protonix Ec Tab) 40 mg PO DAILY JORGE A Last Admin: 01/01/18 09:22 Dose: 40 mg Zolpidem Tartrate (Ambien) 5 mg PO HS PRN PRN Reason: Insomnia Last Admin: 01/01/18 21:29 Dose: 5 mg - Labs Labs: 01/02/18 06:44 01/02/18 06:44 PT 20.5 SECONDS (9.7-12.2) H 12/24/17 23:26 INR 1.9 12/24/17 23:26 APTT 29 SECONDS (21-34) 12/24/17 23:26
[2018-01-02 09:29] LABS: ANISOCYTOSIS MODERATE; HYPOCHROMIC SLIGHT; LARGE PLATELETS PRESENT; PLATELET ESTIMATE SLIGHTLY INCREASED (NORMAL); TOXIC GRANULATION PRESENT
[2018-01-02 09:31] LABS: STOMATOCYTES MODERATE
--- NOTE | 2018-01-02 09:47 | CP.PCM.PN ---
Subjective - Date & Time of Evaluation Date of Evaluation: 01/02/18 Time of Evaluation: 09:47 - Subjective Subjective: Podiatry - Dr. Okeefe 62F seen and evaluated this AM for LLE cellulitis and lanced bullae. No acute events overnight. Patient states she is not feeling well, endorses continued pain in LLE. Dressing to medial left leg clean/dry/intact. Denies N/V/F/D/C/SOB. Objective - Vital Signs/Intake and Output Vital Signs (last 24 hours): Temp Pulse Resp BP Pulse Ox 99.3 F 79 20 149/77 96 01/02/18 07:30 01/02/18 07:30 01/02/18 07:30 01/02/18 07:30 01/02/18 07:30 Intake and Output: 01/02/18 01/02/18 06:59 18:59 Output Total 400 Balance -400 - Medications Medications: Current Medications Acetaminophen (Tylenol 325mg Tab) 650 mg PO Q6 PRN PRN Reason: Pain, Mild (1-3) Last Admin: 01/02/18 08:15 Dose: 650 mg Acetaminophen (Tylenol 325mg Tab) 650 mg PO Q6H PRN PRN Reason: Fever >100.4 F Acyclovir (Zovirax) 800 mg PO BID JORGE A PRN Reason: Protocol Last Admin: 01/01/18 17:37 Dose: 800 mg Al Hydrox/Mg Hydrox/Simethicone (Maalox Plus 30 Ml) 30 ml PO Q8H PRN PRN Reason: Indigestion / Heartburn Alprazolam (Xanax) 0.5 mg PO BID PRN PRN Reason: Anxiety Last Admin: 01/02/18 02:12 Dose: 0.5 mg Benzocaine/Menthol (Cepacol Sore Throat) 1 rodo MT Q3H PRN PRN Reason: Sore Throat Heparin Sodium (Porcine) (Heparin) 5,000 units SC Q8 [facility] Last Admin: 01/02/18 05:20 Dose: 5,000 units Ceftaroline Fosamil 600 mg/ (Sodium Chloride) 100 mls @ 100 mls/hr IVPB Q12H JORGE A PRN Reason: Protocol Last Admin: 01/02/18 01:23 Dose: 100 mls/hr Clindamycin Phosphate (Cleocin In Normal Saline) 600 mg in 50 mls @ 102 mls/hr IVPB Q8H JORGE A PRN Reason: Protocol Last Admin: 01/02/18 01:24 Dose: 102 mls/hr Nystatin (Nystatin Oral Susp) 5 ml PO QID JORGE A Last Admin: 01/01/18 21:29 Dose: 5 ml Oxycodone/Acetaminophen (Percocet 5/325 Mg Tab) 1 tab PO Q4H PRN PRN Reason: Pain, moderate (4-7) Stop: 01/04/18 09:42 Last Admin: 01/02/18 05:18 Dose: 1 tab Pantoprazole Sodium (Protonix Ec Tab) 40 mg PO DAILY JORGE A Last Admin: 01/01/18 09:22 Dose: 40 mg Zolpidem Tartrate (Ambien) 5 mg PO HS PRN PRN Reason: Insomnia Last Admin: 01/01/18 21:29 Dose: 5 mg - Labs Labs: 01/02/18 06:44 01/02/18 06:44 PT 20.5 SECONDS (9.7-12.2) H 12/24/17 23:26 INR 1.9 12/24/17 23:26 APTT 29 SECONDS (21-34) 12/24/17 23:26 - Constitutional Appears: Well, No Acute Distress - Extremities Exam Additional comments: Left LE focused exam VASC: DP/PT pulses weakly palpable 1/4, Cap refill time: < 3 sec to all digits, Temp gradient: hot to hot from proximal tibial tuberosity to distal digits, +1 pitting edema noted extending from the knee joint distally DERM: Lanced bullae noted on the postero-medial aspect of the left leg with epithelializing base, no drainage present; lateral border of the nail fold opening noted on the hallux and 2nd digit nail, deep rubor extending from knee joint to ankle NEURO: protective sensation grossly intact ORTHO: Pain on palpation noted to areas of deep rubor; ROM limited secondary to guarding. - Neurological Exam Neurological Exam: Alert, Awake, Oriented x3 - Psychiatric Exam Psychiatric exam: Normal Affect, Normal Mood Assessment and Plan - Assessment and Plan (Free Text) Assessment: 62F with 1) left lower extremity cellulitis and 2) serous bullae Plan: Patient seen and evaluated Discussed with attending, Dr. Sary BAILEY, WBC trending downwards @ 18.[address] (12/30/17): No gas forming cellulitis, no intramuscular gas noted, negative osteomyelitis; large suprapatellar effusion, left lateral thigh fluid collection Left tibfib XR (12/31/17): soft tissue swelling without acute articular or osseous abnormality f/u venous duplex LLE Bullae improving - silvercel, optifoam; will continue to monitor Continue abx per ID - Ceftaroline, Clindamycin Pain control per primary team Podiatry will follow
[2018-01-02] MEDS: Nystatin 100,000 Units/ml Oral Susp 5 ml UD PO SCH ×3 (10:07→17:29)
[2018-01-02] MEDS: Pantoprazole 40 mg EC Tab PO SCH (10:10)
--- NOTE | 2018-01-02 10:43 | RAD ---
Date of service: 01/02/2018 HISTORY: PICC Insertion COMPARISON: 12/29/2017 FINDINGS: LUNGS: No active pulmonary disease. PLEURA: No significant pleural effusion identified, no pneumothorax apparent. CARDIOVASCULAR: Cardiomegaly. No evidence of acute, significant cardiovascular disease. PICC line in satisfactory position the tip is within 2 cm of the cavoatrial junction OSSEOUS STRUCTURES: No significant abnormalities. VISUALIZED UPPER ABDOMEN: Normal. OTHER FINDINGS: Removal of support apparatus since the prior study: Right IJ catheter. IMPRESSION: No adverse findings/ no pneumothorax following PICC line placement. Venous access catheter in satisfactory position.
[2018-01-02] MEDS: Alum-Mag Hydrox-Simethicone Susp (30 mL) PO PRN (17:29)
--- NOTE | 2018-01-03 00:23 | PN ---
DATE: 01/02/2018 SUBJECTIVE: The patient was seen and examined at bedside. The patient is still complaining of left leg pain, unable to move secondary to pain. Denies any other complaints. PHYSICAL EXAMINATION: GENERAL: Middle aged morbidly obese female, lying in bed in no acute distress. VITAL SIGNS: Blood pressure 127/79, pulse 75, respirations 20, temperature 98.8 degrees Fahrenheit, O2 sat is 95% on room air. HEENT: Pupils equal, round and reacting to light and accommodation. Extraocular muscles intact. No icterus. No pallor. No oral thrush. No pharyngeal congestion. NECK: Supple. No JVD. LUNGS: Bilateral vesicular breath sounds. No wheezing. No rhonchi. CVS: S1, S2 present, regular. ABDOMEN: Soft, nontender. Bowel sounds present. No guarding. No rigidity. No rebound tenderness noted. CASER UP: Alert, awake, and oriented x3. No focal deficits noted. EXTREMITIES: Left lower extremity swelling present. Erythema is decreasing, but with persistent severe tenderness even to touch. Palpable peripheral pulses. MEDICATIONS: Include Tylenol as needed, acyclovir 800 mg p.o. b.i.d., Maalox as needed, Xanax 0.5 mg p.o. b.i.d., Cepacol as needed, Teflaro 600 mg IV every 12 hours, clindamycin 600 mg IV every 8 hours, Colace 100 mg daily, heparin 5000 units subcutaneous every 8 hours, morphine 1 mg IV every 4 hours p.r.n. for pain, nystatin oral suspension, Percocet as needed, Protonix 40 mg daily, Ambien 5 mg p.o. at bedtime. LABORATORY DATA: Labs from this morning: WBC 18.1, hemoglobin 8.7, hematocrit 25.8, platelets 443; bands 11. Sodium 140, potassium 4, chloride 102, bicarbonate 31, BUN 11, creatinine 0.7, glucose 90, calcium 9. Alkaline phosphatase 265, AST 27, ALT 23, total protein 6.7, albumin 2.9. ASSESSMENT AND PLAN: Middle-aged female with history of rheumatoid arthritis, osteoarthritis, gastroesophageal reflux disease, asthma. Admitted for septic shock, status post pressors, Streptococcus pyogenes bacteremia, Escherichia coli urinary tract infection, left leg cellulitis with persistently elevated white blood cell counts, on multiple antibiotics. We will continue with current antibiotics, Teflaro 600 mg every 12 hours and clindamycin and on acyclovir. Follow up with Infectious Disease. Follow up with Podiatry for possible Ceretec scan tomorrow. Requested ortho consult. We will add morphine for pain control, out of bed to chair. We will request physical therapy. Nando Blum MD
[2018-01-03] MEDS: Ceftaroline 600 MG in Sodium Chloride 0.9% 100 ML IVPB SCH ×2 (01:09→12:44)
[2018-01-03] MEDS: Clindamycin 600mg/50ml NS 600 MG/50 ML BAG IVPB SCH ×3 (01:10→17:46)
[2018-01-03] MEDS: Oxycodone/Acetaminophen 5/325 mg Tab PO PRN ×5 (03:59→21:51)
[2018-01-03] MEDS: Alum-Mag Hydrox-Simethicone Susp (30 mL) PO PRN (04:02)
[2018-01-03 07:15] LABS: BASO # 0.1 K/uL (0.0-0.2); BASO % 0.4 % (0.0-2.0); EOS # 0.1 K/uL (0.0-0.7); EOS % 0.7 % (0.0-4.0); HEMOGLOBIN 8.5 g/dL (11.0-16.0); LYMPH # 1.7 K/uL (1.0-4.3); LYMPH % 9.4 % (20.0-40.0); MEAN CELL VOLUME 87.5 fL (81.0-99.0); MEAN CORPUSCULAR HEMOGLOBIN 29.2 pg (27.0-31.0); MEAN CORPUSCULAR HGB CONC 33.4 g/dL (33.0-37.0); MEAN PLATELET VOLUME 7.1 fL (7.2-11.7); MONO # 1.9 K/uL (0.0-0.8); MONO % 10.7 % (0.0-10.0); NEUT # 14.1 K/uL (1.8-7.0); NEUT % 78.8 % (50.0-75.0); PLATELET COUNT 530 K/uL (130-400); RED CELL DISTRIBUTION WIDTH 18.2 % (11.5-14.5); WHITE BLOOD COUNT 17.8 K/uL (4.8-10.8)
[2018-01-03 07:42] LABS: ALB/GLOB RATIO 0.8 (1.0-2.1); ALT/SGPT 29 U/L (9-52); AST/SGOT 23 U/L (14-36); BLOOD UREA NITROGEN 12 mg/dL (7-17); CALCIUM 9.1 mg/dl (8.6-10.4); GFR AFRICAN-AMERICAN > 60; GFR NON-AFRICAN AMERICAN > 60
--- NOTE | 2018-01-03 07:52 | CP.PCM.PN ---
Subjective - Date & Time of Evaluation Date of Evaluation: 01/03/18 Time of Evaluation: 07:46 - Subjective Subjective: 62F seen and evaluated this morning at bedside. No acute events overnight. Pt is not ambulating. Pt complaining of pain in the left leg. Denies f/c,n/v/d, CP , SOB, or urinary symptoms. Objective - Vital Signs/Intake and Output Vital Signs (last 24 hours): Temp Pulse Resp BP Pulse Ox 97.9 F 62 20 106/60 96 01/02/18 23:40 01/03/18 03:35 01/02/18 23:40 01/02/18 23:40 01/02/18 23:40 Intake and Output: 01/03/18 01/03/18 06:59 18:59 Intake Total 270 Output Total 1200 Balance -930 - Medications Medications: Current Medications Acetaminophen (Tylenol 325mg Tab) 650 mg PO Q6 PRN PRN Reason: Pain, Mild (1-3) Last Admin: 01/03/18 06:34 Dose: 650 mg Acetaminophen (Tylenol 325mg Tab) 650 mg PO Q6H PRN PRN Reason: Fever >100.4 F Acyclovir (Zovirax) 800 mg PO BID JORGE A PRN Reason: Protocol Last Admin: 01/02/18 17:29 Dose: 800 mg Al Hydrox/Mg Hydrox/Simethicone (Maalox Plus 30 Ml) 30 ml PO Q8H PRN PRN Reason: Indigestion / Heartburn Last Admin: 01/03/18 04:02 Dose: 30 ml Alprazolam (Xanax) 0.5 mg PO BID PRN PRN Reason: Anxiety Last Admin: 01/02/18 02:12 Dose: 0.5 mg Benzocaine/Menthol (Cepacol Sore Throat) 1 rodo MT Q3H PRN PRN Reason: Sore Throat Docusate Sodium (Colace) 100 mg PO DAILY [facility] Last Admin: 01/02/18 12:56 Dose: Not Given Heparin Sodium (Porcine) (Heparin) 5,000 units SC Q8 [facility] Last Admin: 01/03/18 06:09 Dose: 5,000 units Ceftaroline Fosamil 600 mg/ (Sodium Chloride) 100 mls @ 100 mls/hr IVPB Q12H [facility] PRN Reason: Protocol Last Admin: 01/03/18 01:09 Dose: 100 mls/hr Clindamycin Phosphate (Cleocin In Normal Saline) 600 mg in 50 mls @ 102 mls/hr IVPB Q8H JORGE A PRN Reason: Protocol Last Admin: 01/03/18 01:10 Dose: 102 mls/hr Morphine Sulfate (Morphine) 1 mg IVP Q4 PRN PRN Reason: Pain, severe (8-10) Last Admin: 01/03/18 06:56 Dose: 1 mg Oxycodone/Acetaminophen (Percocet 5/325 Mg Tab) 1 tab PO Q4H PRN PRN Reason: Pain, moderate (4-7) Stop: 01/04/18 09:42 Last Admin: 01/03/18 03:59 Dose: 1 tab Pantoprazole Sodium (Protonix Ec Tab) 40 mg PO DAILY JORGE A Last Admin: 01/02/18 10:10 Dose: 40 mg Zolpidem Tartrate (Ambien) 5 mg PO HS PRN PRN Reason: Insomnia Last Admin: 01/02/18 23:56 Dose: 5 mg - Labs Labs: 01/03/18 06:54 01/03/18 06:54 PT 20.5 SECONDS (9.7-12.2) H 12/24/17 23:26 INR 1.9 12/24/17 23:26 APTT 29 SECONDS (21-34) 12/24/17 23:26 - Constitutional Appears: Well, No Acute Distress, Older Than Stated Age - Head Exam Head Exam: ATRAUMATIC, NORMAL INSPECTION, NORMOCEPHALIC - Eye Exam Eye Exam: EOMI, Normal appearance - ENT Exam ENT Exam: Mucous Membranes Moist, Normal Exam - Respiratory Exam Respiratory Exam: Clear to Ausculation Bilateral, NORMAL BREATHING PATTERN - Cardiovascular Exam Cardiovascular Exam: REGULAR RHYTHM, +S1, +S2. absent: Murmur - GI/Abdominal Exam GI & Abdominal Exam: Soft, Normal Bowel Sounds. absent: Tenderness - Rectal Exam Rectal Exam: Deferred - Neurological Exam Neurological Exam: Alert, Awake - Psychiatric Exam Psychiatric exam: Normal Affect, Normal Mood - Skin Additional comments: left leg edematous, circumferential erythemata and tender to palpation from ankle to below the knee Assessment and Plan - Assessment and Plan (Free Text) Assessment: 62F with LLE cellulitis and edema Plan: F/u MRI - compatible with knee implants Continue abx elevate limb further recs pr Dr. Jonah Velázquez PGY1
[2018-01-03 08:37] LABS: INR 1.7; PROTHROMBIN TIME 18.4 SECONDS (9.7-12.2)
[2018-01-03 08:42] LABS: ANISOCYTOSIS SLIGHT; BANDS 5 % (0-2); EOSINOPHIL 3 % (0-4); HYPOCHROMIC SLIGHT; LYMPHOCYTE 9 % (20-40); MONOCYTE 6 % (0-10); MYELOCYTE 1 % (0-0); NEUTROPHIL 76 % (50-75); PLATELET ESTIMATE DECREASED (NORMAL); POLYCHROMIC SLIGHT; TOTAL CELLS COUNTED 100
[2018-01-03] MEDS: Pantoprazole 40 mg EC Tab PO SCH (09:20)
--- NOTE | 2018-01-03 09:56 | CP.PCM.PN ---
Subjective - Date & Time of Evaluation Date of Evaluation: 01/03/18 Time of Evaluation: 09:54 - Subjective Subjective: Patent complaining of pain in her left leg but improving. No new complaints. Able to move left knee more. Objective - Vital Signs/Intake and Output Vital Signs (last 24 hours): Temp Pulse Resp BP Pulse Ox 98.8 F 72 20 116/78 95 01/03/18 08:00 01/03/18 08:00 01/03/18 08:00 01/03/18 08:00 01/03/18 08:00 Intake and Output: 01/03/18 01/03/18 06:59 18:59 Intake Total 270 Output Total 1200 Balance -930 - Medications Medications: Current Medications Acetaminophen (Tylenol 325mg Tab) 650 mg PO Q6 PRN PRN Reason: Pain, Mild (1-3) Last Admin: 01/03/18 06:34 Dose: 650 mg Acetaminophen (Tylenol 325mg Tab) 650 mg PO Q6H PRN PRN Reason: Fever >100.4 F Acyclovir (Zovirax) 800 mg PO BID JORGE A PRN Reason: Protocol Last Admin: 01/03/18 09:21 Dose: 800 mg Al Hydrox/Mg Hydrox/Simethicone (Maalox Plus 30 Ml) 30 ml PO Q8H PRN PRN Reason: Indigestion / Heartburn Last Admin: 01/03/18 04:02 Dose: 30 ml Alprazolam (Xanax) 0.5 mg PO BID PRN PRN Reason: Anxiety Last Admin: 01/02/18 02:12 Dose: 0.5 mg Benzocaine/Menthol (Cepacol Sore Throat) 1 rodo MT Q3H PRN PRN Reason: Sore Throat Docusate Sodium (Colace) 100 mg PO DAILY [facility] Last Admin: 01/03/18 09:22 Dose: Not Given Heparin Sodium (Porcine) (Heparin) 5,000 units SC Q8 [facility] Last Admin: 01/03/18 06:09 Dose: 5,000 units Ceftaroline Fosamil 600 mg/ (Sodium Chloride) 100 mls @ 100 mls/hr IVPB Q12H [facility]ORGE A PRN Reason: Protocol Last Admin: 01/03/18 01:09 Dose: 100 mls/hr Clindamycin Phosphate (Cleocin In Normal Saline) 600 mg in 50 mls @ 102 mls/hr IVPB Q8H [facility]ORGE A PRN Reason: Protocol Last Admin: 01/03/18 09:21 Dose: 102 mls/hr Morphine Sulfate (Morphine) 1 mg IVP Q4 PRN PRN Reason: Pain, severe (8-10) Last Admin: 01/03/18 06:56 Dose: 1 mg Oxycodone/Acetaminophen (Percocet 5/325 Mg Tab) 1 tab PO Q4H PRN PRN Reason: Pain, moderate (4-7) Stop: 01/04/18 09:42 Last Admin: 01/03/18 08:37 Dose: 1 tab Pantoprazole Sodium (Protonix Ec Tab) 40 mg PO DAILY [facility]OR[facility] A Last Admin: 01/03/18 09:20 Dose: 40 mg Zolpidem Tartrate (Ambien) 5 mg PO HS PRN PRN Reason: Insomnia Last Admin: 01/02/18 23:56 Dose: 5 mg - Labs Labs: 01/03/18 06:54 01/03/18 06:54 PT 18.4 SECONDS (9.7-12.2) H 01/03/18 08:17 INR 1.7 01/03/18 08:17 APTT 26 SECONDS (21-34) 01/03/18 08:17 - Extremities Exam Additional comments: Swelling to LEL improving. No tenderness to thigh. Knee AAROM to 40 degrees wthen complains of pain, less tenderness to lower leg +_ROM ankle/teos +DP/PT pulses Assessment and Plan (1) Cellulitis Assessment & Plan: WBC scan pending r/o knee prosthesis involvement IR for drainage of left thigh collection with culture MRI left knee above as per Dr. Bourne Status: Acute
--- NOTE | 2018-01-03 10:58 | CP.PCM.PN ---
Subjective - Date & Time of Evaluation Date of Evaluation: 01/03/18 Time of Evaluation: 10:58 - Subjective Subjective: Progress note dictated #[id number] Objective - Vital Signs/Intake and Output Vital Signs (last 24 hours): Temp Pulse Resp BP Pulse Ox 98.8 F 72 20 116/78 95 01/03/18 08:00 01/03/18 08:00 01/03/18 08:00 01/03/18 08:00 01/03/18 08:00 Intake and Output: 01/03/18 01/03/18 06:59 18:59 Intake Total 270 Output Total 1200 Balance -930 - Medications Medications: Current Medications Acetaminophen (Tylenol 325mg Tab) 650 mg PO Q6 PRN PRN Reason: Pain, Mild (1-3) Last Admin: 01/03/18 06:34 Dose: 650 mg Acetaminophen (Tylenol 325mg Tab) 650 mg PO Q6H PRN PRN Reason: Fever >100.4 F Acyclovir (Zovirax) 800 mg PO BID JORGE A PRN Reason: Protocol Last Admin: 01/03/18 09:21 Dose: 800 mg Al Hydrox/Mg Hydrox/Simethicone (Maalox Plus 30 Ml) 30 ml PO Q8H PRN PRN Reason: Indigestion / Heartburn Last Admin: 01/03/18 04:02 Dose: 30 ml Alprazolam (Xanax) 0.5 mg PO BID PRN PRN Reason: Anxiety Last Admin: 01/02/18 02:12 Dose: 0.5 mg Benzocaine/Menthol (Cepacol Sore Throat) 1 rodo MT Q3H PRN PRN Reason: Sore Throat Docusate Sodium (Colace) 100 mg PO DAILY [facility] Last Admin: 01/03/18 09:22 Dose: Not Given Heparin Sodium (Porcine) (Heparin) 5,000 units SC Q8 [facility] Last Admin: 01/03/18 06:09 Dose: 5,000 units Ceftaroline Fosamil 600 mg/ (Sodium Chloride) 100 mls @ 100 mls/hr IVPB Q12H JORGE A PRN Reason: Protocol Last Admin: 01/03/18 01:09 Dose: 100 mls/hr Clindamycin Phosphate (Cleocin In Normal Saline) 600 mg in 50 mls @ 102 mls/hr IVPB Q8H JORGE A PRN Reason: Protocol Last Admin: 01/03/18 09:21 Dose: 102 mls/hr Morphine Sulfate (Morphine) 1 mg IVP Q4 PRN PRN Reason: Pain, severe (8-10) Last Admin: 01/03/18 06:56 Dose: 1 mg Oxycodone/Acetaminophen (Percocet 5/325 Mg Tab) 1 tab PO Q4H PRN PRN Reason: Pain, moderate (4-7) Stop: 01/04/18 09:42 Last Admin: 01/03/18 08:37 Dose: 1 tab Pantoprazole Sodium (Protonix Ec Tab) 40 mg PO DAILY [facility]OR[facility] A Last Admin: 01/03/18 09:20 Dose: 40 mg Zolpidem Tartrate (Ambien) 5 mg PO HS PRN PRN Reason: Insomnia Last Admin: 01/02/18 23:56 Dose: 5 mg - Labs Labs: 01/03/18 06:54 01/03/18 06:54 PT 18.4 SECONDS (9.7-12.2) H 01/03/18 08:17 INR 1.7 01/03/18 08:17 APTT 26 SECONDS (21-34) 01/03/18 08:17
--- NOTE | 2018-01-03 11:55 | VASCLAB ---
Date of service: 01/01/2018 PROCEDURE: Lower Extremity Venous Duplex Exam. HISTORY: Pain in limb, r/o DVT PRIORS: None. TECHNIQUE: Bilateral common femoral, femoral, popliteal and posterior tibial, peroneal and great saphenous veins were evaluated. Flow was assessed with color Doppler, compressibility, assessment of phasic flow and augmentation response. Report prepared by Armando Segura, CALE, RVT FINDINGS: RIGHT: 1. Common Femoral Vein: 1.1. Compressibility - Fully compressible: Thrombus - None : Flow - Phasic: Augmentation -Normal: Reflux - None. 2. Femoral Vein: 2.1. Compressibility - Fully compressible: Thrombus - None : Flow - Phasic: Augmentation -Normal: Reflux - None. 3. Popliteal Vein: 3.1. Compressibility - Fully compressible: Thrombus - None : Flow - Phasic: Augmentation -Normal: Reflux - None. 4. Posterior Tibial Vein: 4.1. Compressibility - Fully compressible: Thrombus - None: Flow - Phasic: Augmentation -Normal: Reflux - None. 5. Peroneal Vein: 5.1. Compressibility - Fully compressible: Thrombus - None: Flow - Phasic: Augmentation -Normal: Reflux - None. 6. Great Saphenous Vein: 6.1. Compressibility - Fully compressible: Thrombus - None: Flow - Phasic: Augmentation - Normal: Reflux - None. LEFT: 1. Common Femoral Vein: 1.1. Compressibility - Fully compressible: Thrombus - None: Flow - Phasic: Augmentation -Normal: Reflux - None. 2. Femoral Vein: 2.1. Compressibility - Fully compressible: Thrombus - None: Flow - Phasic: Augmentation -Normal: Reflux - None. 3. Popliteal Vein: 3.1. Compressibility - Fully compressible: Thrombus - None : Flow - Phasic: Augmentation -Normal: Reflux - None. 4. Posterior Tibial Vein: 4.1. Compressibility - : Thrombus - : Flow - : Augmentation -: Reflux - . 5. Peroneal Vein: 5.1. Compressibility - : Thrombus - : Flow - : Augmentation -: Reflux - . 6. Great Saphenous Vein: 6.1. Compressibility - Fully compressible: Thrombus - None: Flow - Phasic: Augmentation - Normal: Reflux - None. OTHER FINDINGS: Right: None significant. Left: Due to swelling in the calf, the left peroneal and posterior tibial vein are not visualized. IMPRESSION: Right: No evidence of deep or superficial vein thrombosis of the right lower extremity. Normal valve function noted of the right side. Left: No evidence of deep or superficial vein thrombosis of the left lower extremity. Normal valve function noted of the left side. Normal flow velocities noted in the left posterior tibial and anterior tibial arteries.
--- NOTE | 2018-01-03 17:32 | CP.PCM.PN ---
Subjective - Date & Time of Evaluation Date of Evaluation: 01/03/18 Time of Evaluation: 07:00 - Subjective Subjective: no fever less pain and swelling Objective - Vital Signs/Intake and Output Vital Signs (last 24 hours): Temp Pulse Resp BP Pulse Ox 98.2 F 72 20 124/70 96 01/03/18 15:00 01/03/18 16:00 01/03/18 15:00 01/03/18 15:00 01/03/18 15:00 Intake and Output: 01/03/18 01/03/18 06:59 18:59 Intake Total 270 Output Total 1200 Balance -930 - Medications Medications: Current Medications Acetaminophen (Tylenol 325mg Tab) 650 mg PO Q6 PRN PRN Reason: Pain, Mild (1-3) Last Admin: 01/03/18 06:34 Dose: 650 mg Acetaminophen (Tylenol 325mg Tab) 650 mg PO Q6H PRN PRN Reason: Fever >100.4 F Acyclovir (Zovirax) 800 mg PO BID JORGE A PRN Reason: Protocol Last Admin: 01/03/18 09:21 Dose: 800 mg Al Hydrox/Mg Hydrox/Simethicone (Maalox Plus 30 Ml) 30 ml PO Q8H PRN PRN Reason: Indigestion / Heartburn Last Admin: 01/03/18 04:02 Dose: 30 ml Alprazolam (Xanax) 0.5 mg PO BID PRN PRN Reason: Anxiety Last Admin: 01/02/18 02:12 Dose: 0.5 mg Benzocaine/Menthol (Cepacol Sore Throat) 1 rodo MT Q3H PRN PRN Reason: Sore Throat Docusate Sodium (Colace) 100 mg PO DAILY [facility] Last Admin: 01/03/18 09:22 Dose: Not Given Heparin Sodium (Porcine) (Heparin) 5,000 units SC Q8 [facility] Last Admin: 01/03/18 13:48 Dose: 5,000 units Ceftaroline Fosamil 600 mg/ (Sodium Chloride) 100 mls @ 100 mls/hr IVPB Q12H JORGE A PRN Reason: Protocol Last Admin: 01/03/18 12:44 Dose: 100 mls/hr Clindamycin Phosphate (Cleocin In Normal Saline) 600 mg in 50 mls @ 102 mls/hr IVPB Q8H [facility]OR[facility] A PRN Reason: Protocol Last Admin: 01/03/18 09:21 Dose: 102 mls/hr Morphine Sulfate (Morphine) 1 mg IVP Q4 PRN PRN Reason: Pain, severe (8-10) Last Admin: 01/03/18 16:00 Dose: 1 mg Oxycodone/Acetaminophen (Percocet 5/325 Mg Tab) 1 tab PO Q4H PRN PRN Reason: Pain, moderate (4-7) Stop: 01/04/18 09:42 Last Admin: 01/03/18 13:33 Dose: 1 tab Pantoprazole Sodium (Protonix Ec Tab) 40 mg PO DAILY [facility] A Last Admin: 01/03/18 09:20 Dose: 40 mg Zolpidem Tartrate (Ambien) 5 mg PO HS PRN PRN Reason: Insomnia Last Admin: 01/02/18 23:56 Dose: 5 mg - Labs Labs: 01/03/18 06:54 01/03/18 06:54 PT 18.4 SECONDS (9.7-12.2) H 01/03/18 08:17 INR 1.7 01/03/18 08:17 APTT 26 SECONDS (21-34) 01/03/18 08:17 - Constitutional Appears: Non-toxic, Chronically Ill - Head Exam Head Exam: NORMOCEPHALIC - Eye Exam Eye Exam: PERRL - ENT Exam ENT Exam: Mucous Membranes Dry - Neck Exam Neck Exam: absent: Lymphadenopathy - Respiratory Exam Respiratory Exam: Decreased Breath Sounds - Cardiovascular Exam Cardiovascular Exam: REGULAR RHYTHM - GI/Abdominal Exam GI & Abdominal Exam: Distended - Rectal Exam Rectal Exam: Deferred - Exam Exam: NORMAL INSPECTION - Extremities Exam Extremities Exam: absent: Pedal Edema - Back Exam Back Exam: absent: CVA tenderness (L), CVA tenderness (R) - Neurological Exam Neurological Exam: Alert, Awake, Oriented x3 - Psychiatric Exam Psychiatric exam: Normal Mood - Skin Skin Exam: Dry Assessment and Plan (1) Asthma Status: Acute (2) Cellulitis Status: Acute (3) Mitral valve prolapse Status: Acute (4) Sepsis affecting skin Status: Acute (5) Septic shock Status: Acute
--- NOTE | 2018-01-03 23:49 | PN ---
DATE: 01/03/2018 SUBJECTIVE: The patient was seen and examined at bedside. The patient is slightly feeling better, but still complaining of left lower extremity swelling and pain. Denies any other complaints. PHYSICAL EXAMINATION: GENERAL: Middle aged female, lying in bed, in no acute distress. VITAL SIGNS: Blood pressure 124/70, pulse 76, respirations 20, temperature 98.2 degrees Fahrenheit, O2 saturations 98% on room air. HEENT: Pupils equal, round, and reacting to light and accommodation. Extraocular muscles intact. No icterus. No pallor. No oral thrush. No pharyngeal congestion. NECK: Supple. No JVD. LUNGS: Bilateral vesicular breath sounds. No wheezing. No rhonchi. CVS: S1, S2 present, regular. ABDOMEN: Soft, nontender. Bowel sounds present. No guarding. No rigidity. No rebound tenderness noted. PURCHASING INTERN: Alert, awake, and oriented x3. No focal deficits noted. EXTREMITIES: Left lower extremity swelling present. Erythema present. Tenderness to even light touch. Unable to move secondary to pain. MEDICATIONS: Include Tylenol as needed, Zovirax 800 mg b.i.d., Maalox as needed, Xanax 0.5 mg p.o. b.i.d. as needed, Cepacol, Teflaro 600 mg IV every 12 hours, clindamycin 600 mg IV every 8 hours, Colace 100 mg daily, subcu heparin 5000 units subcutaneous every 8 hours, morphine 1 mg IV push every 4 hours p.r.n., Percocet as needed, Protonix 40 mg p.o. daily, Ambien 5 mg p.o. at bedtime. LABORATORY DATA: Labs done from this morning: WBC 17.8, hemoglobin 8.5, hematocrit 25.4, platelets 530; bands 5. PT 18.4, INR 1.7, PTT 26, D-dimer 737. Sodium 140, potassium 3.8, chloride 102, bicarbonate 30, BUN 12, creatinine 0.7, glucose 92, calcium 9.1, phosphorus 3.8, magnesium 2.2, total bilirubin 0.7, AST 23, ALT 29, alkaline phosphatase 253. WBC scan, pending. ASSESSMENT AND PLAN: A middle-aged female with history of rheumatoid arthritis, osteoarthritis, gastroesophageal reflux disease, asthma, admitted for septic shock with group A Streptococcus bacteremia, Escherichia coli urinary tract infection, left leg cellulitis with persistently elevated WBC counts and persistent leg swelling. WBC count is slightly better than yesterday today. Waiting for WBC scan. Test for possible MRI in a.m. We will continue with physical therapy. We will continue with current antibiotics. We will follow up with Orthopedics. Nando Blum MD
[2018-01-04] MEDS: Ceftaroline 600 MG in Sodium Chloride 0.9% 100 ML IVPB SCH ×2 (00:06→13:21)
[2018-01-04] MEDS: Clindamycin 600mg/50ml NS 600 MG/50 ML BAG IVPB SCH ×3 (01:21→18:03)
[2018-01-04] MEDS: Oxycodone/Acetaminophen 5/325 mg Tab PO PRN ×4 (06:09→22:11)
[2018-01-04 06:58] LABS: BASO # 0.2 K/uL (0.0-0.2); BASO % 1.3 % (0.0-2.0); EOS # 0.1 K/uL (0.0-0.7); EOS % 0.5 % (0.0-4.0); HEMOGLOBIN 8.5 g/dL (11.0-16.0); LYMPH # 1.9 K/uL (1.0-4.3); LYMPH % 11.1 % (20.0-40.0); MEAN CELL VOLUME 87.6 fL (81.0-99.0); MEAN CORPUSCULAR HEMOGLOBIN 29.5 pg (27.0-31.0); MEAN CORPUSCULAR HGB CONC 33.6 g/dL (33.0-37.0); MEAN PLATELET VOLUME 7.3 fL (7.2-11.7); MONO # 1.6 K/uL (0.0-0.8); MONO % 9.5 % (0.0-10.0); NEUT # 13.4 K/uL (1.8-7.0); NEUT % 77.6 % (50.0-75.0); RBC 2.87 Mil/uL (3.80-5.20); RED CELL DISTRIBUTION WIDTH 18.2 % (11.5-14.5); WHITE BLOOD COUNT 17.2 K/uL (4.8-10.8)
[2018-01-04 07:39] LABS: ALB/GLOB RATIO 0.8 (1.0-2.1); ALBUMIN 3.1 g/dL (3.5-5.0); ALT/SGPT 26 U/L (9-52); AST/SGOT 19 U/L (14-36); BLOOD UREA NITROGEN 11 mg/dL (7-17); CALCIUM 9.1 mg/dl (8.6-10.4); GFR AFRICAN-AMERICAN > 60; GFR NON-AFRICAN AMERICAN > 60
[2018-01-04] MEDS: Pantoprazole 40 mg EC Tab PO SCH (09:06)
--- NOTE | 2018-01-04 09:48 | CP.PCM.PN ---
Subjective - Date & Time of Evaluation Date of Evaluation: 01/04/18 Time of Evaluation: 09:30 - Subjective Subjective: Progress note dictated #[id number] Objective - Vital Signs/Intake and Output Vital Signs (last 24 hours): Temp Pulse Resp BP Pulse Ox 98.3 F 70 20 130/72 96 01/04/18 07:00 01/04/18 07:00 01/04/18 07:00 01/04/18 07:00 01/04/18 07:00 Intake and Output: 01/04/18 01/04/18 06:59 18:59 Output Total 500 Balance -500 - Medications Medications: Current Medications Acetaminophen (Tylenol 325mg Tab) 650 mg PO Q6 PRN PRN Reason: Pain, Mild (1-3) Last Admin: 01/03/18 06:34 Dose: 650 mg Acetaminophen (Tylenol 325mg Tab) 650 mg PO Q6H PRN PRN Reason: Fever >100.4 F Acyclovir (Zovirax) 800 mg PO BID JORGE A PRN Reason: Protocol Last Admin: 01/04/18 09:05 Dose: 800 mg Al Hydrox/Mg Hydrox/Simethicone (Maalox Plus 30 Ml) 30 ml PO Q8H PRN PRN Reason: Indigestion / Heartburn Last Admin: 01/03/18 04:02 Dose: 30 ml Alprazolam (Xanax) 0.5 mg PO BID PRN PRN Reason: Anxiety Last Admin: 01/02/18 02:12 Dose: 0.5 mg Benzocaine/Menthol (Cepacol Sore Throat) 1 rodo MT Q3H PRN PRN Reason: Sore Throat Docusate Sodium (Colace) 100 mg PO DAILY [facility] Last Admin: 01/04/18 09:05 Dose: Not Given Heparin Sodium (Porcine) (Heparin) 5,000 units SC Q8 [facility] Last Admin: 01/04/18 06:05 Dose: 5,000 units Ceftaroline Fosamil 600 mg/ (Sodium Chloride) 100 mls @ 100 mls/hr IVPB Q12H JORGE A PRN Reason: Protocol Last Admin: 01/04/18 00:06 Dose: 100 mls/hr Clindamycin Phosphate (Cleocin In Normal Saline) 600 mg in 50 mls @ 102 mls/hr IVPB Q8H [facility]OR[facility] A PRN Reason: Protocol Last Admin: 01/04/18 01:21 Dose: 102 mls/hr Morphine Sulfate (Morphine) 1 mg IVP Q4 PRN PRN Reason: Pain, severe (8-10) Last Admin: 01/04/18 09:06 Dose: 1 mg Pantoprazole Sodium (Protonix Ec Tab) 40 mg PO DAILY [facility] A Last Admin: 01/04/18 09:06 Dose: 40 mg Zolpidem Tartrate (Ambien) 5 mg PO HS PRN PRN Reason: Insomnia Last Admin: 01/04/18 00:04 Dose: 5 mg - Labs Labs: 01/04/18 06:51 01/04/18 06:51 PT 18.4 SECONDS (9.7-12.2) H 01/03/18 08:17 INR 1.7 01/03/18 08:17 APTT 26 SECONDS (21-34) 01/03/18 08:17
--- NOTE | 2018-01-04 10:32 | CP.PCM.PN ---
Subjective - Date & Time of Evaluation Date of Evaluation: 01/04/18 Time of Evaluation: 10:32 - Subjective Subjective: Podiatry Progress Note - Dr. Okeefe 62F seen and evaluated this AM for LLE cellulitis and lanced bullae. No acute events overnight. 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 Dressing to medial left leg clean/dry/ intact. Denies N/V/F/D/C/SOB. Objective - Vital Signs/Intake and Output Vital Signs (last 24 hours): Temp Pulse Resp BP Pulse Ox 98.3 F 70 20 130/72 96 01/04/18 07:00 01/04/18 07:00 01/04/18 07:00 01/04/18 07:00 01/04/18 07:00 Intake and Output: 01/04/18 01/04/18 06:59 18:59 Output Total 500 Balance -500 - Medications Medications: Current Medications Acetaminophen (Tylenol 325mg Tab) 650 mg PO Q6 PRN PRN Reason: Pain, Mild (1-3) Last Admin: 01/03/18 06:34 Dose: 650 mg Acetaminophen (Tylenol 325mg Tab) 650 mg PO Q6H PRN PRN Reason: Fever >100.4 F Acyclovir (Zovirax) 800 mg PO BID JORGE A PRN Reason: Protocol Last Admin: 01/04/18 09:05 Dose: 800 mg Al Hydrox/Mg Hydrox/Simethicone (Maalox Plus 30 Ml) 30 ml PO Q8H PRN PRN Reason: Indigestion / Heartburn Last Admin: 01/03/18 04:02 Dose: 30 ml Alprazolam (Xanax) 0.5 mg PO BID PRN PRN Reason: Anxiety Last Admin: 01/02/18 02:12 Dose: 0.5 mg Benzocaine/Menthol (Cepacol Sore Throat) 1 rodo MT Q3H PRN PRN Reason: Sore Throat Docusate Sodium (Colace) 100 mg PO DAILY [facility] Last Admin: 01/04/18 09:05 Dose: Not Given Heparin Sodium (Porcine) (Heparin) 5,000 units SC Q8 [facility] Last Admin: 01/04/18 06:05 Dose: 5,000 units Ceftaroline Fosamil 600 mg/ (Sodium Chloride) 100 mls @ 100 mls/hr IVPB Q12H JORGE A PRN Reason: Protocol Last Admin: 01/04/18 00:06 Dose: 100 mls/hr Clindamycin Phosphate (Cleocin In Normal Saline) 600 mg in 50 mls @ 102 mls/hr IVPB Q8H JORGE A PRN Reason: Protocol Last Admin: 01/04/18 01:21 Dose: 102 mls/hr Morphine Sulfate (Morphine) 1 mg IVP Q4 PRN PRN Reason: Pain, severe (8-10) Last Admin: 01/04/18 09:06 Dose: 1 mg Pantoprazole Sodium (Protonix Ec Tab) 40 mg PO DAILY JORGE A Last Admin: 01/04/18 09:06 Dose: 40 mg Zolpidem Tartrate (Ambien) 5 mg PO HS PRN PRN Reason: Insomnia Last Admin: 01/04/18 00:04 Dose: 5 mg - Labs Labs: 01/04/18 06:51 01/04/18 06:51 PT 18.4 SECONDS (9.7-12.2) H 01/03/18 08:17 INR 1.7 01/03/18 08:17 APTT 26 SECONDS (21-34) 01/03/18 08:17 - Constitutional Appears: Well, No Acute Distress - Extremities Exam Additional comments: Left LE focused exam VASC: DP/PT pulses weakly palpable 1/4, Cap refill time: < 3 sec to all digits, Temp gradient: hot to hot from proximal tibial tuberosity to distal digits, +1 pitting edema noted extending from the knee joint distally DERM: Lanced bullae noted on the postero-medial aspect of the left leg with epithelializing base, no drainage present; lateral border of the nail fold opening noted on the hallux and 2nd digit nail, deep rubor extending from knee joint to ankle NEURO: protective sensation grossly intact ORTHO: Pain on palpation noted to areas of deep rubor; ROM limited secondary to guarding. - Neurological Exam Neurological Exam: Alert, Awake, Oriented x3 - Psychiatric Exam Psychiatric exam: Normal Affect, Normal Mood Assessment and Plan - Assessment and Plan (Free Text) Assessment: 62F with 1) left lower extremity cellulitis and 2) serous bullae, resolving Plan: Patient seen and evaluated alongside attending, Dr. Sary BAILEY, WBC trending downwards @ 17.[address] (12/30/17): No gas forming cellulitis, no intramuscular gas noted, negative osteomyelitis; large suprapatellar effusion, left lateral thigh fluid collection Left tibfib XR (12/31/17): soft tissue swelling without acute articular or osseous abnormality Venous duplex LLE: (-)DVT Continue local wound care - Optifoam to bullae; will continue to monitor Continue abx per ID - Ceftaroline, Clindamycin Pain control per primary team Podiatry will continue to follow
--- NOTE | 2018-01-04 14:06 | PN ---
DATE: 01/04/2018 SUBJECTIVE: The patient is seen and examined at bedside. The patient is complaining of left leg pain, able to move slightly, better than yesterday. Denies any new complaints. PHYSICAL EXAMINATION: GENERAL: Middle-aged obese female, lying in bed, in no acute distress. VITAL SIGNS: Blood pressure 130/72, pulse 70, respirations 20, temperature 98.3 degrees Fahrenheit, O2 sat is 96% on room air. HEENT: Pupils equal, round and reacting to light and accommodation. Extraocular muscles intact. No icterus. No pallor. No oral thrush. No pharyngeal congestion. NECK: Supple. No JVD. LUNGS: Bilateral vesicular breath sounds. No wheezing. No rhonchi. CVS: S1 and S2 are present, regular. ABDOMEN: Soft and nontender. Bowel sounds are present. No guarding. No rigidity. No rebound tenderness noted. PATHOLOGY MANAGER: Alert, awake, and oriented x3. No focal deficits noted. EXTREMITIES: Left leg swelling decreasing. Erythema is deceasing, but tenderness even to light touch. No open wounds or discharge noted in the upper thigh or in the knee joint region. Palpable peripheral pulses. MEDICATIONS: Include Tylenol as needed for pain, Zovirax 800 mg p.o. b.i.d., Maalox as needed, Xanax 0.5 mg p.o. b.i.d., Cepacol, Teflaro 600 mg IV every 12 hours, clindamycin 600 mg IV every 8 hours, Colace 100 mg daily, subcu heparin 5000 units subcu every 8 hours, morphine 1 mg IV push every 4 hours p.r.n., Protonix 40 mg daily, and Ambien 5 mg daily as needed. LABORATORY DATA: Labs from this morning: WBC 17.2, hemoglobin 8.5, hematocrit 25.1, and platelets 641. Sodium 139, potassium 4, chloride 102, bicarb 28, BUN 11, creatinine 0.7, glucose 92, calcium 9.1, phosphorus 3.7, magnesium 2, AST 19, ALT 26, alkaline phosphatase 246, total protein 7.1, and albumin 3.1. ASSESSMENT AND PLAN: Middle-aged female with history of rheumatoid arthritis, osteoarthritis, gastroesophageal reflux disease, asthma, admitted for left leg cellulitis, septic shock, group Streptococcus bacteremia, Escherichia coli urinary tract infection with persistently elevated white blood cell counts. All the radiologic workups were consistent with only cellulitis of the left lower extremity, for Ceretec scan and for possible MRI today. We will continue with current antibiotics. Discussed with Podiatry. We will follow up with the results. Nando Blum MD
--- NOTE | 2018-01-04 20:13 | NM ---
Date of service: 01/03/2018 PROCEDURE: Nuclear Ceretec Scan Left Leg HISTORY: left leg (entire leg) COMPARISON: CT Left Femur 12/31/2017. TECHNIQUE: Following intravenous administration of 24.5 mCi of technetium 9 M Ceretec labeled white blood cells, unclear Ceretec scan was performed assessing the imaging of the entire left lower extremity captured at 2 in 24 hours post isotope administration using planar technique. FINDINGS: There is homogeneous uptake appreciated within the bilateral lower extremity I soft tissues marginally greater at the left and right side in a 2 hour and 24 uptake imaging. Nonspecific bony uptake is seen at the bilateral femora and minimally in the bilateral tibiae. This is of uncertain significance and origin. There is ill defined uptake identified at the distal left thigh/upper knee anteriorly borderline for a probable suprapatellar bursa infectious or inflammatory process. Photopenia changes at the bilateral knees are compatible with bilateral total knee replacement hardware. IMPRESSION: 1. Borderline infectious or inflammatory uptake at the region of the suprasellar bursa left knee. 2. Diffuse post subtle uptake throughout the left leg soft tissues is compatible with the clinical history of cellulitis. 3. Photopenia related to bilateral total knee replacement hardware is identified.
[2018-01-04] MEDS: Alum-Mag Hydrox-Simethicone Susp (30 mL) PO PRN (23:07)
[2018-01-05] MEDS: Ceftaroline 600 MG in Sodium Chloride 0.9% 100 ML IVPB SCH ×2 (00:33→13:23)
[2018-01-05] MEDS: Clindamycin 600mg/50ml NS 600 MG/50 ML BAG IVPB SCH ×3 (02:05→17:48)
[2018-01-05] MEDS: Oxycodone/Acetaminophen 5/325 mg Tab PO PRN ×3 (05:53→21:38)
[2018-01-05] MEDS: Pantoprazole 40 mg EC Tab PO SCH (10:00)
--- NOTE | 2018-01-05 14:12 | CP.PCM.PN ---
Subjective - Date & Time of Evaluation Date of Evaluation: 01/05/18 Time of Evaluation: 14:12 - Subjective Subjective: Progress note dictated #[id number] Objective - Vital Signs/Intake and Output Vital Signs (last 24 hours): Temp Pulse Resp BP Pulse Ox 99.0 F 71 20 123/70 96 01/05/18 07:00 01/05/18 08:00 01/05/18 07:00 01/05/18 07:00 01/05/18 07:00 Intake and Output: 01/05/18 01/05/18 06:59 18:59 Intake Total 410 Output Total 1100 Balance -690 - Medications Medications: Current Medications Acetaminophen (Tylenol 325mg Tab) 650 mg PO Q6 PRN PRN Reason: Pain, Mild (1-3) Last Admin: 01/04/18 20:33 Dose: 650 mg Acetaminophen (Tylenol 325mg Tab) 650 mg PO Q6H PRN PRN Reason: Fever >100.4 F Acyclovir (Zovirax) 800 mg PO BID JORGE A PRN Reason: Protocol Last Admin: 01/05/18 10:00 Dose: 800 mg Al Hydrox/Mg Hydrox/Simethicone (Maalox Plus 30 Ml) 30 ml PO Q8H PRN PRN Reason: Indigestion / Heartburn Last Admin: 01/04/18 23:07 Dose: 30 ml Alprazolam (Xanax) 0.5 mg PO BID PRN PRN Reason: Anxiety Last Admin: 01/04/18 10:59 Dose: 0.5 mg Benzocaine/Menthol (Cepacol Sore Throat) 1 rodo MT Q3H PRN PRN Reason: Sore Throat Docusate Sodium (Colace) 100 mg PO DAILY [facility] Last Admin: 01/05/18 10:02 Dose: Not Given Heparin Sodium (Porcine) (Heparin) 5,000 units SC Q8 JORGE A Last Admin: 01/05/18 13:22 Dose: 5,000 units Ceftaroline Fosamil 600 mg/ (Sodium Chloride) 100 mls @ 100 mls/hr IVPB Q12H JORGE A PRN Reason: Protocol Last Admin: 01/05/18 13:23 Dose: 100 mls/hr Clindamycin Phosphate (Cleocin In Normal Saline) 600 mg in 50 mls @ 102 mls/hr IVPB Q8H JORGE A PRN Reason: Protocol Last Admin: 01/05/18 10:32 Dose: 102 mls/hr Morphine Sulfate (Morphine) 1 mg IVP Q6H PRN PRN Reason: Pain, severe (8-10) Last Admin: 01/05/18 10:01 Dose: 1 mg Oxycodone/Acetaminophen (Percocet 5/325 Mg Tab) 1 tab PO Q4H PRN PRN Reason: Pain, moderate (4-7) Stop: 01/07/18 12:51 Last Admin: 01/05/18 13:17 Dose: 1 tab Pantoprazole Sodium (Protonix Ec Tab) 40 mg PO DAILY JORGE A Last Admin: 01/05/18 10:00 Dose: 40 mg Zolpidem Tartrate (Ambien) 5 mg PO HS PRN PRN Reason: Insomnia Last Admin: 01/04/18 23:04 Dose: 5 mg - Labs Labs: 01/04/18 06:51 01/04/18 06:51 PT 18.4 SECONDS (9.7-12.2) H 01/03/18 08:17 INR 1.7 01/03/18 08:17 APTT 26 SECONDS (21-34) 01/03/18 08:17
--- NOTE | 2018-01-05 15:55 | CP.PCM.PN ---
Subjective - Date & Time of Evaluation Date of Evaluation: 01/05/18 Time of Evaluation: 08:00 - Subjective Subjective: patient c/o pain no fever MRI still not done ceretec shows ? suprasellar bursa uptake left side Ortho on board- Dr Gould following for possible drainage as per patient Objective - Vital Signs/Intake and Output Vital Signs (last 24 hours): Temp Pulse Resp BP Pulse Ox 99.0 F 71 20 123/70 96 01/05/18 07:00 01/05/18 08:00 01/05/18 07:00 01/05/18 07:00 01/05/18 07:00 Intake and Output: 01/05/18 01/05/18 06:59 18:59 Intake Total 410 Output Total 1100 400 Balance -690 -400 - Medications Medications: Current Medications Acetaminophen (Tylenol 325mg Tab) 650 mg PO Q6 PRN PRN Reason: Pain, Mild (1-3) Last Admin: 01/04/18 20:33 Dose: 650 mg Acetaminophen (Tylenol 325mg Tab) 650 mg PO Q6H PRN PRN Reason: Fever >100.4 F Acyclovir (Zovirax) 800 mg PO BID JORGE A PRN Reason: Protocol Last Admin: 01/05/18 10:00 Dose: 800 mg Al Hydrox/Mg Hydrox/Simethicone (Maalox Plus 30 Ml) 30 ml PO Q8H PRN PRN Reason: Indigestion / Heartburn Last Admin: 01/04/18 23:07 Dose: 30 ml Alprazolam (Xanax) 0.5 mg PO BID PRN PRN Reason: Anxiety Last Admin: 01/04/18 10:59 Dose: 0.5 mg Benzocaine/Menthol (Cepacol Sore Throat) 1 rodo MT Q3H PRN PRN Reason: Sore Throat Docusate Sodium (Colace) 100 mg PO DAILY [facility] Last Admin: 01/05/18 10:02 Dose: Not Given Heparin Sodium (Porcine) (Heparin) 5,000 units SC Q8 [facility] Last Admin: 01/05/18 13:22 Dose: 5,000 units Ceftaroline Fosamil 600 mg/ (Sodium Chloride) 100 mls @ 100 mls/hr IVPB Q12H JORGE A PRN Reason: Protocol Last Admin: 01/05/18 13:23 Dose: 100 mls/hr Clindamycin Phosphate (Cleocin In Normal Saline) 600 mg in 50 mls @ 102 mls/hr IVPB Q8H JORGE A PRN Reason: Protocol Last Admin: 01/05/18 10:32 Dose: 102 mls/hr Morphine Sulfate (Morphine) 1 mg IVP Q6H PRN PRN Reason: Pain, severe (8-10) Last Admin: 01/05/18 10:01 Dose: 1 mg Oxycodone/Acetaminophen (Percocet 5/325 Mg Tab) 1 tab PO Q4H PRN PRN Reason: Pain, moderate (4-7) Stop: 01/07/18 12:51 Last Admin: 01/05/18 13:17 Dose: 1 tab Pantoprazole Sodium (Protonix Ec Tab) 40 mg PO DAILY JORGE A Last Admin: 01/05/18 10:00 Dose: 40 mg Zolpidem Tartrate (Ambien) 5 mg PO HS PRN PRN Reason: Insomnia Last Admin: 01/04/18 23:04 Dose: 5 mg - Labs Labs: 01/04/18 06:51 01/04/18 06:51 PT 18.4 SECONDS (9.7-12.2) H 01/03/18 08:17 INR 1.7 01/03/18 08:17 APTT 26 SECONDS (21-34) 01/03/18 08:17 - Constitutional Appears: Non-toxic, Chronically Ill - Head Exam Head Exam: NORMOCEPHALIC - Eye Exam Eye Exam: PERRL - ENT Exam ENT Exam: Mucous Membranes Dry - Neck Exam Neck Exam: absent: Lymphadenopathy - Respiratory Exam Respiratory Exam: Decreased Breath Sounds - Cardiovascular Exam Cardiovascular Exam: REGULAR RHYTHM - GI/Abdominal Exam GI & Abdominal Exam: Soft, Diminished Bowel Sounds - Rectal Exam Rectal Exam: Deferred - Exam Exam: NORMAL INSPECTION - Extremities Exam Extremities Exam: Tenderness. absent: Calf Tenderness Additional comments: left leg swelling and discoloration, no pus no drainage rom left knee ok - Back Exam Back Exam: absent: CVA tenderness (L), CVA tenderness (R) - Neurological Exam Neurological Exam: Alert, Awake, Oriented x3 Neuro motor strength exam: Left Upper Extremity: 4, Right Upper Extremity: 4, Left Lower Extremity: 4, Right Lower Extremity: 4 - Psychiatric Exam Psychiatric exam: Normal Mood - Skin Skin Exam: Dry, Intact Assessment and Plan (1) Asthma Status: Acute (2) Cellulitis Status: Acute (3) Mitral valve prolapse Status: Acute (4) Sepsis affecting skin Status: Acute (5) Septic shock Status: Acute - Assessment and Plan (Free Text) Assessment: severe left leg cellulitis ? bursitis left knee grp A strep bacteremia/ sepsis history of bilat TKR severe OA Hx RA and MRSA in past cont iv rx as per Dr Jay Blancas Ortho follow up re - persistent pain
--- NOTE | 2018-01-06 01:13 | PN ---
DATE: 01/05/2018 SUBJECTIVE: The patient was seen and examined at bedside. Still complaining of left leg pain and not able to move the left leg. Denies any other new complaints. PHYSICAL EXAMINATION: GENERAL: Middle aged female, lying in bed in no acute distress. VITAL SIGNS: Blood pressure 140/70, pulse 66, respirations 20, temperature 97.6 degrees Fahrenheit, O2 sat is 94% on room air. HEENT: Pupils equal, round and reacting to light and accommodation. Extraocular muscles intact. No icterus. No pallor. No oral thrush. No pharyngeal congestion. NECK: Supple. No JVD. LUNGS: Bilateral vesicular breath sounds. No wheezing. No rhonchi. CVS: S1, S2 present, regular. ABDOMEN: Soft. Nontender. Bowel sounds present. No guarding. No rigidity. No rebound tenderness noted. SYSTEMS SOFTWARE ENGINEER: Alert, awake, and oriented x3. No focal deficits noted. EXTREMITIES: Left leg swelling, decreasing. Erythema is decreasing. Tenderness present even to light touch. MEDICATIONS: Include Tylenol as needed, Zovirax 800 mg p.o. b.i.d., Maalox as needed, Xanax 0.5 mg p.o. b.i.d., Cepacol as needed, Teflaro 600 mg IV every 12 hours, clindamycin 600 mg IV every 8 hours, Colace 100 mg daily, subcutaneous heparin, morphine, Protonix 40 mg daily, Ambien 5 mg p.o. at bedtime. LABORATORY DATA: No new labs from today. WBC scan, borderline infectious or inflammatory uptake at the region of the suprapatellar bursa, left knee and diffuse uptake throughout the left leg soft tissues compatible with the clinical history of cellulitis. ASSESSMENT AND PLAN: Middle-aged female with history of rheumatoid arthritis, osteoarthritis, gastroesophageal reflux disease, asthma. Admitted for left leg cellulitis, status post septic shock with persistent pain and tenderness and inability to move the leg. All the radiologic workup negative for any other source of infection other than cellulitis. We will continue with current antibiotics and for possible MRI in a.m. We will repeat labs in a.m. We will add further recommendation as her clinical course progresses. Discussed with the patient at length regarding the treatment plan. The patient agrees with the current treatment plan. We will look for social services technician for discharge planning. Nando Blum MD [facility] # [id number]
[2018-01-06] MEDS: Ceftaroline 600 MG in Sodium Chloride 0.9% 100 ML IVPB SCH ×2 (01:46→13:56)
[2018-01-06] MEDS: Oxycodone/Acetaminophen 5/325 mg Tab PO PRN ×4 (01:50→23:36)
[2018-01-06] MEDS: Clindamycin 600mg/50ml NS 600 MG/50 ML BAG IVPB SCH ×3 (02:04→18:15)
[2018-01-06 07:54] LABS: BASO # 0.1 K/uL (0.0-0.2); BASO % 0.4 % (0.0-2.0); EOS # 0.2 K/uL (0.0-0.7); EOS % 1.1 % (0.0-4.0); HEMOGLOBIN 8.5 g/dL (11.0-16.0); LYMPH % 13.6 % (20.0-40.0); MEAN CELL VOLUME 86.6 fL (81.0-99.0); MEAN CORPUSCULAR HEMOGLOBIN 28.9 pg (27.0-31.0); MEAN CORPUSCULAR HGB CONC 33.4 g/dL (33.0-37.0); MEAN PLATELET VOLUME 7.4 fL (7.2-11.7); MONO # 1.6 K/uL (0.0-0.8); MONO % 10.8 % (0.0-10.0); NEUT # 10.7 K/uL (1.8-7.0); NEUT % 74.1 % (50.0-75.0); RBC 2.92 Mil/uL (3.80-5.20); RED CELL DISTRIBUTION WIDTH 17.5 % (11.5-14.5); WHITE BLOOD COUNT 14.5 K/uL (4.8-10.8)
[2018-01-06 08:13] LABS: ALB/GLOB RATIO 0.8 (1.0-2.1); ALBUMIN 3.2 g/dL (3.5-5.0); ALT/SGPT 23 U/L (9-52); AST/SGOT 28 U/L (14-36); BLOOD UREA NITROGEN 13 mg/dL (7-17); CALCIUM 9.4 mg/dl (8.6-10.4); GFR AFRICAN-AMERICAN > 60; GFR NON-AFRICAN AMERICAN > 60
[2018-01-06] MEDS: Pantoprazole 40 mg EC Tab PO SCH (10:03)
[2018-01-06] MEDS: Bismuth Subsalicylate 262 mg Chew Tab PO PRN (10:06)
--- NOTE | 2018-01-06 11:05 | CP.PCM.PN ---
Subjective - Date & Time of Evaluation Date of Evaluation: 01/06/18 Time of Evaluation: 11:05 - Subjective Subjective: Progress note dictated #[id number] Objective - Vital Signs/Intake and Output Vital Signs (last 24 hours): Temp Pulse Resp BP Pulse Ox 98.1 F 64 20 128/76 97 01/06/18 07:30 01/06/18 07:30 01/06/18 07:30 01/06/18 07:30 01/06/18 07:30 Intake and Output: 01/06/18 01/06/18 06:59 18:59 Intake Total 500 Output Total 500 Balance 0 - Medications Medications: Current Medications Acetaminophen (Tylenol 325mg Tab) 650 mg PO Q6 PRN PRN Reason: Pain, Mild (1-3) Last Admin: 01/04/18 20:33 Dose: 650 mg Acetaminophen (Tylenol 325mg Tab) 650 mg PO Q6H PRN PRN Reason: Fever >100.4 F Acyclovir (Zovirax) 800 mg PO BID JORGE A PRN Reason: Protocol Last Admin: 01/05/18 17:51 Dose: 800 mg Al Hydrox/Mg Hydrox/Simethicone (Maalox Plus 30 Ml) 30 ml PO Q8H PRN PRN Reason: Indigestion / Heartburn Last Admin: 01/04/18 23:07 Dose: 30 ml Alprazolam (Xanax) 0.5 mg PO BID PRN PRN Reason: Anxiety Last Admin: 01/04/18 10:59 Dose: 0.5 mg Benzocaine/Menthol (Cepacol Sore Throat) 1 rodo MT Q3H PRN PRN Reason: Sore Throat Bismuth Subsalicylate (Pepto Bismol) 262 mg PO Q8H PRN PRN Reason: Dyspepsia Last Admin: 01/06/18 10:06 Dose: 262 mg Docusate Sodium (Colace) 100 mg PO DAILY [facility] Last Admin: 01/06/18 10:01 Dose: Not Given Heparin Sodium (Porcine) (Heparin) 5,000 units SC Q8 [facility] Last Admin: 01/06/18 06:44 Dose: Not Given Ceftaroline Fosamil 600 mg/ (Sodium Chloride) 100 mls @ 100 mls/hr IVPB Q12H [facility] PRN Reason: Protocol Last Admin: 01/06/18 01:46 Dose: 100 mls/hr Clindamycin Phosphate (Cleocin In Normal Saline) 600 mg in 50 mls @ 102 mls/hr IVPB Q8H JORGE A PRN Reason: Protocol Last Admin: 01/06/18 10:01 Dose: 102 mls/hr Morphine Sulfate (Morphine) 1 mg IVP Q6H PRN PRN Reason: Pain, severe (8-10) Last Admin: 01/06/18 10:02 Dose: 1 mg Oxycodone/Acetaminophen (Percocet 5/325 Mg Tab) 1 tab PO Q4H PRN PRN Reason: Pain, moderate (4-7) Stop: 01/07/18 12:51 Last Admin: 01/06/18 07:10 Dose: 1 tab Pantoprazole Sodium (Protonix Ec Tab) 40 mg PO DAILY JOR[facility] A Last Admin: 01/06/18 10:03 Dose: 40 mg Zolpidem Tartrate (Ambien) 5 mg PO HS PRN PRN Reason: Insomnia Last Admin: 01/05/18 23:06 Dose: 5 mg - Labs Labs: 01/06/18 07:37 01/06/18 07:37 PT 18.4 SECONDS (9.7-12.2) H 01/03/18 08:17 INR 1.7 01/03/18 08:17 APTT 26 SECONDS (21-34) 01/03/18 08:17
--- NOTE | 2018-01-06 14:00 | CP.PCM.PN ---
Subjective - Date & Time of Evaluation Date of Evaluation: 01/06/18 Time of Evaluation: 13:57 - Subjective Subjective: Patient did not tolerate MRI. She says her leg is feeling a lot better, but that she is weak. No new complaints. Objective - Vital Signs/Intake and Output Vital Signs (last 24 hours): Temp Pulse Resp BP Pulse Ox 98.1 F 64 20 128/76 97 01/06/18 07:30 01/06/18 07:30 01/06/18 07:30 01/06/18 07:30 01/06/18 07:30 Intake and Output: 01/06/18 01/06/18 06:59 18:59 Intake Total 500 Output Total 500 Balance 0 - Medications Medications: Current Medications Acetaminophen (Tylenol 325mg Tab) 650 mg PO Q6 PRN PRN Reason: Pain, Mild (1-3) Last Admin: 01/04/18 20:33 Dose: 650 mg Acetaminophen (Tylenol 325mg Tab) 650 mg PO Q6H PRN PRN Reason: Fever >100.4 F Acyclovir (Zovirax) 800 mg PO BID JORGE A PRN Reason: Protocol Last Admin: 01/06/18 11:15 Dose: 800 mg Al Hydrox/Mg Hydrox/Simethicone (Maalox Plus 30 Ml) 30 ml PO Q8H PRN PRN Reason: Indigestion / Heartburn Last Admin: 01/04/18 23:07 Dose: 30 ml Alprazolam (Xanax) 0.5 mg PO BID PRN PRN Reason: Anxiety Last Admin: 01/04/18 10:59 Dose: 0.5 mg Benzocaine/Menthol (Cepacol Sore Throat) 1 rodo MT Q3H PRN PRN Reason: Sore Throat Bismuth Subsalicylate (Pepto Bismol) 262 mg PO Q8H PRN PRN Reason: Dyspepsia Last Admin: 01/06/18 10:06 Dose: 262 mg Docusate Sodium (Colace) 100 mg PO DAILY [facility] Last Admin: 01/06/18 10:01 Dose: Not Given Heparin Sodium (Porcine) (Heparin) 5,000 units SC Q8 [facility] Last Admin: 01/06/18 13:55 Dose: 5,000 units Ceftaroline Fosamil 600 mg/ (Sodium Chloride) 100 mls @ 100 mls/hr IVPB Q12H [facility] A PRN Reason: Protocol Last Admin: 01/06/18 13:56 Dose: 100 mls/hr Clindamycin Phosphate (Cleocin In Normal Saline) 600 mg in 50 mls @ 102 mls/hr IVPB Q8H JORGE A PRN Reason: Protocol Last Admin: 01/06/18 10:01 Dose: 102 mls/hr Morphine Sulfate (Morphine) 1 mg IVP Q6H PRN PRN Reason: Pain, severe (8-10) Last Admin: 01/06/18 10:02 Dose: 1 mg Oxycodone/Acetaminophen (Percocet 5/325 Mg Tab) 1 tab PO Q4H PRN PRN Reason: Pain, moderate (4-7) Stop: 01/07/18 12:51 Last Admin: 01/06/18 07:10 Dose: 1 tab Pantoprazole Sodium (Protonix Ec Tab) 40 mg PO DAILY [facility] Last Admin: 01/06/18 10:03 Dose: 40 mg Zolpidem Tartrate (Ambien) 5 mg PO HS PRN PRN Reason: Insomnia Last Admin: 01/05/18 23:06 Dose: 5 mg - Labs Labs: 01/06/18 07:37 01/06/18 07:37 PT 18.4 SECONDS (9.7-12.2) H 01/03/18 08:17 INR 1.7 01/03/18 08:17 APTT 26 SECONDS (21-34) 01/03/18 08:17 - Extremities Exam Additional comments: Patient still complains of pain with knee flexion >40, unable to do SLR without assist, but no pain with attempt. No tenderness to light touch of left leg as previous. Minimal tenderness to palpation to lower leg and knee (while assisting knee flexion) no TTP thigh calves soft NT neg homans more wrinkling noted to LLE sensation intact +DP/PT pulses Assessment and Plan (1) Cellulitis Assessment & Plan: bone scan appreciated patient refused completion of MRI due to claustrophobia IR drainage cancelled d/w Dr. Bourne, aware of above, continue current conservative mgmt at this time patient very deconditioned, needed encouragement for participation in PTOT VTE proph on heparin Status: Acute
--- NOTE | 2018-01-06 17:00 | CP.PCM.PN ---
Subjective - Date & Time of Evaluation Date of Evaluation: 01/06/18 Time of Evaluation: 09:00 - Subjective Subjective: Podiatry Progress Note - Dr. Okeefe 62F seen and evaluated this AM for LLE cellulitis and lanced bullae. Family present at bedside. No acute events overnight. Reports pain in LLE slowly improving. Dressing to medial left leg clean/dry/intact. Denies N/V/F/D/C/SOB. Objective - Vital Signs/Intake and Output Vital Signs (last 24 hours): Temp Pulse Resp BP Pulse Ox 98.1 F 64 20 128/76 97 01/06/18 07:30 01/06/18 07:30 01/06/18 07:30 01/06/18 07:30 01/06/18 07:30 Intake and Output: 01/06/18 01/06/18 06:59 18:59 Intake Total 500 360 Output Total 500 400 Balance 0 -40 - Medications Medications: Current Medications Acetaminophen (Tylenol 325mg Tab) 650 mg PO Q6 PRN PRN Reason: Pain, Mild (1-3) Last Admin: 01/04/18 20:33 Dose: 650 mg Acetaminophen (Tylenol 325mg Tab) 650 mg PO Q6H PRN PRN Reason: Fever >100.4 F Acyclovir (Zovirax) 800 mg PO BID JORGE A PRN Reason: Protocol Last Admin: 01/06/18 11:15 Dose: 800 mg Al Hydrox/Mg Hydrox/Simethicone (Maalox Plus 30 Ml) 30 ml PO Q8H PRN PRN Reason: Indigestion / Heartburn Last Admin: 01/04/18 23:07 Dose: 30 ml Alprazolam (Xanax) 0.5 mg PO BID PRN PRN Reason: Anxiety Last Admin: 01/04/18 10:59 Dose: 0.5 mg Benzocaine/Menthol (Cepacol Sore Throat) 1 rodo MT Q3H PRN PRN Reason: Sore Throat Bismuth Subsalicylate (Pepto Bismol) 262 mg PO Q8H PRN PRN Reason: Dyspepsia Last Admin: 01/06/18 10:06 Dose: 262 mg Docusate Sodium (Colace) 100 mg PO DAILY JORGE A Last Admin: 01/06/18 10:01 Dose: Not Given Heparin Sodium (Porcine) (Heparin) 5,000 units SC Q8 [facility] Last Admin: 01/06/18 13:55 Dose: 5,000 units Ceftaroline Fosamil 600 mg/ (Sodium Chloride) 100 mls @ 100 mls/hr IVPB Q12H JORGE A PRN Reason: Protocol Last Admin: 01/06/18 13:56 Dose: 100 mls/hr Clindamycin Phosphate (Cleocin In Normal Saline) 600 mg in 50 mls @ 102 mls/hr IVPB Q8H JORGE A PRN Reason: Protocol Last Admin: 01/06/18 10:01 Dose: 102 mls/hr Morphine Sulfate (Morphine) 1 mg IVP Q6H PRN PRN Reason: Pain, severe (8-10) Last Admin: 01/06/18 10:02 Dose: 1 mg Oxycodone/Acetaminophen (Percocet 5/325 Mg Tab) 1 tab PO Q4H PRN PRN Reason: Pain, moderate (4-7) Stop: 01/07/18 12:51 Last Admin: 01/06/18 15:33 Dose: 1 tab Pantoprazole Sodium (Protonix Ec Tab) 40 mg PO DAILY [facility] Last Admin: 01/06/18 10:03 Dose: 40 mg Zolpidem Tartrate (Ambien) 5 mg PO HS PRN PRN Reason: Insomnia Last Admin: 01/05/18 23:06 Dose: 5 mg - Labs Labs: 01/06/18 07:37 01/06/18 07:37 PT 18.4 SECONDS (9.7-12.2) H 01/03/18 08:17 INR 1.7 01/03/18 08:17 APTT 26 SECONDS (21-34) 01/03/18 08:17 - Constitutional Appears: Well, Non-toxic, No Acute Distress - Extremities Exam Additional comments: Left LE focused exam VASC: DP/PT pulses weakly palpable 1/4, Cap refill time: < 3 sec to all digits, Temp gradient: hot to hot from proximal tibial tuberosity to distal digits, +1 pitting edema noted extending from the knee joint distally DERM: Lanced bullae noted on the postero-medial aspect of the left leg epithelialzing; no drainage present; lateral border of the nail fold opening noted on the hallux and 2nd digit nail, deep rubor extending from knee joint to ankle improving NEURO: protective sensation grossly intact ORTHO: Pain on palpation noted to areas of deep rubor; ROM limited secondary to guarding. - Neurological Exam Neurological Exam: Alert, Awake, Oriented x3 - Psychiatric Exam Psychiatric exam: Normal Affect, Normal Mood Assessment and Plan - Assessment and Plan (Free Text) Assessment: 62F with 1) left lower extremity cellulitis and 2) serous bullae, resolving Plan: Patient seen and evaluated Discussed with attending, Dr. Sary BAILEY, WBC trending downwards @ 14.[address] (12/30/17): No gas forming cellulitis, no intramuscular gas noted, negative osteomyelitis; large suprapatellar effusion, left lateral thigh fluid collection Left tibfib XR (12/31/17): soft tissue swelling without acute articular or osseous abnormality Venous duplex LLE: (-)DVT Bullae improving; continue local wound care - Optifoam; will continue to monitor Continue abx per ID - Ceftaroline, Clindamycin Pain control per primary team Podiatry will continue to follow
[2018-01-07] MEDS: Clindamycin 600mg/50ml NS 600 MG/50 ML BAG IVPB SCH ×3 (01:45→18:23)
[2018-01-07] MEDS: Ceftaroline 600 MG in Sodium Chloride 0.9% 100 ML IVPB SCH ×2 (01:45→12:40)
--- NOTE | 2018-01-07 02:51 | PN ---
DATE: 01/06/2018 SUBJECTIVE: The patient is seen and examined at bedside. The patient denies any new complaints other than left leg pain. PHYSICAL EXAMINATION: GENERAL: Middle-aged female lying in bed in no acute distress. VITAL SIGNS: Blood pressure 147/76, pulse 60, respirations 20, temperature 98.7 degrees Fahrenheit, O2 sat is 96% on room air. HEENT: Pupils equal, round, reacting to light and accommodation. Extraocular muscles intact. No icterus. No pallor. No oral thrush. No pharyngeal congestion. NECK: Supple. No JVD. LUNGS: Bilateral vesicular breath sounds. No wheezing. No rhonchi. CVS: S1 and S2 present, regular. ABDOMEN: Soft, nontender. Bowel sounds present. No guarding. No rigidity. No rebound tenderness noted. AIRLINE PILOT: Alert, awake, oriented x3. No focal deficits noted. EXTREMITIES: Left lower extremity swelling decreasing. Erythema decreasing but with persistent tenderness to even light touch and difficulty moving her left leg. MEDICATIONS: Tylenol as needed, Zovirax 800 mg p.o. b.i.d., Maalox as needed, Xanax 0.5 mg b.i.d., Teflaro 600 mg every 12 hours, clindamycin 600 mg IV every 8 hours, Colace 100 mg daily, subcu heparin for DVT prophylaxis, morphine as needed, Percocet as needed, Protonix 40 mg daily, Ambien 5 mg p.o. at bedtime. LABORATORY DATA: Labs from today: WBC 14.5, hemoglobin 8.5, hematocrit 25.3, platelets 748,000. Sodium 142, potassium 3.8, chloride 101, bicarb 30, BUN 13, creatinine 0.7, glucose 93, calcium 9.4, alkaline phosphatase 186, total protein 7.3, albumin 3.2. ASSESSMENT AND PLAN: A middle-aged female with history of rheumatoid arthritis, osteoarthritis, admitted for septic shock, left leg cellulitis with persistently elevated WBC counts and her white blood cell count is improving. The patient could not tolerate MRIs, on multiple antibiotics. We will continue with current therapy. Discussed with case management and social economist. Offered discharge planning. No interventional radiology drainage done. Will follow up with Orthopedics and Podiatry and will follow up with Infectious Disease regarding the length of the antibiotics. business services representative for subacute rehab placement. Nando Blum MD [facility] # [id number]
[2018-01-07] MEDS: Oxycodone/Acetaminophen 5/325 mg Tab PO PRN ×2 (03:40→10:34)
[2018-01-07 07:22] LABS: BASO # 0.2 K/uL (0.0-0.2); BASO % 1.4 % (0.0-2.0); EOS # 0.2 K/uL (0.0-0.7); EOS % 1.4 % (0.0-4.0); HEMOGLOBIN 8.8 g/dL (11.0-16.0); LYMPH % 14.3 % (20.0-40.0); MEAN CELL VOLUME 86.8 fL (81.0-99.0); MEAN CORPUSCULAR HEMOGLOBIN 29.3 pg (27.0-31.0); MEAN CORPUSCULAR HGB CONC 33.8 g/dL (33.0-37.0); MEAN PLATELET VOLUME 7.4 fL (7.2-11.7); MONO # 1.6 K/uL (0.0-0.8); MONO % 11.5 % (0.0-10.0); NEUT % 71.4 % (50.0-75.0); RBC 3.02 Mil/uL (3.80-5.20)
[2018-01-07 07:34] LABS: ALB/GLOB RATIO 0.8 (1.0-2.1); ALBUMIN 3.3 g/dL (3.5-5.0); ALT/SGPT 19 U/L (9-52); AST/SGOT 26 U/L (14-36); BLOOD UREA NITROGEN 14 mg/dL (7-17); CALCIUM 9.5 mg/dl (8.6-10.4); GFR AFRICAN-AMERICAN > 60; GFR NON-AFRICAN AMERICAN > 60
[2018-01-07] MEDS: Pantoprazole 40 mg EC Tab PO SCH (10:00)
--- NOTE | 2018-01-07 10:00 | CP.PCM.PN ---
Subjective - Date & Time of Evaluation Date of Evaluation: 01/07/18 Time of Evaluation: 10:00 - Subjective Subjective: Progress note dictated #[id number] Objective - Vital Signs/Intake and Output Vital Signs (last 24 hours): Temp Pulse Resp BP Pulse Ox 98.8 F 62 20 121/71 100 01/07/18 07:35 01/07/18 07:35 01/07/18 07:35 01/07/18 07:35 01/07/18 07:35 Intake and Output: 01/07/18 01/07/18 06:59 18:59 Intake Total 270 Output Total 800 Balance -530 - Medications Medications: Current Medications Acetaminophen (Tylenol 325mg Tab) 650 mg PO Q6 PRN PRN Reason: Pain, Mild (1-3) Last Admin: 01/04/18 20:33 Dose: 650 mg Acetaminophen (Tylenol 325mg Tab) 650 mg PO Q6H PRN PRN Reason: Fever >100.4 F Acyclovir (Zovirax) 800 mg PO BID JORGE A PRN Reason: Protocol Last Admin: 01/06/18 18:51 Dose: 800 mg Al Hydrox/Mg Hydrox/Simethicone (Maalox Plus 30 Ml) 30 ml PO Q8H PRN PRN Reason: Indigestion / Heartburn Last Admin: 01/04/18 23:07 Dose: 30 ml Alprazolam (Xanax) 0.5 mg PO BID PRN PRN Reason: Anxiety Last Admin: 01/04/18 10:59 Dose: 0.5 mg Benzocaine/Menthol (Cepacol Sore Throat) 1 rodo MT Q3H PRN PRN Reason: Sore Throat Bismuth Subsalicylate (Pepto Bismol) 262 mg PO Q8H PRN PRN Reason: Dyspepsia Last Admin: 01/06/18 10:06 Dose: 262 mg Docusate Sodium (Colace) 100 mg PO DAILY [facility] Last Admin: 01/06/18 10:01 Dose: Not Given Heparin Sodium (Porcine) (Heparin) 5,000 units SC Q8 [facility] Last Admin: 01/07/18 05:41 Dose: 5,000 units Ceftaroline Fosamil 600 mg/ (Sodium Chloride) 100 mls @ 100 mls/hr IVPB Q12H JORGE A PRN Reason: Protocol Last Admin: 01/07/18 01:45 Dose: 100 mls/hr Clindamycin Phosphate (Cleocin In Normal Saline) 600 mg in 50 mls @ 102 mls/hr IVPB Q8H JORGE A PRN Reason: Protocol Last Admin: 01/07/18 01:45 Dose: 102 mls/hr Morphine Sulfate (Morphine) 1 mg IVP Q6H PRN PRN Reason: Pain, severe (8-10) Last Admin: 01/06/18 18:16 Dose: 1 mg Oxycodone/Acetaminophen (Percocet 5/325 Mg Tab) 1 tab PO Q4H PRN PRN Reason: Pain, moderate (4-7) Stop: 01/07/18 12:51 Last Admin: 01/07/18 03:40 Dose: 1 tab Pantoprazole Sodium (Protonix Ec Tab) 40 mg PO DAILY JORGE A Last Admin: 01/06/18 10:03 Dose: 40 mg Zolpidem Tartrate (Ambien) 5 mg PO HS PRN PRN Reason: Insomnia Last Admin: 01/06/18 23:38 Dose: 5 mg - Labs Labs: 01/07/18 06:51 01/07/18 06:51 PT 18.4 SECONDS (9.7-12.2) H 01/03/18 08:17 INR 1.7 01/03/18 08:17 APTT 26 SECONDS (21-34) 01/03/18 08:17
[2018-01-07] MEDS: Bismuth Subsalicylate 262 mg Chew Tab PO PRN (10:43)
--- NOTE | 2018-01-07 15:25 | CP.PCM.PN ---
Subjective - Date & Time of Evaluation Date of Evaluation: 01/07/18 Time of Evaluation: 15:23 - Subjective Subjective: Orthopedic progress note Patient seen and examined at bedside comfortable. Pain is minimally improved since yesterday. She was able to do minimal with PT today, sitting up in bed from lying down, secondary to the pain. No other complaints. Objective - Vital Signs/Intake and Output Vital Signs (last 24 hours): Temp Pulse Resp BP Pulse Ox 98.8 F 62 20 121/71 100 01/07/18 07:35 01/07/18 07:35 01/07/18 07:35 01/07/18 07:35 01/07/18 07:35 Intake and Output: 01/07/18 01/07/18 06:59 18:59 Intake Total 270 480 Output Total 800 100 Balance -530 380 - Medications Medications: Current Medications Acetaminophen (Tylenol 325mg Tab) 650 mg PO Q6 PRN PRN Reason: Pain, Mild (1-3) Last Admin: 01/04/18 20:33 Dose: 650 mg Acetaminophen (Tylenol 325mg Tab) 650 mg PO Q6H PRN PRN Reason: Fever >100.4 F Acyclovir (Zovirax) 800 mg PO BID JORGE A PRN Reason: Protocol Last Admin: 01/07/18 10:36 Dose: 800 mg Al Hydrox/Mg Hydrox/Simethicone (Maalox Plus 30 Ml) 30 ml PO Q8H PRN PRN Reason: Indigestion / Heartburn Last Admin: 01/04/18 23:07 Dose: 30 ml Benzocaine/Menthol (Cepacol Sore Throat) 1 rodo MT Q3H PRN PRN Reason: Sore Throat Bismuth Subsalicylate (Pepto Bismol) 262 mg PO Q8H PRN PRN Reason: Dyspepsia Last Admin: 01/07/18 10:43 Dose: 262 mg Docusate Sodium (Colace) 100 mg PO DAILY [facility] Last Admin: 01/07/18 10:36 Dose: 100 mg Heparin Sodium (Porcine) (Heparin) 5,000 units SC Q8 [facility] Last Admin: 01/07/18 14:31 Dose: 5,000 units Ceftaroline Fosamil 600 mg/ (Sodium Chloride) 100 mls @ 100 mls/hr IVPB Q12H JORGE A PRN Reason: Protocol Last Admin: 01/07/18 12:40 Dose: 100 mls/hr Clindamycin Phosphate (Cleocin In Normal Saline) 600 mg in 50 mls @ 102 mls/hr IVPB Q8H JORGE A PRN Reason: Protocol Last Admin: 01/07/18 10:36 Dose: 102 mls/hr Morphine Sulfate (Morphine) 1 mg IVP Q6H PRN PRN Reason: Pain, severe (8-10) Last Admin: 01/07/18 14:57 Dose: 1 mg Pantoprazole Sodium (Protonix Ec Tab) 40 mg PO DAILY JORGE A Last Admin: 01/07/18 10:00 Dose: 40 mg Zolpidem Tartrate (Ambien) 5 mg PO HS PRN PRN Reason: Insomnia Last Admin: 01/06/18 23:38 Dose: 5 mg - Labs Labs: 01/07/18 06:51 01/07/18 06:51 PT 18.4 SECONDS (9.7-12.2) H 01/03/18 08:17 INR 1.7 01/03/18 08:17 APTT 26 SECONDS (21-34) 01/03/18 08:17 - Extremities Exam Additional comments: LLE: tenderness to medial leg, diffuse duskiness to leg sensation intact SP/DP/TN motor intact EHL/FHL, intact TA/G with pain pedal pulse intact comps soft Assessment and Plan (1) Cellulitis Assessment & Plan: -Continue with conservative management -IV abx as per ID -PT/OT encourage ROM and ambulation -orthopedically stable to d/c to rehab -f/u in office within 2 weeks -d/w Dr. Bourne in agreement Status: Acute
[2018-01-07 16:50] VITALS: BP 127/81; PULSE 69; TEMP 98.6; O2SAT 96
[2018-01-07] MEDS ORDERED: Oxycodone/Acetaminophen 5/325 mg Tab PO PRN (19:15)
--- NOTE | 2018-01-08 00:52 | PN ---
DATE: 01/07/2018 SUBJECTIVE: The patient was seen and examined at bedside. The patient offers no new complaints other than left leg pain, participating in physical therapy. PHYSICAL EXAMINATION: GENERAL: Middle-aged female, lying in bed, in no acute distress. VITAL SIGNS: Blood pressure 127/81, pulse 69, respirations 20, temperature 98.6 degrees Fahrenheit, O2 sat is 96% on room air. HEENT: Pupils equal, round, reacting to light and accommodation. Extraocular muscles intact. No icterus. No pallor. No oral thrush. No pharyngeal congestion. No nasal congestion. NECK: Supple. No JVD. LUNGS: Bilateral vesicular breath sounds. No wheezing. No rhonchi. CVS: S1, S2 present, regular. ABDOMEN: Soft, nontender. Bowel sounds present. No guarding. No rigidity. No rebound tenderness noted. SCHOOL PRINCIPAL: Alert, awake, oriented x3. No focal deficits noted. EXTREMITIES: Left lower extremity swelling decreasing, erythema decreasing, but tenderness is still present. MEDICATIONS: Include Tylenol as needed, Zovirax 800 mg b.i.d., Maalox as needed, Cepacol, Pepto-Bismol as needed, Teflaro 600 mg IV every 12 hours, clindamycin 600 mg IV every 8 hours, Colace as needed, heparin 5000 units subcutaneous every 8 hours, morphine as needed, nystatin powder, Percocet as needed, Protonix one tab daily, Ambien 5 mg p.o. at bedtime. LABORATORY DATA: Labs from today: WBC 14, hemoglobin 8.8, hematocrit 26.2, platelets . Sodium 140, potassium 4, chloride 102, bicarb 29, BUN 14, creatinine 0.7, glucose 91, calcium 9.5. AST 26, ALT 19, alkaline phosphatase 191, total protein 7.6, albumin 3.3. ASSESSMENT AND PLAN: Middle-aged female with rheumatoid arthritis, osteoarthritis, gastroesophageal reflux disease, asthma. Admitted for left leg cellulitis, status post septic shock, group A Streptococcal bacteremia, urinary tract infection. All the radiologic workup negative for any fluid collection or abscess. The patient is otherwise hemodynamically stable. I was planning for discharge today to subacute rehab. The patient does not want to be discharged, claiming that she is not ready to be discharged in her opinion. I spoke to the patient for more than 30 minutes explaining her condition and the need for subacute rehab placement for continuation of the IV antibiotic therapy and for physical therapy. We will discuss with the patient in a.m. We will continue with current antibiotics. Nando Blum MD
== END 2018-01-07 21:15 | DRG 871 ==
LOC: C.ER 13:41 → C.9E 16:28 → C.3T 17:59 → C.9E 19:09 → C.9I 22:40 → C.6T 01-01 16:54
PROVIDERS: ADMIT Internal Medicine; ATTEND Internal Medicine
DX: A40.0 Sepsis due to streptococcus, group A (principal); R65.21 Severe sepsis with septic shock; L03.116 Cellulitis of left lower limb; N39.0 Urinary tract infection, site not specified; T63.301A Toxic effect of unspecified spider venom, accidental (unintentional), initial encounter; E83.39 Other disorders of phosphorus metabolism; E83.42 Hypomagnesemia; E87.6 Hypokalemia; I10 Essential (primary) hypertension; I34.1 Nonrheumatic mitral (valve) prolapse; J45.909 Unspecified asthma, uncomplicated; K21.9 Gastro-esophageal reflux disease without esophagitis; M06.9 Rheumatoid arthritis, unspecified; F41.9 Anxiety disorder, unspecified; M19.90 Unspecified osteoarthritis, unspecified site; M79.7 Fibromyalgia; N20.0 Calculus of kidney; Z96.653 Presence of artificial knee joint, bilateral; Y92.9 Unspecified place or not applicable; Z86.14 Personal history of Methicillin resistant Staphylococcus aureus infection; Z88.0 Allergy status to penicillin; Z88.8 Allergy status to other drugs, medicaments and biological substances